=== PATIENT | female | born 2005 | race Caucasian/White ===

== ENCOUNTER 2023-03-12 16:21 | Outpatient (REF) | payer OTHER, SELFPAY | END 2023-03-12 16:22 | LOC: LAB 16:21 | PROVIDERS: PCP Physician Assistant; Visit Provider Physician Assistant | DX: Z34.93 Encounter for supervision of normal pregnancy, unspecified, third trimester (principal) ==

== ENCOUNTER 2023-03-13 15:59 | Outpatient (OUT) | payer OTHER, SELFPAY | END 2023-03-13 16:50 | disposition home or self-care (01) | LOC: LAB 16:41 → FBC 16:44 | PROVIDERS: PCP Physician Assistant; Visit Provider Obstetrics & Gynecology | DX: O36.63X0 Maternal care for excessive fetal growth, third trimester, not applicable or unspecified (principal); Z3A.00 Weeks of gestation of pregnancy not specified | CPT/HCPCS: 59025 ==

== ENCOUNTER 2023-03-16 17:46 | Observation (INO) | payer OTHER, SELFPAY ==
[2023-03-16 18:08] LABS: Bilirubin Urine NEGATIVE (NEGATIVE); Blood Urine NEGATIVE (NEGATIVE); Clarity Urine CLEAR (CLEAR); Color Urine LT. YELLOW (YELLOW); Glucose Urine UA NEGATIVE (NEGATIVE); Ketones Urine NEGATIVE (NEGATIVE); Leukocyte Esterase Urine TRACE (NEGATIVE); Nitrite Urine NEGATIVE (NEGATIVE); Protein Urine NEGATIVE (NEG/TRACE); Urobilinogen Urine 0.2 EU/dL (0.2-1.0)
[2023-03-16 18:09] LABS: Urine Microscopic Indicated YES
[2023-03-16 18:16] LABS: Bacteria Urine TRACE #/HPF (NONE SEEN); Cast Seen? NONE SEEN #/LPF (NONE SEEN); Crystals Seen? None Seen #/HPF (None Seen); Mucus Urine NONE SEEN (NONE SEEN); RBC Urine 0-2 #/HPF (0-2); Squamous Epithelial Cell Urine RARE #/LPF (NONE/RARE); Urine Culture Indicated NO; WBC Urine 0-2 #/HPF (NONE SEEN)
[2023-03-16 18:20] LABS: Amnisure NEGATIVE (NEGATIVE)
[2023-03-16 19:05] VITALS: BP 124/86; PULSE 108; TEMP 36.4
--- NOTE | 2023-03-16 21:06 | PC.NURSE ---
Dr. Tran notified of unchanged SVE, Cat I tracing, ctx pattern, and maternal assessment. Given orders to educate pt on s/s of true labor and discharge home. Pt to call or return with any worsening s/s.
== END 2023-03-16 20:35 | disposition home or self-care (01) ==
PROVIDERS: Admitting Provider Obstetrics & Gynecology; PCP Physician Assistant; Visit Provider Obstetrics & Gynecology
DX: Z03.72 Encounter for suspected placental problem ruled out (principal)
CPT/HCPCS: 81003; 81015; 84112; G0378; G0379

== ENCOUNTER 2023-03-17 16:12 | Outpatient (OUT) | payer OTHER, SELFPAY ==
--- NOTE | 2023-03-17 16:15 | US_ITS ---
[address] [address] Patient Name: SOLO CAMPOS MRN: [facility]:[id number] date: 2005 Sex: F Assigned Patient Location: [facility] Current Patient Location: [facility] [place] Accession/Order Number: [id number] Exam Date: 03/17/2023 16:15 Report Date: 03/18/2023 15:36 At the request of: ZEINAB FAIRCHILD Procedure: US OB BPP w non-stress EXAMINATION: US OB BPP w non-stress HISTORY: O36.63X0 LARGE FOR DATES COMPARISON: Ultrasound biophysical 03/10/2023 TECHNIQUE: Ultrasound biophysical profile was performed in the radiology department. BREATHING MOVEMENTS: 0.0 GROSS BODY MOVEMENTS: 2.0 TONE: 2.0 QUALITATIVE AMNIOTIC FLUID VOLUME: 2.0 PRESENTATION: CEPHALIC HEART RATE: 134.3 bpm bpm. AMNIOTIC FLUID VOLUME: 11.7 cm GESTATIONAL AGE: 37 weeks 3 days CONCLUSION: Total biophysical profile score 6.0. Electronically authenticated by: NE CRUZ Date: 03/18/2023 15:36
[2023-03-17 17:00] VITALS: BP 132/68; PULSE 92
== END 2023-03-17 17:35 | disposition home or self-care (01) ==
LOC: US 16:13 → FBC 16:15
PROVIDERS: PCP Physician Assistant; Visit Provider Obstetrics & Gynecology
DX: O36.63X0 Maternal care for excessive fetal growth, third trimester, not applicable or unspecified (principal); Z3A.37 37 weeks gestation of pregnancy
CPT/HCPCS: 59025; 76818

== ENCOUNTER 2023-03-18 16:25 | Outpatient (OUT) | payer OTHER, SELFPAY ==
--- NOTE | 2023-03-18 16:32 | US_ITS ---
[address] [address] Patient Name: SOLO CAMPOS MRN: [facility]:[id number] date: 2005 Sex: F Assigned Patient Location: [facility] Current Patient Location: Accession/Order Number: [id number] Exam Date: 03/18/2023 16:30 Report Date: 03/19/2023 15:10 At the request of: TYLER ROBERTS Procedure: US OB BPP w non-stress EXAMINATION: US OB BPP w non-stress HISTORY: repeat COMPARISON: Ultrasound biophysical 03/17/2023 TECHNIQUE: Ultrasound biophysical profile was performed in the radiology department. BREATHING MOVEMENTS: 2.0 GROSS BODY MOVEMENTS: 2.0 TONE: 2.0 QUALITATIVE AMNIOTIC FLUID VOLUME: 2.0 PRESENTATION: CEPHALIC HEART RATE: 131.7 bpm bpm. AMNIOTIC FLUID VOLUME: 14.4 cm GESTATIONAL AGE: 37 weeks 4 days CONCLUSION: Total biophysical profile score 8.0. Electronically authenticated by: NE CRUZ Date: 03/19/2023 15:10
== END 2023-03-18 17:31 | disposition home or self-care (01) ==
LOC: FBCO 16:28 → FBC 16:33
PROVIDERS: PCP Physician Assistant; Visit Provider Obstetrics & Gynecology
DX: O36.63X0 Maternal care for excessive fetal growth, third trimester, not applicable or unspecified (principal); Z3A.37 37 weeks gestation of pregnancy
CPT/HCPCS: 76818

== ENCOUNTER 2023-03-20 15:57 | Outpatient (OUT) | payer OTHER, SELFPAY ==
[2023-03-20 16:16] VITALS: BP 138/63; PULSE 95
== END 2023-03-20 17:00 | disposition home or self-care (01) ==
LOC: FBCO 15:57 → FBC 15:59
PROVIDERS: PCP Physician Assistant; Visit Provider Obstetrics & Gynecology
DX: O36.63X0 Maternal care for excessive fetal growth, third trimester, not applicable or unspecified (principal); Z3A.00 Weeks of gestation of pregnancy not specified
CPT/HCPCS: 59025

== ENCOUNTER 2023-03-24 14:47 | Inpatient (IN) | payer OTHER, SELFPAY ==
[2023-03-24 11:14] VITALS: BP 132/86; PULSE 101
--- NOTE | 2023-03-24 11:29 | US_ITS ---
[address] [address] Patient Name: SOLO CAMPOS MRN: [facility]:[id number] date: 2005 Sex: F Assigned Patient Location: [facility] Current Patient Location: [facility] Accession/Order Number: [id number] Exam Date: 03/24/2023 12:10 Report Date: 03/24/2023 15:43 At the request of: ZEINAB FAIRCHILD Procedure: US OB BPP w non-stress EXAMINATION: US OB BPP w non-stress HISTORY: Large for dates complicating in third trimester COMPARISON: Ultrasound biophysical profile 03/18/2023 TECHNIQUE: Ultrasound biophysical profile was performed in the radiology department. BREATHING MOVEMENTS: 2.0 GROSS BODY MOVEMENTS: 2.0 TONE: 2.0 QUALITATIVE AMNIOTIC FLUID VOLUME: 2.0 PRESENTATION: Cephalic HEART RATE: 139.2 bpm bpm. AMNIOTIC FLUID VOLUME: 13.4 cm GESTATIONAL AGE: 38 weeks 3 days CONCLUSION: 1. Total biophysical profile score 8.0. 2. Grade 3 placenta. Electronically authenticated by: NE CRUZ Date: 03/24/2023 15:43
[2023-03-24 11:41] VITALS: BP 129/82; PULSE 88
[2023-03-24 12:00] VITALS: BP 126/77; PULSE 95
[2023-03-24 12:09] LABS: Bilirubin Urine NEGATIVE (NEGATIVE); Blood Urine SMALL (NEGATIVE); Color Urine LT. YELLOW (YELLOW); Glucose Urine UA NEGATIVE (NEGATIVE); Ketones Urine NEGATIVE (NEGATIVE); Leukocyte Esterase Urine MODERATE (NEGATIVE); Nitrite Urine NEGATIVE (NEGATIVE); Protein Urine NEGATIVE (NEG/TRACE); Urobilinogen Urine 0.2 EU/dL (0.2-1.0); pH Urine 6.5 (5.0-9.0)
[2023-03-24 12:42] LABS: Clarity Urine SLIGHTLY CLOUDY (CLEAR); Urine Microscopic Indicated YES
[2023-03-24 12:45] LABS: Bacteria Urine SMALL #/HPF (NONE SEEN); Mucus Urine NONE SEEN (NONE SEEN)
[2023-03-24 12:46] LABS: Cast Seen? NONE SEEN #/LPF (NONE SEEN); Crystals Seen? None Seen #/HPF (None Seen); Squamous Epithelial Cell Urine MANY #/LPF (NONE/RARE); Transitional Epi Cells Urine RARE #/LPF (NONE SEEN); Urine Culture Indicated YES
[2023-03-24 18:40] LABS: Amphetamine Screen Urine NEGATIVE (NEGATIVE); Barbiturates Screen Urine NEGATIVE (NEGATIVE); Benzodiazepines Screen Urine NEGATIVE (NEGATIVE); Buprenorphine Screen Urine NEGATIVE (NEGATIVE); Cannabinoid Screen Urine NEGATIVE (NEGATIVE); Cocaine Screen Urine NEGATIVE (NEGATIVE); Methadone Screen Urine NEGATIVE (NEGATIVE); Methamphetamines Screen Urine NEGATIVE (NEGATIVE); Opiate Screen Urine NEGATIVE (NEGATIVE); Oxycodone Screen Urine NEGATIVE (NEGATIVE); Phencyclidine Screen Urine NEGATIVE (NEGATIVE); Tricyclic Antidepressant Urine NEGATIVE (NEGATIVE)
[2023-03-24 18:54] LABS: Basophils Percent Auto 0.3 % (0.2-2.0); Eosinophils Percent Auto 0.3 % (0.9-7.0); Hematocrit 34.8 % (36.0-48.0); Hemoglobin 11.1 g/dL (12.0-16.0); Immature Granulocytes Abs Auto 0.07 10^3/uL (0.00-0.03); Immature Granulocytes Pct Auto 0.7 % (0.0-0.5); Lymphocytes Absolute Auto 1.8 10^3/uL (1.2-3.8); Lymphocytes Percent Auto 18.6 % (20.5-60.0); Mean Corpuscular HGB Conc 31.9 g/dL (29.9-35.2); Mean Corpuscular Hemoglobin 24.8 pg (26.7-34.0); Mean Corpuscular Volume 77.9 fL (81.0-99.0); Mean Platelet Volume 11.5 fL (9.5-13.5); Monocytes Absolute Auto 0.9 10^3/uL (0.3-0.8); Monocytes Percent Auto 9.4 % (1.7-12.0); Neutrophils Absolute Auto 6.9 10^3/uL (1.4-6.5); Neutrophils Percent Auto 70.7 % (43.0-75.0); Platelet Count 186 10^3/uL (150-450); Red Blood Count 4.47 10^6/uL (4.20-5.40); Red Cell Distribution Width 16.8 % (11.0-15.0); White Blood Count 9.8 10^3/uL (4.0-11.0)
--- NOTE | 2023-03-24 19:24 | W.PC.ACHO ---
Registration Status: ADM IN Primary Language: Estonian Preferred Language: Estonian Active Medications Generic Name Dose Route Start Last Admin Trade Name Phill PRN Reason Stop Dose Admin Carboprost Tromethamine 250 mcg 03/24/23 17:52 Carboprost Tromethamine 250 Mcg/Ml 1 Ml Vial IM Q15M PRN Bleeding Sodium Chloride 1,000 mls @ 125 mls/hr 03/24/23 18:00 Sodium Chloride 0.9% 1,000 Ml IV .Q8H PRN Labor Induction Oxytocin 10 unit/ Sodium 501 mls @ 6.012 mls/hr 03/25/23 06:00 Chloride IV Q24H YANCI 2 MILLIUNIT/MIN Vancomycin HCl 1,000 mg/ 250 mls @ 250 mls/hr 03/25/23 06:00 Sodium Chloride IV Q12H YANCI Lidocaine 5 ml 03/24/23 17:52 Lidocaine Viscous 2% 15 Ml Topical Solution TOPICAL ONCE PRN Pain Lidocaine 1 ml 03/24/23 17:52 Lidocaine Hcl 1% 200 Mg/20 Ml Mdv INJ ONCE PRN Pain Methylergonovine Maleate 0.2 mg 03/24/23 17:52 Methylergonovine Maleate 0.2 Mg/Ml Ampule IM ONCE PRN Uterine Contractility/Contract Methylergonovine Maleate 0.2 mg 03/24/23 17:52 Methylergonovine Maleate 0.2 Mg Tablet PO Q4H PRN Uterine Contractility/Contract Misoprostol 600 mcg 03/24/23 17:52 Misoprostol 100 Mcg Tablet PO ONCE PRN Uterine Bleeding Misoprostol 800 mcg 03/24/23 17:52 Misoprostol 100 Mcg Tablet SL ONCE PRN Uterine Bleeding Misoprostol 1,000 mcg 03/24/23 17:52 Misoprostol 100 Mcg Tablet [place] ONCE PRN Uterine Bleeding Nalbuphine HCl 10 mg 03/24/23 17:52 Nalbuphine Hcl 10 Mg/Ml Ampule IV Q3H PRN Pain Ondansetron HCl 4 mg 03/24/23 17:52 Ondansetron Pf 4 Mg/2 Ml Vial IV Q6H PRN Nausea And Vomiting Ondansetron HCl 4 mg 03/24/23 17:52 Ondansetron 4 Mg Rapdis Tablet SL Q6H PRN Nausea And Vomiting Oxytocin 10 unit 03/24/23 17:52 Oxytocin 100 Unit/10 Ml Vial IM ONCE PRN Uterine Bleeding Diet Category Date Time Status Clear Liquid Diet Diet 03/25/23 Breakfast Active Regular Consistency Diet Diet 03/24/23 Lunch Active Consults Category Date Time Status Consult to Anesthesiology Routine Cons 03/24/23 Ordered IV Insertion/Site Date of IV Line Insertion [20g 03/24/23 left Hand] IV Insertion Time [20g left 18:36 Hand] Neurology Patient orientation (short person,place,time,situation list) Respiratory Oxygen Delivery Method Room Air
--- NOTE | 2023-03-24 19:34 | W.PC.ACHO ---
Registration Status: ADM IN Primary Language: Singaporean Preferred Language: Singaporean Report recieved from Jace CARIAS. Bedside report completed. Active Medications Generic Name Dose Route Start Last Admin Trade Name Phill PRN Reason Stop Dose Admin Carboprost Tromethamine 250 mcg 03/24/23 17:52 Carboprost Tromethamine 250 Mcg/Ml 1 Ml Vial IM Q15M PRN Bleeding Sodium Chloride 1,000 mls @ 125 mls/hr 03/24/23 18:00 Sodium Chloride 0.9% 1,000 Ml IV .Q8H PRN Labor Induction Oxytocin 10 unit/ Sodium 501 mls @ 6.012 mls/hr 03/25/23 06:00 Chloride IV Q24H YANCI 2 MILLIUNIT/MIN Vancomycin HCl 1,000 mg/ 250 mls @ 250 mls/hr 03/25/23 06:00 Sodium Chloride IV Q12H YANCI Lidocaine 5 ml 03/24/23 17:52 Lidocaine Viscous 2% 15 Ml Topical Solution TOPICAL ONCE PRN Pain Lidocaine 1 ml 03/24/23 17:52 Lidocaine Hcl 1% 200 Mg/20 Ml Mdv INJ ONCE PRN Pain Methylergonovine Maleate 0.2 mg 03/24/23 17:52 Methylergonovine Maleate 0.2 Mg/Ml Ampule IM ONCE PRN Uterine Contractility/Contract Methylergonovine Maleate 0.2 mg 03/24/23 17:52 Methylergonovine Maleate 0.2 Mg Tablet PO Q4H PRN Uterine Contractility/Contract Misoprostol 600 mcg 03/24/23 17:52 Misoprostol 100 Mcg Tablet PO ONCE PRN Uterine Bleeding Misoprostol 800 mcg 03/24/23 17:52 Misoprostol 100 Mcg Tablet SL ONCE PRN Uterine Bleeding Misoprostol 1,000 mcg 03/24/23 17:52 Misoprostol 100 Mcg Tablet [place] ONCE PRN Uterine Bleeding Nalbuphine HCl 10 mg 03/24/23 17:52 Nalbuphine Hcl 10 Mg/Ml Ampule IV Q3H PRN Pain Ondansetron HCl 4 mg 03/24/23 17:52 Ondansetron Pf 4 Mg/2 Ml Vial IV Q6H PRN Nausea And Vomiting Ondansetron HCl 4 mg 03/24/23 17:52 Ondansetron 4 Mg Rapdis Tablet SL Q6H PRN Nausea And Vomiting Oxytocin 10 unit 03/24/23 17:52 Oxytocin 100 Unit/10 Ml Vial IM ONCE PRN Uterine Bleeding Diet Category Date Time Status Clear Liquid Diet Diet 03/25/23 Breakfast Active Regular Consistency Diet Diet 03/24/23 Lunch Active Consults Category Date Time Status Consult to Anesthesiology Routine Cons 03/24/23 Ordered IV Insertion/Site Date of IV Line Insertion [20g 03/24/23 left Hand] IV Insertion Time [20g left 18:36 Hand] Neurology Patient orientation (short person,place,time,situation list) Respiratory Oxygen Delivery Method Room Air
[2023-03-24 20:05] VITALS: BP 128/80; PULSE 88
[2023-03-25] VITALS (44 sets, daily range): BP systolic 110–159; BP diastolic 55–92; PULSE 81–137; RESP 16–24; TEMP 35.9–37.6
--- NOTE | 2023-03-25 05:47 | PC.NURSE ---
Pt requests to shower prior to Pitocin start. Pt Iv site covered. Pt showering at this time.
--- NOTE | 2023-03-25 05:51 | PC.NURSE ---
0530- Cervical exam. Cervix unchanged. 1-2cm; 60%; -2. Sm dark brown vaginal discharge with exam. Pt reports no contractions at this time.
[2023-03-25] MEDS: 0.9 % SODIUM CHLORIDE 1,000 ML 125 ML IV ×2 (06:01→16:15)
[2023-03-25] MEDS: VANCOMYCIN HCL 1,000 MG in 0.9 % SODIUM CHLORIDE 250 ML 250 MG IV ×2 (06:08→17:32)
[2023-03-25] MEDS: OXYTOCIN 10 UNIT in 0.9 % SODIUM CHLORIDE 500 ML 6.012 UNIT IV (06:30)
--- NOTE | 2023-03-25 07:32 | W.PC.ACHO ---
Registration Status: ADM IN Primary Language: Kuwaiti Preferred Language: Kuwaiti Report given to Marilynn Byrne RN. Active Medications Generic Name Dose Route Start Last Admin Trade Name Phill PRN Reason Stop Dose Admin Carboprost Tromethamine 250 mcg 03/24/23 17:52 Carboprost Tromethamine 250 Mcg/Ml 1 Ml Vial IM Q15M PRN Bleeding Sodium Chloride 1,000 mls @ 125 mls/hr 03/24/23 18:00 03/25/23 06:01 Sodium Chloride 0.9% 1,000 Ml IV 125 mls/hr .Q8H PRN Administration Labor Induction Oxytocin 10 unit/ Sodium 501 mls @ 6.012 mls/hr 03/25/23 06:00 03/25/23 06:30 Chloride IV 2 milliunit/min Q24H YANCI 6.012 mls/hr Administration 2 MILLIUNIT/MIN Vancomycin HCl 1,000 mg/ 250 mls @ 250 mls/hr 03/25/23 06:00 03/25/23 06:08 Sodium Chloride IV 250 mls/hr Q12H YANCI 250 mls/hr Administration Sodium Chloride 1,000 mls @ 125 mls/hr 03/25/23 05:30 Sodium Chloride 0.9% 1,000 Ml IV .Q8H YANCI Oxytocin 20 unit/ Sodium 1,002 mls @ 125 mls/hr 03/25/23 05:30 Chloride IV 03/25/23 13:29 Q8H YANCI Protocol Lidocaine 5 ml 03/24/23 17:52 Lidocaine Viscous 2% 15 Ml Topical Solution TOPICAL ONCE PRN Pain Lidocaine 1 ml 03/24/23 17:52 Lidocaine Hcl 1% 200 Mg/20 Ml Mdv INJ ONCE PRN Pain Methylergonovine Maleate 0.2 mg 03/24/23 17:52 Methylergonovine Maleate 0.2 Mg/Ml Ampule IM ONCE PRN Uterine Contractility/Contract Methylergonovine Maleate 0.2 mg 03/24/23 17:52 Methylergonovine Maleate 0.2 Mg Tablet PO Q4H PRN Uterine Contractility/Contract Misoprostol 600 mcg 03/24/23 17:52 Misoprostol 100 Mcg Tablet PO ONCE PRN Uterine Bleeding Misoprostol 800 mcg 03/24/23 17:52 Misoprostol 100 Mcg Tablet SL ONCE PRN Uterine Bleeding Misoprostol 1,000 mcg 03/24/23 17:52 Misoprostol 100 Mcg Tablet [place] ONCE PRN Uterine Bleeding Nalbuphine HCl 10 mg 03/24/23 17:52 Nalbuphine Hcl 10 Mg/Ml Ampule IV Q3H PRN Pain Ondansetron HCl 4 mg 03/24/23 17:52 Ondansetron Pf 4 Mg/2 Ml Vial IV Q6H PRN Nausea And Vomiting Ondansetron HCl 4 mg 03/24/23 17:52 Ondansetron 4 Mg Rapdis Tablet SL Q6H PRN Nausea And Vomiting Oxytocin 10 unit 03/24/23 17:52 Oxytocin 100 Unit/10 Ml Vial IM ONCE PRN Uterine Bleeding Diet Category Date Time Status Clear Liquid Diet Diet 03/25/23 Breakfast Active IV Insertion/Site Date of IV Line Insertion [20g 03/24/23 left Hand] IV Insertion Time [20g left 18:36 Hand] Neurology Patient orientation (short person,place,time,situation list) Respiratory Oxygen Delivery Method Room Air
[2023-03-25] MEDS: NALBUPHINE HCL 10 MG/ML AMPULE IV (12:59)
[2023-03-25] MEDS: 0.9 % SODIUM CHLORIDE 1,000 ML 1000 ML IV (13:22)
[2023-03-25] MEDS: ROPIVACAINE HCL/PF 400 MG/200 ML PREMIX 10 MG EPIDURAL (14:37)
[2023-03-25] MEDS: FENTANYL CITRATE/PF 100 MCG/2 ML VIAL EPIDURAL (14:40)
--- NOTE | 2023-03-25 17:58 | PC.NURSE ---
CF IN 175
--- NOTE | 2023-03-25 18:49 | PM.OBPRCVD ---
Procedure Induction method: per pitocin protocol Delivery augmentation: pitocin Delivery monitor: external FHT and external uterine Route of delivery: Episiotomy Description: left mediolateral Laceration description: periurethral - 2nd degree Delivery repair: Vicryl Estimated blood loss (mL): 350 Anesthesia type: Epidural Disposition: floor Delivery date: 03/25/23 Gender: male presentation: vertex Placental delivery description: Spontaneous cord description: 3 Vessels cord description comment: EFM off for epidural
[2023-03-25] MEDS: KETOROLAC TROMETHAMINE 30 MG/ML VIAL IVP (19:05)
--- NOTE | 2023-03-25 19:26 | W.PC.ACHO ---
Registration Status: ADM IN Primary Language: Kittitian Preferred Language: Kittitian Active Medications Generic Name Dose Route Start Last Admin Trade Name Freq PRN Reason Stop Dose Admin Acetaminophen 650 mg 03/25/23 18:47 Acetaminophen 325 Mg Tablet PO Q6H PRN Mild Pain Al Hydroxide/Mg Hydroxide 2,400 mg 03/25/23 18:47 Magnesium Hydroxide 2,400 Mg/10 Ml Oral.Susp PO Q6H PRN Dyspepsia Benzocaine/Menthol 1 applic 03/25/23 18:47 Benzocaine/Menthol 85 Gram Bottle TOPICAL Q2H PRN Pain Carboprost Tromethamine 250 mcg 03/24/23 17:52 Carboprost Tromethamine 250 Mcg/Ml 1 Ml Vial IM Q15M PRN Bleeding Diphenhydramine HCl 25 mg 03/25/23 11:19 Diphenhydramine Hcl 50 Mg/Ml (1ml) Vial IV Q6H PRN Itching Docusate Sodium 100 mg 03/26/23 09:00 Docusate Sodium 100 Mg Capsule PO BID YANCI Ephedrine Sulfate 5 mg 03/25/23 11:19 Ephedrine Sulfate 50 Mg/Ml Vial IV Q5M PRN Blood Pressure - Low Fentanyl Citrate 100 mcg 03/25/23 11:19 03/25/23 14:40 Fentanyl Citrate/Pf 100 Mcg/2 Ml Vial EPIDURAL 100 mcg Q4H PRN Administration Pain Sodium Chloride 1,000 mls @ 125 mls/hr 03/24/23 18:00 03/25/23 06:01 Sodium Chloride 0.9% 1,000 Ml IV 125 mls/hr .Q8H PRN Administration Labor Induction Oxytocin 10 unit/ Sodium 501 mls @ 6.012 mls/hr 03/25/23 06:00 03/25/23 06:30 Chloride IV 2 milliunit/min Q24H YANCI 6.012 mls/hr Administration 2 MILLIUNIT/MIN Vancomycin HCl 1,000 mg/ 250 mls @ 250 mls/hr 03/25/23 06:00 03/25/23 17:32 Sodium Chloride IV 250 mls/hr Q12H YANCI 250 mls/hr Administration Sodium Chloride 1,000 mls @ 125 mls/hr 03/25/23 05:30 03/25/23 16:15 Sodium Chloride 0.9% 1,000 Ml IV 125 mls/hr .Q8H YANCI Administration Ropivacaine/Sodium Chloride 400 mg in 200 mls @ 6 mls/hr 03/25/23 11:30 03/25/23 14:37 Naropin 0.2% 400 Mg/200 Ml Bag EPIDURAL 10 mls/hr Q24H YANCI 10 mls/hr Administration Oxytocin 20 unit/ Sodium 1,002 mls @ 125 mls/hr 03/25/23 19:00 Chloride IV 03/26/23 02:59 Q8H YANCI Ibuprofen 600 mg 03/25/23 18:47 Ibuprofen 600 Mg Tablet PO Q6H PRN Moderate Pain Lidocaine 5 ml 03/24/23 17:52 Lidocaine Viscous 2% 15 Ml Topical Solution TOPICAL ONCE PRN Pain Lidocaine 1 ml 03/24/23 17:52 Lidocaine Hcl 1% 200 Mg/20 Ml Mdv INJ ONCE PRN Pain Lidocaine 5 ml 03/25/23 11:19 Lidocaine Hcl 2% Pf 100 Mg/5 Ml Vial INJ Q1H PRN procedure prep Methylergonovine Maleate 0.2 mg 03/24/23 17:52 Methylergonovine Maleate 0.2 Mg/Ml Ampule IM ONCE PRN Uterine Contractility/Contract Methylergonovine Maleate 0.2 mg 03/24/23 17:52 Methylergonovine Maleate 0.2 Mg Tablet PO Q4H PRN Uterine Contractility/Contract Misoprostol 600 mcg 03/24/23 17:52 Misoprostol 100 Mcg Tablet PO ONCE PRN Uterine Bleeding Misoprostol 800 mcg 03/24/23 17:52 Misoprostol 100 Mcg Tablet SL ONCE PRN Uterine Bleeding Misoprostol 1,000 mcg 03/24/23 17:52 [address] ONCE PRN Uterine Bleeding Nalbuphine HCl 10 mg 03/24/23 17:52 03/25/23 12:59 Nalbuphine Hcl 10 Mg/Ml Ampule IV 10 mg Q3H PRN Administration Pain Naloxone HCl 0.4 mg 03/25/23 11:19 Naloxone Hcl 0.4 Mg/Ml Vial IV ONCE PRN respiratory depression Ondansetron HCl 4 mg 03/24/23 17:52 Ondansetron Pf 4 Mg/2 Ml Vial IV Q6H PRN Nausea And Vomiting Ondansetron HCl 4 mg 03/24/23 17:52 Ondansetron 4 Mg Rapdis Tablet SL Q6H PRN Nausea And Vomiting Oxytocin 10 unit 03/24/23 17:52 Oxytocin 100 Unit/10 Ml Vial IM ONCE PRN Uterine Bleeding Senna 17.2 mg 03/25/23 20:00 Sennosides 8.6 Mg Tablet PO QHS PRN Constipation Simethicone 80 mg 03/25/23 18:47 Simethicone 80 Mg Tab.Chew PO QID PRN Abdominal Distention Temazepam 15 mg 03/25/23 20:00 Temazepam 15 Mg Capsule PO BEDTIME PRN Sleep Witch Carolyn/Glycerin 1 each 03/25/23 18:47 Glycerin/Witch Carolyn 1 Each Jar TOPICAL Q6H PRN Pain Diet Category Date Time Status Regular Consistency Diet Diet 03/25/23 Dinner Active IV Insertion/Site Date of IV Line Insertion [20g 03/24/23 left Hand] Date of IV Line Insertion [20g 03/24/23 left Hand] IV Insertion Time [20g left 18:36 Hand] IV Insertion Time [20g left 18:36 Hand] Neurology [place] coma scale total score 13 Respiratory Oxygen Delivery Method Room Air
[2023-03-25] MEDS: ACETAMINOPHEN 325 MG TABLET 650 MG PO (20:35)
[2023-03-26] VITALS (9 sets, daily range): BP systolic 131–167; BP diastolic 71–84; PULSE 96–112; RESP 16–24; TEMP 36.1–36.9
[2023-03-26] MEDS: IBUPROFEN 600 MG TABLET PO ×4 (01:21→22:53)
[2023-03-26] MEDS: ACETAMINOPHEN 325 MG TABLET 650 MG PO (02:17)
[2023-03-26 06:36] LABS: Basophils Percent Auto 0.3 % (0.2-2.0); Eosinophils Percent Auto 0.3 % (0.9-7.0); Hematocrit 30.2 % (36.0-48.0); Hemoglobin 9.6 g/dL (12.0-16.0); Immature Granulocytes Abs Auto 0.08 10^3/uL (0.00-0.03); Immature Granulocytes Pct Auto 0.7 % (0.0-0.5); Lymphocytes Absolute Auto 1.6 10^3/uL (1.2-3.8); Lymphocytes Percent Auto 13.8 % (20.5-60.0); Mean Corpuscular HGB Conc 31.8 g/dL (29.9-35.2); Mean Corpuscular Hemoglobin 24.6 pg (26.7-34.0); Mean Corpuscular Volume 77.2 fL (81.0-99.0); Mean Platelet Volume 11.7 fL (9.5-13.5); Monocytes Absolute Auto 1.1 10^3/uL (0.3-0.8); Monocytes Percent Auto 9.5 % (1.7-12.0); Neutrophils Absolute Auto 8.9 10^3/uL (1.4-6.5); Neutrophils Percent Auto 75.4 % (43.0-75.0); Platelet Count 162 10^3/uL (150-450); Red Blood Count 3.91 10^6/uL (4.20-5.40); Red Cell Distribution Width 16.9 % (11.0-15.0); White Blood Count 11.9 10^3/uL (4.0-11.0)
--- NOTE | 2023-03-26 07:50 | W.PC.ACHO ---
Registration Status: ADM IN Primary Language: Surinamese Preferred Language: Surinamese Report [id number] 03/26/2023. Report given to Marilynn Day. Active Medications Generic Name Dose Route Start Last Admin Trade Name Freq PRN Reason Stop Dose Admin Acetaminophen 650 mg 03/25/23 18:47 03/26/23 02:17 Acetaminophen 325 Mg Tablet PO 650 mg Q6H PRN Administration Mild Pain Al Hydroxide/Mg Hydroxide 2,400 mg 03/25/23 18:47 Magnesium Hydroxide 2,400 Mg/10 Ml Oral.Susp PO Q6H PRN Dyspepsia Benzocaine/Menthol 1 applic 03/25/23 18:47 03/25/23 20:35 Benzocaine/Menthol 85 Gram Bottle TOPICAL 1 applic Q2H PRN Administration Pain Carboprost Tromethamine 250 mcg 03/24/23 17:52 Carboprost Tromethamine 250 Mcg/Ml 1 Ml Vial IM Q15M PRN Bleeding Diphenhydramine HCl 25 mg 03/25/23 11:19 Diphenhydramine Hcl 50 Mg/Ml (1ml) Vial IV Q6H PRN Itching Docusate Sodium 100 mg 03/26/23 09:00 Docusate Sodium 100 Mg Capsule PO BID YANCI Ephedrine Sulfate 5 mg 03/25/23 11:19 Ephedrine Sulfate 50 Mg/Ml Vial IV Q5M PRN Blood Pressure - Low Fentanyl Citrate 100 mcg 03/25/23 11:19 03/25/23 14:40 Fentanyl Citrate/Pf 100 Mcg/2 Ml Vial EPIDURAL 100 mcg Q4H PRN Administration Pain Sodium Chloride 1,000 mls @ 125 mls/hr 03/24/23 18:00 03/25/23 06:01 Sodium Chloride 0.9% 1,000 Ml IV 125 mls/hr .Q8H PRN Administration Labor Induction Oxytocin 10 unit/ Sodium 501 mls @ 6.012 mls/hr 03/25/23 06:00 03/25/23 06:30 Chloride IV 2 milliunit/min Q24H YANCI 6.012 mls/hr Administration 2 MILLIUNIT/MIN Vancomycin HCl 1,000 mg/ 250 mls @ 250 mls/hr 03/25/23 06:00 03/25/23 17:32 Sodium Chloride IV 250 mls/hr Q12H YANCI 250 mls/hr Administration Sodium Chloride 1,000 mls @ 125 mls/hr 03/25/23 05:30 03/25/23 16:15 Sodium Chloride 0.9% 1,000 Ml IV 125 mls/hr .Q8H YANCI Administration Ropivacaine/Sodium Chloride 400 mg in 200 mls @ 6 mls/hr 03/25/23 11:30 03/25/23 14:37 Naropin 0.2% 400 Mg/200 Ml Bag EPIDURAL 10 mls/hr Q24H YANCI 10 mls/hr Administration Ibuprofen 600 mg 03/25/23 18:47 03/26/23 01:21 Ibuprofen 600 Mg Tablet PO 600 mg Q6H PRN Administration Moderate Pain Lidocaine 5 ml 03/24/23 17:52 Lidocaine Viscous 2% 15 Ml Topical Solution TOPICAL ONCE PRN Pain Lidocaine 1 ml 03/24/23 17:52 Lidocaine Hcl 1% 200 Mg/20 Ml Mdv INJ ONCE PRN Pain Lidocaine 5 ml 03/25/23 11:19 Lidocaine Hcl 2% Pf 100 Mg/5 Ml Vial INJ Q1H PRN procedure prep Methylergonovine Maleate 0.2 mg 03/24/23 17:52 Methylergonovine Maleate 0.2 Mg/Ml Ampule IM ONCE PRN Uterine Contractility/Contract Methylergonovine Maleate 0.2 mg 03/24/23 17:52 Methylergonovine Maleate 0.2 Mg Tablet PO Q4H PRN Uterine Contractility/Contract Misoprostol 600 mcg 03/24/23 17:52 Misoprostol 100 Mcg Tablet PO ONCE PRN Uterine Bleeding Misoprostol 800 mcg 03/24/23 17:52 Misoprostol 100 Mcg Tablet SL ONCE PRN Uterine Bleeding Misoprostol 1,000 mcg 03/24/23 17:52 Misoprostol 100 Mcg Tablet [place] ONCE PRN Uterine Bleeding Nalbuphine HCl 10 mg 03/24/23 17:52 03/25/23 12:59 Nalbuphine Hcl 10 Mg/Ml Ampule IV 10 mg Q3H PRN Administration Pain Naloxone HCl 0.4 mg 03/25/23 11:19 Naloxone Hcl 0.4 Mg/Ml Vial IV ONCE PRN respiratory depression Ondansetron HCl 4 mg 03/24/23 17:52 Ondansetron Pf 4 Mg/2 Ml Vial IV Q6H PRN Nausea And Vomiting Ondansetron HCl 4 mg 03/24/23 17:52 Ondansetron 4 Mg Rapdis Tablet SL Q6H PRN Nausea And Vomiting Oxytocin 10 unit 03/24/23 17:52 Oxytocin 100 Unit/10 Ml Vial IM ONCE PRN Uterine Bleeding Senna 17.2 mg 03/25/23 20:00 Sennosides 8.6 Mg Tablet PO QHS PRN Constipation Simethicone 80 mg 03/25/23 18:47 Simethicone 80 Mg Tab.Chew PO QID PRN Abdominal Distention Temazepam 15 mg 03/25/23 20:00 Temazepam 15 Mg Capsule PO BEDTIME PRN Sleep Witch Carolyn/Glycerin 1 each 03/25/23 18:47 03/25/23 20:35 Glycerin/Witch Carolyn 1 Each Jar TOPICAL 1 each Q6H PRN Administration Pain Diet Category Date Time Status Regular Consistency Diet Diet 03/25/23 Dinner Active IV Insertion/Site Date of IV Line Insertion [20g 03/24/23 left Hand] IV Insertion Time [20g left 18:36 Hand] Neurology [place] coma scale total score 15 [place] coma scale total score 13 Respiratory Oxygen Delivery Method Room Air Renal Bladder Pattern Continent
[2023-03-26] MEDS: DOCUSATE SODIUM 100 MG CAPSULE PO ×2 (09:08→22:53)
--- NOTE | 2023-03-26 13:13 | PM.OBPN ---
OB - PN: Subj Subjective Patient comments: no complaints and pain well controlled Exam Constitutional Vital Signs - 24 hr 03/25/23 13:35 03/25/23 14:05 03/25/23 14:12 Temperature Pulse Rate 93 H 93 H 96 H Respiratory Rate Blood Pressure 148/87 H 137/80 H 156/81 H Blood Pressure [Right Arm] Oxygen Delivery Method 03/25/23 14:13 03/25/23 14:35 03/25/23 15:05 Temperature Pulse Rate 89 91 H 81 Respiratory Rate Blood Pressure 151/79 H 136/78 H 132/76 H Blood Pressure [Right Arm] Oxygen Delivery Method 03/25/23 15:34 03/25/23 16:05 03/25/23 17:04 Temperature Pulse Rate 89 88 89 Respiratory Rate Blood Pressure 137/78 H 139/81 H 110/60 Blood Pressure [Right Arm] Oxygen Delivery Method 03/25/23 17:36 03/25/23 18:04 03/25/23 18:34 Temperature Pulse Rate 108 H 137 H 130 H Respiratory Rate Blood Pressure 159/92 H 137/80 H 143/77 H Blood Pressure [Right Arm] Oxygen Delivery Method 03/25/23 18:50 03/25/23 18:52 03/25/23 19:05 Temperature Pulse Rate 130 H 126 H 106 H Respiratory Rate Blood Pressure 147/75 H 146/78 H 149/77 H Blood Pressure [Right Arm] Oxygen Delivery Method 03/25/23 19:20 03/25/23 19:35 03/25/23 19:50 Temperature Pulse Rate 111 H 106 H 125 H Respiratory Rate Blood Pressure 148/88 H 140/78 H 141/67 H Blood Pressure [Right Arm] Oxygen Delivery Method 03/25/23 20:05 03/25/23 20:20 03/25/23 20:35 Temperature Pulse Rate 122 H 129 H 113 H Respiratory Rate Blood Pressure 137/65 H 131/59 H 143/67 H Blood Pressure [Right Arm] Oxygen Delivery Method 03/25/23 20:57 03/25/23 23:36 03/26/23 04:57 Temperature 97.2 F L 97.0 F L Pulse Rate 120 H 103 H 101 H Respiratory Rate Blood Pressure 135/78 H 136/86 H 142/81 H Blood Pressure [Right Arm] Oxygen Delivery Method 03/26/23 08:58 03/25/23 19:35 03/25/23 20:56 Temperature 99.6 F 99.4 F Pulse Rate 96 H Respiratory Rate 18 18 Blood Pressure 136/84 H Blood Pressure [Right Arm] Oxygen Delivery Method 03/25/23 23:36 03/25/23 23:36 03/26/23 04:30 Temperature 97.1 F L Pulse Rate 103 H Respiratory Rate 16 16 16 Blood Pressure Blood Pressure [Right Arm] 136/86 H Oxygen Delivery Method Room Air 03/26/23 09:00 Temperature 98.4 F Pulse Rate Respiratory Rate 24 Blood Pressure Blood Pressure [Right Arm] Oxygen Delivery Method Documenting provider has reviewed patient's vital signs: yes Common normals: no apparent distress Respiratory Common normals: normal respiratory effort and clear to auscultation bilaterally Cardio Common normals: regular rate and regular rhythm GI Common normals: Normal to inspection, nondistended, normoactive bowel sounds present Extremity Common normals: no clubbing, cyanosis or edema and no calf tenderness Results Labs Labs: Short CBC 03/26/23 Range/Units 06:20 WBC 11.9 H (4.0-11.0) 10^3/uL Hgb 9.6 L (12.0-16.0) g/dL Hct 30.2 L (36.0-48.0) % Plt Count 162 (150-450) 10^3/uL OB - PN: A/P Plan - Vaginal Delivery day: 1 Plan: routine care Time Spent with Patient Time: Total time spent is greater than 50% in coordination of care (as documented) at patient's floor/unit and/or counseling patient: Total time spent with greater than 50% in coordination of care (as documented) at patient's floor/unit and/or counseling patient: less than 15 minutes
[2023-03-27] VITALS (9 sets, daily range): BP systolic 134–135; BP diastolic 76–85; PULSE 84–101; RESP 16–20; TEMP 36.3–37.2
--- NOTE | 2023-03-27 01:13 | PM.OBPN ---
OB - PN: Subj Subjective Patient comments: no complaints and pain well controlled Exam Constitutional Vital Signs - 24 hr 03/26/23 04:57 03/26/23 08:58 03/26/23 18:07 Temperature 97.0 F L Pulse Rate 101 H 96 H 112 H Respiratory Rate Blood Pressure 142/81 H 136/84 H 167/73 H Blood Pressure [Right Arm] Oxygen Delivery Method 03/26/23 18:17 03/26/23 22:37 03/26/23 04:30 Temperature Pulse Rate 106 H 97 H Respiratory Rate 16 Blood Pressure 148/71 H 131/77 H Blood Pressure [Right Arm] Oxygen Delivery Method 03/26/23 09:00 03/26/23 18:25 03/26/23 22:38 Temperature 98.4 F 97.9 F 97.8 F Pulse Rate 97 H Respiratory Rate 24 18 16 Blood Pressure Blood Pressure [Right Arm] 131/77 H Oxygen Delivery Method Room Air 03/26/23 22:49 Temperature Pulse Rate Respiratory Rate Blood Pressure Blood Pressure [Right Arm] Oxygen Delivery Method Room Air Documenting provider has reviewed patient's vital signs: yes Common normals: no apparent distress Respiratory Common normals: normal respiratory effort and clear to auscultation bilaterally Cardio Common normals: regular rate and regular rhythm GI Common normals: Normal to inspection, nondistended, normoactive bowel sounds present Extremity Common normals: normal to inspection, no clubbing, cyanosis or edema and no calf tenderness Results Labs Labs: Short CBC 03/26/23 Range/Units 06:20 WBC 11.9 H (4.0-11.0) 10^3/uL Hgb 9.6 L (12.0-16.0) g/dL Hct 30.2 L (36.0-48.0) % Plt Count 162 (150-450) 10^3/uL OB - PN: A/P Plan - Vaginal Delivery day: 2 Plan: routine care, discharge home and follow up 6 weeks Time Spent with Patient Time: Total time spent is greater than 50% in coordination of care (as documented) at patient's floor/unit and/or counseling patient: Total time spent with greater than 50% in coordination of care (as documented) at patient's floor/unit and/or counseling patient: less than 15 minutes
--- NOTE | 2023-03-27 05:04 | PC.NURSE ---
Pt pumped for 15 minutes and about 5 ml's of colostrum was obtained.
--- NOTE | 2023-03-27 05:07 | PC.NURSE ---
0315Pt attempts to breastfeed infant. No success. 0400-12 minutes at breast. 0430 Pt pumped 5 ml's colostrum for infant.
--- NOTE | 2023-03-27 07:42 | W.PC.ACHO ---
Registration Status: ADM IN Primary Language: Swazi Preferred Language: Swazi Active Medications Generic Name Dose Route Start Last Admin Trade Name Freq PRN Reason Stop Dose Admin Acetaminophen 650 mg 03/25/23 18:47 03/26/23 02:17 Acetaminophen 325 Mg Tablet PO 650 mg Q6H PRN Administration Mild Pain Al Hydroxide/Mg Hydroxide 2,400 mg 03/25/23 18:47 Magnesium Hydroxide 2,400 Mg/10 Ml Oral.Susp PO Q6H PRN Dyspepsia Benzocaine/Menthol 1 applic 03/25/23 18:47 03/25/23 20:35 Benzocaine/Menthol 85 Gram Bottle TOPICAL 1 applic Q2H PRN Administration Pain Carboprost Tromethamine 250 mcg 03/24/23 17:52 Carboprost Tromethamine 250 Mcg/Ml 1 Ml Vial IM Q15M PRN Bleeding Diphenhydramine HCl 25 mg 03/25/23 11:19 Diphenhydramine Hcl 50 Mg/Ml (1ml) Vial IV Q6H PRN Itching Docusate Sodium 100 mg 03/26/23 09:00 03/26/23 22:53 Docusate Sodium 100 Mg Capsule PO 100 mg BID YANCI Administration Ephedrine Sulfate 5 mg 03/25/23 11:19 Ephedrine Sulfate 50 Mg/Ml Vial IV Q5M PRN Blood Pressure - Low Fentanyl Citrate 100 mcg 03/25/23 11:19 03/25/23 14:40 Fentanyl Citrate/Pf 100 Mcg/2 Ml Vial EPIDURAL 100 mcg Q4H PRN Administration Pain Sodium Chloride 1,000 mls @ 125 mls/hr 03/24/23 18:00 03/25/23 06:01 Sodium Chloride 0.9% 1,000 Ml IV 125 mls/hr .Q8H PRN Administration Labor Induction Oxytocin 10 unit/ Sodium 501 mls @ 6.012 mls/hr 03/25/23 06:00 03/26/23 13:47 Chloride IV 2 milliunit/min Q24H YANCI 6.012 mls/hr Infusion 2 MILLIUNIT/MIN Vancomycin HCl 1,000 mg/ 250 mls @ 250 mls/hr 03/25/23 06:00 03/25/23 18:32 Sodium Chloride IV Infused Q12H YANCI Infusion Sodium Chloride 1,000 mls @ 125 mls/hr 03/25/23 05:30 03/26/23 13:46 Sodium Chloride 0.9% 1,000 Ml IV Infused .Q8H YANCI Infusion Ropivacaine/Sodium Chloride 400 mg in 200 mls @ 6 mls/hr 03/25/23 11:30 03/25/23 14:37 Naropin 0.2% 400 Mg/200 Ml Bag EPIDURAL 10 mls/hr Q24H YANCI 10 mls/hr Administration Ibuprofen 600 mg 03/25/23 18:47 03/26/23 22:53 Ibuprofen 600 Mg Tablet PO 600 mg Q6H PRN Administration Moderate Pain Lidocaine 5 ml 03/24/23 17:52 Lidocaine Viscous 2% 15 Ml Topical Solution TOPICAL ONCE PRN Pain Lidocaine 1 ml 03/24/23 17:52 Lidocaine Hcl 1% 200 Mg/20 Ml Mdv INJ ONCE PRN Pain Lidocaine 5 ml 03/25/23 11:19 Lidocaine Hcl 2% Pf 100 Mg/5 Ml Vial INJ Q1H PRN procedure prep Methylergonovine Maleate 0.2 mg 03/24/23 17:52 Methylergonovine Maleate 0.2 Mg/Ml Ampule IM ONCE PRN Uterine Contractility/Contract Methylergonovine Maleate 0.2 mg 03/24/23 17:52 Methylergonovine Maleate 0.2 Mg Tablet PO Q4H PRN Uterine Contractility/Contract Misoprostol 600 mcg 03/24/23 17:52 Misoprostol 100 Mcg Tablet PO ONCE PRN Uterine Bleeding Misoprostol 800 mcg 03/24/23 17:52 Misoprostol 100 Mcg Tablet SL ONCE PRN Uterine Bleeding Misoprostol 1,000 mcg 03/24/23 17:52 Misoprostol 100 Mcg Tablet IA ONCE PRN Uterine Bleeding Nalbuphine HCl 10 mg 03/24/23 17:52 03/25/23 12:59 Nalbuphine Hcl 10 Mg/Ml Ampule IV 10 mg Q3H PRN Administration Pain Naloxone HCl 0.4 mg 03/25/23 11:19 Naloxone Hcl 0.4 Mg/Ml Vial IV ONCE PRN respiratory depression Ondansetron HCl 4 mg 03/24/23 17:52 Ondansetron Pf 4 Mg/2 Ml Vial IV Q6H PRN Nausea And Vomiting Ondansetron HCl 4 mg 03/24/23 17:52 Ondansetron 4 Mg Rapdis Tablet SL Q6H PRN Nausea And Vomiting Oxytocin 10 unit 03/24/23 17:52 Oxytocin 100 Unit/10 Ml Vial IM ONCE PRN Uterine Bleeding Prenat Multivit/[place]/Iron/Folic Ac 1 each 03/27/23 09:00 /Iron/Folic Acid 1 Each Tablet PO DAILY YANCI Senna 17.2 mg 03/25/23 20:00 Sennosides 8.6 Mg Tablet PO QHS PRN Constipation Simethicone 80 mg 03/25/23 18:47 Simethicone 80 Mg Tab.Chew PO QID PRN Abdominal Distention Temazepam 15 mg 03/25/23 20:00 Temazepam 15 Mg Capsule PO BEDTIME PRN Sleep Witch Carolyn/Glycerin 1 each 03/25/23 18:47 03/25/23 20:35 Glycerin/Witch Carolyn 1 Each Jar TOPICAL 1 each Q6H PRN Administration Pain Neurology Kadeem coma scale total score 15 Respiratory Lung sounds [Bilateral] clear Oxygen Delivery Method Room Air Oxygen Delivery Method Room Air Renal Bladder Pattern Continent
[2023-03-27] MEDS: DOCUSATE SODIUM 100 MG CAPSULE PO (08:35)
[2023-03-27] MEDS: IBUPROFEN 600 MG TABLET PO ×2 (08:35→15:52)
--- NOTE | 2023-03-27 10:46 | PC.NURSE ---
0900- Pt. given support and updates on nb d/t tremors and Construction Field Engineer speaking of potentially keeping the nb another night. Pt. tearful and feels she may have post depression. Pt. aware that if she continues to cry frequently and feels like she doesnt want to do anything or she feels she wants to harm herself or anyone else then treatment would be needed. SHe will F/U with Dr. Martinez to see if meds or therapy will be needed.
--- NOTE | 2023-03-27 14:30 | PC.NURSE ---
LC into room and reviews with pt. Given education folder with explanation and discussion. Having difficulty latching to right breast, He cries hard and acts like something is hurting Discussed process and affect on infant. Discussed use of body work (chiropractor) to aid in releasing tension and assisting in ROM for latch. Parents open to discussion. Aware to pump if does not latch well and feed baby what is obtained. Mother schedules follow up appointment for 03/31/2023 to evaluate progress. Of note mom is tearful today, support offered.
== END 2023-03-27 23:42 | disposition home or self-care (01) | DRG 560 ==
LOC: US 14:47 → FBC 14:47
PROVIDERS: Admitting Provider Obstetrics & Gynecology; PCP Physician Assistant; Visit Provider Obstetrics & Gynecology
DX: O70.1 Second degree perineal laceration during delivery (principal); Z37.0 Single live birth; Z3A.00 Weeks of gestation of pregnancy not specified
CPT/HCPCS: 36415; 59025; 59410; 59412; 76818; 80307; 81003; 81015; 82950; 85025; 86850; 86900; 86901; 87086; 96365; 96366; 96375; 96376; J2300; J3370

== ENCOUNTER 2023-09-17 15:45 | Outpatient (REF) | payer OTHER, SELFPAY ==
[2023-09-17 16:06] LABS: Adenovirus NOT DETECTED (NOT DETECTE); Bordetella parapertussis NOT DETECTED (NOT DETECTE); Coronavirus 229E NOT DETECTED (NOT DETECTE); Coronavirus HKU1 NOT DETECTED (NOT DETECTE); Coronavirus NL63 NOT DETECTED (NOT DETECTE); Coronavirus OC43 NOT DETECTED (NOT DETECTE); Human Metapneumovirus NOT DETECTED (NOT DETECTE); Influenza A NOT DETECTED (NOT DETECTE); Influenza B NOT DETECTED (NOT DETECTE); Mycoplasma pneumoniae NOT DETECTED (NOT DETECTE); Parainfluenza Virus 1 NOT DETECTED (NOT DETECTE); Parainfluenza Virus 2 NOT DETECTED (NOT DETECTE); Parainfluenza Virus 3 NOT DETECTED (NOT DETECTE); Parainfluenza Virus 4 NOT DETECTED (NOT DETECTE); Respiratory Syncytial Virus NOT DETECTED (NOT DETECTE); SARS-CoV-2 NOT DETECTED (NOT DETECTE)
[2023-09-17 18:46] LABS: Human Rhinovirus/Enterovirus DETECTED (NOT DETECTE)
== END 2023-09-17 15:46 | disposition home or self-care (01) ==
LOC: LAB 15:45
PROVIDERS: Visit Provider Family Medicine
DX: Z20.822 Contact with and (suspected) exposure to COVID-19 (principal)
CPT/HCPCS: 0202U

== ENCOUNTER 2024-02-04 15:33 | Emergency (ER) | payer OTHER, SELFPAY ==
[2024-02-04 15:44] VITALS: BP 154/94; PULSE 101; TEMP 36.4; O2SAT 97; BMI 31.0
== END 2024-02-04 16:23 | disposition left against medical advice (07) ==
LOC: ER 15:52
PROVIDERS: Emergency Provider Emergency Medicine
DX: Z53.21 Procedure and treatment not carried out due to patient leaving prior to being seen by health care provider (principal)

== ENCOUNTER 2025-07-13 13:00 | Outpatient (OUT) | payer OTHER, SELFPAY ==
--- OUTSIDE RECORDS SUMMARY | 2025-07-13 13:02 | XMS_ITS | Encounter Summary ---
Author Organization [facility] Address [address] [place] [address] Care Team Providers Care Telecommunications Facility Examiner Name Role Phone Denita Curry MD Primary Care Provider [phone] Denita Curry MD Unavailable Encounter Details Date Type Department Care Team (Late st Contact Info) Description 03/03/2023 Clinisync Result Encounter [facility] EXT DEP Alvaro Martinez, [address] [place] [address] Social History Tobacco Use Types Packs/Day Years Used Date Smoking Tobacco: Never Assessed Comments Unknown Sex and Gender Information Value Date Recorded Sex Assigned at Not on file Legal Sex Female 7:10 PM EDT Gender Identity Not on file Sexual Orientation Not on file documented as of this encounter Plan of Treatment Upcoming Encounters Date Type Department Care Team (Late st Contact Info) Description 07/13/2025 1:30 PM EDT Initial [facility] [address] [place] [address] documented as of this encounter Procedures Procedure Name Priority Date/Time Associated Diagnosis Comments US PREG BIOPHY W NON STRESS 03/03/2023 2:38 PM EDT [facility] CULTURE URINE Routine 03/03/2023 2:1 5 PM EDT documented in this encounter Results * US PREG BIOPHY W NON STRESS (03/03/2023 2:38 PM EDT) Anatomical Region Laterality Modality Other 03/03/2023 2:38 PM EDT Narrative 2023 6:22 AM EDT EXAMINATION: US PREG BIOPHY W NON STRESS HISTORY: Excessive growth affecting management of mother COMPARISON: Ultrasound biophysical 02/23/2023 FINDINGS: BREATHING MOVEMENTS: 2.0 GROSS BODY MOVEMENTS: 2.0 TONE: 2.0 QUALITATIVE AMNIOTIC FLUID VOLUME: 2.0 PRESENTATION: CEPHALIC HEART RATE: 142.9 bpm bpm. AMNIOTIC FLUID VOLUME: 11.6 cm GESTATIONAL AGE: 35 weeks 3 days CONCLUSION: 1. Total biophysical profile score 8.0. 2. Previously seen debris has cleared from stomach. 3. Hypoechoic area within placenta with no significant blood flow; likely venous bhat. Electronically authenticated by: NE CRUZ Date: 2023 06:22 Procedure Note Radiology, Radiologist, MD - 2023 EXAMINATION: US PREG BIOPHY W NON STRESS HISTORY: Excessive growth affecting management of mother COMPARISON: Ultrasound biophysical 02/23/2023 FINDINGS: BREATHING MOVEMENTS: 2.0 GROSS BODY MOVEMENTS: 2.0 TONE: 2.0 QUALITATIVE AMNIOTIC FLUID VOLUME: 2.0 PRESENTATION: CEPHALIC HEART RATE: 142.9 bpm bpm. AMNIOTIC FLUID VOLUME: 11.6 cm GESTATIONAL AGE: 35 weeks 3 days CONCLUSION: 1. Total biophysical profile score 8.0. 2. Previously seen debris has cleared from stomach. 3. Hypoechoic area within placenta with no significant blood flow; likelyvenous bhat. Electronically authenticated by: NE CRUZ Date: 2023 06:22 us Alvaro Michelle DO [facility] Final Result * TB CULTURE URINE (03/03/2023 2:15 PM EDT) TB CULTURE URINE Culture Observations: TBH TBH CULTURE URINE LIGHT GROWTH OF MIXED GENITAL JELLY. NO POTENTIAL PATHOGENS SEEN. TB Urine 03/03/2023 2:15 PM EDT 03/03/2023 3:06 PM EDT Narrative [facility] - 03/05/2023 9:12 AM EDT us Generic External Data Provider [facility] F inal Result Performing Organization Address City/State/[facility] Co de Phone Number [facility] [address] [place] [address] [facility] documented in this encounter Visit Diagnoses Not on filedocumented in this encounter Care Teams Telecommunications Facility Examiner Relationship Specialty Start Date End Date Denita Curry MD [address] [facility] [address] [place] [address] PCP - General Family Medicine 03/11/23 Denita Curry MD [address] [facility] [address] [place] [address] PCP - [facility] 04/11/23 documented as of this encounter
--- OUTSIDE RECORDS SUMMARY | 2025-07-13 13:02 | XMS_ITS | Encounter Summary ---
Author Organization [facility] Address [address] [place] [address] Care Team Providers Care Assistant Store Manager Name Role Phone Denita Curry MD Primary Care Provider [phone] Denita Curry MD Unavailable Encounter Details Date Type Department Care Team (Late st Contact Info) Description 03/05/2023 Clinisync Result Encounter [facility] External Department Unsolicited Alexsander Tran MD [address] [facility] [place] [address] Social History Tobacco Use Types Packs/Day [...] 07/13/2025 1:30 PM EDT Initial [facility] [address] [place] [address] [place] [address] documented as of this encounter Procedures Procedure Name Priority Date/Time Associated Diagnosis Comments US PREG CERVICAL LENGTH 03/05/2023 9:59 AM EDT documented in this encounter Results * US PREG CERVICAL LENGTH (03/05/2023 9:59 AM EDT) Anatomical Region Laterality Modality Other 03/05/2023 9:59 AM EDT Narrative 03/05/2023 4:18 PM EDT EXAMINATION: US PREG CERVICAL LENGTH HISTORY: Third trimester COMPARISON: No relevant comparison available. FINDINGS: position: Cephalic presentation, longitudinal lie Placenta: Anterior, grade 3. Cervix: 4.3 cm, closed Heart rate: 138 bpm IMPRESSION: Closed cervix measuring 4.3 cm in length Electronically authenticated by: FARNAZ PELAYO Date: 2023-03-05 16:18 Procedure Note Radiology, Radiologist, MD - 03/05/2023 EXAMINATION: US PREG CERVICAL LENGTH HISTORY: Third trimester COMPARISON: No relevant comparison available. FINDINGS: position: Cephalic presentation, longitudinal lie Placenta: Anterior, grade 3. Cervix: 4.3 cm, closed Heart rate: 138 bpm IMPRESSION: Closed cervix measuring 4.3 cm in length Electronically authenticated by: FARNAZ PELAYO Date: 2023-03-05 16:18 us Alexsander Tran MD [facility] Final Resul t documented in this encounter Visit Diagnoses Not on filedocumented in this encounter Care Teams Assistant Store Manager Relationship Specialty Start Date End Date Denita Curry MD [address] [address] PCP - General Family Medicine 03/11/23 Denita Curry MD 112 [facility] [address] [place] [address] PCP - [facility] 04/11/23 documented as of this encounter
--- OUTSIDE RECORDS SUMMARY | 2025-07-13 13:02 | XMS_ITS | Encounter Summary ---
Author Organization [facility] Address [address] [place] [address] Care Team Providers Care As400 Administrator Name Role Phone Denita Curry MD Primary Care Provider [phone] Denita Curry MD Unavailable Encounter Details Date Type Department Care Team (Late st Contact Info) Description 03/03/2023 Clinisync Result Encounter [facility] EXT DEP Denita Curry MD 112 [facility] [address] [place] [address] Social History Tobacco Use Types Packs/Day Years [...] 1:30 PM EDT Initial [facility] [address] [place] [address] [place] [address] documented as of this encounter Procedures Procedure Name Priority Date/Time Associated Diagnosis Comments ECHOCARDIO M/2D COMPLETE 03/03/2023 11:46 AM EDT documented in this encounter Results * ECHOCARDIO M/2D COMPLETE (03/03/2023 11:46 AM EDT) Anatomical Region Laterality Modality Other 03/03/2023 11:4 6 AM EDT Narrative 03/03/2023 11:46 AM EDT Patient: MAREN CAMPOS Exam Date: 03/03/2023 : 2005 Gender:F Ordering : DR ZEINAB FAIRCHILD . Admission #: [id number] Family : Order #: [id number] CLICK HERE TO VIEW EXAM ECHOCARDIOGRAM REPORT PROCEDURE: CARDIO PULMONARY ECHOCARDIO M/2D COMP INDICATIONS: Shortness of breath, 32 weeks COMPARISON: None. DESCRIPTION: COMPLETE ECHOCARDIOGRAM Real-time transthoracic echocardiography with 2D, M-mode, spectral and color flow Doppler performed. QUALITY: Technical quality was good. LEFT VENTRICLE: Normal chamber size. Normal left ventricular wall thickness. LV EF: Normal left ventricular ejection fraction, (>55%). No wall motion abnormalities. DIASTOLIC: Normal diastolic function. ATRIAL SEPTUM: Inadequately seen. LEFT ATRIUM: Normal chamber size. RIGHT ATRIUM: Normal chamber size. RIGHT VENTRICLE: Normal chamber size. Normal right ventricular systolic function. TRICUSPID VALVE: Normal mobility and thickness. No stenosis with trivial regurgitation. No evidence of pulmonary hypertension. RVSP 16 mmHg MITRAL VALVE: Normal mobility and thickness. No evidence of mitral valve stenosis. There is no mitral annular calcification. No mitral regurgitation. AORTIC VALVE: Normal trileaflet appearance. No visible sclerosis. Normal leaflet mobility. No evidence of aortic valve stenosis. No aortic regurgitation. AORTIC ROOT: Normal diameter and appearance. PULMONIC VALVE: Normal thickness and mobility. No stenosis. Trivial regurgitation. PERICARDIUM: No evidence of pericardial effusion. CONCLUSION: Essentially normal echocardiogram Adult Echocardiography Procedure Report Left Ventricle LVEDD (3.7 - 5.6 cm): 4.52 cm LVESD (2.2 - 4.0 cm): 3.32 cm LVIVS thickness (0.6 - 1.2 cm): 0.78 cm LVPW thickness (0.5 - 1.0 cm): 0.84 cm e': 0.10 m/s E - e': 11.46 LVOT Max Gradient: 3.65 mm[Hg] Peak Velocity (LVOT): 0.96 m/s LVOT Diameter 1.91 cm Left Atrium Left Atrium Systolic Dimension: 2.59 cm Mitral Valve MV E to A Ratio: 1.67 Mitral Valve A-Wave Peak Velocity: 0.71 m/s Mitral Valve E-Wave Peak Velocity: 1.18 m/s Right Ventricle Aorta AO Root Diam: 2.65 cm Ascending Ao Diam: 2.26 cm Aortic Valve AoV Area (Peak Geovany): 1.74 cm2, 1.74 cm2 Peak Velocity(Antegrade Flow): 1.58 m/s Peak Gradient(Antegrade Flow): 10.00 mm[Hg] Tricuspid Valve Peak Velocity (Regurgitant Flow): 1.80 m/s Pulmonic Valve Peak Velocity: 1.57 m/s, 1.31 m/s Peak Gradient: 9.80 mm[Hg], 6.91 mm[Hg] Right Atrium Dictated by: Emery Krishna M.D. on 03/03/2023 at 15:21 Approved by: Emery Krishna M.D. on 03/03/2023 at 15:23 Procedure Note Radiology, Radiologist, MD - 03/03/2023 Patient: MAREN CAMPOS Exam Date: 03/03/2023 : 2005 Gender:F Ordering : DR ZEINAB FAIRCHILD . Admission #: [id number] Family : Order #: [id number] CLICK HERE TO VIEW EXAM ECHOCARDIOGRAM REPORT PROCEDURE: CARDIO PULMONARY ECHOCARDIO M/2D COMP INDICATIONS: Shortness of breath, 32 weeks COMPARISON: None. DESCRIPTION: COMPLETE ECHOCARDIOGRAM Real-time transthoracic echocardiography with 2D, M-mode, spectral and color flow Dopplerperformed. QUALITY: Technical quality was good. LEFT VENTRICLE: Normal chamber size. Normal left ventricular wall thickness. LV EF: Normal left ventricular ejection fraction, (>55%). No wallmotion abnormalities. DIASTOLIC: Normal diastolic function. ATRIAL SEPTUM: Inadequately seen. LEFT ATRIUM: Normal chamber size. RIGHT ATRIUM: Normal chamber size. RIGHT VENTRICLE: Normal chamber size. Normal right ventricularsystolic function. TRICUSPID VALVE: Normal mobility and thickness. No stenosis withtrivial regurgitation. No evidence of pulmonary hypertension. RVSP 16 mmHg MITRAL VALVE: Normal mobility and thickness. No evidence of mitralvalve stenosis. There is no mitral annular calcification. No mitralregurgitation. AORTIC VALVE: Normal trileaflet appearance. No visible sclerosis.Normal leaflet mobility. No evidence of aortic valve stenosis. No aortic regurgitation. AORTIC ROOT: Normal diameter and appearance. PULMONIC VALVE: Normal thickness and mobility. No stenosis. Trivial regurgitation. PERICARDIUM: No evidence of pericardial effusion. CONCLUSION: Essentially normal echocardiogram Adult Echocardiography Procedure Report Left Ventricle LVEDD (3.7 - 5.6 cm): 4.52 cm LVESD (2.2 - 4.0 cm): 3.32 cm LVIVS thickness (0.6 - 1.2 cm): 0.78 cm LVPW thickness (0.5 - 1.0 cm): 0.84 cm e': 0.10 m/s E - e': 11.46 LVOT Max Gradient: 3.65 mm[Hg] Peak Velocity (LVOT): 0.96 m/s LVOT Diameter 1.91 cm Left Atrium Left Atrium Systolic Dimension: 2.59 cm Mitral Valve MV E to A Ratio: 1.67 Mitral Valve A-Wave Peak Velocity: 0.71 m/s Mitral Valve E-Wave Peak Velocity: 1.18 m/s Right Ventricle Aorta AO Root Diam: 2.65 cm Ascending Ao Diam: 2.26 cm Aortic Valve AoV Area (Peak Geovany): 1.74 cm2, 1.74 cm2 Peak Velocity(Antegrade Flow): 1.58 m/s Peak Gradient(Antegrade Flow): 10.00 mm[Hg] Tricuspid Valve Peak Velocity (Regurgitant Flow): 1.80 m/s Pulmonic Valve Peak Velocity: 1.57 m/s, 1.31 m/s Peak Gradient: 9.80 mm[Hg], 6.91 mm[Hg] Right Atrium Dictated by: Emery Krishna M.D. on 03/03/2023 at 15:21 Approved by: Emery Krishna M.D. on 03/03/2023 at 15:23 Denita Curry MD [facility] Final Result documented in this encounter Visit Diagnoses Not on filedocumented in this encounter Care Teams As400 Administrator Relationship Specialty Start Date End Date Denita Curry MD [address] [place] [address] PCP - General Family Medicine 03/11/23 Denita Curry MD [address] [place] [id number] PCP - [facility] 04/11/23 documented as of this encounter
--- OUTSIDE RECORDS SUMMARY | 2025-07-13 13:02 | XMS_ITS | Encounter Summary ---
Author Organization [facility] Address [address] [place] [address] Care Team Providers Care Account Planner Name Role Phone Denita Curry MD Primary Care Provider [phone] Denita Curry MD Unavailable Encounter Details Date Type Department Care Team (Late Contact Info) Description 07/29/2023 Abstract [facility] 112 [facility] [address] [place] [id number] Denita Curry MD [address] [facility] [address] [place] [address] Social History Tobacco Use Types Packs/Day Years Used Date Smoking Tobacco: Never Smokeless Tobacco: Never Tobacco Cessation:Counseling Given: Not Answered Alcohol Use Standard Drinks/Week Comments Never 0 (1 standard drink = 0.6 oz pur e alcohol) Caffeine: none Comments Unknown Sex and Gender Information Value Date Recorded Sex Assigned at Not on file Legal Sex Female 7:10 PM EDT Gender Identity Not on file Sexual Orientation Not on file documented as of this encounter Plan of Treatment Upcoming Encounters Date Type Department Care Team (Late st Contact Info) Description 07/13/2025 1:30 PM EDT Initial [facility] [address] [place] [address] [place] [address] documented as of this encounter Visit Diagnoses Not on filedocumented in this encounter Care Teams Account Planner Relationship Specialty Start Date End Date Denita Curry MD 112 [facility] [address] [place] [address] PCP - General Family Medicine 03/11/23 Denita Curry MD 112 [facility] 110 [place] [address] PCP - [facility] 04/11/23 documented as of this encounter
--- OUTSIDE RECORDS SUMMARY | 2025-07-13 13:02 | XMS_ITS | Encounter Summary ---
Author Organization [facility] Address [address] [place] [address] Care Team Providers Care Afloat Cryptologic Manager Name Role Phone Denita Curry MD Primary Care Provider [phone] Denita Curry MD Unavailable Encounter Details Date Type Department Care Team (Late st Contact Info) Description 03/10/2023 Clinisync Result Encounter [facility] External Department Unsolicited Denita Curry MD [address] [address] Social History Tobacco Use Types Packs/Day [...] 1:30 PM EDT Initial [facility] Joelle RIZZO [address] [place] [address] [place] [address] documented as of this encounter Procedures Procedure Name Priority Date/Time Associated Diagnosis Comments US PREG GROWTH 03/10/2023 4:04 PM EDT documented in this encounter Results * US PREG GROWTH (03/10/2023 4:04 PM EDT) Anatomical Region Laterality Modality Other 03/10/2023 4:04 PM EDT Narrative 03/11/2023 3:25 PM EDT EXAMINATION: US PREG GROWTH HISTORY: Excessive growth affecting management of mother COMPARISON: No relevant comparison available. FINDINGS: Heart Rate: 138.5 bpm Number: 1.0 Position: CEPHALIC Amniotic Fluid Volume: 11.1 cm Maximum Vertical Pocket: 4.7 cm BIOMETRY: BPD: 9.3 cm cm; 37 weeks 4 days; 80% HC: 32.8 cmcm; 37 weeks 2 days; 42% AC: 35.5 cm cm; 39 weeks 3 days; >97% FL: 7.0 cm cm; 36 weeks 1 days; 38% EFW: 3437.2 grams; 93% FL/AC: 19.8 FL/BPD: 76.1 HC/AC: 0.9 GESTATIONAL AGE: Age by EDC: 36 weeks 3 days ROKC by EDC: 04/04/2023 Age by US: 37 weeks 4 days ROCK by US: 03/27/2023 IMPRESSION: 1. Single live intrauterine with growth detailed above. 2. Abdominal circumference is greater than 97th percentile. 3. Echogenic material within the stomach, nonspecific. 3. Aging placenta (grade 2). Electronically authenticated by: NE CRUZ Date: 2023-03-11 15:25 Procedure Note Radiology, Radiologist, - 03/11/2023 EXAMINATION: US PREG GROWTH HISTORY: Excessive growth affecting management of mother COMPARISON: No relevant comparison available. FINDINGS: Heart Rate: 138.5 bpm Number: 1.0 Position: CEPHALIC Amniotic Fluid Volume: 11.1 cm Maximum Vertical Pocket: 4.7 cm BIOMETRY: BPD: 9.3 cm cm; 37 weeks 4 days; 80% HC: 32.8 cmcm; 37 weeks 2 days; 42% AC: 35.5 cm cm; 39 weeks 3 days; >97% FL: 7.0 cm cm; 36 weeks 1 days; 38% EFW: 3437.2 grams; 93% FL/AC: 19.8 FL/BPD: 76.1 HC/AC: 0.9 GESTATIONAL AGE: Age by EDC: 36 weeks 3 days ROCK by EDC: 04/04/2023 Age by US: 37 weeks 4 days ROCK by US: 03/27/2023 IMPRESSION: 1. Single live intrauterine with growth detailed above. 2. Abdominal circumference is greater than 97th percentile. 3. Echogenic material within the stomach, nonspecific. 3. Aging placenta (grade 2). Electronically authenticated by: NE CRUZ Date: 2023-03-11 15:25 Denita Curry MD [facility] Final Result documented in this encounter Visit Diagnoses Not on filedocumented in this encounter Care Teams Afloat Cryptologic Manager Relationship Specialty Start Date End Date Denita Curry MD [address] [address] PCP - General Family Medicine 03/11/23 Denita Curry MD 112 [facility] 110 [place] [address] PCP - [facility] 04/11/23 documented as of this encounter
--- OUTSIDE RECORDS SUMMARY | 2025-07-13 13:02 | XMS_ITS | Encounter Summary ---
Author Organization [facility] Address [address] [place] [address] Care Team Providers Care Cargo Trimmer Name Role Phone Denita Curry MD Primary Care Provider [phone] Denita Curry MD Unavailable Encounter Details Date Type Department Care Team (Late st Contact Info) Description 03/31/2023 Abstract JOSE RIZZO [address] [facility] [place] [place] [address] Alvaro Martinez DO [address] [place] [address] Dr Frankie Lai, [facility]11 Social History Tobacco Use Types Packs/Day Years Used Date Smoking Tobacco: Never Smokeless Tobacco: Never Alcohol Use Standard Drinks/Week Comments Never 0 (1 standard drink = 0.6 oz pur e alcohol) Caffeine: none Comments No Sex and Gender Information Value Date Recorded Sex Assigned at Not on file Legal Sex Female 7:10 PM EDT Gender Identity Not on file Sexual Orientation Not on file documented as of this encounter Plan of Treatment Upcoming Encounters Date Type Department Care Team (Late st Contact Info) Description 07/13/2025 1:30 PM EDT Initial JOSE RIZZO [address] [facility] [address] documented as of this encounter Visit Diagnoses Not on filedocumented in this encounter Care Teams Cargo Trimmer Relationship Specialty Start Date End Date Denita Curry MD 112 [facility] 110 [place] [address] PCP - General Family Medicine 03/11/23 Denita Curry MD 112 [facility] 110 [place] [address] PCP - [facility] 04/11/23 documented as of this encounter
--- OUTSIDE RECORDS SUMMARY | 2025-07-13 13:02 | XMS_ITS | Encounter Summary ---
Author Organization [facility] Address [address] [place] [address] Care Team Providers Care Review Trainer Name Role Phone Denita Curry MD Primary Care Provider [phone] Denita Curry MD Unavailable Encounter Details Date Type Department Care Team (Late st Contact Info) Description 03/31/2023 Abstract JOSE RIZZO [address] [facility] [address] Alvaro Martinez DO [address] [place] [address] Dr Frankie Lai, [facility]11 Social History Tobacco Use Types Packs/Day Years [...] 1:30 PM EDT Initial JOSE RIZZO [address] [facility] [place] [address] documented as of this encounter Visit Diagnoses Not on filedocumented in this encounter Care Teams Review Trainer Relationship Specialty Start Date End Date Denita Curry MD 112 [facility] 110 [place] [address] PCP - General Family Medicine 03/11/23 Denita Curry MD 112 [facility] [address] [place] [address] PCP - [facility] 04/11/23 documented as of this encounter
--- OUTSIDE RECORDS SUMMARY | 2025-07-13 13:02 | XMS_ITS | Encounter Summary ---
Author Organization [facility] Address [address] [place] [address] Care Team Providers Care Business Continuity Coordinator Name Role Phone Denita Curry MD Primary Care Provider [phone] Encounter Details Date Type Department Care Team (Late st Contact Info) Description 07/12/2025 Telephone [facility] [address] [place] [address] [place] [id number] Argentina Thompson MA Social History Tobacco Use Types Packs/Day Years Used Date Smoking Tobacco: Never Smokeless Tobacco: Never Alcohol Use Standard Drinks/Week Comments Never 0 (1 standard drink = 0.6 oz pur e alcohol) Caffeine: none PHQ-2 Answer Date Recorded Patient Health Questionnaire-2 Score 0 06/19/2025 Comments Unknown Sex and Gender Information Value Date Recorded Sex Assigned at Not on file Legal Sex Female 7:10 PM EDT Gender Identity Not on file Sexual Orientation Not on file documented as of this encounter Miscellaneous Notes * Telephone Encounter - Argentina Thompson MA - 07/12/2025 11:53 AM EDT Pt called in c/o Nausea and vomiting. Pt is and has intake tomorrow. Pt to trial Zofran. Pharmacy confirmed, rx sent documented in this encounter Plan of Treatment Upcoming Encounters Date Type Department Care Team (Late st Contact Info) Description 07/13/2025 1:30 PM EDT Initial [facility] Joelle RIZZO [address] [facility] [place] [address] documented as of this encounter Visit Diagnoses Diagnosis Nausea and vomiting in ([facility]) Unspecified vomiting of , unspecified as to episode of care documented in this encounter Care Teams Business Continuity Coordinator Relationship Specialty Start Date End Date Denita Curry MD 112 [facility] 110 [place] [address] PCP - General Family Medicine 03/11/23 documented as of this encounter
--- OUTSIDE RECORDS SUMMARY | 2025-07-13 13:02 | XMS_ITS | Clinical Summary ---
Author Organization [facility] Address [id number] [address] [place] [address] Care Team Providers Care Home Mission Worker Name Role Phone Denita Curry MD Primary Care Provider [phone] Allergies Active Allergy Reactions Criticality Noted Date Comments Penicillin Hives 02/04/2024 Medications citalopram (CeleXA) 20 mg tablet Take 1 tablet (20 mg total) by mouth in the morning. Active norethindrone ac-eth estradioL (FEMHRT 10/16) 1-5 mg-mcg tablet Take by mouth daily. Active Social History Tobacco Use Types Packs/Day Years Used Date Smoking Tobacco: Never Smokeless Tobacco: Never Tobacco Cessation:Counseling Given: Not Answered Alcohol Use Standard Drinks/Week Comments Never 0 (1 standard drink = 0.6 oz pur e alcohol) Childcare Answer Date Recorded Childcare Unknown 03/23/2019 Employment Answer Date Recorded Employment Unknown 03/23/2019 Hunger Screening Answer Date Recorded Within the past 12 months we worried whether our food would run out before we got money to buy more. Never True 06/16/2024 Within the past 12 months th e food we bought just didn't last and we didn't have money to get more. Never True 06/16/2024 Comments No Sex and Gender Information Value Date Recorded Sex Assigned at Not on file Legal Sex Female 12:05 PM EDT Gender Identity Not on file Sexual Orientation Not on file Last Filed Vital Signs Vital Sign Reading Time Taken Comments Blood Pressure 135/102 06/16/2024 9:53 PM EDT Pulse 106 06/16/2024 9:53 PM EDT Temperature 37 C (98.6 F) 06/16/2024 9:53 PM EDT Respiratory Rate 20 06/16/2024 9:53 PM EDT Oxygen Saturation 98% 06/16/2024 9:53 PM EDT Inhaled Oxygen Concentration - - Weight 75.3 kg (166 lb) 06/16/2024 9:53 PM EDT Height 160 cm (5' 3 ) 06/16/2024 9:53 PM EDT Body Mass Index 29.41 06/16/2024 9:53 PM EDT Plan of Treatment Health Maintenance Due Date Last Done Comments Depression Screening 2015 Pap Smear 2024 COVID-19 Vaccine (2024- 6 season) 2025 02/19/2022, 01/29/2022 Influenza Vaccine 06/12/2025 08/26/2023, , 07/21/2017, Additional history exists Adult BMI Screening 06/16/2025 06/16/2024 Tobacco Screening 06/16/2025 06/16/2024 DTaP,Tdap and Td Vaccines (7 - Td or Tdap) 02/13/2026 02/14/2016, 06/26/2008, 08/12/2004, Additional history exists Medical Devices Not on file Insurance [employer] [employer] Care Teams Home Mission Worker Relationship Specialty Start Date End Date Denita Curry MD [facility] [place] [address] PCP - General Family Medicine 02/04/24
--- OUTSIDE RECORDS SUMMARY | 2025-07-13 13:02 | XMS_ITS | Encounter Summary ---
Author Organization [facility] Address [address] [place] [address] Care Team Providers Care Subgrade Roller Operator Name Role Phone Denita Curry MD Primary Care Provider [phone] Denita Curry MD Unavailable Encounter Details Date Type Department Care Team (Late st Contact Info) Description 03/30/2023 Abstract JOSE [facility]O [address] [facility] [place] [address] Alvaro Martinez DO [address] [place] [address] Dr Frankie Lai, [facility]11 Social History Tobacco Use Types Packs/Day [...] 1:30 PM EDT Initial JOSE RIZZO [address] [place] [address] documented as of this encounter Visit Diagnoses Not on filedocumented in this encounter Care Teams Subgrade Roller Operator Relationship Specialty Start Date End Date Denita Curry MD 112 [facility] 110 [place] [address] PCP - General Family Medicine 03/11/23 Denita Curry MD 112 [facility] 110 [place] [address] PCP - [facility] 04/11/23 documented as of this encounter
--- OUTSIDE RECORDS SUMMARY | 2025-07-13 13:02 | XMS_ITS | Encounter Summary ---
Author Organization [facility] Address [address] [place] [address] Care Team Providers Care Handbell Choir Director Name Role Phone Denita Curry MD Primary Care Provider [phone] Denita Curry MD Unavailable Encounter Details Date Type Department Care Team (Late st Contact Info) Description 03/24/2023 Abstract JOSE RIZZO [address] [facility] [place] [address] Alvaro Martinez DO 102 [facility] Dr Frankie Lai, [facility]11 Social History Tobacco Use Types Packs/Day Years Used Date Smoking Tobacco: Never Assessed Comments Yes Sex and Gender Information Value Date Recorded Sex Assigned at Not on file Legal Sex Female 7:10 PM EDT Gender Identity Not on file Sexual Orientation Not on file documented as of this encounter Plan of Treatment Upcoming Encounters Date Type Department Care Team (Late st Contact Info) Description 07/13/2025 1:30 PM EDT Initial JOSE RIZZO 102 [facility] [place] [address] documented as of this encounter Visit Diagnoses Not on filedocumented in this encounter Care Teams Handbell Choir Director Relationship Specialty Start Date End Date Denita Curry MD [address] [place] [address] [address] [place] [address] PCP - General Family Medicine 03/11/23 Denita Curry MD 112 [facility] [address] [place] [address] PCP - [facility] 04/11/23 documented as of this encounter
--- OUTSIDE RECORDS SUMMARY | 2025-07-13 13:02 | XMS_ITS | Encounter Summary ---
Author Organization [facility] Address [address] [place] [address] Care Team Providers Care Sample Grader Name Role Phone Denita Curry MD Primary Care Provider [phone] Denita Curry MD Unavailable Encounter Details Date Type Department Care Team (Late st Contact Info) Description 04/01/2023 Abstract JOSE RIZZO [address] [facility] [address] Joanna Monroe PA [address] [place], [facility]11 Social History Tobacco Use Types Packs/Day [...] Encounters Date Type Department Care Team (Late Contact Info) Description 07/13/2025 1:30 PM EDT Initial JOSE RIZZO [address] [place] [address] documented as of this encounter Visit Diagnoses Not on filedocumented in this encounter Care Teams Sample Grader Relationship Specialty Start Date End Date Denita Curry MD [address] [facility] 110 [place] [address] PCP - General Family Medicine 03/11/23 Denita Curry MD [address] [facility] 110 [place] [address] PCP - [facility] 04/11/23 documented as of this encounter
--- OUTSIDE RECORDS SUMMARY | 2025-07-13 13:02 | XMS_ITS | Encounter Summary ---
Author Organization [facility] Address [address] [place] [address] Care Team Providers Care Ware Server Name Role Phone Denita Curry MD Primary Care Provider [phone] Encounter Details Date Type Department Care Team (Late Contact Info) Description 08/02/2024 Abstract [facility] 112 [facility] 110 [place] [address] Denita Curry MD 112 [facility] 110 [place] [address] Social History Tobacco Use Types Packs/Day Years [...] 1:30 PM EDT Initial [facility] Joelle RIZZO [address] [place] [address] [place] [phone] documented as of this encounter Visit Diagnoses Not on filedocumented in this encounter Care Teams Ware Server Relationship Specialty Start Date End Date Denita Curry MD 112 [facility] 110 [place] [id number] PCP - General Family Medicine 03/11/23 documented as of this encounter
--- OUTSIDE RECORDS SUMMARY | 2025-07-13 13:02 | XMS_ITS | Clinical Summary ---
Author Organization [facility] Healthcare Address [address] [place] [address] Care Team Providers Care Tire Buster Name Role Phone Denita Curry MD Primary Care Provider [phone] Allergies Active Allergy Reactions Criticality Noted Date Comments Penicillins Hives,Rash,Unknown Low 08/21/2015 Medications fluticasone (Cutivate) 0.05 % creamIndications: Flexural eczema Apply topically 2 (two) times a day 15 g 1 024 Active Additional Information Patient taking differently:Topical 2 times daily, Morning, Bedtime,PRN, Reported on 06/19/2025 albuterol HFA 90 mcg/act inhaler inhale 2 puffs by mouth every 4 to 6 hours if needed for shortness of breath / wheezing 024 Active multivitamin () 27-0.8 MG tabletIndications :Positive test ([facility]) Take 1 tablet by mouth Daily 90 tablet 2 025 Active ondansetron ODT (Zofran-ODT) 4 MG disintegrating tabletIndications :Nausea and vomiting in ([facility]) Take 1 tablet (4 mg) by mouth every 6 (six) hours if needed for nausea or vomiting 30 tablet 2 025 2024 Active norethindrone (Jencycla) 0.35 MG tabletIndications :6 weeks follow-up ([facility]) Take 1 tablet (0.35 mg) by mouth in the morning. 28 tablet 11 024 2024 Discontinued(T herapy completed) citalopram (CeleXA) 40 MG tabletIndications :Post depression Take 1 tablet (40 mg) by mouth in the morning. 30 tablet 2 024 2024 Discontinued clotrimazole (Lotrimin) 1 % vaginal creamIndications: Vaginal candidiasis Insert 1 applicator into the vagina in the evening for 7 days 45 g 025 2024 Discontinued(T herapy completed) cephalexin (Keflex) 500 MG capsuleIndication s:Acute cystitis with hematuria Take 1 capsule (500 mg) by mouth in the morning and 1 capsule (500 mg) before bedtime. Do all this for 7 days. 14 capsule 025 2024 Discontinued(I neffective) Active Problems Problem Noted Date Diagnosed Date Overweight 09/27/2024 Post depression 08/18/2024 Sprain of right ankle 06/28/2024 Assessment & Plan (06/28/2024 11:17 AM EDT): Wrap and elevate Folliculitis 07/28/2023 Assessment & Plan (06/28/2024 11:16 AM EDT): Add Probiotic to help replenish the good bacteria that are destroyed by the Antibiotics Florastor Florajen Align or try Activia in Yogurt Probiotics reduce the risk of antibiotic induced diarrhea Assessment & Plan (07/28/2023 3:51 PM EDT): Add Probiotic to help replenish the good bacteria that are destroyed by the Antibiotics Florastor Florajen Align or try Activia in Yogurt Probiotics reduce the risk of antibiotic induced diarrhea Flexural eczema 07/28/2023 Assessment & Plan (07/28/2023 3:51 PM EDT): Potent steroid cream called in. Avoid face and groin application. Wart of hand 07/28/2023 Assessment & Plan (06/07/2024 11:50 AM EDT): With patient's verbal consent and after explaining risk benefits and potential outcomes 3 warts frozen with cryo with freeze thaw cycle x 2. Patient tolerated the procedure well. May need repeated in 2 weeks if not fully resolved Assessment & Plan (07/28/2023 3:51 PM EDT): To left Middle finger distal phalynx to the treviño surface 5 mm wart frozen after verbal permission. She tolerated twp free cycles with thawing inbetween. F/U in 2 weeks as needed Otitis externa 10/20/2019 Resolved Problems Problem Noted Date Diagnosed Date Resolved Date Sinusitis 12/14/2018 08/18/2024 Encounters Date Type Department Care Team Description 07/12/2025 Telephone [facility] R[facility] [address] [place] [address] [place] [id number] Argentina Thompson MA 06/21/2025 [facility]phone [facility] [address] [facility] [address] [place] [address] Ashtyn Bruce PA 06/21/2025 Abstract [facility] [address] [facility] [address] [place] [address] Denita Curry MD 06/20/2025 Telephone [facility] [address] [facility] [address] [place] [address] Ashtyn Bruce PA 06/19/2025 11:00 AM EDT Office Visit [facility] [address] [facility] [address] [place] [address] Ashtyn Bruce, FRANCESCO Amenorrhea (Primary Dx); Positive test ([facility]); Dark urine; Acute cystitis with hematuria 06/19/2025 Bamboo flowsheet [facility] [address] [facility] [address] [place] [address] Ashtyn Bruce PA 06/19/2025 Travel 06/13/2025 Telephone [facility] [place]y [address] [place] [address] Ashtyn Bruce PA from Last 3 Months Immunizations Immunization Administration Dates Next Due DTaP 06/26/2008 DTaP, Unspecified 08/12/2004, 4,2003,06/07 HPV 9-Valent 04/15/2016,02/14/2016 Hep A, ped/adol, 2 dose 02/14/2016 Hep B, Adolescent or Pediatric 2003 HiB, unspecified 08/12/2004,2003 Hib / Hep B 2003,2003 IPV 06/26/2008, 4,2003,06/07 Influenza, injectable, MDCK, preservative free, quadrivalent 08/26/2023 Influenza, injectable, quadrivalent 07/21/2017 Influenza, injectable, quadr ivalent, preservative free 06/01/2020 Influenza, seasonal, injectable 2003,09/18 Influenza, seasonal, injecta ble, preservative free 07/20/2024 MMR 06/26/2008,05/15/2004 Meningococcal B, Omv 03/17/2016,02/14/2016 Meningococcal MCV4O 05/10/2021,02/14/2016 PPD Test 10/06/2024,09/27/2024 Pneumococcal Conjugate PCV 7 08/12/2004, 05/15/2004,2003,08/16 Tdap 02/14/2016 Varicella 03/17/2016,05/15/2004 Family History Medical History Relation Name Comments Hypertension Maternal Grandfather Relation Name Status Comments Father Alive Maternal Grandfather Mother Alive Social History Tobacco Use Types Packs/Day Years [...] Sign Reading Time Taken Comments Blood Pressure 104/82 06/19/2025 11:06 AM EDT Pulse 97 06/19/2025 11:06 AM EDT Temperature - - Respiratory Rate 16 06/19/2025 11:06 AM EDT Oxygen Saturation 99% 06/19/2025 11:06 AM EDT Inhaled Oxygen Concentration - - Weight 68.5 kg (151 lb) 06/19/2025 11:06 AM EDT Height 160 cm (5' 3 ) 06/19/2025 11:06 AM EDT Body Mass Index 26.75 06/19/2025 11:06 AM EDT Plan of Treatment Upcoming Encounters Date Type Department Care Team (Late st Contact Info) Description 07/13/2025 1:30 PM EDT Initial [facility] [address] [place] [address] [place] [address] Health Maintenance Due Date Last Done Comments Influenza Vaccine (#1) 2025 , 08/26/2023, 06/01/2020, Additional history exists Procedures Procedure Name Priority Date/Time Associated Diagnosis Comments HCG, TOTAL, QN Routine 06/19/2025 11:24 AM EDT Amenorrhea Positive test ([facility]) URINARY TRACT INFECTION (HTRX) Routine 06/19/2025 11:18 AM EDT Acute cystitis with hematuria POCT URINALYSIS DIPSTICK Routine 06/19/2025 11:15 AM EDT Dark urine POCT , URINE Routine 06/19/2025 11:13 AM EDT Amenorrhea from Last 3 Months Results * (ABNORMAL) HCG, quantitative, (06/19/2025 11:24 AM EDT) HCG, TOTAL, QN 11,647(H) mIU/mL [facility] Comment: Reference Range Non or premenopausal <5 Postmenopausal <10 Values from different assay methods may vary. The use of this assay to monitor or to diagnose patients with cancer or any condition unrelated to has not been cleared or approved by the FDA or the soil fertility extension specialist of the assay. Blood Venous blood specimen / Unknown 06/19/2025 11:24 AM EDT 06/19/2025 11:24 AM EDT Narrative Resulting Agency Comment Performing Organization Information Site ID: QPT Name: [facility] Address: [address] [place] [address], [address] [place] [phone] Director: Javon Walsh MD us Ashtyn MAYA LAB BLOOD ORDERABLES Final Res ult [facility] * URINARY TRACT INFECTION (HTRX) (06/19/2025 11:18 AM EDT) Pathologist [facility] ACINETOBACTER BAUMANII 0 19.961 - 24.689 ppm 06/21/2025 9:32 AM EDT [facility] ACINETOBACTER BAUMANII Not Detected 19.961 - 24.689 ppm 06/21/2025 9:32 AM EDT [facility] CITROBACTER FREUNDII 0 23.000 - 32.015 ppm 06/21/2025 9:32 AM EDT [facility] CITROBACTER FREUNDII Not Detected 23.000 - 32.015 ppm 06/21/2025 9:32 AM EDT [facility] ENTEROBACTER AEROGENES, CLOACAE 0 23.000 - 32.290 ppm 06/21/2025 9:32 AM EDT [facility] ENTEROBACTER AEROGENES, CLOACAE Not Detected 23.000 - 32.290 ppm 06/21/2025 9:32 AM EDT [facility] ENTEROCOCCUS FAECALIS, FAECIUM 0 26.000 - 33.043 ppm 06/21/2025 9:32 AM EDT [facility] ENTEROCOCCUS FAECALIS, FAECIUM Not Detected 26.000 - 33.043 ppm 06/21/2025 9:32 AM EDT [facility] ESCHERICHIA COLI 0 23.000 - 28.500 ppm 06/21/2025 9:32 AM EDT [facility] ESCHERICHIA COLI Not Detected 23.000 - 28.500 ppm 06/21/2025 9:32 AM EDT [facility] KLEBSIELLA PNEUMONIAE, OXYTOCA 0 23.000 - 31.865 ppm 06/21/2025 9:32 AM EDT [facility] KLEBSIELLA PNEUMONIAE, OXYTOCA Not Detected 23.000 - 31.865 ppm 06/21/2025 9:32 AM EDT [facility] MORGANELLA MORGANII 0 19.961 - 24.689 ppm 06/21/2025 9:32 AM EDT [facility] MORGANELLA MORGANII Not Detected 19.961 - 24.689 ppm 06/21/2025 9:32 AM EDT [facility] PROTEUS MIRABILIS, VULGARIS 0 23.000 - 28.500 ppm 06/21/2025 9:32 AM EDT [facility] PROTEUS MIRABILIS, VULGARIS Not Detected 23.000 - 28.500 ppm 06/21/2025 9:32 AM EDT [facility] PSEUDOMONAS AERUGINOSA 0 23.000 - 31.801 ppm 06/21/2025 9:32 AM EDT [facility] PSEUDOMONAS AERUGINOSA Not Detected 23.000 - 31.801 ppm 06/21/2025 9:32 AM EDT [facility] STAPHYLOCOCCUS AUREUS 0 26.000 - 31.595 ppm 06/21/2025 9:32 AM EDT [facility] STAPHYLOCOCCUS AUREUS Not Detected 26.000 - 31.595 ppm 06/21/2025 9:32 AM EDT [facility] STREPTOCOCCUS AGALACTIAE (GROUP B STREP) 0 26.000 - 32.435 ppm 06/21/2025 9:32 AM EDT [facility] STREPTOCOCCUS AGALACTIAE (GROUP B STREP) Not Detected 26.000 - 32.435 ppm 06/21/2025 9:32 AM EDT [facility] LINDY ALBICANS, PARAPSILOSIS, TROPICALIS 0 23.000 - 30.347 ppm 06/21/2025 9:32 AM EDT [facility] LINDY ALBICANS, PARAPSILOSIS, TROPICALIS Not Detected 23.000 - 30.347 ppm 06/21/2025 9:32 AM EDT [facility] LINDY GLABRATA 0 23.000 - 31.618 ppm 06/21/2025 9:32 AM EDT [facility] LINDY GLABRATA Not Detected 23.000 - 31.618 ppm 06/21/2025 9:32 AM EDT [facility] LINDY KRUSEI 0 23.000 - 30.873 ppm 06/21/2025 9:32 AM EDT [facility] LINDY KRUSEI Not Detected 23.000 - 30.873 ppm 06/21/2025 9:32 AM EDT [facility] SERRATIA MARCESCENS 0 23.000 - 31.581 ppm 06/21/2025 9:32 AM EDT [facility] SERRATIA MARCESCENS Not Detected 23.000 - 31.581 ppm 06/21/2025 9:32 AM EDT [facility] STREPTOCOCCUS PYOGENES (GROUP A STREP) 0 19.961 - 24.689 ppm 06/21/2025 9:32 AM EDT [facility] STREPTOCOCCUS PYOGENES (GROUP A STREP) Not Detected 19.961 - 24.689 ppm 06/21/2025 9:32 AM EDT [facility] STAPHYLOCOCCUS EPIDERMIDIS, HAEMOLYTICUS, LUGDUNENSIS, SAPROPHYTICUS (URINA 0 19.961 - 24.689 ppm 06/21/2025 9:32 AM EDT [facility] STAPHYLOCOCCUS EPIDERMIDIS, HAEMOLYTICUS, LUGDUNENSIS, SAPROPHYTICUS (URINA Not Detected 19.961 - 24.689 ppm 06/21/2025 9:32 AM EDT [facility] STAPHYLOCOCCUS EPIDERMIDIS, HAEMOLYTICUS, LUGDUNENSIS, SAPROPHYTICUS (URINA 0 19.961 - 24.689 ppm 06/21/2025 9:32 AM EDT [facility] STAPHYLOCOCCUS EPIDERMIDIS, HAEMOLYTICUS, LUGDUNENSIS, SAPROPHYTICUS (URINA Not Detected 19.961 - 24.689 ppm 06/21/2025 9:32 AM EDT [facility] Urine 06/19/2025 11:1 8 AM EDT 06/21/2025 3:24 AM EDT Ashtyn MAYA LAB BLOOD ORDERABLES Final Res ult [facility] [address] [place] [address] * (ABNORMAL) POCT urinalysis dipstick manually resulted (06/19/2025 11:15 AM EDT) Color, UA Dark Cristiane Clarity, UA Hazy Glucose, UA Negative Negative - 2000(110) ++++ mg/dL Bilirubin, UA Moderate Negative - 4(70) +++ mg/dL Ketones, UA Negative Negative - 160(16) ++++ mg/dL Spec Grav, UA 1.025 1 - 1.03 Blood, UA Positive Negative - 50 Charlie/mcL Comment:small pH, UA 6.5 5 - 9 Protein, UA Trace Negative - 2000(20) ++++ mg/dL Urobilinogen, UA 1.0 0.2 - 12 mg/dL Leukocytes, UA Trace Negative - 500+++ Pricilla/mcL Nitrite, UA Negative Negative - Positive Urine 06/19/2025 11:1 5 AM EDT us Ashtyn MAYA POINT OF CARE TEST ENTER/EDIT ORDERABLES Final Result * POCT , urine (06/19/2025 11:13 AM EDT) Preg Test, Ur Positive Negative Urine 06/19/2025 11:1 3 AM EDT Ashtyn MAYA POINT OF CARE TEST ENTER/EDIT ORDERABLES Final Result from Last 3 Months Insurance [employer] Care Teams Tire Buster Relationship Specialty Start Date End Date Denita Curry MD [address] [facility] [address] [place] [address] PCP - General Family Medicine 03/11/23
--- OUTSIDE RECORDS SUMMARY | 2025-07-13 13:02 | XMS_ITS | Encounter Summary ---
Author Organization [facility] Address [address] [place] [address] Care Team Providers Care Agricultural Inspector Name Role Phone Denita Curry MD Primary Care Provider [phone] Denita Curry MD Unavailable Encounter Details Date Type Department Care Team (Late st Contact Info) Description 04/23/2023 Abstract JOSE RIZZO [address] [facility] [place] [address] Alvaro Martinez DO [address] [place] [address] Dr Frankie Lai, [facility]11 Social History Tobacco Use Types Packs/Day Years [...] 1:30 PM EDT Initial JOSE RIZZO [address] [place] [address] documented as of this encounter Visit Diagnoses Not on filedocumented in this encounter Care Teams Agricultural Inspector Relationship Specialty Start Date End Date Denita Curry MD 112 [facility] 110 [place] [address] PCP - General Family Medicine 03/11/23 Denita Curry MD 112 [facility] 110 [place] [address] PCP - [facility] 04/11/23 documented as of this encounter
--- OUTSIDE RECORDS SUMMARY | 2025-07-13 13:02 | XMS_ITS | Encounter Summary ---
Author Organization [facility] Address [address] [place] [address] Care Team Providers Care Lifter/Driver Name Role Phone Denita Curry MD Primary Care Provider [phone] Denita Curry MD Unavailable Encounter Details Date Type Department Care Team (Late st Contact Info) Description 03/10/2023 Clinisync Result Encounter [facility] External Department Unsolicited Denita Curry MD [address] [address] Social History Tobacco Use Types [...] 1:30 PM EDT Initial [facility] Joelle RIZZO [address] [place] [address] [place] [address] documented as of this encounter Procedures Procedure Name Priority Date/Time Associated Diagnosis Comments US PREG BIOPHY W NON STRESS 03/10/2023 4:04 PM EDT documented in this encounter Results * US PREG BIOPHY W NON STRESS (03/10/2023 4:04 PM EDT) Anatomical Region Laterality Modality Other 03/10/2023 4:04 PM EDT Narrative 03/11/2023 3:27 PM EDT EXAMINATION: US PREG BIOPHY W NON STRESS HISTORY: Excessive growth affecting management of mother COMPARISON: Ultrasound biophysical 03/03/2023 FINDINGS: BREATHING MOVEMENTS: 2.0 GROSS BODY MOVEMENTS: 2.0 TONE: 2.0 QUALITATIVE AMNIOTIC FLUID VOLUME: 2.0 PRESENTATION: CEPHALIC HEART RATE: 138.5 bpm bpm. AMNIOTIC FLUID VOLUME: 11.1 cm GESTATIONAL AGE: 36 weeks 3 days CONCLUSION: Total biophysical profile score 8.0. Electronically authenticated by: NE CRUZ Date: 2023-03-11 15:27 Procedure Note Radiology, Radiologist, MD - 03/11/2023 EXAMINATION: US PREG BIOPHY W NON STRESS HISTORY: Excessive growth affecting management of mother COMPARISON: Ultrasound biophysical 03/03/2023 FINDINGS: BREATHING MOVEMENTS: 2.0 GROSS BODY MOVEMENTS: 2.0 TONE: 2.0 QUALITATIVE AMNIOTIC FLUID VOLUME: 2.0 PRESENTATION: CEPHALIC HEART RATE: 138.5 bpm bpm. AMNIOTIC FLUID VOLUME: 11.1 cm GESTATIONAL AGE: 36 weeks 3 days CONCLUSION: Total biophysical profile score 8.0. Electronically authenticated by: NE CRUZ Date: 2023-03-11 15:27 Denita Curry MD [facility] Final Result documented in this encounter Visit Diagnoses Not on filedocumented in this encounter Care Teams Lifter/Driver Relationship Specialty Start Date End Date Denita Curry MD [address] [facility] [address] [place] [address] PCP - General Family Medicine 03/11/23 Denita Curry MD [address] [facility] 110 [place] [address] PCP - [facility] 04/11/23 documented as of this encounter
--- OUTSIDE RECORDS SUMMARY | 2025-07-13 13:02 | XMS_ITS | Encounter Summary ---
Author Organization [facility] Address [address] [place] [address] Care Team Providers Care Senior Web Services Developer Name Role Phone Denita Curry MD Primary Care Provider [phone] Denita Curry MD Unavailable Encounter Details Date Type Department Care Team (Late st Contact Info) Description 03/30/2023 Abstract [facility] [address] [facility] [place] [address] Alvaro Martinez DO [address] [place] [address] Dr Frankie Lai, [facility]11 Social History Tobacco Use Types [...] PM EDT Initial [facility] [address] [facility] [place] [place] [address] documented as of this encounter Visit Diagnoses Not on filedocumented in this encounter Care Teams Senior Web Services Developer Relationship Specialty Start Date End Date Denita Curry MD 112 [facility] 110 [place] [address] PCP - General Family Medicine 03/11/23 Denita Curry MD 112 [facility] 110 [place] [address] PCP - [facility] 04/11/23 documented as of this encounter
--- NOTE | 2025-07-13 13:05 | US_ITS ---
The [address] [address] Patient Name: SOLO CAMPOS MRN: [id number] date: 2005 Sex: F Assigned Patient Location: Current Patient Location: Accession/Order Number: [id number] Exam Date: 07/13/2025 13:06 Report Date: 07/14/2025 13:10 At the request of: ZEINAB FAIRCHILD DO Procedure: US OB transvaginal OB ultrasound. Reason for exam:Missed menses. Comparison:None Technique: Transvaginal as well as transvaginal imaging of the gravid uterus was obtained. Findings: Single live intrauterine 8 weeks 4 days by CRL, ROCK 02/18/2026. heart rate 1 71 bpm. No free fluid. Ovaries appear unremarkable. US/US OB transvaginal Impression: Single live intrauterine 8 weeks 4 days by CRL, ROCK 02/18/2026. Impression dictated by: Tree Augustin Jr., D.O. 07/14/2025 1:10 PM Dictation Location: [place] [address] Electronically authenticated by: [id number] Y Date: 07/14/2025 13:10
--- OUTSIDE RECORDS SUMMARY | 2025-07-13 18:59 | XMS_ITS | CCD ---
Author Organization [facility] CliniSyoh Care Team Providers Care Bunch Maker Hand Name Role Phone RODGER, DR WEINER Primary Care Unavailable HEMMER ASHTYN M Attending Unavailable HEMMERASHTYN Admitting Unavailable HEMMERASHTYN Consulting Unavailable GURINDER ., DR ARRIOLA Attending Unavailable GURINDER ., DR ARRIOLA Admitting Unavailable REQUEST, NONE LISTED Primary Care Unavaila ble GURINDER ., DR ARRIOLA Consulting Unavailable ZIEBER, DR NE Rodriguez Consulting Unavailable RODGER, DR WEINER Primary Care Unavailable GURINDER ., DR ARRIOLA Attending Unavailable GURINDER ., DR ARRIOLA Admitting Unavailable GURINDER ., DR ARRIOLA Consulting Unavailable ZIEBER, DR NE Rodriguez Consulting Unavailable RODGER, DR WEINER Primary Care Unavailable GURINDER ., DR ARRIOLA Attending Unavailable GURIDNER ., DR ARRIOLA Consulting Unavailable GURINDER ., DR ARRIOLA Admitting Unavailable STRAWSER, BNE Consulting Unavailable RODGER, DR WEINER Primary Care Unavailable GURINDER ., DR ARRIOLA Attending Unavailable GURINDER ., DR ARRIOLA Consulting Unavailable GURINDER ., DR ARRIOLA Admitting Unavailable RODGER, DR WEINER Primary Care Unavailable GURINDER ., DR ARRILOA Admitting Unavailable GURINDER ., DR ARRIOLA Attending Unavailable GURINDER ., DR ARRIOLA Consulting Unavailable ZIEBER, DR NE Rodriguez Consulting Unavailable GURINDER ., DR ARRIOLA Attending Unavailable REQUEST, DR NONE LISTED Primary Care Unavaila ble GURINDER ., DR ARRIOLA Consulting Unavailable GURINDER ., DR ARRIOLA Admitting Unavailable RODGER, DR WEINER Primary Care Unavailable GURINDER ., DR ARRIOLA Attending Unavailable GURINDER ., DR ARRIOLA Consulting Unavailable GURINDER ., DR ARRIOLA Admitting Unavailable ZIEBER, DR NE Rodriguez Consulting Unavailable RODGER, DR WEINER Primary Care Unavailable GURINDER ., DR ARRIOLA Attending Unavailable GURINDER ., DR ARRIOLA Consulting Unavailable GURINDER ., DR ARRIOLA Admitting Unavailable ZIEBER, DR NE Rodriguez Consulting Unavailable RODGER, DR WEINER Primary Care Unavailable HUDSON ., VAN Consulting Unavailable HUDSON ., VAN Admitting Unavailable HUDSON ., VAN Attending Unavailable RODGER, DR WEINER Primary Care Unavailable GURINDER ., DR ARRIOLA Attending Unavailable GURINDER ., DR ARRIOLA Consulting Unavailable GURINDER ., DR ARRIOLA Admitting Unavailable RODGER, DR WEINER Primary Care Unavailable GURINDER ., DR ARRIOLA Admitting Unavailable GURINDER ., DR ARRIOLA Attending Unavailable GURINDER ., DR ARRIOLA Consulting Unavailable RODGER, DR WEINER Primary Care Unavailable GURINDER ., DR ARRIOLA Admitting Unavailable GURINDER ., DR ARRIOLA Attending Unavailable GURINDER ., DR ARRIOLA Consulting Unavailable RODGER, DR WEINER Primary Care Unavailable GURINDER ., DR ARRIOLA Admitting Unavailable GURINDER ., DR ARRIOLA Consulting Unavailable GURINDER ., DR ARRIOLA Attending Unavailable RODGER, DR WEINER Primary Care Unavailable DIAB ., HUSEYIN Attending Unavailable DIAB ., HUSEYIN Admitting Unavailable FERNIE, FARNAZ Consulting Unavailable DIAB ., HUSEYIN Consulting Unavailable RODGER, DR WEINER Primary Care Unavailable GURINDER ., DR ARRIOLA Attending Unavailable GURINDER ., DR ARRIOLA Consulting Unavailable GURINDER ., DR ARRIOLA Admitting Unavailable HUDSON ., VAN Admitting Unavailable HUDSON ., VAN Attending Unavailable RODGER, DR WEINER [facility] Care Unavailable HUDSON ., VAN Consulting Unavailable RODGER, DR WEINER Primary Care Unavailable ALEXIS LEARY Admitting Unavailable ALEXIS LEARY Attending Unavailable GRECHNY ., FRANCESCO HORNE Consulting UnavailNE Onofre Consulting Unavailable KARASIK ., DR SCOTT Attending Unavailabl e KARASIK ., DR SCOTT Admitting Unavailabl e RODGER, DR WEINER [facility] Care Unavailable KARASIK ., DR SCOTT Consulting Unavailsindhu e WEST, DR FARNAZ Catalan Consulting Unavailable RODGERDENITA Primary Care Unavailable RODGERDENITA Primary Care Unavailable EDIL STEEL Attending Unavailable EDIL STEEL Attending Unavailable EDIL STEEL Referring Unavailable RODGERDENITA Primary Care Unavailable [facility] ASHTYN MUNIZ Attending Unavailable DENITA SOARES Attending Unavailable ASHTYN MUNIZ Attending Unavailable GOLDIE BEAULIEU Attending Unavailable ASHTYN MUNIZ Attending Unavailable ASHTYN MUNIZ Attending Unavailable ASHTYN MUNIZ Attending Unavailable ASHTYN MUNIZ Attending Unavailable ASHTYN MUNIZ Attending Unavailable Allergies Allergy Classification Reported Allergen(s) Allergy Type Date of Onset Reaction(s) Facility (1 source) Amoxicillin Drug Allergy 5 [facility] Repository (1 source) Penicillins Drug allergy (disorder) 5 [facility] Repository (1 source) Penicillin; Translations: [PENICILLIN] Drug Allergy 4 [facility] Repository (20 sources) Penicillins Drug Allergy 5 Hives, Rash, Unknown [facility] Work Phone: Medications Current Medications Medication Drug Class(es) Dates Sig (Normalized) Sig (Original) [id number] 200 actuat albuterol 0.09 mg/actuat metered dose inhaler (20 sources) beta2-Adrenergic Agonist Start: 02-16-2024 take 2 puff(s) by mouth every four to six hours for wheezing albuterol HFA 90 mcg/act inhaler inhale 2 puffs by mouth every 4 to 6 hours if needed for shortness of breath / wheezing 02/16/2024 Active citalopram 40 mg oral tablet (20 sources) Serotonin Reuptake Inhibitor Start: 08-18-2024 End: 06-19-2025 take 1 tablet by mouth in the morning citalopram (CeleXA) 40 MG tablet Indications: Post depression Take 1 tablet (40 mg) by mouth in the morning. 30 tablet 2 08/18/2024 06/19/2025 Discontinued Start: 03-08-2024 End: 08-18-2024 take 1 tablet by mouth in the morning citalopram (CeleXA) 20 MG tablet Indications: Post depression (CMS/HCC) Take 1 tablet (20 mg) by mouth in the morning. 30 tablet 11 06/28/2024 Active clotrimazole 10 mg/ml vaginal cream (3 sources) Azole Antifungal Start: 06-13-2025 End: 06-20-2025 clotrimazole (Lotrimin) 1 % vaginal cream Indications: Vaginal candidiasis Insert 1 applicator into the vagina in the evening for 7 days 45 g 06/13/2025 06/19/2025 Discontinued (Therapy completed) fluconazole 150 mg oral tablet (5 sources) Azole Antifungal Start: 08-01-2024 End: 08-04-2024 fluconazole (Diflucan) 150 MG tablet Indications: Vaginal discharge Take 1 tablet (150 mg) by mouth Daily for 1 day, THEN 1 tablet (150 mg) Daily for 1 day. Take doses 3 days apart. 2 tablet 08/01/2024 08/04/2024 Discontinued (Therapy completed) fluticasone propionate 0.5 mg/ml topical cream (20 sources) Corticosteroid Start: 04-01-2024 fluticasone (Cutivate) 0.05 % cream Indications: Flexural eczema Apply topically 2 (two) times a day 15 g 1 04/01/2024 Active metroNIDAZOLE 500 mg oral tablet (4 sources) Nitroimidazole Antimicrobial Start: 08-02-2024 End: 08-09-2024 take 1 tablet by mouth in the morning, then take 1 tablet by mouth in the evening, then take 1 tablet by mouth at bedtime metroNIDAZOLE (Flagyl) 500 MG tablet Indications: Bacterial vaginosis Take 1 tablet (500 mg) by mouth in the morning and 1 tablet (500 mg) in the evening and 1 tablet (500 mg) before bedtime. Do all this for 7 days. 21 tablet 08/02/2024 08/09/2024 Active multivitamin () 27-0.8 MG tablet (3 sources) Start: 06-19-2025 take 1 tablet by mouth once daily multivitamin () 27-0.8 MG tablet Indications: Positive test ([facility]) Take 1 tablet by mouth Daily 90 tablet 2 06/19/2025 Active norethindrone 0.35 mg oral tablet (20 sources) Start: 04-01-2024 End: 06-19-2025 take 1 tablet by mouth in the morning norethindrone (Jencycla) 0.35 MG tablet Indications: 6 weeks follow-up ([facility]) Take 1 tablet (0.35 mg) by mouth in the morning. 28 tablet 11 06/28/2024 06/19/2025 Discontinued (Therapy completed) sulfamethoxazole 800 mg / trimethoprim 160 mg oral tablet (2 sources) Dihydrofolate Reductase Inhibitor Antibacterial, Sulfonamide Antimicrobial Start: 06-28-2024 End: 07-08-2024 take 1 tablet by mouth once in the morning, then take 1 tablet by mouth once at bedtime sulfamethoxazole-t rimethoprim (Bactrim DS) 800-160 MG per tablet Indications: Folliculitis Take 1 tablet by mouth in the morning and 1 tablet before bedtime. Do all this for 10 days. 20 tablet 06/28/2024 07/08/2024 Active Completed/Discontinued Medications Medication Drug Class(es) Dates Sig (Normalized) Sig (Original) cephalexin 500 mg oral capsule (3 sources) Cephalosporin Antibacterial Start: 06-19-2025 End: 06-26-2025 take 1 capsule by mouth in the morning cephalexin (Keflex) 500 MG capsule Indications: Acute cystitis with hematuria Take 1 capsule (500 mg) by mouth in the morning and 1 capsule (500 mg) before bedtime. Do all this for 7 days. 14 capsule 06/19/2025 06/21/2025 Discontinued (Ineffective) 28-0.8 MG tablet (19 sources) Start: 07-22-2022 End: 08-18-2024 28-0.8 MG tablet 1 (one) time each day at the same time. 07/22/2022 08/18/2024 Discontinued (Other) Start: 07-22-2022 28-0. 8 MG tablet 1 (one) time each day at the same time. 07/22/2022 Active Problems Active Problems Problem Classification Problem Date Documented Date Episodic/Chronic Allergic reactions (20 sources) Flexural eczema; Translations: [Flexural eczema] Onset: 07-28-2023 07-28-2023 Chronic Early or threatened labor (4 sources) False labor before 37 completed weeks of gestation, third trimester; Translations: [FALSE LABR BEFOR 37 WK GEST 3RD TRI] Onset: 2023 Episodic Genitourinary symptoms and ill-defined conditions (2 sources) Urine looks dark; Translations: [Other abnormal findings in urine] 06-19-2025 Episodic Headache; including migraine (1 source) Headache; including migraine; Translations: [HEADACHE UNSPECIFIED] Onset: 03-06-2023 Immunizations and screening for infectious disease (6 sources) Contact with and (suspected) exposure to infections with a predominantly sexual mode of transmission; Translations: [Patient encounter status] Onset: 12-05-2022 07-20-2024 Episodic Inflammatory diseases of female pelvic organs (1 source) Bacterial vaginosis; Translations: [Acute vaginitis] 08-02-2024 Episodic Menstrual disorders (4 sources) Amenorrhea; Translations: [Amenorrhea, unspecified] 06-19-2025 Chronic Other complications of (4 sources) Other specified related conditions, third trimester; Translations: [OTH SPEC PREG RELATED COND 3RD TRI] Onset: 03-10-2023 Episodic Other complications of (5 sources) Maternal care for excessive growth, third trimester, not applicable or unspecified; Translations: [MAT CARE EXCSS FTL GRTH 3RD TRI UNS] Onset: 03-07-2023 Episodic Other complications of (4 sources) Uterine size-date discrepancy, third trimester; Translations: [UTERINE SZ-DATE DISCREPANCY 3RD TRI] Onset: 02-23-2023 Episodic Other ear and sense organ disorders (20 sources) Otitis externa; Translations: [Unspecified otitis externa, unspecified ear] Onset: 10-20-2019 07-25-2023 Chronic Other female genital disorders (2 sources) Vaginal discharge; Translations: [Other specified noninflammatory disorders of vagina] 08-01-2024 Episodic Other lower respiratory disease (1 source) Shortness of breath; Translations: [SHORTNESS OF BREATH] Onset: 03-05-2023 Episodic Other and delivery including normal (20 sources) Encounter for supervision of normal , unspecified, second trimester; Translations: [ state, incidental] Onset: 08-15-2022 Episodic Other screening for suspected conditions (not mental disorders or infectious disease) (1 source) Abnormal findings on diagnostic imaging of other specified body structures; Translations: [ABNORML FIND DX IMG OTH BODY STRUC] Onset: 03-05-2023 Chronic Other skin disorders (10 sources) Pain; Translations: [Disorder of the skin and subcutaneous tissue, unspecified] 07-13-2024 Episodic Residual codes; unclassified (1 source) 36 weeks gestation of ; Translations: [36 WEEKS GESTATION OF ] Onset: 03-11-2023 Episodic Residual codes; unclassified (1 source) 35 weeks gestation of ; Translations: [35 WEEKS GESTATION OF ] Onset: 03-09-2023 Episodic Residual codes; unclassified (1 source) Weeks of gestation of not specified; Translations: [WEEKS GESTATION NOT SPEC] Onset: 03-06-2023 Episodic Residual codes; unclassified (1 source) 34 weeks gestation of ; Translations: [34 WEEKS GESTATION OF ] Onset: 02-26-2023 Episodic Residual codes; unclassified (1 source) 28 weeks gestation of ; Translations: [28 WEEKS GESTATION OF ] Onset: 01-19-2023 Episodic Unclassified (4 sources) OTH SPCF DIS/COND COMPL ; Translations: [OTH SPCF DIS/COND COMPL ] Onset: 03-05-2023 Unclassified (3 sources) CONTACT W/AND (SUSP) EXPOS COVID-19; Translations: [CONTACT W/AND (SUSP) EXPOS COVID-19] Onset: 06-05-2022 Unclassified (1 source) Ankle Injury Onset: 06-16-2024 Unclassified (1 source) LUMP LEFT ARMPIT Onset: 02-04-2024 Urinary tract infections (2 sources) Acute cystitis; Translations: [Acute cystitis with hematuria] 06-19-2025 Episodic Past or Other Problems Problem Classification Problem Date Documented Date Episodic/Chronic Hemorrhage during ; abruptio placenta; placenta previa (8 sources) Antepartum hemorrhage, unspecified, unspecified trimester; Translations: [Antepartum hemorrhage, unspecified, second trimester] Onset: 10-16-2022 Episodic Miscellaneous mental health disorders (14 sources) depression; Translations: [ depression] Onset: 08-18-2024 08-18-2024 Episodic Nonspecific chest pain (4 sources) Other chest pain; Translations: [OTHER CHEST PAIN] Onset: 11-06-2022 Episodic Other complications of (1 source) Other specified related conditions, second trimester; Translations: [OTH SPEC PREG RELATED COND 2ND TRI] Onset: 11-10-2022 Episodic Other female genital disorders (4 sources) Other specified noninflammatory disorders of vagina; Translations: [OTH SPEC NONINFLAMMATORY D/O VAGINA] Onset: 12-02-2022 Episodic Other nutritional; endocrine; and metabolic disorders (9 sources) Overweight; Translations: [Overweight] Onset: 09-27-2024 09-27-2024 Episodic Other screening for suspected conditions (not mental disorders or infectious disease) (2 sources) Encounter for screening, unspecified; Translations: [Encounter for other screening for genetic and chromosomal anomalies] Onset: 09-20-2022 Episodic Other skin disorders (20 sources) Folliculitis; Translations: [Follicular disorder, unspecified] Onset: 07-28-2023 07-28-2023 Episodic Other upper respiratory infections (20 sources) Sinusitis; Translations: [Chronic sinusitis, unspecified] Onset: 12-14-2018 Resolved: 08-18-2024 07-25-2023 Chronic Residual codes; unclassified (1 source) 21 weeks gestation of ; Translations: [21 WEEKS GESTATION OF ] Onset: 12-01-2022 Episodic Residual codes; unclassified (1 source) 20 weeks gestation of ; Translations: [20 WEEKS GESTATION OF ] Onset: 11-19-2022 Episodic Residual codes; unclassified (1 source) 18 weeks gestation of ; Translations: [18 WEEKS GESTATION OF ] Onset: 11-10-2022 Episodic Residual codes; unclassified (1 source) 15 weeks gestation of ; Translations: [15 WEEKS GESTATION OF ] Onset: 10-20-2022 Episodic Skin and subcutaneous tissue infections (2 sources) Furuncle, unspecified; Translations: [Abscess] Onset: 02-04-2024 Episodic Sprains and strains (20 sources) Sprain of other ligament of right ankle, initial encounter; Translations: [Sprain of right ankle] Onset: 06-16-2024 06-28-2024 Episodic Unclassified (1 source) OT SPCF DIS/COND COMPL ; Translations: [OTH SPCF DIS/COND COMPL ] Onset: 03-03-2023 Unclassified (1 source) CONTACT W/AND (SUSP) EXPOS COVID-19; Translations: [CONTACT W/AND (SUSP) EXPOS COVID-19] Onset: 06-03-2022 Viral infection (20 sources) Hand wart; Translations: [Viral wart, unspecified] Onset: 07-28-2023 07-13-2024 Episodic Results Test Name Value Interpretation Reference Range Facility HCG, TOTAL, QNon 06-20-2025 [place] [address] m[IU]/mL [facility] Comment on above: Result Comment: Refe rence Range Non or premenopausal <5 Postmenopausal <10 Values from different assay methods may vary. The use of this assay to monitor or to diagnose patients with cancer or any condition unrelated to has not been cleared or approved by the FDA or the business strategy manager of the assay. Performed By: #### [id number] #### [facility] [address] [facility], [address] [place] [address] Roaster Operator: Javon Walsh MD HCG ( test) Ql (U)o n 06-19-2025 Preg Test, Ur Positive Negative [facility] [employer] [facility] Urinalysis macro (dipstick) panel (U)on 06-19-2025 Bilirubin, UA Moderate Negative - 4(70) +++ mg/dL [facility] Blood, UA Positive Negative - 50 Charlie/mcL [facility] Comment on above: small Clarity, UA Hazy [facility] Color, UA Dark Cristiane [facility] [employer] Glucose, UA Negative Negative - 1999(110) ++++ mg/dL [facility] Interpretation and review of laboratory results Abnormal [facility] Ketones, UA Negative Negative - 160(16) ++++ mg/dL [facility] Leukocytes, UA Trace Negative - 500+++ Pricilla/mcL [facility] Nitrite, UA Negative Negative - Positive [facility] pH, UA 6.5 5 - 9 [facility] [employer] Protein, UA Trace Negative - 1999(20) ++++ mg/dL [facility] Spec Grav, UA 1.025 1 - 1.03 [facility] Urobilinogen, UA 1.0 0.2 - 12 mg/dL [facility] Read PPDon 10-06-2024 Interpretation and review of laboratory results Normal [facility] Purified Protein Derivative Skin Test 0 mm - 4.99 mm [facility] [employer] XR ANKLE RT MIN 3 VWSon XR ANKLE RT MIN 3 VWS XR ANKLE RT MIN 3 VWS HISTORY: Pain, fall COMPARISON: None FINDINGS: Multiple views right ankle were obtained. Mild lateral soft tissue swelling and joint effusion. No acute fracture or malalignment. IMPRESSION: * No acute osseous abnormality. Finalized by Chidi Lopez MD on 06/16/2024 10:53 PM Normal [facility] US PREG BIOPHY W NON STRESSo n 03-11-2023 US PREG BIOPHY W NON STRESS EXAMINATION: US PREG BIOPHY W NON STRESS [...] authenticated by: NE CRUZ Date: 2023-03-11 15:27 Normal [facility] US PREG GROWTHon 03-11-2023 US PREG GROWTH EXAMINATION: US PREG GROWTH HISTORY: Excessive growth [...] authenticated by: NE CRUZ Date: 2023-03-11 15:25 Normal [facility] GROUP B STREP CULTUREon 02-10 S. agalactiae Ag Ql (Unsp spec) Isolate 1 Streptococcus agalactiae Moderate growth of ORGANISM 1 Streptococcus agalactiae ANTIBIOTIC M.I.C RX STATUS Benzylpenicillin <=0.06 S F Ampicillin <=0.25 S F Cefotaxime <=0.12 S F Ceftriaxone <=0.12 S F Levofloxacin 0.5 S F Inducible Clindamycin Resistance Neg NEG F Erythromycin <=0.12 S F Clindamycin <=0.25 S F Linezolid <=2 S F Vancomycin 0.5 S F Tetracycline <=0.25 S F Normal [facility] Comment on above: Performed By: #### G BSCX #### [facility] [address] [place] [address] Dr. Christopher Hillman AMNISUREon 03-05-2023 AMNISURE Negative Normal NEGATIVE [facility] Comment on above: Performed By: #### A MNI ####[facility] [address] [place], [place] [address]Dr. Christopher Hillman US PREG CERVICAL LENGTHon US PREG CERVICAL LENGTH EXAMINATION: US PREG CERVICAL LENGTH HISTORY: Third trimester COMPARISON: No relevant comparison available. FINDINGS: position: Cephalic presentation, longitudinal lie Placenta: Anterior, grade 3. Cervix: 4.3 cm, closed Heart rate: 138 bpm IMPRESSION: Closed cervix measuring 4.3 cm in length Electronically authenticated by: FARNAZ PELAYO Date: 2023-03-05 16:18 Normal [facility] CULTURE URINEon 2023 CULTURE URINE Culture Observations : LIGHT GROWTH OF MIXED GENITAL JELLY. NO POTENTIAL PATHOGENS SEEN. Normal [facility] Comment on above: Performed By: #### U RCX ####[facility] [address] [place], [place] [address]Dr. Christopher Hillman UA (CLEAN/CATCH) DEEP FAT FRY COOK/MICRO I F IND.on 2023 Bilirubin Ql (U) Negative Normal NEGATIVE [facility] Comment on above: Performed By: #### U NOAH CRAWFORDRO #### [facility] [address] [place] [address] Dr. Christopher Hillman Clarity (U) CLEAR Normal CLEAR [facility] Comment on above: Performed By: #### U NOAH CRAWFORDRO #### [facility] [address] [place] [address] Dr. Christopher Hillman Color (U) LT. YELLOW Normal YELLOW [facility] Comment on above: Performed By: #### U ACSIND, UMICRO #### [facility] [address] [address] [address] Christopher Hillman Glucose Ql (U) Negative Normal NEGATIVE [facility] Comment on above: Performed By: #### U ACSIND, UMICRO #### [facility] [address] [address] [address] Christopher Hillman Hemoglobin Ql (U) MODERATE Abnormal NEGATIVE [facility] Comment on above: Performed By: #### U ACSIND, UMICRO #### [facility] [address] [address] [address] Christopher Hillman Ketones Ql (U) Negative Normal NEGATIVE [facility] Comment on above: Performed By: #### U ACSIND, UMICRO #### [facility] [address] [place] [address] Dr. Christopher Hillman LEUKOCYTES MODERATE Abnormal NEGATIVE [facility] Comment on above: Performed By: #### U ACSIND, UMICRO #### [facility] [address] [address] [address] Christopher Hillman Nitrite Ql (U) Negative Normal NEGATIVE [facility] Comment on above: Performed By: #### U ACSIND, UMICRO #### [facility] [address] [place] [address] Dr. Christopher Hillman pH (U) 7.0 [pH] Normal 5-9 [facility] Comment on above: Performed By: #### U ACSIND, UMICRO #### [facility] [address] [address] [address] Christopher Hillman SPEC GRAVITY 1.010 Normal 1.005-<=1.025 [facility] Comment on above: Performed By: #### U ACSIND, UMICRO #### [facility] [address] [address] [address] Christopher Hillman UA PROTEIN Negative Normal NEGATIVE/ TRACE [facility] Comment on above: Performed By: #### U ACSIND, UMICRO #### [facility] [address] [place] [address] Dr. Christopher Hillman UR MICRO IND INDICATED Normal [facility] Comment on above: Performed By: #### U ACSIND, UMICRO #### [facility] [address] [place] [address] Dr. Christopher Hillman Urobilinogen Qn (U) 0.2 {Maryann'U}/dL Normal 0.2 - 1. 0 [facility] Comment on above: Performed By: #### U ACSIND, UMICRO #### [facility] [address] [place] [address] Dr. Christopher Hillman URINE MICROSCOPIC ONLYon BACTERIA SMALL Abnormal NONE SEEN [facility] Comment on above: Performed By: #### U ACSIND, UMICRO #### [facility] [address] [place] [address] Dr. Christopher Hillman Bacteria identified Cx Nom (U) INDICATED Normal [facility] Comment on above: Performed By: #### U ACSIND, UMICRO #### [facility] [address] [place] [address] Dr. Christopher Hillman CAST NONE SEEN Normal NONE SEEN [facility] Comment on above: Performed By: #### U ACSIND, UMICRO #### [facility] [address] [place] [address] Dr. Christopher Hillman Crystals LM Nom (Urine sed) NONE SEEN Normal NONE SEEN [facility] Comment on above: Performed By: #### U ACSIND, UMICRO #### [facility] [address] [place] [address] Dr. Christopher Hillman Epithelial cells LM Ql (Urine sed) FEW Abnormal NONE SEEN /RARE [facility] Comment on above: Performed By: #### U ACSIND, UMICRO #### [facility] [address] [place] [address] Dr. Christopher Hillman MUCOUS NONE SEEN Normal NONE SEEN [facility] Comment on above: Performed By: #### U ACSIND, UMICRO #### [facility] [address] [place] [address] Dr. Christopher Hillman RBC 2-5 Abnormal 0-2 [facility] Comment on above: Performed By: #### U ACSORLANDO, UMICRO #### [facility] [address] [place], [place] [address] Dr. Christopher Hillman WBC 20-50 Abnormal NONE SEEN [facility] Comment on above: Performed By: #### U ACSIND, UMICRO #### [facility] [id number] [address] Christopher Hillman US PREG BIOPHY W NON STRESSo n 2023 US PREG BIOPHY W NON STRESS EXAMINATION: US PREG BIOPHY W NON STRESS [...] authenticated by: NE CRUZ Date: 2023 06:22 Normal [facility] CULTURE URINEon 03-03-2023 CULTURE URINE Culture Observations : LIGHT GROWTH OF MIXED GENITAL JELLY. NO POTENTIAL PATHOGENS SEEN. Normal [facility] Comment on above: Performed By: #### U RCX #### [facility] [address] [place], [place] [id number] Dr. Christopher Hillman ECHOCARDIO M/2D COMPLETEon 0 03-03-2023 ECHOCARDIO M/2D COMPLETE Patient: SOLO CAMPOS Exam Date: 03/03/2023 : 2005 Gender:F Ordering : DR ZEINAB MARTINEZ . Admission #: [id number] Family : Order #: [id number] CLICK HERE TO VIEW EXAM ECHOCARDIOGRAM REPORT [...] Emery Krishna M.D. on 03/03/2023 at 15:23 Normal [facility] UA (CLEAN/CATCH) DEEP FAT FRY COOK/MICRO I F IND.on 03-03-2023 Bilirubin Ql (U) Negative Normal NEGATIVE [facility] Comment on above: Performed By: #### D DIM #### [facility] [address] [place] [address] Dr. Christopher Hillman Clarity (U) CLEAR Normal CLEAR [facility] Comment on above: Performed By: #### D DIM #### [facility] [address] [place] [address] Dr. Christopher Hillman Color (U) LT. YELLOW Normal YELLOW [facility] Comment on above: Performed By: #### D DIM #### [facility] [address] [place] [address] Dr. Christopher Hillman Glucose Ql (U) Negative Normal NEGATIVE [facility] Comment on above: Performed By: #### D DIM #### [facility] [address] [place] [address] Dr. Christopher Hillman Hemoglobin Ql (U) Negative Normal NEGATIVE [facility] Comment on above: Performed By: #### D DIM #### [facility] [address] [place] [address] Dr. Christopher Hillman Ketones Ql (U) Negative Normal NEGATIVE [facility] Comment on above: Performed By: #### D DIM #### [facility] [address] [address] [address] Christopher Hillman LEUKOCYTES MODERATE Abnormal NEGATIVE [facility] Comment on above: Performed By: #### D DIM #### [facility] [address] [place] [address] Dr. Christopher Hillman Nitrite Ql (U) Negative Normal NEGATIVE [facility] Comment on above: Performed By: #### D DIM #### [facility] [address] [place] [address] Dr. Christopher Hillman pH (U) 7.0 [pH] Normal 5-9 [facility] Comment on above: Performed By: #### D DIM #### [facility] [address] [place] [address] Dr. Christopher Hillman SPEC GRAVITY <=1.005 Abnormal 1.005-<=1.025 [facility] Comment on above: Performed By: #### D DIM #### [facility] [address] [place] [address] Dr. Christopher Hillman UA PROTEIN Negative Normal NEGATIVE/ TRACE [facility] Comment on above: Performed By: #### D DIM #### [facility] [address] [place] [address] Dr. Christopher Hillman UR MICRO IND INDICATED Normal [facility] Comment on above: Performed By: #### D DIM #### [facility] [address] [place] [address] Dr. Christopher Hillman Urobilinogen Qn (U) 0.2 {Maryann'U}/dL Normal 0.2 - 1. 0 [facility] Comment on above: Performed By: #### D DIM #### [facility] [address] [place] [address] Dr. Christopher Hillman URINE MICROSCOPIC ONLYon BACTERIA TRACE Abnormal NONE SEEN [facility] Comment on above: Performed By: #### D DIM #### [facility] [address] [place] [address] Dr. Christopher Hillman Bacteria identified Cx Nom (U) INDICATED Normal [facility] Comment on above: Performed By: #### D DIM #### [facility] [address] [place] [address] Dr. Christopher Hillman CAST NONE SEEN Normal NONE SEEN [facility] Comment on above: Performed By: #### D DIM #### [facility] [address] [place] [address] Dr. Christopher Hillman Crystals LM Nom (Urine sed) NONE SEEN Normal NONE SEEN [facility] Comment on above: Performed By: #### D DIM #### [facility] [address] [place] [address] Dr. Christopher Hillman Epithelial cells LM Ql (Urine sed) FEW Abnormal NONE SEEN /RARE [facility] Comment on above: Performed By: #### D DIM #### [facility] [address] [address] [address] Christopher Hillman MUCOUS TRACE Abnormal NONE SEEN [facility] Comment on above: Performed By: #### D DIM #### [facility] [address] [address] [address] Christopher Hillman RBC 2-5 Abnormal 0-2 [facility] Comment on above: Performed By: #### D DIM #### [facility] [address] [address] [address] Christopher Hillman WBC 10-20 Abnormal NONE SEEN [facility] Comment on above: Performed By: #### D DIM #### [facility] [address] [address] [address] Christopher Hillman US PREG BIOPHY W NON STRESSo n 02-23-2023 US PREG BIOPHY W NON STRESS EXAMINATION: US PREG BIOPHY W NON STRESS HISTORY: Uterine size for dates discrepancy COMPARISON: Ultrasound anatomy 11/17/2022 FINDINGS: BREATHING MOVEMENTS: 2.0 GROSS BODY MOVEMENTS: 2.0 TONE: 2.0 QUALITATIVE AMNIOTIC FLUID VOLUME: 2.0 PRESENTATION: Cephalic HEART RATE: 132.4 bpm bpm. AMNIOTIC FLUID VOLUME: 10.3 cm GESTATIONAL AGE: 34 weeks 2 days CONCLUSION: Total biophysical profile score 8.0. Electronically authenticated by: NE CRUZ Date: 2023-02-23 15:10 Normal [facility] US PREG GROWTHon 02-23-2023 US PREG GROWTH EXAMINATION: US PREG GROWTH HISTORY: Uterine size for dates discrepancy COMPARISON: Ultrasound anatomy 11/17/2022 FINDINGS: Heart Rate: 132.4 bpm Number: 1.0 Position: Cephalic Amniotic Fluid Volume: 10.3 cm Maximum Vertical Pocket: 3.2 cm BIOMETRY: BPD: 8.7 cm cm; 35 weeks 1 days HC: 31.2 cmcm; 35 weeks 0 days AC: 32.4 cm cm; 36 weeks 2 days FL: 6.6 cm cm; 33 weeks 6 days EFW: 2673.6 grams; 78% FL/AC: 20.3 FL/BPD: 75.7 HC/AC: 1.0 GESTATIONAL AGE: Age by EDC: 34 weeks 2 days ROCK by EDC: 04/04/2023 Age by US: 35 weeks 1 day ROCK by US: 03/29/2023 IMPRESSION: 1. Single live intrauterine with growth detailed above. 2. Fluid-filled stomach containing echogenic debris; nonspecific. Follow-up recommended to exclude outlet obstruction. 3. Aging placenta with innumerable calcifications throughout the placenta; grade 2-3. Electronically authenticated by: NE CRUZ Date: 2023-02-23 15:19 Normal [facility] UA (CLEAN/CATCH) DEEP FAT FRY COOK/MICRO I F IND.on 01-14-2023 Bilirubin Ql (U) Negative Normal NEGATIVE [facility] Comment on above: Performed By: #### C BC #### [facility] [address] [place] [address] Dr. Christopher Hillman Clarity (U) CLEAR Normal CLEAR [facility] Comment on above: Performed By: #### C BC #### [facility] [address] [place] [address] Dr. Christopher Hillman Color (U) LT. YELLOW Normal YELLOW [facility] Comment on above: Performed By: #### C BC #### [facility] [address] [place] [address] Dr. Christopher Hillman Glucose Ql (U) Negative Normal NEGATIVE [facility] Comment on above: Performed By: #### C BC #### [facility] [address] [place] [address] Dr. Christopher Hillman Hemoglobin Ql (U) Negative Normal NEGATIVE [facility] Comment on above: Performed By: #### C BC #### [facility] [address] [place] [address] Dr. Christopher Hillman Ketones Ql (U) Negative Normal NEGATIVE [facility] Comment on above: Performed By: #### C BC #### [facility] [address] [place] [address] Dr. Christopher Hillman LEUKOCYTES Negative Normal NEGATIVE [facility] Comment on above: Performed By: #### C BC #### [facility] [address] [place] [address] Dr. Christopher Hillman Nitrite Ql (U) Negative Normal NEGATIVE [facility] Comment on above: Performed By: #### C BC #### [facility] [address] [place] [address] Dr. Christopher Hillman pH (U) 7.5 [pH] Normal 5-9 [facility] Comment on above: Performed By: #### C BC #### [facility] [address] [place] [address] Dr. Christopher Hillman SPEC GRAVITY 1.010 Normal 1.005-<=1.025 [facility] Comment on above: Performed By: #### C BC #### [facility] [address] [place] [address] Dr. Christopher Hillman UA PROTEIN Negative Normal NEGATIVE/ TRACE [facility] Comment on above: Performed By: #### C BC #### [facility] [address] [place] [address] Dr. Christopher Hillman UR MICRO IND NOT INDICATED Normal [facility] Comment on above: Performed By: #### C BC #### [facility] [address] [place] [address] Dr. Christopher Hillman Urobilinogen Qn (U) 0.2 {Maryann'U}/dL Normal 0.2 - 1. 0 [facility] Comment on above: Performed By: #### C BC #### [facility] [address] [place] [address] Dr. Christopher Hillman US PREG CERVICAL LENGTHon US PREG CERVICAL LENGTH Examination:US PREG CERVICAL LENGTH INDICATION:Contractio n COMPARISON:11/26/2022 TECHNIQUE:Real-time sonography of the fetus was performed. FINDINGS:There is a single live intrauterine gestation with a heartbeat of 148 bpm. presentation is cephalic. The cervical length is 4.3 cm without funneling. IMPRESSION: Cervical length is 4.3 cm without cervical funneling. Electronically authenticated by: BEN CONROY Date: 2023-01-14 20:18 Normal [facility] CBC AUTO DIFFon 01-03-2023 BASO # 0.0 103/ul Normal 0.0-0.1 [facility] Comment on above: Performed By: #### C BC ####[facility] [address] [place] [id number]. Christopher Hillman Basophils/100 WBC (Bld) 0.3 % Normal 0.2-2.0 [facility] Comment on above: Performed By: #### C BC ####[facility] [address] [place] [phone]. Christopher Hillman EO # 0.1 103/ul Normal 0.0-0.7 [facility] Comment on above: Performed By: #### C BC ####[facility] [address] [place], [place] [id number]. Christopher Hillman Eosinophils/100 WBC (Bld) 1.1 % Normal 0.9-7.0 [facility] Comment on above: Performed By: #### C BC ####[facility] [address] [place], [place] [address]Dr. Christopher Hillman Erythrocyte distribution width (RBC) [Ratio] 12.7 % Normal 11.0-15.0 [facility] Comment on above: Performed By: #### C BC ####[facility] [address] [address]Dr. Christopher Hillman Hematocrit (Bld) [Volume fraction] 32.7 % Critically low 36.0-48.0 [facility] Comment on above: Performed By: #### C BC ####[facility] [address] [place] [id number]. Christopher Hillman Hemoglobin (Bld) [Mass/Vol] 10.6 g/dL Critically low 12.0-16.0 [facility] Comment on above: Performed By: #### C BC ####[facility] [address] [place] [id number]. Christopher Hillman IG # 0.06 10e3/ul Critically high 0.00-0.03 [facility] Comment on above: Performed By: #### C BC ####[facility] [address] [place], [place] [address]Dr. Christopher Hillman IG % 0.7 % Critically high 0.0-0.5 [facility] Comment on above: Performed By: #### C BC ####[facility] [address] [place] [phone]. Christopher Hillman LYMPH # 2.3 103/ul Normal 1.2-3.8 [facility] Comment on above: Performed By: #### C BC ####[facility] [address] [place] [phone]. Christopher Rafy Lymphocytes/100 WBC (Bld) 25.2 % Normal 20.5-60.0 [facility] Comment on above: Performed By: #### C BC ####[facility] [address] [place] [phone]. Marichuypedro Hillman MANUAL DIFF REQ NO Normal [facility] Comment on above: Performed By: #### C BC ####[facility] [address] [place] [phone]. Christopher Rafy MCH (RBC) [Entitic mass] 27.5 pg Normal 26.7-34.0 [facility] Comment on above: Performed By: #### C BC ####[facility] [address] [place] [phone]. Christopher Hillman MCHC (RBC) [Mass/Vol] 32.4 g/dL Normal 29.9-35.2 [facility] Comment on above: Performed By: #### C BC ####[facility] [address] [place] [phone]. Christopher Rafy MCV (RBC) [Entitic vol] 84.9 fL Normal 81.0-99.0 [facility] Comment on above: Performed By: #### C BC ####[facility] [address] [place] [phone]. Christopher Hillman MONO # 0.8 103/ul Normal 0.3-0.8 [facility] Comment on above: Performed By: #### C BC ####[facility] [address] [place], [place] [address]Dr. Christopher Rafy Monocytes/100 WBC (Bld) 8.6 % Normal 1.7-12.0 [facility] Comment on above: Performed By: #### C BC ####[facility] [address] [place], [place] [address]Xk. Christopher Hillman NEUT # 5.9 103/ul Normal 1.4-6.5 [facility] Comment on above: Performed By: #### C BC ####[facility] [address] [place], [place] [address]Po. Christopher Hillman Neutrophils/100 WBC (Bld) 64.1 % Normal 43.0-75.0 [facility] Comment on above: Performed By: #### C BC ####[facility] [address] [place] [phone]. Christopher Hillman Platelet mean volume (Bld) [Entitic vol] 10.7 fL Normal 9.5-13.5 [facility] Comment on above: Performed By: #### C BC ####[facility] [address] [place] [phone]. Christopher Hillman PLT 225 103/ul Normal 150-450 [facility] Comment on above: Performed By: #### C BC ####[facility] [address] [place] [phone]. Christopher Hillman RBC 3.85 106/ul Critically low 4.20-5.40 [facility] Comment on above: Performed By: #### C BC ####[facility] [address] [place] [phone]. Christopher Hillman WBC 9.2 103/ul Normal 4.0-11.0 [facility] Comment on above: Performed By: #### C BC ####[facility] [address] [place] [phone]. Christopher Hillman GLUCOSE - 1HRon 12-13-2022 Glucose [Mass/Vol] 83 mg/dL Normal 74-106 [facility] Comment on above: Performed By: #### C BC #### [facility] [address] [place], [place] [address] Dr. Christopher Hillman CHLAMYDIA/GONOCOCCUS SALOMÓN ( AB/URINE/PAPon 12-04-2022 Chlamydia trachomatis, SALOMÓN Negative Normal Negative [facility] Comment on above: Performed By: #### C BC #### [facility] [address] [place], [place] [address] Dr. Christopher Hillman Neisseria gonorrhoeae, SALOMÓN Negative Normal Negative [facility] Comment on above: Performed By: #### C BC #### [facility] [address] [place], [place] [address] Dr. Christopher Hillman VAGINITIS/VAGINOSIS DNA PROB Santi 12-04-2022 Anahi species Negative Normal Negative [facility] Comment on above: Performed By: #### V AGINT ####[facility] [address] [place] [phone]. Christopher Hillman Gardnerella vaginalis Negative Normal Negative [facility] Comment on above: Performed By: #### V AGINT ####[facility] [address] [place] [address]Dr. Christopher Hillman Trichomonas vaginalis Negative Normal Negative [facility] Comment on above: Performed By: #### V AGINT ####[facility] [address] [place] [phone]. Christopher Hillman US PREG PLACENTAon US PREG PLACENTA EXAMINATION: US PREG CERVICAL LENGTH, US PREG PLACENTA HISTORY: Antepartum hemorrhage COMPARISON: Ultrasound anatomy 11/17/2022 TECHNIQUE: Transabdominal and transvaginal sonographic examination for cervical length. FINDINGS: CERVIX LENGTH: 4.4 cm, closed. POSITION: Cephalic HEART RATE: 136 bpm PLACENTA: Anterior without subchorionic hematoma or abruption. OTHER: None. Age by EDC: 21 weeks 4 days ROCK by EDC: 04/04/2023 IMPRESSION: 1. Single live intrauterine . 2. Closed cervix 4.4 cm in length. 3. Unremarkable anterior placenta without previa. Electronically authenticated by: NE CRUZ Date: 2022-11-27 06:59 Normal [facility] US PREG ANATOMY SINGLEon US PREG ANATOMY SINGLE EXAMINATION: US PREG ANATOMY SINGLE HISTORY: anatomy study COMPARISON: No relevant comparison available. TECHNIQUE: Transabdominal sonographic examination was performed for obstetrical and evaluation. FINDINGS: Number: 1 Heart Rate: 156.0 bpm H.B. /min Amniotic Fluid Volume: Subjectively normal Placental Location: ANTERIOR with lower margin 6.3 cm from os. Cervix Length: 4.4 cm, closed. ANATOMY: Normal Structures -cerebellum, choroid plexus, cisterna magna, lateral cerebral ventricles, orbits, midline falx, hard palate, four-chamber heart, RVOT, LVOT, stomach, kidneys, bladder, umbilical cord insertion into abdomen, three-vessel cord, cervical spine, thoracic spine, lumbar spine, sacral spine, right upper extremity, left upper extremity, right lower extremity, left lower extremity. SUBOPTIMALLY SEEN: None ABNORMALITIES: None BIOMETRY: BPD: 5.1 cm 21 weeks 3 days ; 87% HC: 19.5 cm 21 weeks 5 days; 92% AC: 16.7 cm 21 weeks 5 days; 87% FL: 3.7 cm 21 weeks 5 days; 87% EFW:446.1 grams; >97% FL/AC: 22.0 FL/BPD: 72.8 HC/AC: 1.2 GESTATIONAL AGE: Age by EDC: 20 weeks 2 days ROCK by EDC: 04/04/2023 Age by current US: 21 weeks 5 days ROCK by current US: 03/25/2023 IMPRESSION: 1. Single live intrauterine with growth detailed above. Electronically authenticated by: NE CRUZ Date: 2022-11-17 15:21 Normal [facility] XR CHEST 1 Von 11-07-2022 XR CHEST 1 V EXAMINATION: XR CHES T 1 V HISTORY: Chest pain COMPARISON: Chest x-ray 09/29/2020 TECHNIQUE: Portable chest FINDINGS: The lung parenchyma is free of consolidation or infiltrate. No pneumothorax or pleural effusion. The cardiac, mediastinal and hilar contours are normal. The visualized osseous structures exhibit no gross abnormality. IMPRESSION: Normal chest x-ray Electronically authenticated by: FARNAZ ENCISO Date: 2022-11-06 22:14 Normal [facility] AFP MATERNAL FOR SPINA BIFID Aon 11-06-2022 AFP MoM 1.19 Normal [facility] Comment on above: Performed By: #### A FPMAT ####[facility] [address] [place], [place] [address]SyNing Hillman AFP Value 61.6 ng/mL Normal [facility] Comment on above: Performed By: #### A FPMAT ####[facility] [address] [place] [phone]. Christopher Hillman AFP, Serum for Spina Bifida Report Normal [facility] Comment on above: Performed By: #### A FPMAT ####[facility] [address] [place] [phone]. Christopher Hillman Comment Comment Normal [facility] Comment on above: Result Comment: Cassia Sparks, Ph.D., [facility] Director . References: Available Upon Request. . Multiples Of Median Cutoffs For AFP Elevations Kohli 2.5 Black 2.8 IDD 2.0 Twins 4.5 Abbreviation Definitions IDD - Insulin Dep Diabetes OSBR - Open Spina Bifida Risk . For further inquiries contact [employer] [facility] at [phone]. . This test was developed and its performance characteristics determined by [employer]. It has not been cleared or approved by the Food and Drug Administration. Performed By: #### A FPMAT ####[facility] [address] [place] [address]Dr. Christopher Hillman Gest Age Collection Date 18.4 weeks Normal [facility] Comment on above: Performed By: #### A FPMAT ####[facility] [address] [place] [address]Dr. Christopher Hillman Gestat, Age Based on LMP Normal [facility] Comment on above: Result Comment: Reca lculations are not recommended when gestational dating by LMP and ultrasound are within 10 days. Performed By: #### A FPMAT ####[facility] [address] [place] [address]Dr. Christopher Hillman Insulin Dep Diabetes No Normal [facility] Comment on above: Performed By: #### A FPMAT ####[facility] [address] [place] [address]Dr. Christopher Hillman Interpretation Comment Normal [facility] Comment on above: Result Comment: Inte rpretation: Screen Negative . This result is screen negative for OSB. The AFP MoM calculated is based on the gestational age provided. MS-AFP can identify up to 80% of open neural tube defects. Closed neural tube defects and some open defects may not be detected by this test. This test does not screen for Down Syndrome or Trisomy 18. If screening for Down Syndrome or Trisomy 18 is desired, contact [employer] to discuss available options. The [employer] recommends amniocentesis be offered to women age 35 and older. Performed By: #### A FPMAT ####[facility] [address] [place] [phone] Hillman [age] Normal [facility] Comment on above: Performed By: #### A FPMAT ####[facility] [id number] [id number] Hillman Multiple Gestation No Normal [facility] Comment on above: Performed By: #### A FPMAT ####[facility] [id number] [id number] Hillman OSBR Risk 1 [place] [address] Normal [facility] Comment on above: Performed By: #### A FPMAT ####[facility] [id number] [address]Dr. Christopher Hillman PDF . Normal [facility] Comment on above: Performed By: #### A FPMAT ####[facility] [id number] [id number] Hillman Race Normal [facility] Comment on above: Performed By: #### A FPMAT ####[facility] [id number] [address]DrNing Hillman Test Results: Negative Normal [facility] Comment on above: Performed By: #### A FPMAT ####[facility] [id number] [id number]. Christopher Hillman CARDIAC DARNELL ADMITon 023 CK [Catalytic activity/Vol] 30 U/L Normal 26-192 [facility] Comment on above: Performed By: #### D DIM #### [facility] [address] [address] [address] Christopher Hillman CK.MB [Mass/Vol] ng/mL Normal <=3.60 [facility] Comment on above: Performed By: #### D DIM #### [facility] [address] [place] [address] Dr. Christopher Hillman HSTROP <4.0 Normal 4.0-51.3 [facility] Comment on above: Result Comment: CUT- OFF POINTS HAVE BEEN ESTABLISHED BASED ON THE FOURTH UNIVERSAL DEFINITIONS OF MYOCARDIAL INFARCTION. THE UPPER REFERENCE LIMIT (URL) OF TROPONIN, DEFINED THE 99TH PERCENTILE OF cTnI DISTRIBUTION IN A REFERENCE POPULATION, HAS BEEN CONFIRMED THE DECISION THRESHOLD FOR [place] DIAGNOSIS. Performed By: #### D DIM #### [facility] [address] [place] [address] Dr. Christopher Hillman ANDI 11 ng/mL Normal 9-82 [facility] Comment on above: Performed By: #### D DIM #### [facility] [address] [place] [address] Dr. Christopher Hillman CBC AUTO DIFFon 11-06-2022 BASO # 0.0 103/ul Normal 0.0-0.1 [facility] Comment on above: Performed By: #### C BC #### [facility] [address] [place] [address] Dr. Christopher Hillman Basophils/100 WBC (Bld) 0.4 % Normal 0.2-2.0 [facility] Comment on above: Performed By: #### C BC #### [facility] [address] [place] [address] Dr. Christopher Hillman EO # 0.1 103/ul Normal 0.0-0.7 [facility] Comment on above: Performed By: #### C BC #### [facility] [address] [place] [address] Dr. Christopher Hillman Eosinophils/100 WBC (Bld) 1.3 % Normal 0.9-7.0 [facility] Comment on above: Performed By: #### C BC #### [facility] [address] [place] [address] Dr. Christopher Hillman Erythrocyte distribution width (RBC) [Ratio] 14.7 % Normal 11.0-15.0 [facility] Comment on above: Performed By: #### C BC #### [facility] [address] [address] [address] Christopher Hillman Hematocrit (Bld) [Volume fraction] 38.3 % Normal 36.0-48.0 [facility] Comment on above: Performed By: #### C BC #### [facility] [address] [address] [address] Christopher Hillman Hemoglobin (Bld) [Mass/Vol] 12.1 g/dL Normal 12.0-16.0 [facility] Comment on above: Performed By: #### C BC #### [facility] [address] [address] [address] Christopher Hillman IG # 0.06 10e3/ul Critically high 0.00-0.03 [facility] Comment on above: Performed By: #### C BC #### [facility] [address] [address] [address] Christopher Hillman IG % 0.6 % Critically high 0.0-0.5 [facility] Comment on above: Performed By: #### C BC #### [facility] [address] [address] [address] Christopher Hillman LYMPH # 2.5 103/ul Normal 1.2-3.8 [facility] Comment on above: Performed By: #### C BC #### [facility] [address] [address] [address] Christopher Hillman Lymphocytes/100 WBC (Bld) 22.8 % Normal 20.5-60.0 [facility] Comment on above: Performed By: #### C BC #### [facility] [address] [address] [address] Christopher Hillman MANUAL DIFF REQ NO Normal [facility] Comment on above: Performed By: #### C BC #### [facility] [address] [place] [address] Dr. Christopher Hillman MCH (RBC) [Entitic mass] 28.5 pg Normal 26.7-34.0 [facility] Comment on above: Performed By: #### C BC #### [facility] [address] [address] [address] Christopher Hillman MCHC (RBC) [Mass/Vol] 31.6 g/dL Normal 29.9-35.2 [facility] Comment on above: Performed By: #### C BC #### [facility] [address] [address] [address] Christopher Hillman MCV (RBC) [Entitic vol] 90.1 fL Normal 81.0-99.0 [facility] Comment on above: Performed By: #### C BC #### [facility] [address] [address] [address] Christopher Hillman MONO # 0.9 103/ul Critically high 0.3-0.8 [facility] Comment on above: Performed By: #### C BC #### [facility] [address] [place] [address] Dr. Christopher Hillman Monocytes/100 WBC (Bld) 8.3 % Normal 1.7-12.0 [facility] Comment on above: Performed By: #### C BC #### [facility] [address] [place] [address] Dr. Christopher Hillman NEUT # 7.2 103/ul Critically high 1.4-6.5 [facility] Comment on above: Performed By: #### C BC #### [facility] [address] [place] [address] Dr. Christopher Hillman Neutrophils/100 WBC (Bld) 66.6 % Normal 43.0-75.0 [facility] Comment on above: Performed By: #### C BC #### [facility] [address] [address] [address] Christopher Hillman Platelet mean volume (Bld) [Entitic vol] 11.1 fL Normal 9.5-13.5 [facility] Comment on above: Performed By: #### C BC #### [facility] [address] [address] [address] Christopher Hillman PLT 283 103/ul Normal 150-450 [facility] Comment on above: Performed By: #### C BC #### [facility] [address] [place] [address] Dr. Christopher Hillman RBC 4.25 106/ul Normal 4.20-5.40 [facility] Comment on above: Performed By: #### C BC #### [facility] [address] [place] [address] Dr. Christopher Hillman WBC 10.7 103/ul Normal 4.0-11.0 [facility] Comment on above: Performed By: #### C BC #### [facility] [address] [place] [address] Dr. Christopher Hillman D-DIMERon 11-06-2022 D-DIMER 0.70 mg/L FEU Critically high <=0.59 [facility] Comment on above: Performed By: #### D DIM #### [facility] [address] [place] [address] Dr. Christopher Hillman D-DIMER COMMENTS SEE BELOW Normal [facility] Comment on above: Result Comment: Incr eases in D-Dimer concentration observed with thromboembolic events can be variable due to localization, size, and age of the thrombus. Therefore, a thromboembolic event cannot be diagnosed with certainty on the basis of the reference range. D-Dimers may also be elevated for a variety of disorders including: advanced age, , coronary disease, cancer, liver disease, infection, inflammation, hematoma, DIC, trauma, post-surgery, diabetes, thrombolytic or anticoagulant therapy, stress, and generalized hospitalization. Performed By: #### D DIM #### [facility] [address] [place] [address] Dr. Christopher Hillman ER URINE PROFILEon 3 Bilirubin Ql (U) Negative Normal NEGATIVE [facility] Comment on above: Performed By: #### C BC #### [facility] [address] [place] [address] Dr. Christopher Hillman Clarity (U) CLEAR Normal CLEAR [facility] Comment on above: Performed By: #### C BC #### [facility] [address] [place] [address] Dr. Christopher Hillman Color (U) LT. YELLOW Normal YELLOW [facility] Comment on above: Performed By: #### C BC #### [facility] [address] [place] [address] Dr. Christopher CASTILLO A micrscopic examination will be performed if indicated. Normal [facility] Comment on above: Performed By: #### C BC #### [facility] [address] [address] [address] Christopher Hillman Glucose Ql (U) Negative Normal NEGATIVE [facility] Comment on above: Performed By: #### C BC #### [facility] [address] [place] [address] Dr. Christopher Hillman Hemoglobin Ql (U) TRACE-INTACT Abnormal NEGATIVE [facility] Comment on above: Performed By: #### C BC #### [facility] [address] [place] [address] Dr. Christopher Hillman Ketones Ql (U) Negative Normal NEGATIVE [facility] Comment on above: Performed By: #### C BC #### [facility] [address] [place] [address] Dr. Christopher Hillman LEUKOCYTES SMALL Abnormal NEGATIVE [facility] Comment on above: Performed By: #### C BC #### [facility] [address] [place] [address] Dr. Christopher Hillman Nitrite Ql (U) Negative Normal NEGATIVE [facility] Comment on above: Performed By: #### C BC #### [facility] [address] [place] [address] Dr. Christopher Hillman pH (U) 6.0 [pH] Normal 5-9 [facility] Comment on above: Performed By: #### C BC #### [facility] [address] [place] [address] Dr. Christopher Hillman SPEC GRAVITY 1.010 Normal 1.005-<=1.025 [facility] Comment on above: Performed By: #### C BC #### [facility] [address] [place] [address] Dr. Christopher Hillman UA PROTEIN Negative Normal NEGATIVE/ TRACE [facility] Comment on above: Performed By: #### C BC #### [facility] [address] [place] [address] Dr. Christopher Hillman UR MICRO IND INDICATED Normal [facility] Comment on above: Performed By: #### C BC #### [facility] [address] [place] [address] Dr. Christopher Hillman Urobilinogen Qn (U) 0.2 {Maryann'U}/dL Normal 0.2 - 1. 0 [facility] Comment on above: Performed By: #### C BC #### [facility] [address] [place] [address] Dr. Christopher Hillman PROF 14(COMP METB)on 023 Albumin [Mass/Vol] 3.0 g/dL Critically low 3.4-5.0 [facility] e [facility] Comment on above: Performed By: #### D DIM #### [facility] [address] [place] [address] Dr. Christopher Hillman Albumin/Globulin [Mass ratio] 0.8 {ratio} Normal [facility] Comment on above: Performed By: #### D DIM #### [facility] [address] [place] [address] Dr. Christopher Hillman ALP [Catalytic activity/Vol] 112 U/L Normal 46-116 [facility] Comment on above: Performed By: #### D DIM #### [facility] [address] [place] [address] Dr. Christopher Hillman ALT [Catalytic activity/Vol] 47 U/L Normal 14-59 [facility] Comment on above: Performed By: #### D DIM #### [facility] [address] [place] [address] Dr. Christopher Hillman Anion gap [Moles/Vol] 14.5 mmol/L Normal [facility] Comment on above: Performed By: #### D DIM #### [facility] [address] [place] [address] Dr. Christopher Hillman AST [Catalytic activity/Vol] 44 U/L Critically high 15-37 [facility] Comment on above: Performed By: #### D DIM #### [facility] [address] [place] [address] Dr. Christopher Hillman Bilirubin [Mass/Vol] 0.1 mg/dL Critically low 0.2-1.0 [facility] Comment on above: Performed By: #### D DIM #### [facility] [address] [place] [address] Dr. Christopher Hillman Calcium [Mass/Vol] 8.9 mg/dL Normal 8.5-10.1 [facility] Comment on above: Performed By: #### D DIM #### [facility] [address] [place] [address] Dr. Christopher Hillman Chloride [Moles/Vol] 104 mmol/L Normal 98-107 [facility] Comment on above: Performed By: #### D DIM #### [facility] [address] [place] [address] Dr. Christopher Hillman CO2 [Moles/Vol] 22.9 mmol/L Normal 21.0-32.0 [facility] Comment on above: Performed By: #### D DIM #### [facility] [address] [place] [address] Dr. Christopher Hillman Creatinine [Mass/Vol] 0.40 mg/dL Critically low 0.55-1.02 [facility] Comment on above: Performed By: #### D DIM #### [facility] [address] [place] [address] Dr. Christopher Hillman EGFR-AF MALAWIAN >60 Normal >=60 [facility] Comment on above: Performed By: #### D DIM #### [facility] [address] [place] [address] Dr. Christopher Hillman EGFR-NON AF MALAWIAN >60 Normal >=60 [facility] Comment on above: Performed By: #### D DIM #### [facility] [address] [place] [address] Dr. Christopher Hillman Globulin (S) [Mass/Vol] 3.8 g/dL Normal [facility] Comment on above: Performed By: #### D DIM #### [facility] [address] [place] [address] Dr. Christopher Hillman Glucose [Mass/Vol] 92 mg/dL Normal 74-106 [facility] Comment on above: Performed By: #### D DIM #### [facility] [address] [address] [address] Christopher Hillman Potassium [Moles/Vol] 3.4 mmol/L Critically low 3.5-5.1 [facility] Comment on above: Performed By: #### D DIM #### [facility] [address] [place] [address] Dr. Christopher Hillman Protein [Mass/Vol] 6.8 g/dL Normal 6.4-8.2 [facility] Comment on above: Performed By: #### D DIM #### [facility] [address] [place] [address] Dr. Christopher Hillman Sodium [Moles/Vol] 138 mmol/L Normal 136-145 [facility] Comment on above: Performed By: #### D DIM #### [facility] [address] [place] [address] Dr. Christopher Hillman Urea nitrogen [Mass/Vol] 4.0 mg/dL Critically low 6.4-19.3 [facility] Comment on above: Performed By: #### D DIM #### [facility] [address] [place] [address] Dr. Christopher Hillman Urea nitrogen/Creatinine [Mass ratio] 10.0 mg/mg Normal [facility] Comment on above: Performed By: #### D DIM #### [facility] [address] [place] [address] Dr. Christopher Hillman URINE MICROSCOPIC ONLYon BACTERIA TRACE Abnormal NONE SEEN [facility] Comment on above: Performed By: #### C BC #### [facility] [address] [place] [address] Dr. Christopher Hillman Bacteria identified Cx Nom (U) NOT INDICATED Normal [facility] Comment on above: Performed By: #### C BC #### [facility] [address] [place] [address] Dr. Christopher Hillman CAST NONE SEEN Normal NONE SEEN [facility] Comment on above: Performed By: #### C BC #### [facility] [address] [place] [address] Dr. Christopher Hillman Crystals LM Nom (Urine sed) NONE SEEN Normal NONE SEEN [facility] Comment on above: Performed By: #### C BC #### [facility] [address] [place] [address] Dr. Christopher Hillman Epithelial cells LM Ql (Urine sed) FEW Abnormal NONE SEEN /RARE [facility] Comment on above: Performed By: #### C BC #### [facility] [address] [place] [address] Dr. Christopher Hillman MUCOUS NONE SEEN Normal NONE SEEN [facility] Comment on above: Performed By: #### C BC #### [facility] [address] [place] [address] Dr. Christopher Hillman RBC 0-2 Normal 0-2 [facility] Comment on above: Performed By: #### C BC #### [facility] [address] [place] [address] Dr. Christopher Hillman WBC 0-2 Abnormal NONE SEEN [facility] Comment on above: Performed By: #### C BC #### [facility] [address] [place] [address] Dr. Christopher Hillman US PREG PLACENTAon 3 US PREG PLACENTA EXAM: US PREG PLACENTA HISTORY vaginal bleeding. COMPARISON: Pelvic ultrasound 08/12/2022. TECHNIQUE: Transabdominal ultrasound was performed of the pelvis. FINDINGS: There is a single live intrauterine with breech presentation and longitudinal lie. Heart rate measures 150 bpm. Placenta is located anteriorly with no evidence of abruption. Cervix measures 4 cm in length and appears closed with trace endocervical fluid noted. IMPRESSION: 1. Single live intrauterine with breech presentation, heart rate of 150 bpm. 2. Anterior placenta with no evidence of abruption. 3. The cervix measures 4 cm in length, and appears closed with trace endocervical fluid. Electronically authenticated by: NE SABA Date: 2022-10-16 22:33 Normal [facility] ER URINE PROFILEon 3 Bilirubin Ql (U) Negative Normal NEGATIVE [facility] Comment on above: Performed By: #### C BC #### [facility] [address] [place] [address] Dr. Christopher Hillman Clarity (U) CLEAR Normal CLEAR [facility] Comment on above: Performed By: #### C BC #### [facility] [address] [place] [address] Dr. Christopher Hillman Color (U) LT. YELLOW Normal YELLOW [facility] Comment on above: Performed By: #### C BC #### [facility] [address] [place] [address] Dr. Christopher Hillman ERUAHD A micrscopic examination will be performed if indicated. Normal [facility] Comment on above: Performed By: #### C BC #### [facility] [address] [place] [address] Dr. Christopher Hillman Glucose Ql (U) Negative Normal NEGATIVE [facility] Comment on above: Performed By: #### C BC #### [facility] [address] [place] [address] Dr. Christopher Hillman Hemoglobin Ql (U) TRACE-LYSED Abnormal NEGATIVE [facility] Comment on above: Performed By: #### C BC #### [facility] [address] [place] [address] Dr. Christopher Hillman Ketones Ql (U) Negative Normal NEGATIVE [facility] Comment on above: Performed By: #### C BC #### [facility] [address] [place] [address] Dr. Christopher Hillman LEUKOCYTES Negative Normal NEGATIVE [facility] Comment on above: Performed By: #### C BC #### [facility] [address] [place] [address] Dr. Christopher Hillman Nitrite Ql (U) Negative Normal NEGATIVE [facility] Comment on above: Performed By: #### C BC #### [facility] [address] [place] [address] Dr. Christopher Hillman pH (U) 8.0 [pH] Normal 5-9 [facility] Comment on above: Performed By: #### C BC #### [facility] [address] [place] [address] Dr. Christopher Hillman SPEC GRAVITY 1.010 Normal 1.005-<=1.025 [facility] Comment on above: Performed By: #### C BC #### [facility] [address] [place] [address] Dr. Christopher Hillman UA PROTEIN Negative Normal NEGATIVE/ TRACE [facility] Comment on above: Performed By: #### C BC #### [facility] [address] [place] [address] Dr. Christopher Hillman UR MICRO IND INDICATED Normal [facility] Comment on above: Performed By: #### C BC #### [facility] [address] [place] [address] Dr. Christopher Hillman Urobilinogen Qn (U) 0.2 {Maryann'U}/dL Normal 0.2 - 1. 0 [facility] Comment on above: Performed By: #### C BC #### [facility] [address] [place] [address] Dr. Christopher Hillman URINE MICROSCOPIC ONLYon BACTERIA TRACE Abnormal NONE SEEN [facility] Comment on above: Performed By: #### C BC #### [facility] [address] [place] [address] Dr. Christopher Hillman Bacteria identified Cx Nom (U) NOT INDICATED Normal [facility] Comment on above: Performed By: #### C BC #### [facility] [address] [place] [address] Dr. Christopher Hillman CAST NONE SEEN Normal NONE SEEN [facility] Comment on above: Performed By: #### C BC #### [facility] [address] [place] [address] Dr. Christopher Hillman Crystals LM Nom (Urine sed) NONE SEEN Normal NONE SEEN [facility] Comment on above: Performed By: #### C BC #### [facility] [address] [place] [address] Dr. Christopher Hillman Epithelial cells LM Ql (Urine sed) NONE SEEN Normal NONE SEEN /RARE [facility] Comment on above: Performed By: #### C BC #### [facility] [address] [place] [address] Dr. Christopher Hillman MUCOUS NONE SEEN Normal NONE SEEN [facility] Comment on above: Performed By: #### C BC #### [facility] [address] [address] [address] Christopher Hillman RBC NONE SEEN Abnormal 0-2 [facility] Comment on above: Performed By: #### C BC #### [facility] [id number] Christopher Hillman WBC NONE SEEN Normal NONE SEEN [facility] Comment on above: Performed By: #### C BC #### [facility] [address] [address] [address] Christopher Hillman HEP B SURFACE ANTIGEN SCREEN on 09-17-2022 HBsAg Screen Negative Normal Negative The [facility] Comment on above: Performed By: #### D DIM #### [facility] [address] [place] [address] Dr. Christopher Hillman HEPATITIS C VIRUS AB W/ REFL EX QUANTon 09-17-2022 HCV AB <0.1 Normal 0.0-0.9 [facility] Comment on above: Performed By: #### H CVPCRR ####[facility] [address] [address]Dr. Christopher Hillman Interpretation: Comment Normal [facility] Comment on above: Result Comment: Nega tive Not infected with HCV, unless recent infection is suspected or other evidence exists to indicate HCV infection. Performed By: #### H CVPCRR ####[facility] [address] [id number]. Christopher Hillman HIV 1 AND 2 WITH REFLEXon HIV Screen 4th Generation wRfx Non-Reactive Normal Non Reactive [facility] Comment on above: Result Comment: HIV Negative HIV-1/HIV-2 antibodies and HIV-1 p24 antigen were NOT detected. There is no laboratory evidence of HIV infection. Performed By: #### H IV12 ####[facility] [address] [address]Dr. Christopher Hillman RPR QUANTon 09-17-2022 Rapid Plasma Reagin, Quant Non-Reactive Normal NonRea<1:1 [facility] Comment on above: Result Comment: Plea se Note: This test does not meet current guidelines for screening and diagnosis of syphilis. This test is intended for following treatment response in patients being treated for syphilis infection. To screen for syphilis infection, a reflex cascade that includes both RPR and a treponema-specific assay should be utilized, such as Treponema pallidum (Syphilis) Screening [place] (249925) or Rapid Plasma Reagin (RPR) Test With Reflex to Quantitative RPR and Confirmatory Treponema pallidum Antibodies (115968). Performed By: #### C BC #### [facility] [address] [place] [address] Dr. Christopher Hillman RUBELLA AB IGGon 09-17-2022 Rubella Antibodies, IgG 4.82 index Normal Immune >0.99 [facility] Comment on above: Result Comment: Non- immune <0.90 Equivocal 0.90 - 0.99 Immune >0.99 Performed By: #### R UBIGG ####[facility] [address] [address]Dr. Christopher Hillman CBC AUTO DIFFon 09-16-2022 BASO # 0.0 103/ul Normal 0.0-0.1 [facility] Comment on above: Performed By: #### C BC #### [facility] [address] [place] [address] Dr. Christopher Hillman Basophils/100 WBC (Bld) 0.3 % Normal 0.2-2.0 [facility] Comment on above: Performed By: #### C BC #### [facility] [address] [place] [address] Dr. Christopher Hillman EO # 0.1 103/ul Normal 0.0-0.7 [facility] Comment on above: Performed By: #### C BC #### [facility] [address] [place] [address] Dr. Christopher Hillman Eosinophils/100 WBC (Bld) 0.8 % Critically low 0.9-7.0 [facility] Comment on above: Performed By: #### C BC #### [facility] [address] [place] [address] Dr. Christopher Hillman Erythrocyte distribution width (RBC) [Ratio] 14.1 % Normal 11.0-15.0 [facility] Comment on above: Performed By: #### C BC #### [facility] [address] [address] [address] Christopher Hillman Hematocrit (Bld) [Volume fraction] 39.8 % Normal 36.0-48.0 [facility] Comment on above: Performed By: #### C BC #### [facility] [address] [place] [address] Dr. Christopher Hillman Hemoglobin (Bld) [Mass/Vol] 13.5 g/dL Normal 12.0-16.0 [facility] Comment on above: Performed By: #### C BC #### [facility] [address] [place] [address] Dr. Chritsopher Hillman IG # 0.03 10e3/ul Normal 0.00-0.03 [facility] Comment on above: Performed By: #### C BC #### [facility] [address] [place] [address] Dr. Christopher Hillman IG % 0.4 % Normal 0.0-0.5 [facility] Comment on above: Performed By: #### C BC #### [facility] [address] [place] [address] Dr. Christopher Hillman LYMPH # 1.9 103/ul Normal 1.2-3.8 [facility] Comment on above: Performed By: #### C BC #### [facility] [address] [place] [address] Dr. Christopher Hillman Lymphocytes/100 WBC (Bld) 24.6 % Normal 20.5-60.0 [facility] Comment on above: Performed By: #### C BC #### [facility] [address] [place] [address] Dr. Christopher Hillman MANUAL DIFF REQ NO Normal [facility] Comment on above: Performed By: #### C BC #### [facility] [address] [place] [address] Dr. Christopher Hillman MCH (RBC) [Entitic mass] 27.3 pg Normal 26.7-34.0 [facility] Comment on above: Performed By: #### C BC #### [facility] [address] [address] [address] Christopher Hillman MCHC (RBC) [Mass/Vol] 33.9 g/dL Normal 29.9-35.2 [facility] Comment on above: Performed By: #### C BC #### [facility] [address] [address] [address] Christopher Hillman MCV (RBC) [Entitic vol] 80.6 fL Critically low 81.0-99.0 [facility] Comment on above: Performed By: #### C BC #### [facility] [address] [address] [address] Christopher Hillman MONO # 0.5 103/ul Normal 0.3-0.8 [facility] Comment on above: Performed By: #### C BC #### [facility] [address] [place] [address] Dr. Christopher Hillman Monocytes/100 WBC (Bld) 6.2 % Normal 1.7-12.0 [facility] Comment on above: Performed By: #### C BC #### [facility] [address] [place] [address] Dr. Christopher Hillman NEUT # 5.2 103/ul Normal 1.4-6.5 [facility] Comment on above: Performed By: #### C BC #### [facility] [address] [place] [address] Dr. Christopher Hillman Neutrophils/100 WBC (Bld) 67.7 % Normal 43.0-75.0 [facility] Comment on above: Performed By: #### C BC #### [facility] [address] [place] [address] Dr. Christopher Hillman Platelet mean volume (Bld) [Entitic vol] 10.3 fL Normal 9.5-13.5 [facility] Comment on above: Performed By: #### C BC #### [facility] [address] [place] [address] Dr. Christopher Hillman PLT 250 103/ul Normal 150-450 [facility] Comment on above: Performed By: #### C BC #### [facility] [address] [address] [address] Christopher Hillman RBC 4.94 106/ul Normal 4.20-5.40 [facility] Comment on above: Performed By: #### C BC #### [facility] [address] [address] [address] Christopher Hillman WBC 7.6 103/ul Normal 4.0-11.0 [facility] Comment on above: Performed By: #### C BC #### [facility] [address] [address] [address] Christopher Hillman CULTURE URINEon 09-16-2022 CULTURE URINE Culture Observations : LIGHT GROWTH OF MIXED GENITAL JELLY. NO POTENTIAL PATHOGENS SEEN. Normal [facility] Comment on above: Performed By: #### U RCX ####[facility] [address] [address]Dr. Christopher Hillman GLYCOHEMOGLOBIN A1Con 2021 ADA RECOMMENDATION SEE BELOW Normal [facility] Comment on above: Result Comment: ADA RECOMMENDED LIMIT 4.0 - 6.0 ADA THERAPEUTIC TARGET < 7.0 ACTION SUGGESTED > 7.0 Performed By: #### C BC #### [facility] [address] [address] [address] Christopher Hillman Glucose [Mass/Vol] 103 mg/dL Normal [facility] Comment on above: Performed By: #### C BC #### [facility] [address] [place] [address] Dr. Christopher Hillman HbA1c (Bld) [Mass fraction] 5.2 % Normal 4.5-6.2 [facility] Comment on above: Performed By: #### C BC #### [facility] [address] [address] [address] Christopher BECK BOX TEST PT SEND OUTo n 09-16-2022 SENT TO REF LAB 09/16/2022 Normal [facility] Comment on above: Performed By: #### N BOX #### [facility] [address] [address] [address] Christopher Hillman TYPE AND SCREENon 09-16-2022 TYPE AND SCREEN Negative Normal [facility] Comment on above: Performed By: #### T NS ####[facility] [address] [place], [place] [address]Dr. Christopher Hillman US PREG TVon 08-13-2022 US PREG TV EXAMINATION: US PREG TV HISTORY: Missed period COMPARISON: No relevant comparison available. FINDINGS: GESTATIONAL SAC: Present and normal appearing. YOLK SAC: Present and normal appearing. POLE: Present and normal appearing. CARDIAC: Present. UTERUS: Normal size and appearance. OVARIES: Right: Corpus lutein cyst. Left: Normal. CERVIX: 4.8 cm in length and closed. CUL-DE-SAC: Normal. OTHER: None. AGE BY LMP: 8 weeks 1 day ROCK BY LMP: 03/23/2023 AGE BY US CRL: 6 weeks 3 days ROCK BY US CRL: 04/04/2023 IMPRESSION: 1. Single live intrauterine . Electronically authenticated by: NE CRUZ Date: 2022-08-12 22:13 Normal [facility] RESPIRATORY PANEL PLUSon Adenovirus Not detected Normal NOT DETECTED [facility] Comment on above: Performed By: #### R SPLUS ####[facility] [address] [place], [place] [address]Dr. Christopher Hillman B. Parapertusis Not detected Normal NOT DETECTED [facility] Comment on above: Performed By: #### R SPLUS ####[facility] [address] [address]Dr. Christopher Hillman B. Pertussis Not detected Normal NOT DETECTED [facility] Comment on above: Performed By: #### R SPLUS ####[facility] [address] [address]Dr. Christopher Hillman Chlamydia Pneumoniae Not detected Normal NOT DETECTED [facility] Comment on above: Performed By: #### R SPLUS ####[facility] [address] [place], [place] [address]Dr. Christopher Hillman Coronavirus 229E Not detected Normal NOT DETECTED [facility] Comment on above: Performed By: #### R SPLUS ####[facility] [address] [place], [place] [address]Dr. Christopher Hillman Coronavirus HKU1 Not detected Normal NOT DETECTED [facility] Comment on above: Performed By: #### R SPLUS ####[facility] [address] [address]Dr. Christopher Hillman Coronavirus NL63 Not detected Normal NOT DETECTED [facility] Comment on above: Performed By: #### R SPLUS ####[facility] [address] [place], [place] [address]Dr. Christopher Hillman Coronavirus OC43 Not detected Normal NOT DETECTED [facility] Comment on above: Performed By: #### R SPLUS ####[facility] [address] [place], [place] [address]Dr. Christopher Hillman Influenza A H1 2009 Not detected Normal NOT DETECTED [facility] Comment on above: Performed By: #### R SPLUS ####[facility] [address] [place], [place] [address]Dr. Christopher Hillman Influenza A H3 Not detected Normal NOT DETECTED [facility] Comment on above: Performed By: #### R SPLUS ####[facility] [address] [place], [place] [address]Dr. Christopher Hillman Influenza B Not detected Normal NOT DETECTED [facility] Comment on above: Performed By: #### R SPLUS ####[facility] [address] [place], [place] [address]Dr. Christopher Hillman Metapneumovirus Not detected Normal NOT DETECTED [facility] Comment on above: Performed By: #### R SPLUS ####[facility] [address] [place], [place] [address]Dr. Christopher Hillman Mycoplas. Pneumoniae Not detected Normal NOT DETECTED [facility] Comment on above: Performed By: #### R SPLUS ####[facility] [address] [place], [place] [address]Dr. Christopher Hillman Parainfluenza 1 Not detected Normal NOT DETECTED [facility] Comment on above: Performed By: #### R SPLUS ####[facility] [address] [place], [place] [address]Dr. Christopher Hillman Parainfluenza 2 Not detected Normal NOT DETECTED [facility] Comment on above: Performed By: #### R SPLUS ####[facility] [address] [place], [place] [address]Dr. Christopher Hillman Parainfluenza 3 Not detected Normal NOT DETECTED [facility] Comment on above: Performed By: #### R SPLUS ####[facility] [address] [place], [place] [address]Dr. Christopher Hillman Parainfluenza 4 Not detected Normal NOT DETECTED [facility] Comment on above: Performed By: #### R SPLUS ####[facility] [address] [place], [place] [address]Dr. Christopher Hillman Rhino/Enterovirus Detected Abnormal NOT DETECTED [facility] Comment on above: Performed By: #### R SPLUS ####[facility] [address] [place], [place] [address]Dr. Christopher Hillman RP2 Header 1 RESPIRATORY PANEL: VIRUSES Normal [facility] Comment on above: Performed By: #### R SPLUS ####[facility] [address] [place], [place] [address]Dr. Christopher Hillman RP2 Header 2 RESPIRATORY PANEL: BACTERIA Normal [facility] Comment on above: Performed By: #### R SPLUS ####[facility] [address] [place], [place] [address]Dr. Christopher Hillman RSV Not detected Normal NOT DETECTED [facility] Comment on above: Performed By: #### R SPLUS ####[facility] [address] [place], [place] [address]Dr. Christopher Hillman SARS-CoV-2 (COVID-19) RNA SALOMÓN+probe Ql (Unsp spec) Not detected Normal NOT DETECTED [facility] Comment on above: Performed By: #### R SPLUS ####[facility] [address] [place], [place] [address]Dr. Christopher Hillman Vital Signs Date Time Vital Sign Value Performing Clinician Facility 06-19-2025 11:06-0400 Body height 160 cm Ashtyn MAYA Work Phone: [facility] 06-19-2025 11:06-0400 Body mass index (BMI) [Ratio] 26.75 kg/m2 Ashtyn Hemmer PA Work Phone: [facility] 06-19-2025 11:06-0400 Body weight 68.49 kg Ashtyn Hemmer PA Work Phone: [facility] 06-19-2025 11:06-0400 Diastolic blood pressure 82 mm[Hg] Ashtyn Hemmer PA Work Phone: [facility] 06-19-2025 11:06-0400 Heart rate 97 /min Ashtyn Hemmer PA Work Phone: [facility] 06-19-2025 11:06-0400 Respiratory rate 16 /min Ashtyn Hemmer PA Work Phone: [facility] 06-19-2025 11:06-0400 SaO2% (BldA) [Mass fraction] 99 % Ashtyn Hemmer PA Work Phone: [facility] 06-19-2025 11:06-0400 Systolic blood pressure 104 mm[Hg] Ashtyn Hemmer PA Work Phone: [facility] 09-27-2024 14:56-0500 Body height 160 cm Ashtyn Hemmer PA Work Phone: [facility] 09-27-2024 14:56-0500 Body mass index (BMI) [Ratio] 28.17 kg/m2 Ashtyn Hemmer PA Work Phone: [facility] 09-27-2024 14:56-0500 Body weight 72.12 kg Ashtyn Hemmer PA Work Phone: [facility] 09-27-2024 14:56-0500 Diastolic blood pressure 70 mm[Hg] Ashtyn Hemmer PA Work Phone: [facility] 09-27-2024 14:56-0500 Heart rate 88 /min Ashtyn Hemmer PA Work Phone: [facility] 09-27-2024 14:56-0500 SaO2% (BldA) [Mass fraction] 97 % Ashtyn Hemmer PA Work Phone: [place] [id number] 14:56-0500 Systolic blood pressure 126 mm[Hg] Ashtyn Hemmer PA Work Phone: [facility] 08-18-2024 15:14-0500 Body height 160 cm Ashtyn Hemmer PA Work Phone: [facility] 08-18-2024 15:14-0500 Body mass index (BMI) [Ratio] 29.23 kg/m2 Ashtyn Hemmer PA Work Phone: [facility] 08-18-2024 15:14-0500 Body weight 74.84 kg Ashtyn Hemmer PA Work Phone: [facility] 08-18-2024 15:14-0500 Diastolic blood pressure 82 mm[Hg] Ashtyn Hemmer PA Work Phone: [facility] 08-18-2024 15:14-0500 Heart rate 88 /min Ashtyn Hemmer PA Work Phone: [facility] 08-18-2024 15:14-0500 Respiratory rate 16 /min Ashtyn Hemmer PA Work Phone: [facility] 08-18-2024 15:14-0500 SaO2% (BldA) [Mass fraction] 98 % Ashtyn Hemmer PA Work Phone: [facility] 08-18-2024 15:14-0500 Systolic blood pressure 116 mm[Hg] Ashtyn Hemmer PA Work Phone: [facility] 08-04-2024 10:06-0400 Body height 160 cm Ashtyn Hemmer PA Work Phone: [facility] 08-04-2024 10:06-0400 Body mass index (BMI) [Ratio] 29.41 kg/m2 Ashtyn Hemmer PA Work Phone: [facility] 08-04-2024 10:06-0400 Body weight 75.3 kg Ashtyn Hemmer PA Work Phone: [facility] 08-04-2024 10:06-0400 Diastolic blood pressure 78 mm[Hg] Ashtyn Hemmer PA Work Phone: [facility] 08-04-2024 10:06-0400 Heart rate 78 /min Ashtyn Hemmer PA Work Phone: [facility] 08-04-2024 10:06-0400 Respiratory rate 16 /min Ashtyn Hemmer PA Work Phone: [facility] 08-04-2024 10:06-0400 SaO2% (BldA) [Mass fraction] 98 % Ashtyn Hemmer PA Work Phone: [facility] 08-04-2024 10:06-0400 Systolic blood pressure 116 mm[Hg] Ashtyn Hemmer PA Work Phone: [facility] 08-01-2024 14:15-0400 Body height 160 cm Ashtyn Hemmer PA Work Phone: [facility] 08-01-2024 14:15-0400 Body mass index (BMI) [Ratio] 29.48 kg/m2 Ashtyn Hemmer PA Work Phone: [facility] 08-01-2024 14:15-0400 Body weight 75.48 kg Ashtyn Hemmer PA Work Phone: [facility] 08-01-2024 14:15-0400 Diastolic blood pressure 84 mm[Hg] Ashtyn Hemmer PA Work Phone: [facility] 08-01-2024 14:15-0400 Heart rate 88 /min Ashtyn Hemmer PA Work Phone: [facility] 08-01-2024 14:15-0400 Respiratory rate 16 /min Ashtyn Hemmer PA Work Phone: [facility] 08-01-2024 14:15-0400 SaO2% (BldA) [Mass fraction] 97 % Ashtyn Hemmer PA Work Phone: [facility] 08-01-2024 14:15-0400 Systolic blood pressure 122 mm[Hg] Ashtyn Hemmer PA Work Phone: [facility] 07-20-2024 14:25-0400 Body height 160 cm Goldie Beaulieu TRANSACTION MANAGER Work Phone: [facility] 07-20-2024 14:25-0400 Body mass index (BMI) [Ratio] 29.94 kg/m2 Goldie Beaulieu TRANSACTION MANAGER Work Phone: [facility] 07-20-2024 14:25-0400 Body weight 76.66 kg Goldie Beaulieu TRANSACTION MANAGER Work Phone: [facility] 07-20-2024 14:25-0400 Diastolic blood pressure 58 mm[Hg] Goldie Beaulieu TRANSACTION MANAGER Work Phone: [facility] 07-20-2024 14:25-0400 Heart rate 119 /min Goldie Beaulieu TRANSACTION MANAGER Work Phone: [facility] 07-20-2024 14:25-0400 SaO2% (BldA) [Mass fraction] 98 % Goldie Beaulieu TRANSACTION MANAGER Work Phone: [facility] 07-20-2024 14:25-0400 Systolic blood pressure 110 mm[Hg] Goldie Beaulieu TRANSACTION MANAGER Work Phone: [facility] 07-13-2024 13:03-0400 Body height 160 cm Ashtyn Hemmer PA Work Phone: [facility] 07-13-2024 13:03-0400 Body mass index (BMI) [Ratio] 29.41 kg/m2 Ashtyn Hemmer PA Work Phone: [facility] 07-13-2024 13:03-0400 Body weight 75.3 kg Ashtyn Hemmer PA Work Phone: [facility] 07-13-2024 13:03-0400 Diastolic blood pressure 88 mm[Hg] Ashtyn Hemmer PA Work Phone: [facility] 07-13-2024 13:03-0400 Heart rate 87 /min Ashtyn Hemmer PA Work Phone: [facility] 07-13-2024 13:03-0400 Respiratory rate 16 /min Ashtyn Hemmer PA Work Phone: [facility] 07-13-2024 13:03-0400 SaO2% (BldA) [Mass fraction] 98 % Ashtyn Hemmer PA Work Phone: [facility] 07-13-2024 13:03-0400 Systolic blood pressure 130 mm[Hg] Ashtyn MAYA Work Phone: [facility] 06-28-2024 11:09-0400 Body height 160 cm Denita Soares MD Work Phone: [facility] 06-28-2024 11:09-0400 Body mass index (BMI) [Ratio] 29.41 kg/m2 Denita Soares MD Work Phone: [facility] 06-28-2024 11:09040 Body weight 75.3 kg Denita Soares MD Work Phone: [facility] 06-28-2024 11:09-0400 Diastolic blood pressure 68 mm[Hg] Denita Soares MD Work Phone: [facility] 06-28-2024 11:09-0400 Heart rate 100 /min Denita Soares MD Work Phone: [facility] 06-28-2024 11:09-0400 SaO2% (BldA) [Mass fraction] 97 % Denita Soares MD Work Phone: [facility] 06-28-2024 11:09-0400 Systolic blood pressure 110 mm[Hg] Denita Soares MD Work Phone: [facility] 06-07-2024 11:27-0400 Body height 160 cm Denita Soares MD Work Phone: [facility] 06-07-2024 11:27-0400 Body mass index (BMI) [Ratio] 30.47 kg/m2 Denita Soares MD Work Phone: [facility] 06-07-2024 11:27-0400 Body weight 78.02 kg Denita Soares MD Work Phone: [facility] 06-07-2024 11:27-0400 Diastolic blood pressure 68 mm[Hg] Denita Soares MD Work Phone: [facility] 06-07-2024 11:27-0400 Heart rate 70 /min Denita Soares MD Work Phone: [facility] 06-07-2024 11:27-0400 SaO2% (BldA) [Mass fraction] 98 % Denita Soares MD Work Phone: [facility] 06-07-2024 11:27-0400 Systolic blood pressure 112 mm[Hg] Denita Soares MD Work Phone: [facility] 11-06-2022 03:06-0500 Body weight 60.[address] DENITA SOARES [facility] Comment on above: Performed By: #### AFPMAT ####[facility] ospital [address] [place] [id number] Hillman Encounters Encounter Date Encounter Type Care Provider Facility Start: 06-21-2025 End: 06-21-2025 Telephone encounter Ashtyn MAYA Work Phone: [facility] Start: 06-19-2025 End: 06-19-2025 Bamboo flowsheet Ashtyn MAYA Work Phone: [facility] Start: 06-19-2025 End: 06-19-2025 Bamboo flowsheet Ashtyn MAYA Work Phone: [facility] Start: 06-19-2025 End: 06-19-2025 Office outpatient visit 25 minutes Ashtyn MAYA Work Phone: [facility] Comment on above: Amenorrhea (Primary Dx); Positive test [facility] Dark urine; Acute cystitis with hematuria Start: 06-19-2025 End: 06-19-2025 ambulatory ASHTYN MUNIZ Not Available Start: 10-06-2024 End: 10-06-2024 ambulatory ASHTYN MUNIZ Not Available Start: 10-04-2024 End: 10-04-2024 Patient encounter procedure Ashtyn MAYA Work Phone: [facility] Comment on above: Need for vaccination Start: 10-04-2024 End: 10-04-2024 ambulatory ASHTYN MUNIZ Not Available Start: 09-29-2024 End: 09-29-2024 ambulatory ASHTYN MUNIZ Not Available Start: 09-27-2024 End: 09-27-2024 Office outpatient visit 15 minutes Ashtyn Muniz PA Work Phone: [facility] Comment on above: Wart of hand (Primar y Dx); Overweight; Painful skin lesion; Screening for tuberculosis Start: 09-27-2024 End: 09-27-2024 ambulatory ASHTYN MUNIZ Not Available Start: 09-27-2024 End: 09-27-2024 Bamboo flowsheet Ashtyn Zuletamer PA Work Phone: [facility] Start: 09-27-2024 End: 09-27-2024 Bamboo flowsheet Ashtyn Zuletamer PA Work Phone: [facility] Start: 08-18-2024 End: 08-18-2024 ambulatory ASHTYN MUNIZ Not Available Start: 08-18-2024 End: 08-18-2024 Office outpatient visit 15 minutes Ashtyn Muniz PA Work Phone: [facility] Comment on above: Post depressi on (CMS/HCC) (Primary Dx); Painful skin lesion; Wart of hand Start: 08-18-2024 End: 08-18-2024 Bamboo flowsheet Ashtyn Adkins Hemmer PA Work Phone: [facility] Start: 08-18-2024 End: 08-18-2024 Bamboo flowsheet Ashtyn Adkins Hemmer PA Work Phone: [facility] Start: 08-04-2024 End: 08-04-2024 Bamboo flowsheet Ashtyn Adkins Hemmer PA Work Phone: [facility] Start: 08-04-2024 End: 08-04-2024 Bamboo flowsheet Ashtyn Adkins Hemmer PA Work Phone: [facility] Start: 08-04-2024 End: 08-04-2024 Patient encounter procedure Ashtyn M Hemmer PA Work Phone: [facility] Comment on above: Painful skin lesion (Primary Dx); Wart of hand Start: 08-04-2024 End: 08-04-2024 ambulatory ASHTYN MUNIZ Not Available Start: 08-02-2024 End: 08-03-2024 Telephone encounter Ashtynevy Muniz PA Work Phone: [facility] Start: 08-01-2024 End: 08-01-2024 Office outpatient visit 15 minutes Ashtyn Muniz PA Work Phone: [facility] Comment on above: Vaginal discharge (P rimary Dx) Start: 08-01-2024 End: 08-01-2024 ambulatory ASHTYN MUNIZ Not Available Start: 08-01-2024 End: 08-01-2024 Bamboo flowsheet Ashtyn Muniz PA Work Phone: [facility] Start: 08-01-2024 End: 08-01-2024 Bamboo flowsheet Ashtyn Muniz PA Work Phone: [facility] Start: 07-20-2024 End: 07-20-2024 Patient encounter status Goldie Beaulieu TRANSACTION MANAGER Work Phone: [facility] Work Phone: Start: 07-20-2024 End: 07-20-2024 Periodic preventive med est patient 18-39 yrs Goldie Beaulieu TRANSACTION MANAGER Work Phone: [facility] Comment on above: Wellness examination (Primary Dx); Encounter for vaccination Start: 07-20-2024 End: 07-20-2024 ambulatory GOLDIE BEAULIEU Not Available Start: 07-13-2024 End: 07-13-2024 Bamboo flowsheet Ashtyn Muniz PA Work Phone: [facility] Start: 07-13-2024 End: 07-13-2024 Bamboo flowsheet Ashtyn Muniz PA Work Phone: [facility] Start: 07-13-2024 End: 07-13-2024 Office outpatient visit 15 minutes Ashtyn Muniz PA Work Phone: [facility] Comment on above: Painful skin lesion (Primary Dx); Wart of hand Start: 07-13-2024 End: 07-13-2024 ambulatory ASHTYN MUNIZ Not Available Start: 06-28-2024 End: 06-28-2024 Office outpatient visit 25 minutes Denita Soares MD Work Phone: [facility] Comment on above: Sprain of right ankl e, unspecified ligament, sequela (Primary Dx); Post depression (CMS/HCC); 6 weeks follow-up; Folliculitis Start: 06-28-2024 End: 06-28-2024 ambulatory DENITA SOARES Not Available Start: 06-16-2024 End: 06-17-2024 Emergency department patient visit [facility] Start: 06-07-2024 End: 06-07-2024 Office outpatient visit 15 minutes Denita Soares MD Work Phone: [facility] Comment on above: Wart of hand (Primar y Dx) Start: 02-04-2024 End: 02-04-2024 Emergency department patient visit [facility] Start: 03-10-2023 End: 03-10-[address] DENITA SOARES Facility:[facility] Start: 03-07-2023 End: 03-07-[address] DENITA SOARES Facility:[facility] Start: 03-06-2023 End: 03-06-[address] DENITA SOARES Facility:[facility] Start: 2023 End: 03-05-[address] TYLER ROBERTS . Facility:[facility] Start: 03-03-2023 End: 03-03-[address] DENITA SOARES Facility:[facility] Start: 02-23-2023 End: 02-23-[address] DENITA SOARES Facility:[facility] Start: 01-14-2023 End: 01-14-[address] DENITA SOARES Facility:[facility] Start: 01-03-2023 End: 01-04-[address] DENITA SOARES Facility:[facility] Start: 12-13-2022 End: 12-14-[address] DENITA SOARES Facility:[facility] Start: 12-02-2022 End: 12-02-2022 ambulatory VAN TREVIÑO . Facility:[facility] Start: 11-26-2022 End: 11-27-[address] DENITA SOARES Facility:[facility] Start: 11-17-2022 End: 11-18-[address] DENITA SOARES Facility:[facility] Start: 11-06-2022 End: 11-07-[address] DENITA SOARES Facility:[facility] Start: 11-04-2022 End: 11-05-[address] DENITA SOARES Facility:[facility] Start: 10-16-2022 End: 10-16-[address] DENITA SOARES Facility:[facility] Start: 09-16-2022 End: 09-17-[address] DENITA SOARES Facility:[facility] Start: 08-12-2022 End: 08-13-[address] ZEINAB MARTINEZ . Facility:[facility] Start: 06-03-2022 End: 06-03-[address] DENITA SOARES Facility:[facility] Procedures Date Procedure Procedure Detail Performing Clinician Start: 06-19-2025 End: 06-19-2025 Urnls dip stick/tablet rgnt non-auto w/o micrscp Ashtyn Muniz PA Work Phone: Start: 10-06-2024 READ STEVEN medel PA Work Phone: Plan of Treatment Date Care Activity Detail Author Start: 07-13-2025 End: 07-13-2025 ambulatory 07/13/2025 1:30 PM EDT Initial [facility] [address] [place] [id number] [facility] Start: 07-13-2025 End: 07-13-2025 Professional / ancillary services management 07/13/2025 1:00 PM EDT Ancillary Procedure [facility] [address] [place] [id number] [facility] Start: 06-19-2025 End: 06-19-2025 Patient encounter procedure 06/19/2025 11:00 AM EDT Office Visit [facility] [address] [place] [address] Ashtyn Muniz PA [address] [place] [address] Arrived [facility] Comment on above: Arrived Start: 06-12-2025 Influenza vaccination Influenza Vacc ine (#1) [facility] Start: 10-06-2024 End: 10-06-2024 Patient encounter procedure 10/06/2024 9:30 AM EST Office Visit [facility] [address] [place] [address] [facility] Start: 10-04-2024 End: 10-04-2024 Patient encounter procedure 10/04/2024 9:00 AM EST Office Visit [facility] [address] [place] [address] [facility] Start: 09-29-2024 End: 09-29-2024 Clinical Support 09/29/2024 3:30 PM EST Clinical Support [facility] [address] [place] [address] [facility] Start: 09-27-2024 End: 09-27-2024 Patient encounter procedure 09/27/2024 3:00 PM EST Office Visit [facility] [address] [place] [address] Ashtyn Muniz PA [address] [place] [address] Arrived [facility] Comment on above: Arrived Start: 08-04-2024 End: 08-04-2024 Patient encounter procedure [facility] Comment on above: Arrived Start: 08-01-2024 End: 08-01-2024 Patient encounter procedure 08/01/2024 2:30 PM EDT Office Visit [facility] [address] [place] [address] Ashtyn Muniz PA [address] [place] [address] Arrived [facility] Comment on above: Arrived Start: 08-01-2024 End: 08-01-2025 VAGINITIS (HTRX) VAGINITIS (HTRX) Lab Routine Vaginal discharge Expected: 08/01/2024 (Approximate), Expires: 08/01/2025 [facility] Work Phone: Comment on above: Expected: 08/01/2024 (Approximate), Expires: 08/01/2025 Start: 07-13-2024 End: 07-13-2024 Patient encounter procedure 07/13/2024 1:00 PM EDT Office Visit [facility] [address] [place] [phone] Ashtyn Muniz PA [address] [place] [address] Arrived [facility] Comment on above: Arrived Start: 06-12-2024 Influenza vaccination Influenza Vacc ine (#1) [facility] HCG, quantitative, HCG, quantitative, Lab Routine Amenorrhea Positive test ([facility]) Ordered: 06/19/2025 [facility] Work Phone: Comment on above: Ordered: 06/19/2025 URINARY TRACT INFECT ION (HTRX) URINARY TRACT INFECTION (HTRX) Lab Routine Acute cystitis with hematuria Ordered: 06/19/2025 [facility] Comment on above: Ordered: 06/19/2025 Immunizations Immunization Date Immunization Notes Care Provider Gianfranco begum 10-06-2024 tuberculin skin test ; purified protein derivative solution, intradermal Ashtyn MAYA Work Phone: [facility] Work Phone: 09-27-2024 tuberculin skin test ; purified protein derivative solution, intradermal Ashtyn MAYA Work Phone: [facility] 07-20-2024 influenza, seasonal, injectable, preservative free Goldie Beaulieu NP Work Phone: [facility] 07-20-2024 influenza virus vacc ine, unspecified formulation Ashtyn MAYA Work Phone: [facility] 08-26-2023 Influenza, injectabl e, Madin Sil Canine Kidney, preservative free, quadrivalent Denita Soares MD Work Phone: [facility] 08-26-2023 influenza virus vacc ine, unspecified formulation Denita Soares MD Work Phone: [facility] 05-10-2021 meningococcal oligosaccharide (groups A, C, Y and W-135) diphtheria toxoid conjugate vaccine (MCV4O) Denita Soares MD Work Phone: [facility] 06-01-2020 influenza, injectabl e, quadrivalent, preservative free Denita Soares MD Work Phone: [facility] 07-21-2017 influenza, injectabl e, quadrivalent, contains preservative Denita Soares MD Work Phone: [facility] 04-15-2016 Human Papillomavirus 9-valent vaccine Denita Soares MD Work Phone: [facility] 03-17-2016 meningococcal B vacc ine, recombinant, OMV, adjuvanted Denita Soares MD Work Phone: [facility] 03-17-2016 varicella virus vaccine Maria T Soares MD Work Phone: [facility] 02-14-2016 hepatitis A vaccine, pediatric/adolescent dosage, 2 dose schedule Denita Soares MD Work Phone: [facility] 02-14-2016 Human Papillomavirus 9-valent vaccine Denita Soares MD Work Phone: [facility] 02-14-2016 meningococcal B vacc ine, recombinant, OMV, adjuvanted Denita Soares MD Work Phone: [facility] 02-14-2016 meningococcal oligosaccharide (groups A, C, Y and W-135) diphtheria toxoid conjugate vaccine (MCV4O) Denita Soares MD Work Phone: [facility] 02-14-2016 tetanus toxoid, redu sandra diphtheria toxoid, and acellular pertussis vaccine, adsorbed Denita Soares MD Work Phone: [facility] 06-26-2008 diphtheria, tetanus toxoids and acellular pertussis vaccine Denita Soares MD Work Phone: [facility] 06-26-2008 measles, mumps and rubella virus vaccine Denita Soares MD Work Phone: [facility] 06-26-2008 poliovirus vaccine, inactivated Denita Soares MD Work Phone: [facility] 08-12-2004 diphtheria, tetanus toxoids and acellular pertussis vaccine, unspecified formulation Denita Soares MD Work Phone: [facility] 08-12-2004 haemophilus influenz ae type b vaccine, conjugate unspecified formulation Denita Soares MD Work Phone: [facility] 08-12-2004 pneumococcal conjuga te vaccine, 7 valent Denita Soares MD Work Phone: [facility] 05-15-2004 measles, mumps and rubella virus vaccine Denita Soares MD Work Phone: [facility] 05-15-2004 pneumococcal conjuga te vaccine, 7 valent Denita Soares MD Work Phone: [facility] 05-15-2004 varicella virus vaccine Maria T Soares MD Work Phone: [facility] 2003 diphtheria, tetanus toxoids and acellular pertussis vaccine, unspecified formulation Denita Soares MD Work Phone: [facility] 2003 haemophilus influenz ae type b conjugate and Hepatitis B vaccine Denita Soares MD Work Phone: [facility] 2003 influenza, seasonal, injectable Denita Soares MD Work Phone: [facility] 2003 pneumococcal conjuga te vaccine, 7 valent Denita Soares MD Work Phone: [facility] 2003 poliovirus vaccine, inactivated Denita Soares MD Work Phone: [facility] 2003 influenza, seasonal, injectable Denita Soares MD Work Phone: [facility] 2003 diphtheria, tetanus toxoids and acellular pertussis vaccine, unspecified formulation Denita Soares MD Work Phone: [facility] 2003 haemophilus influenz ae type b vaccine, conjugate unspecified formulation Denita Soares MD Work Phone: [facility] 2003 pneumococcal conjuga te vaccine, 7 valent Denita Soares MD Work Phone: [facility] 2003 poliovirus vaccine, inactivated Denita Soares MD Work Phone: [facility] 2003 diphtheria, tetanus toxoids and acellular pertussis vaccine, unspecified formulation Denita Soares MD Work Phone: [facility] 2003 haemophilus influenz ae type b conjugate and Hepatitis B vaccine Denita Soares MD Work Phone: [facility] 2003 poliovirus vaccine, inactivated Denita Soares MD Work Phone: [facility] 2003 hepatitis B vaccine, pediatric or pediatric/adolescent dosage Denita Soares MD Work Phone: [facility] Payers Date Payer Category Payer Medicaid [employer] [place] [employer] [id number] 2022-Present [address] [id number] [id number] 2022 Medicaid (Managed Care) [facility] MEDICAID [id number] 2003 Unknown [id number] 2.16.840.1.118905.3.579.2. 593 2003 Unknown [id number] 2.16.840.1.000860.3.579.2. 593 2003 Unknown [id number] 2.16.840.1.731846.3.579.2. 593 2003 Unknown [id number] 2.16.840.1.880676.3.579.2. 593 2003 Unknown [id number] 2.16.840.1.801739.3.579.2. 593 2003 Unknown [id number] 2.16.840.1.452164.3.579.2. 593 2003 Unknown [id number] 2.16.840.1.825662.3.579.2. 593 2003 Unknown [id number] 2.16.840.1.017586.3.579.2. 593 2003 Unknown [id number] 2.16.840.1.127547.3.579.2. 593 2003 Unknown [id number] 2.16.840.1.572179.3.579.2. 593 2003 Unknown [id number] 2.16.840.1.801828.3.579.2. 593 2003 Unknown [id number] 2.16.840.1.124607.3.579.2. 593 2003 Unknown [id number] 2.16.840.1.944520.3.579.2. 593 2003 Unknown [id number] 2.16.840.1.841885.3.579.2. 593 2003 Unknown [id number] 2.16.840.1.914586.3.579.2. 593 2003 Unknown [id number] 2.16.840.1.887746.3.579.2. 593 2003 Unknown [id number] 2.16.840.1.051629.3.579.2. 593 2003 Unknown [id number] 2.16.840.1.054973.3.579.2. 593 2003 Unknown [id number] 2.16.840.1.460978.3.579.2. 128 2003 Unknown [id number] 2.16.840.1.135414.3.579.2. 128 2003 Unknown [id number] 2.16.840.1.154032.3.579.2. 1285 2003 Unknown [id number] 2.16840.1.854752.3.579.2. 1258 2003 Unknown [id number] 2.16840.1.239279.3.579.2. 1258 2003 Unknown [id number] 2.16840.1.677011.3.579.2. 1258 2003 Unknown [id number] 2.16.840.1.466009.3.579.2. 1258 2003 Unknown [id number] 2.16.840.1.609941.3.579.2. 125 2003 Unknown [id number] 2.16.840.1.519726.3.579.2. 1258 2003 Unknown [id number] 2.16.840.1.773412.3.579.2. 1258 2003 Unknown [id number] 2.16.840.1.260761.3.579.2. 1258 2003 Unknown [id number] 2.16.840.1.484426.3.579.2. 1258 2003 Unknown [id number] 2.16.840.1.312837.3.579.2. 1258 2003 Unknown [id number] 2.16.840.1.353513.3.579.2. 1259 1959 Unknown [id number] Unknown [id number] 2.16.840.1.133379.3.579.2. 593 Social History Date Type Detail Facility Start[facility] Start: 03-25-2023 Tobacco use and exposure Smoke less tobacco non-user [facility] Start: 07-13-2024 End: 06-19-2025 Alcoholic beverage intake Lifetime non-drinker (finding) [facility] Start: 07-13-2024 End: 06-19-2025 History of Social function [facility] Start: 07-13-2024 End: 06-19-2025 Tobacco use panel [facility] Start: 03-25-2023 Alcohol Comment Caffeine: none [facility] Start: 2003 Sex assigned at Not on file N [facility] Functional Status Date Assessment Result Facility 06-19-2025 Patient Health Quest ionnaire 2 item (PHQ-2) [Reported] [facility] Clinical Notes 06-07-2024 to 06-21-2025 Telephone Encounter - SAVANA RIVAS - 06/21/2025 3:49 PM EDTTelephone Encounter - SAVANA RIVAS - 06/21/2025 3:49 PM EDTTelephone Encounter - FRANCESCO Hanson - 06/21/2025 3:17 PM EDT Note Date & Type Note Facility 06-21-2025 Telephone encounter Note Form atting of this note might be different from the original. Patient notified [facility] 06-21-2025 Miscellaneous Notes Formattin g of this note might be different from the original. Patient notified Please let pt know that her urine culture came back negative for infection. She can stop the Keflex. Needs to make sure she stays hydrated, drinking plenty of water. Contact office if symptoms do not continue to improve with the Clotrimazole. documented in this encounter [facility] 06-21-2025 Telephone encounter Note Form atting of this note might be different from the original. Please let pt know that her urine culture came back negative for infection. She can stop the Keflex. Needs to make sure she stays hydrated, drinking plenty of water. Contact office if symptoms do not continue to improve with the Clotrimazole. [facility] 06-19-2025 History of Presen t illness Narrative Images from the original note were not included. Subjective Patient ID: Solo Campos is a 20 y.o. female who presents for possible yeast infection. Solo is present today for evaluation of possible yeast infection. Admits she thinks it has improved, on 06/14/25 a Clotrimazole cream was sent in. She did do a test at home and it came back positive but wants to do another one here. She did see Dr. Martinez for her first but would like to look into [place] for a new cotton converter. Last period was started 05/08/2025 and ended on 05/15/2025. Over the past 2 weeks, how often have you been bothered by any of the following problems? Little interest or pleasure in doing things: Not at all Feeling down, depressed, or hopeless: Not at all Patient Health Questionnaire-2 Score: 0 Current Outpatient Medications on File Prior to Visit Medication Sig Dispense Refill fluticasone (Cutivate) 0.05 % cream Apply topically 2 (two) times a day (Patient taking differently: Apply topically in the morning and before bedtime. PRN.) 15 g 1 albuterol HFA 90 mcg/act inhaler inhale 2 puffs by mouth every 4 to 6 hours if needed for shortness of breath / wheezing [DISCONTINUED] citalopram (CeleXA) 40 MG tablet Take 1 tablet (40 mg) by mouth in the morning. (Patient not taking: Reported on 06/19/2025) 30 tablet 2 [DISCONTINUED] clotrimazole (Lotrimin) 1 % vaginal cream Insert 1 applicator into the vagina in the evening for 7 days 45 g 0 [DISCONTINUED] norethindrone (Jencycla) 0.35 MG tablet Take 1 tablet (0.35 mg) by mouth in the morning. (Patient not taking: Reported on 06/19/2025) 28 tablet 11 No current facility-administered medications on file prior to visit. I have reviewed and reconciled the history and medication list with the patient today. Allergies Allergen Reactions Penicillins Hives, Rash and Unknown Social History Tobacco Use Smoking status: Never Smokeless tobacco: Never Vaping Use Vaping status: Never Used Substance Use Topics Alcohol use: Never Comment: Caffeine: none Drug use: Never Family History Problem Relation Name Age of Onset Hypertension Maternal Grandfather Past Medical History: Diagnosis Date COVID 10/15/2020 positive Non immunized ETD (eustachian tube dysfunction) History of CT scan 03/17/2018 CT scan of the Spine is negative History of CT scan 01/01/2019 of sinuses show Chronic sinusitis Post depression Past Surgical History: Procedure Laterality Date ADENOIDECTOMY 2010 MYRINGOTOMY W/ TUBES Bilateral 07/2012 Dr. Finch OTHER SURGICAL HISTORY 08/28/2015 r/o R tube and paper patch TONSILLECTOMY 2009 TandA WISDOM TOOTH EXTRACTION 04/2021 Visit Vitals BP 104/82 Pulse 97 Resp 16 Ht 5' 3 Wt 151 lb SpO2 99% BMI 26.75 kg/m OB Status Unknown Smoking Status Never BSA 1.74 m Review of Systems Constitutional: Negative for chills, fatigue and fever. Respiratory: Negative for cough, shortness of breath and wheezing. Cardiovascular: Negative for chest pain, palpitations and leg swelling. Gastrointestinal: Negative for abdominal pain, constipation, diarrhea, nausea and vomiting. Genitourinary: Positive for menstrual problem. Skin: Negative for rash. Objective Physical Exam Constitutional: General: She is not in acute distress. Appearance: Normal appearance. She is well-developed. HENT: Head: Normocephalic and atraumatic. Eyes: General: No scleral icterus. Conjunctiva/sclera: Conjunctivae normal. Cardiovascular: Rate and Rhythm: Normal rate and regular rhythm. Heart sounds: Normal heart sounds. No murmur heard. Pulmonary: Effort: Pulmonary effort is normal. No respiratory distress. Breath sounds: Normal breath sounds. No wheezing, rhonchi or rales. Abdominal: Tenderness: There is no right CVA tenderness or left CVA tenderness. Skin: General: Skin is warm and dry. Neurological: General: No focal deficit present. Mental Status: She is alert and oriented to person, place, and time. Psychiatric: Mood and Affect: Mood normal. Behavior: Behavior normal. Office Visit on 06/19/2025 Component Date Value Ref Range Status Preg Test, Ur 06/19/2025 Positive Negative Final Color, UA 06/19/2025 Dark Cristiane Final Clarity, UA 06/19/2025 Hazy Final Glucose, UA 06/19/2025 Negative Negative - 2000(110) ++++ mg/dL Final Bilirubin, UA 06/19/2025 Moderate Negative - 4(70) +++ mg/dL Final Ketones, UA 06/19/2025 Negative Negative - 160(16) ++++ mg/dL Final Spec Grav, UA 06/19/2025 1.025 1 - 1.03 Final Blood, UA 06/19/2025 Positive Negative - 50 Charlie/mcL Final small pH, UA 06/19/2025 6.5 5 - 9 Final Protein, UA 06/19/2025 Trace Negative - 1999(20) ++++ mg/dL Final Urobilinogen, UA 06/19/2025 1.0 0.2 - 12 mg/dL Final Leukocytes, UA 06/19/2025 Trace Negative - 500+++ Pricilla/mcL Final Nitrite, UA 06/19/2025 Negative Negative - Positive Final Assessment/Plan Diagnoses and all orders for this visit: Amenorrhea - POCT , urine - HCG, quantitative, - Ambulatory referral to Obstetrics / Gynecology; Future Provided pt with referral to OB at [facility] at her request. Positive test ([facility]) - HCG, quantitative, - Ambulatory referral to Obstetrics / Gynecology; Future - multivitamin () 27-0.8 MG tablet; Take 1 tablet by mouth Daily Urine test positive in the office today. Provided pt with prescription for vitamin to her to start once a day. Quantitative HCG level ordered for pt to have drawn today. Dark urine - POCT urinalysis dipstick manually resulted UA abnormal today. Encouraged pt to increase her water intake. Acute cystitis with hematuria - URINARY TRACT INFECTION (HTRX) - cephalexin (Keflex) 500 MG capsule; Take 1 capsule (500 mg) by mouth in the morning and 1 capsule (500 mg) before bedtime. Do all this for 7 days. Continue Clotrimazole cream as prescribed as symptoms have been improving. UA did show possible infection. Will cover with Keflex at this time. Will notify pt of the results of the send out once received. Contact office with concerns prior to results being received. Follow up in about 1 month (around 07/21/2025) for Wellness. documented in this encounter [facility] 10-04-2024 History of Presen t illness Narrative TB checked in right arm. Negative for TB. documented in this encounter [facility] 09-27-2024 History of Presen t illness Narrative Images from the original note were not included. Subjective Patient ID: Solo Campos is a 19 y.o. female who presents for wart on hand. Pt has had ongoing issue with wart on left hand pt states it is still bothering her especially when she is typing Current Outpatient Medications on File Prior to Visit Medication Sig Dispense Refill albuterol HFA 90 mcg/act inhaler inhale 2 puffs by mouth every 4 to 6 hours if needed for shortness of breath / wheezing citalopram (CeleXA) 40 MG tablet Take 1 tablet (40 mg) by mouth in the morning. 30 tablet 2 fluticasone (Cutivate) 0.05 % cream Apply topically 2 (two) times a day 15 g 1 norethindrone (Jencycla) 0.35 MG tablet Take 1 tablet (0.35 mg) by mouth in the morning. 28 tablet 11 No current facility-administered medications on file prior to visit. I have reviewed and reconciled the history and medication list with the patient today. Allergies Allergen Reactions Penicillins Hives, Rash and Unknown Social History Tobacco Use Smoking status: Never Smokeless tobacco: Never Vaping Use Vaping status: Never Used Substance Use Topics Alcohol use: Never Comment: Caffeine: none Drug use: Never Family History Problem Relation Name Age of Onset Hypertension Maternal Grandfather Past Medical History: Diagnosis Date COVID 10/15/2020 positive Non immunized ETD (eustachian tube dysfunction) History of CT scan 03/17/2018 CT scan of the Spine is negative History of CT scan 01/01/2019 of sinuses show Chronic sinusitis Post depression (CMS/HCC) Past Surgical History: Procedure Laterality Date ADENOIDECTOMY 2010 MYRINGOTOMY W/ TUBES Bilateral 07/2012 Dr. Finch OTHER SURGICAL HISTORY 08/28/2015 r/o R tube and paper patch TONSILLECTOMY 2009 [facility] WISDOM TOOTH EXTRACTION 04/2021 Visit Vitals BP 126/70 Pulse 88 Ht 5' 3 Wt 159 lb SpO2 97% BMI 28.17 kg/m OB Status Unknown Smoking Status Never BSA 1.79 m Review of Systems Constitutional: Negative for chills, fatigue and fever. Respiratory: Negative for cough, shortness of breath and wheezing. Cardiovascular: Negative for chest pain, palpitations and leg swelling. Gastrointestinal: Negative for abdominal pain, constipation, diarrhea, nausea and vomiting. Skin: Negative for rash. Skin lesion Objective Physical Exam Constitutional: General: She is not in acute distress. Appearance: Normal appearance. She is well-developed. HENT: Head: Normocephalic and atraumatic. Eyes: General: No scleral icterus. Conjunctiva/sclera: Conjunctivae normal. Cardiovascular: Rate and Rhythm: Normal rate and regular rhythm. Heart sounds: Normal heart sounds. No murmur heard. Pulmonary: Effort: Pulmonary effort is normal. No respiratory distress. Breath sounds: Normal breath sounds. No wheezing, rhonchi or rales. Skin: General: Skin is warm and dry. Comments: Left middle finger, distal phalanx, palmar aspect with 0.7 x 0.6 cm elevated flesh colored lesion with brown specks, well defined border Neurological: General: No focal deficit present. Mental Status: She is alert and oriented to person, place, and time. Psychiatric: Mood and Affect: Mood normal. Behavior: Behavior normal. Assessment/Plan Diagnoses and all orders for this visit: Wart of hand - Ambulatory referral to Dermatology; Future Lesion has been pared down and treated with Cryotherapy multiple times without significant improvement. Will provide pt with referral to Dermatology at this time for further evaluation and discussion of alternative treatment options. Overweight Pt has lost 6 pounds since her last visit. Encouraged her to continue to stay active. Painful skin lesion - Ambulatory referral to Dermatology; Future See above. Screening for tuberculosis - TB Skin Test First step PPD administered in office today. She will RTC for nurse visit to have it read on afternoon after 3:15 pm. RTC for nurse visit next Thursday for 2nd step PPD, then on the following to have it read, must be read within 48-72 hours. Follow up for Nurse visits. documented in this encounter [facility] 08-18-2024 History of Presen t illness Narrative Images from the original note were not included. Subjective Patient ID: Solo Campos is a 19 y.o. female who presents for depression. Solo is present today for follow up depression. She is currently on Celexa for her depression, she was put on this med after she had her baby for post and she just feels it is not helping like it was. She feels she is more angry and forgetting stuff. States her mom has noticed some changes. Current Outpatient Medications on File Prior to Visit Medication Sig Dispense Refill albuterol HFA 90 mcg/act inhaler inhale 2 puffs by mouth every 4 to 6 hours if needed for shortness of breath / wheezing fluticasone (Cutivate) 0.05 % cream Apply topically 2 (two) times a day 15 g 1 norethindrone (Jencycla) 0.35 MG tablet Take 1 tablet (0.35 mg) by mouth in the morning. 28 tablet 11 [DISCONTINUED] citalopram (CeleXA) 20 MG tablet Take 1 tablet (20 mg) by mouth in the morning. 30 tablet 11 [DISCONTINUED] 28-0.8 MG tablet 1 (one) time each day at the same time. No current facility-administered medications on file prior to visit. I have reviewed and reconciled the history and medication list with the patient today. Allergies Allergen Reactions Penicillins Hives, Rash and Unknown Social History Tobacco Use Smoking status: Never Smokeless tobacco: Never Vaping Use Vaping status: Never Used Substance Use Topics Alcohol use: Never Comment: Caffeine: none Drug use: Never Family History Problem Relation Name Age of Onset Hypertension Maternal Grandfather Past Medical History: Diagnosis Date COVID 10/15/2020 positive Non immunized ETD (eustachian tube dysfunction) History of CT scan 03/17/2018 CT scan of the Spine is negative History of CT scan 01/01/2019 of sinuses show Chronic sinusitis Post depression (CMS/HCC) Past Surgical History: Procedure Laterality Date ADENOIDECTOMY 2010 MYRINGOTOMY W/ TUBES Bilateral 07/2012 Dr. Finch OTHER SURGICAL HISTORY 08/28/2015 r/o R tube and paper patch TONSILLECTOMY 2010 [facility] WISDOM TOOTH EXTRACTION 04/2021 Visit Vitals BP 116/82 Pulse 88 Resp 16 Ht 5' 3 Wt 165 lb SpO2 98% BMI 29.23 kg/m OB Status Unknown Smoking Status Never BSA 1.82 m Review of Systems Constitutional: Negative for chills, fatigue and fever. Respiratory: Negative for cough, shortness of breath and wheezing. Cardiovascular: Negative for chest pain, palpitations and leg swelling. Gastrointestinal: Negative for abdominal pain, constipation, diarrhea, nausea and vomiting. Skin: Negative for rash. Psychiatric/Behavioral: Positive for agitation. Forgetful Objective Physical Exam Constitutional: General: She is not in acute distress. Appearance: Normal appearance. She is well-developed. HENT: Head: Normocephalic and atraumatic. Eyes: General: No scleral icterus. Conjunctiva/sclera: Conjunctivae normal. Cardiovascular: Rate and Rhythm: Normal rate and regular rhythm. Heart sounds: Normal heart sounds. No murmur heard. Pulmonary: Effort: Pulmonary effort is normal. No respiratory distress. Breath sounds: Normal breath sounds. No wheezing, rhonchi or rales. Skin: General: Skin is warm and dry. Findings: Lesion present. Comments: Right thumb and left middle finger with verruca lesions. Neurological: General: No focal deficit present. Mental Status: She is alert and oriented to person, place, and time. Psychiatric: Mood and Affect: Mood normal. Behavior: Behavior normal. Cryotherapy, skin lesion Date/Time: 08/18/2024, 15:30 Performed by: Ashtyn Muniz PA-C Consent: Potential risks vs benefits discussed Risks discussed: Bleeding, infection, incomplete removal, scarring Consent obtained: Verbal Consent given by: Patient Alternatives discussed: No treatment/observation, and alternative treatment Number of lesions treated: Two Location: Left middle finger, distal phalanx, palmar aspect. Right thumb, distal phalanx, palmar aspect. Anesthesia method: None Procedure specific details: 4 freeze thaw cycles of liquid nitrogen applied to lesion(s). Procedure completion: Tolerated well, no immediate complications Post-procedure details: Post-procedure care explained and return precautions reviewed. If a blister forms, the patient is not to pop the blister if possible. Monitor for any signs or symptoms of infection. Assessment/Plan Diagnoses and all orders for this visit: Post depression (CMS/HCC) - citalopram (CeleXA) 40 MG tablet; Take 1 tablet (40 mg) by mouth in the morning. Will increase Celexa to 40 mg daily. If symptoms worsen, or fail to improve, would plan to go back to 20 mg dosage of Celexa and try a low dose of an adjunct medication. Will see her back for a recheck in 3 months, encouraged her to contact the office with any concerns before then. Painful skin lesion Cryotherapy treatment applied to two lesions. Patient tolerated this well. Reminded pt of post treatment care. Wart of hand See above. Follow up in about 3 months (around 11/18/2024) for Medication Follow Up. documented in this encounter [facility] 08-04-2024 History of Presen t illness Narrative Images from the original note were not included. Subjective Patient ID: Solo Campos is a 19 y.o. female who presents for wart removal. Solo is present today for wart removal on her left middle finger. She was first treated for this 06/07/24, then again on 07/13/24, it has gotten some smaller. It is painful d/t where the position is of it. Current Outpatient Medications on File Prior to Visit Medication Sig Dispense Refill albuterol HFA 90 mcg/act inhaler inhale 2 puffs by mouth every 4 to 6 hours if needed for shortness of breath / wheezing citalopram (CeleXA) 20 MG tablet Take 1 tablet (20 mg) by mouth in the morning. 30 tablet 11 fluticasone (Cutivate) 0.05 % cream Apply topically 2 (two) times a day 15 g 1 metroNIDAZOLE (Flagyl) 500 MG tablet Take 1 tablet (500 mg) by mouth in the morning and 1 tablet (500 mg) in the evening and 1 tablet (500 mg) before bedtime. Do all this for 7 days. 21 tablet 0 norethindrone (Jencycla) 0.35 MG tablet Take 1 tablet (0.35 mg) by mouth in the morning. 28 tablet 11 28-0.8 MG tablet 1 (one) time each day at the same time. [DISCONTINUED] fluconazole (Diflucan) 150 MG tablet Take 1 tablet (150 mg) by mouth Daily for 1 day, THEN 1 tablet (150 mg) Daily for 1 day. Take doses 3 days apart. 2 tablet 0 No current facility-administered medications on file prior to visit. I have reviewed and reconciled the history and medication list with the patient today. Allergies Allergen Reactions Penicillins Hives, Rash and Unknown Social History Tobacco Use Smoking status: Never Smokeless tobacco: Never Vaping Use Vaping status: Never Used Substance Use Topics Alcohol use: Never Comment: Caffeine: none Drug use: Never Family History Problem Relation Name Age of Onset Hypertension Maternal Grandfather Past Medical History: Diagnosis Date COVID 10/15/2020 positive Non immunized ETD (eustachian tube dysfunction) History of CT scan 03/17/2018 CT scan of the Spine is negative History of CT scan 01/01/2019 of sinuses show Chronic sinusitis Post depression (CMS/HCC) Past Surgical History: Procedure Laterality Date ADENOIDECTOMY 2010 MYRINGOTOMY W/ TUBES Bilateral 07/2012 Dr. Finch OTHER SURGICAL HISTORY 08/28/2015 r/o R tube and paper patch TONSILLECTOMY 2009 [facility] WISDOM TOOTH EXTRACTION 04/2021 Visit Vitals BP 116/78 Pulse 78 Resp 16 Ht 5' 3 Wt 166 lb SpO2 98% BMI 29.41 kg/m OB Status Unknown Smoking Status Never BSA 1.83 m Review of Systems Constitutional: Negative for chills, fatigue and fever. Respiratory: Negative for cough, shortness of breath and wheezing. Cardiovascular: Negative for chest pain, palpitations and leg swelling. Gastrointestinal: Negative for abdominal pain, constipation, diarrhea, nausea and vomiting. Skin: Negative for rash. Wart on left hand Objective Physical Exam Constitutional: General: She is not in acute distress. Appearance: Normal appearance. She is well-developed. HENT: Head: Normocephalic and atraumatic. Eyes: General: No scleral icterus. Conjunctiva/sclera: Conjunctivae normal. Cardiovascular: Rate and Rhythm: Normal rate and regular rhythm. Pulmonary: Effort: Pulmonary effort is normal. No respiratory distress. Skin: General: Skin is warm and dry. Findings: Lesion present. Comments: Left middle finger, palmar aspect of distal phalanx with 0.5 cm raised, though less raised than previously, verruca type lesion, flesh colored with a few remaining scattered punctate brown specks Neurological: General: No focal deficit present. Mental Status: She is alert and oriented to person, place, and time. Psychiatric: Mood and Affect: Mood normal. Behavior: Behavior normal. Cryotherapy, skin lesion Date/Time: 08/04/2024, 10:10 am Performed by: Ashtyn Muniz PA-C Consent: Potential risks vs benefits discussed Risks discussed: Bleeding, infection, incomplete removal, scarring Consent obtained: Verbal Consent given by: Patient Alternatives discussed: No treatment/observation, and alternative treatment Number of lesions treated: One Location: Left middle finger, distal phalanx, palmar aspect Anesthesia method: None Procedure specific details: Lesion pared down with #10 blade, 4 freeze thaw cycles of liquid nitrogen applied to lesion(s) Procedure completion: Tolerated well, no immediate complications Post-procedure details: Post-procedure care explained and return precautions reviewed. If a blister forms, the patient is not to pop the blister if possible. Monitor for any signs or symptoms of infection. Assessment/Plan Diagnoses and all orders for this visit: Painful skin lesion Third cryotherapy treatment applied to wart of left hand. Patient tolerated this very well. Post-procedural care discussed with patient. She is to contact office with any concerns. Wart of hand Advised can return to office in 2-3 weeks for another treatment if needed. Follow up if symptoms worsen or fail to improve. documented in this encounter [facility] 08-03-2024 Telephone encounter Note Form atting of this note might be different from the original. Message was sent to pt through [employer]. I did call and LM on pt's voicemail to confirm she received the results, and to call back with questions if needed. [facility] 08-03-2024 Miscellaneous Notes Formattin g of this note might be different from the original. Message was sent to pt through [employer]. I did call and LM on pt's voicemail to confirm she received the results, and to call back with questions if needed. Please let pt know that her swab came back positive for bacterial vaginosis and yeast. Finish Fluconazole as prescribed. Metronidazole sent in for her to cover the BV. Encourage probiotic while on antibiotic. No alcohol while on medications if she drinks at all. documented in this encounter [facility] 08-02-2024 Telephone encounter Note Form atting of this note might be different from the original. Please let pt know that her swab came back positive for bacterial vaginosis and yeast. Finish Fluconazole as prescribed. Metronidazole sent in for her to cover the BV. Encourage probiotic while on antibiotic. No alcohol while on medications if she drinks at all. [facility] 08-01-2024 History of Presen t illness Narrative Images from the original note were not included. Subjective Patient ID: Solo Campos is a 19 y.o. female who presents for yeast infection. Solo is present today for evaluation of yeast infection. Admits discharge, itching, when wipes it feels raw, swelling. She has had it for about 5 days and has not used anything over the counter but feels like it is improving. Current Outpatient Medications on File Prior to Visit Medication Sig Dispense Refill albuterol HFA 90 mcg/act inhaler inhale 2 puffs by mouth every 4 to 6 hours if needed for shortness of breath / wheezing citalopram (CeleXA) 20 MG tablet Take 1 tablet (20 mg) by mouth in the morning. 30 tablet 11 fluticasone (Cutivate) 0.05 % cream Apply topically 2 (two) times a day 15 g 1 norethindrone (Jencycla) 0.35 MG tablet Take 1 tablet (0.35 mg) by mouth in the morning. 28 tablet 11 28-0.8 MG tablet 1 (one) time each day at the same time. No current facility-administered medications on file prior to visit. I have reviewed and reconciled the history and medication list with the patient today. Allergies Allergen Reactions Penicillins Hives, Rash and Unknown Social History Tobacco Use Smoking status: Never Smokeless tobacco: Never Vaping Use Vaping status: Never Used Substance Use Topics Alcohol use: Never Comment: Caffeine: none Drug use: Never Family History Problem Relation Name Age of Onset Hypertension Maternal Grandfather Past Medical History: Diagnosis Date COVID 10/15/2020 positive Non immunized ETD (eustachian tube dysfunction) History of CT scan 03/17/2018 CT scan of the Spine is negative History of CT scan 01/01/2019 of sinuses show Chronic sinusitis Post depression (CMS/HCC) Past Surgical History: Procedure Laterality Date ADENOIDECTOMY 2010 MYRINGOTOMY W/ TUBES Bilateral 07/2012 Dr. Finch OTHER SURGICAL HISTORY 08/28/2015 r/o R tube and paper patch TONSILLECTOMY 2010 [facility] WISDOM TOOTH EXTRACTION 04/2021 Visit Vitals BP 122/84 Pulse 88 Resp 16 Ht 5' 3 Wt 166 lb 6.4 oz SpO2 97% BMI 29.48 kg/m OB Status Unknown Smoking Status Never BSA 1.83 m Review of Systems Constitutional: Negative for chills, fatigue and fever. Respiratory: Negative for cough, shortness of breath and wheezing. Cardiovascular: Negative for chest pain, palpitations and leg swelling. Gastrointestinal: Negative for abdominal pain, constipation, diarrhea, nausea and vomiting. Genitourinary: Positive for vaginal discharge (Itching). Skin: Negative for rash. Objective Physical Exam Constitutional: General: She is not in acute distress. Appearance: Normal appearance. She is well-developed. HENT: Head: Normocephalic and atraumatic. Eyes: General: No scleral icterus. Conjunctiva/sclera: Conjunctivae normal. Cardiovascular: Rate and Rhythm: Normal rate and regular rhythm. Heart sounds: Normal heart sounds. No murmur heard. Pulmonary: Effort: Pulmonary effort is normal. No respiratory distress. Breath sounds: Normal breath sounds. No wheezing, rhonchi or rales. Abdominal: Palpations: Abdomen is soft. Tenderness: There is no abdominal tenderness. There is no guarding. Skin: General: Skin is warm and dry. Neurological: General: No focal deficit present. Mental Status: She is alert and oriented to person, place, and time. Psychiatric: Mood and Affect: Mood normal. Behavior: Behavior normal. Assessment/Plan Diagnoses and all orders for this visit: Vaginal discharge - VAGINITIS (HTRX); Future - fluconazole (Diflucan) 150 MG tablet; Take 1 tablet (150 mg) by mouth Daily for 1 day, THEN 1 tablet (150 mg) Daily for 1 day. Take doses 3 days apart. Vaginal swab obtained and will be sent out for further evaluation. Will notify pt of the results once received. Start Fluconazole in the mean time as prescribed, reviewed instructions with pt. Contact office if symptoms do not improve. No follow-ups on file. documented in this encounter [facility] 07-20-2024 History of Presen t illness Narrative Images from the original note were not included. Subjective Patient ID: Solo Campos is a 19 y.o. female who presents for Annual Exam. 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 30 tablet 11 fluticasone (Cutivate) 0.05 % cream Apply topically 2 (two) times a day 15 g 1 norethindrone (Jencycla) 0.35 MG tablet Take 1 tablet (0.35 mg) by mouth in the morning. 28 tablet 11 28-0.8 MG tablet 1 (one) time each day at the same time. No current facility-administered medications on file prior to visit. I have reviewed and reconciled the history and medication list with the patient today. Allergies Allergen Reactions Penicillins Hives, Rash and Unknown Social History Tobacco Use Smoking status: Never Smokeless tobacco: Never Substance Use Topics Alcohol use: Never Comment: Caffeine: none Drug use: Never Family History Problem Relation Name Age of Onset Hypertension Maternal Grandfather Past Medical History: Diagnosis Date COVID 10/15/2020 positive Non immunized ETD (eustachian tube dysfunction) History of CT scan 03/17/2018 CT scan of the Spine is negative History of CT scan 01/01/2019 of sinuses show Chronic sinusitis Post depression (CMS/HCC) Past Surgical History: Procedure Laterality Date ADENOIDECTOMY 2010 MYRINGOTOMY W/ TUBES Bilateral 07/2012 Dr. Finch OTHER SURGICAL HISTORY 08/28/2015 r/o R tube and paper patch TONSILLECTOMY 2009 [facility]A WISDOM TOOTH EXTRACTION 04/2021 Visit Vitals OB Status Unknown Smoking Status Never Review of Systems Constitutional: Negative. HENT: Negative. Eyes: Negative. Respiratory: Negative. Cardiovascular: Negative. Gastrointestinal: Negative. Genitourinary: Negative. Musculoskeletal: Negative. Skin: Negative. Neurological: Negative. Psychiatric/Behavioral: Negative. Hematological: Negative. Endocrine: Negative. Allergic/Immunologic: Negative. Objective Physical Exam Vitals reviewed. Constitutional: Appearance: Normal appearance. HENT: Head: Normocephalic and atraumatic. Right Ear: Tympanic membrane, ear canal and external ear normal. Left Ear: Tympanic membrane, ear canal and external ear normal. Nose: Nose normal. Mouth/Throat: Mouth: Mucous membranes are moist. Pharynx: Oropharynx is clear. Eyes: Extraocular Movements: Extraocular movements intact. Conjunctiva/sclera: Conjunctivae normal. Pupils: Pupils are equal, round, and reactive to light. Cardiovascular: Rate and Rhythm: Normal rate and regular rhythm. Pulses: Normal pulses. Heart sounds: Normal heart sounds. Pulmonary: Effort: Pulmonary effort is normal. Breath sounds: Normal breath sounds. Abdominal: General: Abdomen is flat. Bowel sounds are normal. Palpations: Abdomen is soft. Musculoskeletal: General: Normal range of motion. Cervical back: Normal range of motion. Skin: General: Skin is warm and dry. Neurological: General: No focal deficit present. Mental Status: She is alert and oriented to person, place, and time. Psychiatric: Mood and Affect: Mood normal. Behavior: Behavior normal. Thought Content: Thought content normal. Judgment: Judgment normal. Assessment/Plan 1. Wellness examination 2. Encounter for vaccination - Flu vaccine greater than or equal to 3 years old, PF IM (IMM19) (Afluria 0.5mL dose) No follow-ups on file. documented in this encounter [facility] 07-13-2024 History of Presen t illness Narrative Images from the original note were not included. Subjective Patient ID: Solo Campos is a 19 y.o. female who presents for wart removal Solo is present today for a wart removal. Wart is on her middle finger on her left hand. First treatment was 06/07/[address] Soares. It has decreased in size. The other warts that were treated that day are gone. It is painful at times. Current Outpatient Medications on File Prior to Visit Medication Sig Dispense Refill albuterol HFA 90 mcg/act inhaler inhale 2 puffs by mouth every 4 to 6 hours if needed for shortness of breath / wheezing citalopram (CeleXA) 20 MG tablet Take 1 tablet (20 mg) by mouth in the morning. 30 tablet 11 fluticasone (Cutivate) 0.05 % cream Apply topically 2 (two) times a day 15 g 1 norethindrone (Jencycla) 0.35 MG tablet Take 1 tablet (0.35 mg) by mouth in the morning. 28 tablet 11 28-0.8 MG tablet 1 (one) time each day at the same time. [] sulfamethoxazole-trimethoprim (Bactrim DS) 800-160 MG per tablet Take 1 tablet by mouth in the morning and 1 tablet before bedtime. Do all this for 10 days. 20 tablet 0 No current facility-administered medications on file prior to visit. I have reviewed and reconciled the history and medication list with the patient today. Allergies Allergen Reactions Penicillins Hives, Rash and Unknown Social History Tobacco Use Smoking status: Never Smokeless tobacco: Never Substance Use Topics Alcohol use: Never Comment: Caffeine: none Drug use: Never Family History Problem Relation Name Age of Onset Hypertension Maternal Grandfather Past Medical History: Diagnosis Date COVID 10/15/2020 positive Non immunized ETD (eustachian tube dysfunction) History of CT scan 03/17/2018 CT scan of the Spine is negative History of CT scan 01/01/2019 of sinuses show Chronic sinusitis Post depression (CMS/HCC) Past Surgical History: Procedure Laterality Date ADENOIDECTOMY 2010 MYRINGOTOMY W/ TUBES Bilateral 07/2012 Dr. Finch OTHER SURGICAL HISTORY 08/28/2015 r/o R tube and paper patch TONSILLECTOMY 2009 TandA WISDOM TOOTH EXTRACTION 04/2021 Visit Vitals BP 130/88 Pulse 87 Resp 16 Ht 5' 3 Wt 166 lb SpO2 98% BMI 29.41 kg/m OB Status Unknown Smoking Status Never BSA 1.83 m Review of Systems Constitutional: Negative for chills, fatigue and fever. Respiratory: Negative for cough, shortness of breath and wheezing. Cardiovascular: Negative for chest pain, palpitations and leg swelling. Gastrointestinal: Negative for abdominal pain, constipation, diarrhea, nausea and vomiting. Skin: Negative for rash. Wart on left hand Objective Physical Exam Constitutional: General: She is not in acute distress. Appearance: Normal appearance. She is well-developed. HENT: Head: Normocephalic and atraumatic. Eyes: General: No scleral icterus. Conjunctiva/sclera: Conjunctivae normal. Cardiovascular: Rate and Rhythm: Normal rate and regular rhythm. Pulmonary: Effort: Pulmonary effort is normal. No respiratory distress. Skin: General: Skin is warm and dry. Findings: Lesion present. Comments: Left middle finger, palmar aspect of distal phalanx with 0.5 cm elevated verruca type lesion, flesh colored with scattered punctate brown specks Neurological: General: No focal deficit present. Mental Status: She is alert and oriented to person, place, and time. Psychiatric: Mood and Affect: Mood normal. Behavior: Behavior normal. Cryotherapy, skin lesion Date/Time: 07/13/2024 Performed by: Ashtyn Muniz PA-C Consent: Potential risks vs benefits discussed Risks discussed: Bleeding, infection, incomplete removal, scarring Consent obtained: Verbal Consent given by: Patient Alternatives discussed: No treatment/observation, and alternative treatment Number of lesions treated: 1 Location: Left middle finger Anesthesia method: None Procedure specific details: Area cleaned with alcohol. Pared down with #15 blade. 4 freeze thaw cycles of liquid nitrogen applied to lesion(s) Procedure completion: Tolerated well, no immediate complications Post-procedure details: Post-procedure care explained and return precautions reviewed. If a blister forms, the patient is not to pop the blister if possible. Monitor for any signs or symptoms of infection. Assessment/Plan Diagnoses and all orders for this visit: Painful skin lesion Second cryotherapy treatment applied to wart of left hand. Patient tolerated this very well. Post-procedural care discussed with patient. She is to contact office with any concerns. Wart of hand Advised can return to office in 2-3 weeks for another treatment if needed. Follow up if symptoms worsen or fail to improve. documented in this encounter [facility] 06-28-2024 History of Presen t illness Narrative Associated Problem(s): Sprain of right ankle Wrap and elevate Associated Problem(s): Folliculitis Add Probiotic to help replenish the good bacteria that are destroyed by the Antibiotics Florastor Florajen Align or try Activia in Yogurt Probiotics reduce the risk of antibiotic induced diarrhea Images from the original note were not included. HPI ER Follow-up Additional comments: Pt missed a step and sprained her ankle , XR was normal Last edited by Miroslava Pan MA on 06/28/2024 7:56 AM. Subjective Patient ID: Solo Campos is a 19 y.o. female who presents for ER Follow-up (Pt missed a step and sprained her ankle , XR was normal ). Pt went to [facility] on 06/16 for she missed a stepped and sprained her ankle , right ankle pt states it is doing better and hurts if she moves it a certain way Pt also would like to have you look at her leg she has razor burn on her left leg Current Outpatient Medications on File Prior to Visit Medication Sig Dispense Refill albuterol HFA 90 mcg/act inhaler inhale 2 puffs by mouth every 4 to 6 hours if needed for shortness of breath / wheezing fluticasone (Cutivate) 0.05 % cream Apply topically 2 (two) times a day 15 g 1 28-0.8 MG tablet 1 (one) time each day at the same time. [DISCONTINUED] citalopram (CeleXA) 20 MG tablet take 1 tablet by mouth every morning 30 tablet 11 [DISCONTINUED] Jencycla 0.35 MG tablet take 1 tablet by mouth every morning 28 tablet 11 No current facility-administered medications on file prior to visit. I have reviewed and reconciled the history and medication list with the patient today. Allergies Allergen Reactions Penicillins Hives, Rash and Unknown Social History Tobacco Use Smoking status: Never Smokeless tobacco: Never Substance Use Topics Alcohol use: Never Comment: Caffeine: none Drug use: Never Family History Problem Relation Name Age of Onset Hypertension Maternal Grandfather Past Medical History: Diagnosis Date COVID 10/15/2020 positive Non immunized ETD (eustachian tube dysfunction) History of CT scan 03/17/2018 CT scan of the Spine is negative History of CT scan 01/01/2019 of sinuses show Chronic sinusitis Post depression ([facility]) Past Surgical History: Procedure Laterality Date ADENOIDECTOMY 2010 MYRINGOTOMY W/ TUBES Bilateral 07/2012 Dr. Finch OTHER SURGICAL HISTORY 08/28/2015 r/o R tube and paper patch TONSILLECTOMY 2009 TandA WISDOM TOOTH EXTRACTION 04/2021 Visit Vitals BP 110/68 Pulse 100 Ht 5' 3 Wt 166 lb SpO2 97% BMI 29.41 kg/m OB Status Unknown Smoking Status Never BSA 1.83 m Review of Systems Musculoskeletal: Positive for arthralgias, gait problem and joint swelling. Skin: Positive for rash. Objective Physical Exam Musculoskeletal: Legs: Comments: Swelling and pain Skin: Comments: Papular rash to left leg Assessment/Plan Problem List Items Addressed This Visit Folliculitis Add Probiotic to help replenish the good bacteria that are destroyed by the Antibiotics Florastor Florajen Align or try Activia in Yogurt Probiotics reduce the risk of antibiotic induced diarrhea Relevant Medications sulfamethoxazole-trimethoprim (Bactrim DS) 800-160 MG per tablet Sprain of right ankle - Primary Wrap and elevate Other Visit Diagnoses Post depression (CMS/HCC) Relevant Medications citalopram (CeleXA) 20 MG tablet 6 weeks follow-up Relevant Medications norethindrone (Jencycla) 0.35 MG tablet No follow-ups on file. documented in this encounter [facility] 06-07-2024 History of Presen t illness Narrative Associated Problem(s): Wart of hand With patient's verbal consent and after explaining risk benefits and potential outcomes 3 warts frozen with cryo with freeze thaw cycle x 2. Patient tolerated the procedure well. May need repeated in 2 weeks if not fully resolved Images from the original note were not included. Subjective Patient ID: Solo Campos is a 19 y.o. female who presents for wart removal. 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 It is interfering in her ability to do her schoolwork She requested removal Current Outpatient Medications on File Prior to Visit Medication Sig Dispense Refill albuterol HFA 90 mcg/act inhaler inhale 2 puffs by mouth every 4 to 6 hours if needed for shortness of breath / wheezing citalopram (CeleXA) 20 MG tablet take 1 tablet by mouth every morning 30 tablet 11 fluticasone (Cutivate) 0.05 % cream Apply topically 2 (two) times a day 15 g 1 Jencycla 0.35 MG tablet take 1 tablet by mouth every morning 28 tablet 11 28-0.8 MG tablet 1 (one) time each day at the same time. No current facility-administered medications on file prior to visit. Allergies Allergen Reactions Penicillins Hives, Rash and Unknown Social History Tobacco Use Smoking status: Never Smokeless tobacco: Never Substance Use Topics Alcohol use: Never Comment: Caffeine: none Drug use: Never Family History Problem Relation Name Age of Onset Hypertension Maternal Grandfather Past Medical History: Diagnosis Date COVID 10/15/2020 positive Non immunized ETD (eustachian tube dysfunction) History of CT scan 03/17/2018 CT scan of the Spine is negative History of CT scan 01/01/2019 of sinuses show Chronic sinusitis Post depression (CMS/HCC) Past Surgical History: Procedure Laterality Date ADENOIDECTOMY 2010 MYRINGOTOMY W/ TUBES Bilateral 07/2012 Dr. Finch OTHER SURGICAL HISTORY 08/28/2015 r/o R tube and paper patch TONSILLECTOMY 2009 TandA WISDOM TOOTH EXTRACTION 04/2021 Visit Vitals OB Status Unknown Smoking Status Never Review of Systems Skin: Positive for rash. Objective Physical Exam Constitutional: Appearance: Normal appearance. Skin: Comments: Left middle 5 mm Right thumb 3 mm Right index distal Phalynx 2 mm Neurological: Mental Status: She is alert. Assessment/Plan Problem List Items Addressed This Visit Wart of hand - Primary With patient's verbal consent and after explaining risk benefits and potential outcomes 3 warts frozen with cryo with freeze thaw cycle x 2. Patient tolerated the procedure well. No follow-ups on file. documented in this encounter [facility] note Diagnosis Painful skin lesion- Primary Wart of hand [facility]* Diagnosis Wellness examination- Primary Encounter for vaccination [facility]* Diagnosis Folliculitis- Primary Other specified disease of hair and hair follicles Flexural eczema Other atopic dermatitis and related conditions Wart of hand Wart of hand- Primary Sprain of right ankle, unspecified ligament, sequela- Primary Post depression (CMS/HCC) Mental disorders of mother, complicating , childbirth, or the puerperium, unspecified as to episode of care 6 weeks follow-up Folliculitis Other specified disease of hair and hair follicles Vaginal discharge- Primary Leukorrhea, not specified as infective [facility]* Diagnosis Folliculitis- Primary Other specified disease of hair and hair follicles Flexural eczema Other atopic dermatitis and related conditions Wart of hand Wart of hand- Primary Sprain of right ankle, unspecified ligament, sequela- Primary Post depression (CMS/HCC) Mental disorders of mother, complicating , childbirth, or the puerperium, unspecified as to episode of care 6 weeks follow-up Folliculitis Other specified disease of hair and hair follicles Bacterial vaginosis- Primary Unspecified vaginitis and vulvovaginitis [facility]* Diagnosis Folliculitis- Primary Other specified disease of hair and hair follicles Flexural eczema Other atopic dermatitis and related conditions Wart of hand Wart of hand- Primary Sprain of right ankle, unspecified ligament, sequela- Primary Post depression (CMS/HCC) Mental disorders of mother, complicating , childbirth, or the puerperium, unspecified as to episode of care 6 weeks follow-up Folliculitis Other specified disease of hair and hair follicles Post depression (CMS/HCC)- Primary Mental disorders of mother, complicating , childbirth, or the puerperium, unspecified as to episode of care Painful skin lesion Wart of hand [facility]* Diagnosis Sprain of right ankle, unspecified ligament, sequela- Primary Post depression (CMS/HCC) Mental disorders of mother, complicating , childbirth, or the puerperium, unspecified as to episode of care 6 weeks follow-up Folliculitis Other specified disease of hair and hair follicles [facility]* Diagnosis Folliculitis- Primary Other specified disease of hair and hair follicles Flexural eczema Other atopic dermatitis and related conditions Wart of hand Wart of hand- Primary Sprain of right ankle, unspecified ligament, sequela- Primary Post depression (CMS/HCC) Mental disorders of mother, complicating , childbirth, or the puerperium, unspecified as to episode of care 6 weeks follow-up Folliculitis Other specified disease of hair and hair follicles Wart of hand- Primary Overweight Painful skin lesion Screening for tuberculosis Screening examination for pulmonary tuberculosis documented [facility]* Diagnosis Wart of hand- Primary documented [facility]* Diagnosis Folliculitis- Primary Other specified disease of hair and hair follicles Flexural eczema Other atopic dermatitis and related conditions Wart of hand Wart of hand- Primary Sprain of right ankle, unspecified ligament, sequela- Primary Post depression (CMS/HCC) Mental disorders of mother, complicating , childbirth, or the puerperium, unspecified as to episode of care 6 weeks follow-up Folliculitis Other specified disease of hair and hair follicles Painful skin lesion- Primary Wart of hand [facility]* Diagnosis Folliculitis- Primary Other specified disease of hair and hair follicles Flexural eczema Other atopic dermatitis and related conditions Wart of hand Wart of hand- Primary Sprain of right ankle, unspecified ligament, sequela- Primary Post depression (CMS/HCC) Mental disorders of mother, complicating , childbirth, or the puerperium, unspecified as to episode of care 6 weeks follow-up Folliculitis Other specified disease of hair and hair follicles Need for vaccination Need for prophylactic vaccination and inoculation against unspecified single disease [facility]* Diagnosis Folliculitis- Primary Other specified disease of hair and hair follicles Flexural eczema Other atopic dermatitis and related conditions Wart of hand Wart of hand- Primary Sprain of right ankle, unspecified ligament, sequela- Primary Post depression Mental disorders of mother, complicating , childbirth, or the puerperium, unspecified as to episode of care 6 weeks follow-up ([facility]) Folliculitis Other specified disease of hair and hair follicles Amenorrhea- Primary Absence of menstruation Positive test ([facility]) examination or test, positive result Dark urine Other nonspecific finding on examination of urine Acute cystitis with hematuria documented in this encounter [facility] Summary Purpose Family History No Family History Records FoundNo Family History Records FoundNo Family History Records FoundNo Family History Records Found Advance Directives No Advanced Directives Records FoundNo Advanced Directives Records FoundNo Advanced Directives Records FoundNo Advanced Directives Records Found Additional Source Comments INFORMATION SOURCE (unrecogn ized section and content) DATE CREATED AUTHOR 03/20/2023 [facility] DATE CREATED AUTHOR AUTHOR'S ORGANIZ ATION 06/18/2024 [facility] DATE CREATED AUTHOR AUTHOR'S ORGANIZ ATION 06/20/2025 [facility] EPIC DATE CREATED AUTHOR AUTHOR'S ORGANIZ ATION 06/21/2025 [facility] Care Teams (unrecognized sec tion and content) [employer] Relationship Specialty Start Date End Date Denita Soares MD [address] [place] [address] PCP - General Family Medicine 03/11/23 [employer] Relationship Specialty Start Date End Date Denita Soares MD [address] [place] [address] PCP - General Family Medicine 03/11/23 [employer] Relationship Specialty Start Date End Date Denita Soares MD [address] [place] [address] PCP - General Family Medicine 03/11/23 [employer] Relationship Specialty Start Date End Date Denita Soares MD [address] [facility] [address] [place] [address] PCP - General Family Medicine 03/11/23 [employer] Relationship Specialty Start Date End Date Denita Soares MD [address] [place] [address] PCP - General Family Medicine 03/11/23 [employer] Relationship Specialty Start Date End Date Denita Soares MD [address] [place] [address] PCP - General Family Medicine 03/11/23 [employer] Relationship Specialty Start Date End Date Denita Soares MD [address] [place] [address] PCP - General Family Medicine 03/11/23 [employer] Relationship Specialty Start Date End Date Denita Soares MD [address] [place] [address] PCP - General Family Medicine 03/11/23 [employer] Relationship Specialty Start Date End Date Denita Soares MD [address] [facility] [address] [place] [address] PCP - General Family Medicine 03/11/23 [employer] Relationship Specialty Start Date End Date Denita Soares MD [address] [facility] [address] [place] [address] PCP - General Family Medicine 03/11/23 [employer] Relationship Specialty Start Date End Date Denita Soares MD [address] [facility] [address] [place] [address] PCP - [facility] 03/11/23 [employer] Relationship Specialty Start Date End Date Denita Soares MD [address] [facility] [address] [place] [address] PCP - General Family Medicine 03/11/23 Reason for Visit (unrecogniz ed section and content) Reason Comments Annual Exam Reason Comments ER Follow-up Pt missed a step and sprained her ankle , XR was normal Reason Comments wart on hand Reason Comments wart removal FOR RECORDS PERTAINING TO PATIENTS WHO ARE OR HAVE BEEN ENROLLED IN A CHEMICAL DEPENDENCY/SUBSTANCEABUSE PROGRAM, SOME INFORMATION MAY BE OMITTED. This clinical summary was aggregated from multiple sources. Caution should be exercised in using it in the provision of clinical care. This summary normalizes information from multiple sources, and as a consequence, information in this document may materially change the coding, format and clinical context of patient data. In addition, data may be omitted in some cases. CLINICAL DECISIONS SHOULD BE BASED ON THE PRIMARY CLINICAL RECORDS. [employer] provides no warranty or guarantee of the accuracy or completeness of information in this document.
== END 2025-07-13 13:01 | disposition home or self-care (01) ==
LOC: US 13:00
PROVIDERS: PCP Family Medicine; Visit Provider Obstetrics & Gynecology
DX: Z32.01 Encounter for pregnancy test, result positive (principal); Z3A.08 8 weeks gestation of pregnancy; N92.6 Irregular menstruation, unspecified
CPT/HCPCS: 76817

== ENCOUNTER 2025-07-27 12:52 | Outpatient (OUT) | payer OTHER, SELFPAY ==
--- OUTSIDE RECORDS SUMMARY | 2025-07-27 12:57 | XMS_ITS | CCD ---
Author Organization [facility] CliniSyky Care Team Providers Care Aquatic Biologist Name Role Phone RODGER, DR WEINER Primary Care Unavailable HEMMER ASHTYN M Attending Unavailable HEMMERASHTYN Admitting Unavailable HEMMERASHTYN Consulting Unavailable MICHELLE ., DR ARRIOLA Attending Unavailable MICHELLE ., DR ARRIOLA Admitting Unavailable REQUEST, NONE LISTED Primary Care Unavaila ble MICHELLE ., DR ARRIOLA Consulting Unavailable ZIEBER, DR NE Rodriguez Consulting Unavailable RODGER, DR WEINER Primary Care Unavailable MICHELLE ., DR ARRIOLA Attending Unavailable MICHELLE ., DR ARRIOLA Admitting Unavailable MICHELLE ., DR ARRIOLA Consulting Unavailable ZIEBER, DR NE Rodriguez Consulting Unavailable RODGER, DR WEINER Primary Care Unavailable MICHELLE ., DR ARRIOLA Attending Unavailable MICHELLE ., DR ARRIOLA Consulting Unavailable MICHELLE ., DR ARRIOLA Admitting Unavailable STRAWSER, BEN Consulting Unavailable RODGER, DR WEINER Primary Care Unavailable MICHELLE ., DR ARRIOLA Attending Unavailable MICHELLE ., DR ARRIOLA Consulting Unavailable MICHELLE ., DR ARRIOLA Admitting Unavailable RODGER, DR WEINER Primary Care Unavailable MICHELLE ., DR ARRIOLA Admitting Unavailable MICHELLE ., DR ARRIOLA Attending Unavailable MICHELLE ., DR ARRIOLA Consulting Unavailable ZIEBER, DR NE Rodriguez Consulting Unavailable MICHELLE ., DR ARRIOLA Attending Unavailable REQUEST, DR NONE LISTED Primary Care Unavaila ble MICHELLE ., DR ARRIOLA Consulting Unavailable MICHELLE ., DR ARRIOLA Admitting Unavailable RODGER, DR WEINER Primary Care Unavailable MICHELLE ., DR ARRIOLA Attending Unavailable MICHELLE ., DR ARRIOLA Consulting Unavailable MICHELLE ., DR ARRIOLA Admitting Unavailable ZIEBER, DR NE Rodriguez Consulting Unavailable RODGER, DR WEINER Primary Care Unavailable MICHELLE ., DR ARRIOLA Attending Unavailable MICHELLE ., DR ARRIOLA Consulting Unavailable MICHELLE ., DR ARRIOLA Admitting Unavailable ZIEBER, DR NE Rodriguez Consulting Unavailable RODGER, DR WEINER Primary Care Unavailable HUDSON ., VAN Consulting Unavailable HUDSON ., VAN Admitting Unavailable HUDSON ., VAN Attending Unavailable RODGER, DR WEINER Primary Care Unavailable MICHELLE ., DR ARRIOLA Attending Unavailable MICHELLE ., DR ARRIOLA Consulting Unavailable MICHELLE ., DR ARRIOLA Admitting Unavailable RODGER, DR WEINER Primary Care Unavailable MICHELLE ., DR ARRIOLA Admitting Unavailable MICHELLE ., DR ARRIOLA Attending Unavailable MICHELLE ., DR ARRIOLA Consulting Unavailable RODGER, DR WEINER Primary Care Unavailable MICHELLE ., DR ARRIOLA Admitting Unavailable MICHELLE ., DR ARRIOLA Attending Unavailable MICHELLE ., DR ARRIOLA Consulting Unavailable RODGER, DR WEINER Primary Care Unavailable MICHELLE ., DR ARRIOLA Admitting Unavailable MICHELLE ., DR ARRIOLA Consulting Unavailable MICHELLE ., DR ARRIOLA Attending Unavailable RODGER, DR WEINER Primary Care Unavailable DIAB ., HUSEYIN Attending Unavailable DIAB ., HUSEYIN Admitting Unavailable FERNIE, FARNAZ Consulting Unavailable DIAB ., HUSEYIN Consulting Unavailable RODGER, DR WEINER Primary Care Unavailable MICHELLE ., DR ARRIOLA Attending Unavailable MICHELLE ., DR ARRIOLA Consulting Unavailable MICHELLE ., DR ARROILA Admitting Unavailable HUDSON ., VAN Admitting Unavailable HUDSON ., VAN Attending Unavailable RODGER, DR WEINER [facility] Care Unavailable HUDSON ., VAN Consulting Unavailable RODGER, DR WEINER Primary Care Unavailable ALEXIS LEARY Admitting Unavailable ALEXIS LEARY Attending Unavailable GRECHNY ., FRANCESCO HORNE Consulting UnavailNE Onofre Consulting Unavailable KARASIK ., DR SCOTT Attending Unavailabl e KARASIK ., DR SCOTT Admitting Unavailabl e RODGER, DR WEINER [facility] Care Unavailable KARASIK ., DR SCOTT Consulting Unavailsindhu e WEST, DR FARNAZ Catalan Consulting Unavailable RODGERREGINE Primary Care Unavailable RODGERREGINE Primary Care Unavailable EDIL STEEL Attending Unavailable EDIL STEEL Attending Unavailable EDIL STEEL Referring Unavailable RODGERREGINE Primary Care Unavailable [facility] [phone] ASHTYN MUNIZ Attending Unavailable JOSE JUAN BEAULIEU Attending Unavailable ASHTYN MUNIZ Attending Unavailable ASHTYN MUNIZ Attending Unavailable ASHTYN MUNIZ Attending Unavailable ASHTYN MUNIZ Attending Unavailable ASHTYN MUNIZ Attending Unavailable Allergies Allergy Classification Reported Allergen(s) Allergy Type Date of Onset Reaction(s) Facility (1 source) Amoxicillin Drug Allergy 5 [facility] Repository (1 source) Penicillins Drug allergy (disorder) 5 [facility] Repository (1 source) Penicillin; Translations: [PENICILLIN] Drug Allergy 4 [facility] Repository (20 sources) Penicillins Drug Allergy 5 Hives, Rash, Unknown [facility] Work Phone: Medications Current Medications Medication Drug Class(es) Dates Sig (Normalized) Sig (Original) [id number] 200 actuat albuterol 0.09 mg/actuat metered dose [...] 08/09/2024 Active multivitamin () 27-0.8 MG tablet (5 sources) Start: 06-19-2025 take 1 tablet by mouth once daily multivitamin () 27-0.8 MG tablet Indications: Positive test ([facility]) Take 1 tablet by mouth Daily 90 tablet 2 06/19/2025 Active norethindrone 0.35 mg oral tablet (20 sources) Start: 04-01-2024 End: 06-19-2025 take 1 tablet by mouth in the morning norethindrone (Jencycla) 0.35 MG tablet Indications: 6 weeks follow-up ([facility]) Take 1 tablet (0.35 mg) by mouth in the morning. 28 tablet 11 06/28/2024 06/19/2025 Discontinued (Therapy completed) ondansetron 4 mg disintegrating oral tablet (2 sources) Serotonin-3 Receptor Antagonist Start: 07-12-2025 End: 08-11-2025 take 1 tablet by mouth every six hours for nausea ondansetron ODT (Zofran-ODT) 4 MG disintegrating tablet Indications: Nausea and vomiting in ([facility]) Take 1 tablet (4 mg) by mouth every 6 (six) hours if needed for nausea or vomiting 30 tablet 2 07/12/2025 08/11/2025 Active sulfamethoxazole 800 mg / trimethoprim 160 mg [...] Translations: [Acute vaginitis] 08-02-2024 Episodic Menstrual disorders (5 sources) Amenorrhea; Translations: [Amenorrhea, unspecified] 06-19-2025 Chronic [...] body structures; Translations: [ABNORML FIND DX IMG [facility] BODY STRUC] Onset: 03-05-2023 Chronic Other skin [...] ] Onset: 01-19-2023 Episodic Unclassified (4 sources) [facility] SPCF DIS/COND COMPL ; Translations: [[facility] SPCF DIS/COND COMPL ] Onset: 03-05-2023 Unclassified [...] Onset: 10-16-2022 Episodic Miscellaneous mental health disorders (16 sources) depression; Translations: [ depression] Onset: 08-18-2024 [...] Episodic Other nutritional; endocrine; and metabolic disorders (11 sources) Overweight; Translations: [Overweight] Onset: 09-27-2024 09-27-2024 [...] Onset: 06-16-2024 06-28-2024 Episodic Unclassified (1 source) OTH SPCF DIS/COND COMPL ; Translations: [OTH SPCF DIS/COND COMPL ] Onset: 03-03-2023 Unclassified (1 source) CONTACT W/AND (SUSP) EXPOS COVID-19; Translations: [CONTACT W/AND (SUSP) EXPOS COVID-19] Onset: 06-03-2022 Viral infection (20 sources) Hand wart; Translations: [Viral wart, unspecified] Onset: 07-28-2023 07-13-2024 Episodic Results Test Name Value Interpretation Reference Range Facility US OB TRANSVAGINALon [address] [place] [address] Ultrasound Report Signed Patient: MAREN CAMPOS MR#: [id number] : 2005 Acct:[id number] Age/Sex: 20 / F ADM Date: 07/13/25 Loc: US Attending Dr: Alvaro Martinez D.O. Ordering Physician: Alvaro Martinez D.O. Date of Service: 07/13/25 Procedure(s): US OB transvaginal Accession Number(s): [id number] cc: REGINE SOARES ; Alavro Martinez D.O. [place] [address] Patient Name: MAREN CAMPOS MRN: [id number] date: 2005 Sex: F Assigned Patient Location: Current Patient Location: Accession/Order Number: [id number] Exam Date: 07/13/2025 13:06 Report Date: 07/14/2025 13:10 At the request of: ALVARO MARTINEZ DO Procedure: US OB transvaginal OB ultrasound. Reason for exam:Missed menses. Comparison:None Technique: Transvaginal as well as transvaginal imaging of the gravid uterus was obtained. Findings: Single live intrauterine 8 weeks 4 days by CRL, R[place] 02/18/2026. heart rate 1 71 bpm. No free fluid. Ovaries appear unremarkable. US/US OB transvaginal Impression: Single live intrauterine 8 weeks 4 days by CRL, [place] 02/18/2026. Impression dictated by: Tree Augustin Jr., D.O. 07/14/2025 1:10 PM Dictation Location: RADIO-PC-23 Electronically authenticated by: [id number] Y Date: 07/14/2025 13:10 Dictated By: Tree Augustin M.D. Signed By: 07/14/25 1312 DD/ 1310 TD/TT: Floorworker Lasting: [facility] Radiology, Radiologist, - 07/14/2025 [place] [address] Ultrasound Report Signed Patient: MAREN CAMPOS MR#: [id number] : 2005 Acct:[id number] Age/Sex: 20 / F ADM Date: 07/13/25 Loc: US Attending Dr: Alvaro Martinez D.O. Ordering Physician: Alvaro Martinez D.O. Date of Service: 07/13/25 Procedure(s): US OB transvaginal Accession Number(s): [id number] cc: REGINE SOARES ; Alvaro Martinez D.O. [address] [place] [address] Patient Name: MAREN CAMPOS MRN: [facility]:[id number] date: 2005 Sex: F Assigned Patient Location: Current Patient Location: Accession/Order Number: [id number] Exam Date: 07/13/2025 13:06 Report Date: 07/14/2025 13:10 At the request of: ALVARO MARTINEZ DO Procedure: US OB transvaginal OB ultrasound. Reason for exam:Missed menses. Comparison:None Technique: Transvaginal as well as transvaginal imaging of the gravid uterus was obtained. Findings: Single live intrauterine 8 weeks 4 days by CRL, [place] 02/18/2026. heart rate 1 71 bpm. No free fluid. Ovaries appear unremarkable. US/US OB transvaginal Impression: Single live intrauterine 8 weeks 4 days by CRL, [place] 02/18/2026. Impression dictated by: Gosia Vargas Jr.ONing 07/14/2025 1:10 PM Dictation Location: [employer] Electronically authenticated by: [id number] Y Date: 07/14/2025 13:10 Dictated By: Tree Augustin M.D. Signed By: 07/14/25 1312 DD/ 1310 TD/TT: Floorworker Lasting: [facility] Radiology Study observation (narrative) [facility] US OB TRANSVAGINALOrdered By : Radiologist Radiology on 07-14-2025 [facility] Work Phone: HCG ( test) Ql (U)o n 07-13-2025 Interpretation and review of laboratory results Abnormal [facility] Preg Test, Ur Positive Negative Replaced by [facility] Urinalysis macro (dipstick) panel (U)Ordered By: Lorri Li on 07-13-2025 Bilirubin, UA Negative Negative - 4(70) +++ mg/dL [facility] Blood, UA Positive Negative - 50 Charlie/mcL [facility] Clarity, UA Clear [facility] Color, UA Yellow [facility] Glucose, UA Negative Negative - 2000(110) ++++ mg/dL [facility] Interpretation and review of laboratory results Abnormal [facility] Ketones, UA Negative Negative - 160(16) ++++ mg/dL [facility] Leukocytes, UA Negative Negative - 500+++ Pricilla/mcL [facility] Nitrite, UA Negative Negative - Positive [facility] pH, UA 6 5 - 9 [facility] Protein, UA Negative Negative - 2000(20) ++++ mg/dL [facility] Spec Grav, UA 1.02 1 - 1.03 [facility] Urobilinogen, UA 2.0 0.2 - 12 mg/dL Replaced by [facility] HCG, TOTAL, QNon 06-20-20[place] [address] m[IU]/mL [facility] Comment on above: Result Comment: Refe rence Range Non or premenopausal <5 Postmenopausal <10 Values from different assay methods may vary. The use of this assay to monitor or to diagnose patients with cancer or any condition unrelated to has not been cleared or approved by the FDA or the pomologist of the assay. Performed By: #### [id number] #### [facility] [address], [address] [place] [id number] Nitric Acid Plant Operator: Javon Walsh MD HCG ( test) Ql (U)o n 06-19-2025 Preg Test, Ur Positive Negative Replaced by [facility] Urinalysis macro (dipstick) panel (U)on 06-19-2025 Bilirubin, UA Moderate Negative - 4(70) +++ mg/dL [facility] Blood, UA Positive Negative - 50 Charlie/mcL [facility] Comment on above: small Clarity, UA Hazy [facility] Color, UA Dark Cristiane [facility] Glucose, UA Negative Negative - 2000(110) ++++ mg/dL [facility] Interpretation and review of laboratory results Abnormal [facility] Ketones, UA Negative Negative - 160(16) ++++ mg/dL [facility] Leukocytes, UA Trace Negative - 500+++ Pricilla/mcL [facility] Nitrite, UA Negative Negative - Positive [facility] pH, UA 6.5 5 - 9 [facility] Protein, UA Trace Negative - 2000(20) ++++ mg/dL [facility] Spec Grav, UA 1.025 1 - 1.03 [facility] Urobilinogen, UA 1.0 0.2 - 12 mg/dL Replaced by [facility] Read PPDon 10-06-2024 Interpretation and review of laboratory results Normal [facility] Purified Protein Derivative Skin Test 0 mm - 4.99 mm Replaced by [facility] XR ANKLE RT MIN 3 VWSon 09- XR ANKLE RT MIN 3 VWS XR ANKLE RT MIN 3 VWS HISTORY: Pain, fall COMPARISON: None FINDINGS: Multiple views right ankle were obtained. Mild lateral soft tissue swelling and joint effusion. No acute fracture or malalignment. IMPRESSION: * No acute osseous abnormality. Finalized by Chidi Lopez MD on 06/16/2024 10:53 PM Normal [facility] US PREG BIOPHY W NON STRESSo n [...] by: NE CRUZ Date: 2023-03-11 15:27 Normal [facility] US PREG GROWTHon 03-11-2023 US PREG GROWTH [...] by: NE CRUZ Date: 2023-03-11 15:25 Normal [facility] GROUP B STREP CULTUREon 02-10 S. agalactiae [...] S F Tetracycline <=0.25 S F Normal [facility] Comment on above: Performed By: #### G BSCX #### [facility] [address] [place] [address] Dr. Christopher Hillman AMNISUREon 03-05-2023 AMNISURE Negative Normal NEGATIVE [facility] Comment on above: Performed By: #### A MNI ####[facility] [address] [place], [place] [address]Dr. Christopher Hillman US PREG CERVICAL LENGTHon US PREG CERVICAL LENGTH EXAMINATION: US PREG CERVICAL LENGTH HISTORY: Third trimester COMPARISON: No relevant comparison available. FINDINGS: position: Cephalic presentation, longitudinal lie Placenta: Anterior, grade 3. Cervix: 4.3 cm, closed Heart rate: 138 bpm IMPRESSION: Closed cervix measuring 4.3 cm in length Electronically authenticated by: FARNAZ PELAYO Date: 2023-03-05 16:18 Normal [facility] CULTURE URINEon 2023 CULTURE URINE Culture Observations: LIGHT GROWTH OF MIXED GENITAL JELLY. NO POTENTIAL PATHOGENS SEEN. Normal [facility] Comment on above: Performed By: #### U RCX ####[facility] [address] [place], [place] [address]Dr. Christopher Hillman UA (CLEAN/CATCH) VP PRODUCTION/MICRO I F IND.on 2023 Bilirubin Ql (U) Negative Normal NEGATIVE [facility] Comment on above: Performed By: #### U ACSORLANDO UMICRO #### [facility] [address] [place] [address] Dr. Christopher Hillman Clarity (U) CLEAR Normal CLEAR [facility] Comment on above: Performed By: #### U ACSORLANDO UMICRO #### [facility] [address] [place] [address] Dr. Christopher Hillman Color (U) LT. YELLOW Normal YELLOW [facility] Comment on above: Performed By: #### U ACSORLANDO UMICRO #### [facility] [address] [place] [address] Dr. Christopher Hillman Glucose Ql (U) Negative Normal NEGATIVE [facility] Comment on above: Performed By: #### U ACSORLANDO UMICRO #### [facility] [address] [place] [address] Dr. Christopher Hillman Hemoglobin Ql (U) MODERATE Abnormal NEGATIVE [facility] Comment on above: Performed By: #### U ACSIND, UMICRO #### [facility] [address] [place] [address] [address] Christopher Hillman Ketones Ql (U) Negative Normal NEGATIVE [facility] Comment on above: Performed By: #### U ACSIND, UMICRO #### [facility] [address] [place] [address] [address] Christopher Hillman LEUKOCYTES MODERATE Abnormal NEGATIVE [facility] Comment on above: Performed By: #### U ACSIND, UMICRO #### [facility] [address] [place] [address] [address] Christopher Hillman Nitrite Ql (U) Negative Normal NEGATIVE [facility] Comment on above: Performed By: #### U ACSIND, UMICRO #### [facility] [address] [place] [address] Dr. Christopher Hillman pH (U) 7.0 [pH] Normal 5-9 [facility] Comment on above: Performed By: #### U ACSIND, UMICRO #### [facility] [address] [place] [address] Dr. Christopher Hillman SPEC GRAVITY 1.010 Normal 1.005-<=1.02 5 [facility] Comment on above: Performed By: #### U ACSIND, UMICRO #### [facility] [address] [place] [address] Dr. Christopher Hillman UA PROTEIN Negative Normal NEGATIVE/ TRACE [facility] Comment on above: Performed By: #### U ACSIND, UMICRO #### [facility] [address] [place] [address] [address] Christopher Hillman UR MICRO IND INDICATED Normal [facility] Comment on above: Performed By: #### U ACSIND, UMICRO #### [facility] [address] [place] [address] Dr. Christopher Hillman Urobilinogen Qn (U) 0.2 {Maryann'U}/dL Normal 0.2 - 1. 0 [facility] Comment on above: Performed By: #### U ACSIND, UMICRO #### [facility] [address] [address] [address] Christopher Hillman URINE MICROSCOPIC ONLYon BACTERIA SMALL Abnormal NONE SEEN [facility] Comment on above: Performed By: #### U ACSORLANDO, UMICRO #### [facility] [address] [address] [address] Christopher Hillman Bacteria identified Cx Nom (U) INDICATED Normal [facility] Comment on above: Performed By: #### U ACSORLANDO, UMICRO #### [facility] [address] [place] [address] Dr. Christopher Hillman CAST NONE SEEN Normal NONE SEEN [facility] Comment on above: Performed By: #### U ACSORLANDO, UMICRO #### [facility] [address] [place] [address] Dr. Christopher Hillman Crystals LM Nom (Urine sed) NONE SEEN Normal NONE SEEN [facility] Comment on above: Performed By: #### U ACSORLANDO UMICRO #### [facility] [address] [place] [address] Dr. Christopher Hillman Epithelial cells LM Ql (Urine sed) FEW Abnormal NONE SEEN /RARE [facility] Comment on above: Performed By: #### U ACSORLANDO UMICRO #### [facility] [address] [place] [address] Dr. Christopher Hillman MUCOUS NONE SEEN Normal NONE SEEN [facility] Comment on above: Performed By: #### U ACSORLANDO UMICRO #### [facility] [address] [place] [address] Dr. Christopher Hillman RBC 2-5 Abnormal 0-2 [facility] Comment on above: Performed By: #### U ACSORLANDO UMICRO #### [facility] [address] [place] [address] Dr. Christopher Hillman WBC 20-50 Abnormal NONE SEEN [facility] Comment on above: Performed By: #### U ACSORLANDO UMICRO #### [facility] [address] [place] [address] Dr. Christopher Hillman US PREG BIOPHY W [...] by: NE CRUZ Date: 2023 06:22 Normal [facility] CULTURE URINEon 03-03-2023 CULTURE URINE Culture Observations: LIGHT GROWTH OF MIXED GENITAL JELLY. NO POTENTIAL PATHOGENS SEEN. Normal [facility] Comment on above: Performed By: #### U RCX #### [facility] [address] [place] [address] Dr. Christopher Hillman ECHOCARDIO M/2D COMPLETEon 0 03-03-2023 ECHOCARDIO M/2D COMPLETE Patient: MAREN CAMPOS Exam Date: 03/03/2023 : 2005 Gender:F Ordering : DR ALVARO MARTINEZ . Admission #: [id number] Family : Order #: [id number] CLICK HERE TO VIEW EXAM ECHOCARDIOGRAM REPORT [...] M.D. on 03/03/2023 at 15:23 Normal [facility] UA (CLEAN/CATCH) VP PRODUCTION/MICRO I F IND.on 03-03-2023 Bilirubin Ql (U) Negative Normal NEGATIVE [facility] Comment on above: Performed By: #### D DIM #### [facility] [address] [place] [address] Dr. Christopher Hillman Clarity (U) CLEAR Normal CLEAR [facility] Comment on above: Performed By: #### D DIM #### [facility] [address] [address] [address] Christopher Hillman Color (U) LT. YELLOW Normal YELLOW [facility] Comment on above: Performed By: #### D DIM #### [facility] [address] [place] [address] Dr. Christopher Hillman Glucose Ql (U) Negative Normal NEGATIVE [facility] Comment on above: Performed By: #### D DIM #### [facility] [address] [address] [address] Christopher Hillman Hemoglobin Ql (U) Negative Normal NEGATIVE [facility] Comment on above: Performed By: #### D DIM #### [facility] [address] [place] [address] Dr. Christopher Hillman Ketones Ql (U) Negative Normal NEGATIVE [facility] Comment on above: Performed By: #### D DIM #### [facility] [address] [place] [address] Dr. Christopher Hillman LEUKOCYTES MODERATE Abnormal NEGATIVE [facility] Comment on above: Performed By: #### D DIM #### [facility] [address] [place] [address] Dr. Christopher Hillman Nitrite Ql (U) Negative Normal NEGATIVE [facility] Comment on above: Performed By: #### D DIM #### [facility] [address] [place] [address] Dr. Christopher Hillman pH (U) 7.0 [pH] Normal 5-9 [facility] Comment on above: Performed By: #### D DIM #### [facility] [address] [place] [address] Dr. Christopher Hillman SPEC GRAVITY <=1.005 Abnormal 1.005-<=1.02 5 [facility] Comment on above: Performed By: #### D DIM #### [facility] [address] [place] [id number] Dr. Christopher Hillman UA PROTEIN Negative Normal NEGATIVE/ TRACE [facility] Comment on above: Performed By: #### D DIM #### [facility] [address] [place] [address] Dr. Christopher Hillman UR MICRO IND INDICATED Normal [facility] Comment on above: Performed By: #### D DIM #### [facility] [address] [place] [address] Dr. Christopher Hillman Urobilinogen Qn (U) 0.2 {Maryann'U}/dL Normal 0.2 - 1. 0 [facility] Comment on above: Performed By: #### D DIM #### [facility] [address] [place] [address] Dr. Christopher Hillman URINE MICROSCOPIC ONLYon BACTERIA TRACE Abnormal NONE SEEN [facility] Comment on above: Performed By: #### D DIM #### [facility] [address] [place] [address] Dr. Christopher Hillman Bacteria identified Cx Nom (U) INDICATED Normal [facility] Comment on above: Performed By: #### D DIM #### [facility] [address] [place] [address] Dr. Christopher Hillman CAST NONE SEEN Normal NONE SEEN [facility] Comment on above: Performed By: #### D DIM #### [facility] [address] [place] [address] Dr. Christopher Hillman Crystals LM Nom (Urine sed) NONE SEEN Normal NONE SEEN [facility] Comment on above: Performed By: #### D DIM #### [facility] [address] [place] [address] Dr. Christopher Hillman Epithelial cells LM Ql (Urine sed) FEW Abnormal NONE SEEN /RARE [facility] Comment on above: Performed By: #### D DIM #### [facility] [address] [place] [address] Dr. Christopher Hillman MUCOUS TRACE Abnormal NONE SEEN [facility] Comment on above: Performed By: #### D DIM #### [facility] [address] [place] [address] Dr. Christopher Hillman RBC 2-5 Abnormal 0-2 [facility] Comment on above: Performed By: #### D DIM #### [facility] [address] [place], [place] [id number] Dr. Christopher Hillman WBC 10-20 Abnormal NONE SEEN [facility] Comment on above: Performed By: #### D DIM #### [facility] [address] [place] [address] Dr. Christopher Hillman US PREG BIOPHY W [...] by: NE CRUZ Date: 2023-02-23 15:10 Normal [facility] US PREG GROWTHon 02-23-2023 US PREG GROWTH [...] NE CRUZ Date: 2023-02-23 15:19 Normal [facility] UA (CLEAN/CATCH) VP PRODUCTION/MICRO I F IND.on 01-14-2023 Bilirubin Ql (U) Negative Normal NEGATIVE [facility] Comment on above: Performed By: #### C BC #### [facility] [address] [place] [address] Dr. Christopher Hillman Clarity (U) CLEAR Normal CLEAR [facility] Comment on above: Performed By: #### C BC #### [facility] [address] [place] [address] Dr. Christopher Hillman Color (U) LT. YELLOW Normal YELLOW [facility] Comment on above: Performed By: #### C BC #### [facility] [address] [place] [address] Dr. Christopher Hillman Glucose Ql (U) Negative Normal NEGATIVE [facility] Comment on above: Performed By: #### C BC #### [facility] [address] [place] [address] Dr. Christopher Hillman Hemoglobin Ql (U) Negative Normal NEGATIVE [facility] Comment on above: Performed By: #### C BC #### [facility] [address] [place] [address] Dr. Christopher Hillman Ketones Ql (U) Negative Normal NEGATIVE [facility] Comment on above: Performed By: #### C BC #### [facility] [address] [place] [address] Dr. Christopher Hillman LEUKOCYTES Negative Normal NEGATIVE [facility] Comment on above: Performed By: #### C BC #### [facility] [address] [place] [address] Dr. Christopher Hillman Nitrite Ql (U) Negative Normal NEGATIVE [facility] Comment on above: Performed By: #### C BC #### [facility] [address] [place] [address] Dr. Christopher Hillman pH (U) 7.5 [pH] Normal 5-9 [facility] Comment on above: Performed By: #### C BC #### [facility] [address] [place] [address] Dr. Christopher Hillman SPEC GRAVITY 1.010 Normal 1.005-<=1.02 5 [facility] Comment on above: Performed By: #### C BC #### [facility] [address] [address] [address] Christopher Hillman UA PROTEIN Negative Normal NEGATIVE/ TRACE [facility] Comment on above: Performed By: #### C BC #### [facility] [address] [address] [address] Christopher Hillman UR MICRO IND NOT INDICATED Normal [facility] Comment on above: Performed By: #### C BC #### [facility] [address] [address] [address] Christopher Hillman Urobilinogen Qn (U) 0.2 {Maryann'U}/dL Normal 0.2 - 1. 0 [facility] Comment on above: Performed By: #### C BC #### [facility] [address] [address] [address] Christopher Hillman US PREG CERVICAL LENGTHon US PREG CERVICAL LENGTH Examination:US P REG CERVICAL LENGTH INDICATION:Contracti on COMPARISON:11/26/2022 TECHNIQUE:Real-time sonography of the fetus was performed. FINDINGS:There is a single live intrauterine gestation with a heartbeat of 148 bpm. presentation is cephalic. The cervical length is 4.3 cm without funneling. IMPRESSION: Cervical length is 4.3 cm without cervical funneling. Electronically authenticated by: BEN CONROY Date: 2023-01-14 20:18 Normal [facility] CBC AUTO DIFFon 01-03-2023 BASO # 0.0 103/ul Normal 0.0-0.1 [facility] Comment on above: Performed By: #### C BC ####[facility] [address] [id number] Hillman Basophils/100 WBC (Bld) 0.3 % Normal 0.2-2.0 [facility] Comment on above: Performed By: #### C BC ####[facility] [address] [id number] Hillman EO # 0.1 103/ul Normal 0.0-0.7 [facility] Comment on above: Performed By: #### C BC ####[facility] [address] [id number]. Christopher Hillman Eosinophils/100 WBC (Bld) 1.1 % Normal 0.9-7.0 [facility] Comment on above: Performed By: #### C BC ####[facility] [address] [address]Dr. Christopher Hillman Erythrocyte distribution width (RBC) [Ratio] 12.7 % Normal 11.0-15.0 [facility] Comment on above: Performed By: #### C BC ####[facility] [address] [address]Dr. Christopher Hillman Hematocrit (Bld) [Volume fraction] 32.7 % Critically low 36.0-48.0 [facility] Comment on above: Performed By: #### C BC ####[facility] [address] [address]Dr. Christopher Hillman Hemoglobin (Bld) [Mass/Vol] 10.6 g/dL Critically low 12.0-16.0 [facility] Comment on above: Performed By: #### C BC ####[facility] [address] [address]Dr. Christopher Hillman IG # 0.06 10e3/ul Critically high 0.00-0.03 [facility] Comment on above: Performed By: #### C BC ####[facility] [address] [address]Dr. Christopher Hillman IG % 0.7 % Critically high 0.0-0.5 [facility] Comment on above: Performed By: #### C BC ####[facility] [address] [address]Dr. Christopher Hillman LYMPH # 2.3 103/ul Normal 1.2-3.8 [facility] Comment on above: Performed By: #### C BC ####[facility] [address] [place], [place] [address]Dr. Christopher Hillman Lymphocytes/100 WBC (Bld) 25.2 % Normal 20.5-60.0 [facility] Comment on above: Performed By: #### C BC ####[facility] [address] [address]Dr. Christopher Hillman MANUAL DIFF REQ NO Normal [facility] Comment on above: Performed By: #### C BC ####[facility] [address] [id number]. Christopher Hillman MCH (RBC) [Entitic mass] 27.5 pg Normal 26.7-34.0 [facility] Comment on above: Performed By: #### C BC ####[facility] [address] [place], [place] [address]Dr. Chritsopher Hillman MCHC (RBC) [Mass/Vol] 32.4 g/dL Normal 29.9-35.2 [facility] Comment on above: Performed By: #### C BC ####[facility] [address] [place], [place] [address]Dr. Christopher Hillman MCV (RBC) [Entitic vol] 84.9 fL Normal 81.0-99.0 [facility] Comment on above: Performed By: #### C BC ####[facility] [address] [place], [place] [address]Dr. Christopher Hillman MONO # 0.8 103/ul Normal 0.3-0.8 [facility] Comment on above: Performed By: #### C BC ####[facility] [address] [place], [place] [address]Dr. Christopher Hillman Monocytes/100 WBC (Bld) 8.6 % Normal 1.7-12.0 [facility] Comment on above: Performed By: #### C BC ####[facility] [address] [place], [place] [address]Dr. Marichuypedro Hillman NEUT # 5.9 103/ul Normal 1.4-6.5 [facility] Comment on above: Performed By: #### C BC ####[facility] [address] [place], [place] [address]Dr. Christopher Hillman Neutrophils/100 WBC (Bld) 64.1 % Normal 43.0-75.0 [facility] Comment on above: Performed By: #### C BC ####[facility] [address] [id number]. Christopher Hillman Platelet mean volume (Bld) [Entitic vol] 10.7 fL Normal 9.5-13.5 [facility] Comment on above: Performed By: #### C BC ####[facility] [address] [id number]. Christopher Hillman PLT 225 103/ul Normal 150-450 [facility] Comment on above: Performed By: #### C BC ####[facility] [address] [phone]. Christopher Hillman RBC 3.85 106/ul Critically low 4.20-5.40 [facility] Comment on above: Performed By: #### C BC ####[facility] [address] [address]Dr. Christopher Hillman WBC 9.2 103/ul Normal 4.0-11.0 [facility] Comment on above: Performed By: #### C BC ####[facility] [address] [phone]. Christopher Hillman GLUCOSE - 1HRon 12-13-2022 Glucose [Mass/Vol] 83 mg/dL Normal 74-106 [facility] Comment on above: Performed By: #### C BC #### [facility] [address] [address] [address] Christopher Hillman CHLAMYDIA/GONOCOCCUS SALOMÓN ( AB/URINE/PAPon 12-04-2022 Chlamydia trachomatis, SALOMÓN Negative Normal Negative [facility] Comment on above: Performed By: #### C BC #### [facility] [address] [address] [address] Christopher Hillman Neisseria gonorrhoeae, SALOMÓN Negative Normal Negative [facility] Comment on above: Performed By: #### C BC #### [facility] [address] [address] [address] Christopher Hillman VAGINITIS/VAGINOSIS DNA PROB Santi 12-04-2022 Anahi species Negative Normal Negative [facility] Comment on above: Performed By: #### V AGINT ####[facility] [address] [place], [place] [address]Fg. Christopher Hillman Gardnerella vaginalis Negative Normal Negative [facility] Comment on above: Performed By: #### V AGINT ####[facility] [address] [place], [place] [address]Fg. Christopher Hillman Trichomonas vaginalis Negative Normal Negative [facility] Comment on above: Performed By: #### V AGINT ####[facility] [address] [place], [place] [address]Ai. Christopher Hillman US PREG PLACENTAon US PREG [...] NE CRUZ Date: 2022-11-27 06:59 Normal [facility] US PREG ANATOMY SINGLEon US PREG ANATOMY SINGLE EXAMINATION: US P REG ANATOMY SINGLE HISTORY: anatomy study COMPARISON: No [...] NE CRUZ Date: 2022-11-17 15:21 Normal [facility] XR CHEST 1 Von 11-07-2022 XR CHEST 1 V EXAMINATION: XR CHEST 1 V HISTORY: Chest pain COMPARISON: Chest x-ray 09/29/2020 TECHNIQUE: Portable chest FINDINGS: The lung parenchyma is free of consolidation or infiltrate. No pneumothorax or pleural effusion. The cardiac, mediastinal and hilar contours are normal. The visualized osseous structures exhibit no gross abnormality. IMPRESSION: Normal chest x-ray Electronically authenticated by: FARNAZ ENCISO Date: 2022-11-06 22:14 Normal [facility] AFP MATERNAL FOR SPINA BIFID Aon 11-06-2022 AFP MoM 1.19 Normal [facility] Comment on above: Performed By: #### A FPMAT ####[facility] [address] [phone]. Christopher Hillman AFP Value 61.6 ng/mL Normal [facility] Comment on above: Performed By: #### A FPMAT ####[facility] [address] [id number] Hillman AFP, Serum for Spina Bifida Report Normal [facility] Comment on above: Performed By: #### A FPMAT ####[facility] [address] [phone] Hillman Comment Comment Normal [facility] Comment on above: Result Comment: Cassia Sparks, Ph.D., [facility] Director . References: Available Upon Request. . Multiples Of Median Cutoffs For AFP Elevations Kohli 2.5 Black 2.8 IDD 2.0 Twins 4.5 Abbreviation Definitions IDD - Insulin Dep Diabetes OSBR - Open Spina Bifida Risk . For further inquiries contact [employer] [facility] at [phone]. . This test was developed and its performance characteristics determined by [employer]. It has not been cleared or approved by the Food and Drug Administration. Performed By: #### A FPMAT ####[facility] [address] [address]Dr. Christopher Hillman Gest Age Collection Date 18.4 weeks Normal [facility] Comment on above: Performed By: #### A FPMAT ####[facility] [address] [address]Dr. Christopher Hillman Gestat, Age Based on LMP Normal [facility] Comment on above: Result Comment: Reca lculations are not recommended when gestational dating by LMP and ultrasound are within 10 days. Performed By: #### A FPMAT ####[facility] [address] [address]Dr. Christopher Hillman Insulin Dep Diabetes No Normal [facility] Comment on above: Performed By: #### A FPMAT ####[facility] [address] [address]Dr. Christopher Hillman Interpretation Comment Normal [facility] Comment on above: Result Comment: Inte rpretation: [...] Customer Services to discuss available options. The [employer] recommends amniocentesis be offered to women age 35 and older. Performed By: #### A FPMAT ####[facility] [address] [phone]. Christopher Hillman [age] Normal [facility] Comment on above: Performed By: #### A FPMAT ####[facility] [address] [address]Dr. Christopher Hillman Multiple Gestation No Normal [facility] Comment on above: Performed By: #### A FPMAT ####[facility] [address] [phone]. Christopher Hillman OSBR Risk 1 IN 6704 Normal [facility] Comment on above: Performed By: #### A FPMAT ####[facility] [address] [address]Dr. Christopher Hillman PDF . Normal [facility] Comment on above: Performed By: #### A FPMAT ####[facility] [address] [address]Dr. Christopher Hillman Race Normal [facility] Comment on above: Performed By: #### A FPMAT ####[facility] [address] [address]Dr. Christopher Hillman Test Results: Negative Normal [facility] Comment on above: Performed By: #### A FPMAT ####[facility] [address] [address]DrNing Hillman CARDIAC DARNELL ADMITon 023 CK [Catalytic activity/Vol] 30 U/L Normal 26-192 [facility] Comment on above: Performed By: #### D DIM #### [facility] [address] [address] [address] Christopher Hillman CK.MB [Mass/Vol] ng/mL Normal <=3.60 [facility] Comment on above: Performed By: #### D DIM #### [facility] [address] [address] [address] Christopher Hillman HSTROP <4.0 Normal 4.0-51.3 [facility] Comment on above: Result Comment: CUT- OFF POINTS HAVE BEEN ESTABLISHED BASED ON THE FOURTH UNIVERSAL DEFINITIONS OF MYOCARDIAL INFARCTION. THE UPPER REFERENCE LIMIT (URL) OF TROPONIN, DEFINED THE 99TH PERCENTILE OF cTnI DISTRIBUTION IN A REFERENCE POPULATION, HAS BEEN CONFIRMED THE DECISION THRESHOLD FOR PR DIAGNOSIS. Performed By: #### D DIM #### [facility] [address] [address] [address] Christopher Hillman ANDI 11 ng/mL Normal 9-82 [facility] Comment on above: Performed By: #### D DIM #### [facility] [address] [address] [address] Christopher Hillman CBC AUTO DIFFon 11-06-2022 BASO # 0.0 103/ul Normal 0.0-0.1 [facility] Comment on above: Performed By: #### C BC #### [facility] [address] [place] [address] Dr. Christopher Hillman Basophils/100 WBC (Bld) 0.4 % Normal 0.2-2.0 [facility] Comment on above: Performed By: #### C BC #### [facility] [address] [place] [address] Dr. Christopher Hillman EO # 0.1 103/ul Normal 0.0-0.7 [facility] Comment on above: Performed By: #### C BC #### [facility] [address] [place] [address] Dr. Christopher Hillman Eosinophils/100 WBC (Bld) 1.3 % Normal 0.9-7.0 [facility] Comment on above: Performed By: #### C BC #### [facility] [address] [place] [address] Dr. Christopher Hillman Erythrocyte distribution width (RBC) [Ratio] 14.7 % Normal 11.0-15.0 [facility] Comment on above: Performed By: #### C BC #### [facility] [address] [place] [address] Dr. Christopher Hillman Hematocrit (Bld) [Volume fraction] 38.3 % Normal 36.0-48.0 [facility] Comment on above: Performed By: #### C BC #### [facility] [address] [place] [address] Dr. Christopher Hillman Hemoglobin (Bld) [Mass/Vol] 12.1 g/dL Normal 12.0-16.0 [facility] Comment on above: Performed By: #### C BC #### [facility] [address] [address] [address] Christopher Hillman IG # 0.06 10e3/ul Critically high 0.00-0.03 [facility] Comment on above: Performed By: #### C BC #### [facility] [address] [place] [address] Dr. Christopher Hillman IG % 0.6 % Critically high 0.0-0.5 [facility] Comment on above: Performed By: #### C BC #### [facility] [address] [place] [address] Dr. Christopher Hillman LYMPH # 2.5 103/ul Normal 1.2-3.8 [facility] Comment on above: Performed By: #### C BC #### [facility] [address] [place] [address] Dr. Christopher Hillman Lymphocytes/100 WBC (Bld) 22.8 % Normal 20.5-60.0 [facility] Comment on above: Performed By: #### C BC #### [facility] [address] [place] [address] Dr. Christopher Hillman MANUAL DIFF REQ NO Normal [facility] Comment on above: Performed By: #### C BC #### [facility] [address] [place] [address] Dr. Christopher Hillman MCH (RBC) [Entitic mass] 28.5 pg Normal 26.7-34.0 [facility] Comment on above: Performed By: #### C BC #### [facility] [address] [place] [address] Dr. Christopher Hillman MCHC (RBC) [Mass/Vol] 31.6 g/dL Normal 29.9-35.2 [facility] Comment on above: Performed By: #### C BC #### [facility] [address] [place] [address] Dr. Christopher Hillman MCV (RBC) [Entitic vol] 90.1 fL Normal 81.0-99.0 [facility] Comment on above: Performed By: #### C BC #### [facility] [address] [place] [address] Dr. Christopher Hillman MONO # 0.9 103/ul Critically high 0.3-0.8 [facility] Comment on above: Performed By: #### C BC #### [facility] [address] [place] [address] Dr. Christopher Hillman Monocytes/100 WBC (Bld) 8.3 % Normal 1.7-12.0 [facility] Comment on above: Performed By: #### C BC #### [facility] [address] [place] [address] Dr. Christopher Hillman NEUT # 7.2 103/ul Critically high 1.4-6.5 [facility] Comment on above: Performed By: #### C BC #### [facility] [address] [place] [address] Dr. Christopher Hillman Neutrophils/100 WBC (Bld) 66.6 % Normal 43.0-75.0 [facility] Comment on above: Performed By: #### C BC #### [facility] [facility] [address] [place] [address] Dr. Christopher Hillman Platelet mean volume (Bld) [Entitic vol] 11.1 fL Normal 9.5-13.5 [facility] Comment on above: Performed By: #### C BC #### [facility] [address] [place] [address] Dr. Christopher Hillman PLT 283 103/ul Normal 150-450 [facility] Comment on above: Performed By: #### C BC #### [facility] [address] [place] [address] Dr. Christopher Hillman RBC 4.25 106/ul Normal 4.20-5.40 [facility] Comment on above: Performed By: #### C BC #### [facility] [address] [place] [address] Dr. Christopher Hillman WBC 10.7 103/ul Normal 4.0-11.0 [facility] Comment on above: Performed By: #### C BC #### [facility] [address] [place] [address] Dr. Christopher Hillman D-DIMERon 11-06-2022 D-DIMER 0.70 mg/L FEU Critically high <=0.59 [facility] Comment on above: Performed By: #### D DIM #### [facility] [address] [place] [address] Dr. Christopher Hillman D-DIMER COMMENTS SEE BELOW Normal [facility] Comment on above: Result Comment: Incr eases [...] hospitalization. Performed By: #### D DIM #### [facility] [address] [place] [address] Dr. Christopher Hillman ER URINE PROFILEon 3 Bilirubin Ql (U) Negative Normal NEGATIVE [facility] Comment on above: Performed By: #### C BC #### [facility] [address] [place] [address] Dr. Christopher Hillman Clarity (U) CLEAR Normal CLEAR [facility] Comment on above: Performed By: #### C BC #### [facility] [address] [place] [address] Dr. Christopher Hillman Color (U) LT. YELLOW Normal YELLOW [facility] Comment on above: Performed By: #### C BC #### [facility] [address] [place] [address] Dr. Christopher Hillman ERUAHD A micrscopic examination will be performed if indicated. Normal [facility] Comment on above: Performed By: #### C BC #### [facility] [address] [place] [address] Dr. Christopher Hillman Glucose Ql (U) Negative Normal NEGATIVE [facility] Comment on above: Performed By: #### C BC #### [facility] [address] [place] [address] Dr. Christopher Hillman Hemoglobin Ql (U) TRACE-INTACT Abnormal NEGATIVE [facility] Comment on above: Performed By: #### C BC #### [facility] [address] [place] [address] Dr. Christopher Hillman Ketones Ql (U) Negative Normal NEGATIVE [facility] Comment on above: Performed By: #### C BC #### [facility] [address] [place] [address] Dr. Christopher Hillman LEUKOCYTES SMALL Abnormal NEGATIVE [facility] Comment on above: Performed By: #### C BC #### [facility] [address] [place] [address] Dr. Christopher Hillman Nitrite Ql (U) Negative Normal NEGATIVE [facility] Comment on above: Performed By: #### C BC #### [facility] [address] [place] [address] Dr. Christopher Hillman pH (U) 6.0 [pH] Normal 5-9 [facility] Comment on above: Performed By: #### C BC #### [facility] [address] [place] [address] Dr. Christopher Hillman SPEC GRAVITY 1.010 Normal 1.005-<=1.02 5 [facility] Comment on above: Performed By: #### C BC #### [facility] [address] [place] [address] Dr. Christopher Hillman UA PROTEIN Negative Normal NEGATIVE/ TRACE [facility] Comment on above: Performed By: #### C BC #### [facility] [address] [place] [address] Dr. Christopher Hillman UR MICRO IND INDICATED Normal [facility] Comment on above: Performed By: #### C BC #### [facility] [address] [place] [address] Dr. Christopher Hillman Urobilinogen Qn (U) 0.2 {Maryann'U}/dL Normal 0.2 - 1. 0 [facility] Comment on above: Performed By: #### C BC #### [facility] [address] [place] [address] Dr. Christopher Hillman PROF 14(COMP METB)on 023 Albumin [Mass/Vol] 3.0 g/dL Critically low 3.4-5.0 [facility] Comment on above: Performed By: #### D DIM #### [facility] [address] [place] [address] Dr. Christopher Hillman Albumin/Globulin [Mass ratio] 0.8 {ratio} Normal [facility] Comment on above: Performed By: #### D DIM #### [facility] [address] [place] [address] Dr. Christopher Hillman ALP [Catalytic activity/Vol] 112 U/L Normal 46-116 [facility] Comment on above: Performed By: #### D DIM #### [facility] [address] [place] [address] Dr. Christopher Hillman ALT [Catalytic activity/Vol] 47 U/L Normal 14-59 [facility] Comment on above: Performed By: #### D DIM #### [facility] [address] [place] [address] Dr. Christopher Hillman Anion gap [Moles/Vol] 14.5 mmol/L Normal [facility] Comment on above: Performed By: #### D DIM #### [facility] [address] [place] [address] Dr. Christopher Hillman AST [Catalytic activity/Vol] 44 U/L Critically high 15-37 [facility] Comment on above: Performed By: #### D DIM #### [facility] [address] [place] [address] Dr. Christopher Hillman Bilirubin [Mass/Vol] 0.1 mg/dL Critically low 0.2-1.0 [facility] Comment on above: Performed By: #### D DIM #### [facility] [address] [place] [address] Dr. Christopher Hillman Calcium [Mass/Vol] 8.9 mg/dL Normal 8.5-10.1 [facility] Comment on above: Performed By: #### D DIM #### [facility] [address] [place] [address] Dr. Christopher Hillman Chloride [Moles/Vol] 104 mmol/L Normal 98-107 [facility] Comment on above: Performed By: #### D DIM #### [facility] [address] [address] [address] Christopher Hillman CO2 [Moles/Vol] 22.9 mmol/L Normal 21.0-32.0 [facility] Comment on above: Performed By: #### D DIM #### [facility] [address] [address] [address] Christopher Hillman Creatinine [Mass/Vol] 0.40 mg/dL Critically low 0.55-1.02 [facility] Comment on above: Performed By: #### D DIM #### [facility] [address] [place] [address] Dr. Christopher Hillman EGFR-AF AUSTRALIAN >60 Normal >=60 [facility] Comment on above: Performed By: #### D DIM #### [facility] [address] [place] [address] Dr. Christopher Hillman EGFR-NON AF AUSTRALIAN >60 Normal >=60 [facility] Comment on above: Performed By: #### D DIM #### [facility] [address] [address] [address] Christopher Hillman Globulin (S) [Mass/Vol] 3.8 g/dL Normal [facility] Comment on above: Performed By: #### D DIM #### [facility] [address] [address] [address] Christopher Hillman Glucose [Mass/Vol] 92 mg/dL Normal 74-106 [facility] Comment on above: Performed By: #### D DIM #### [facility] [address] [address] [address] Christopher Hillman Potassium [Moles/Vol] 3.4 mmol/L Critically low 3.5-5.1 [facility] Comment on above: Performed By: #### D DIM #### [facility] [address] [place] [address] Dr. Christopher Hillman Protein [Mass/Vol] 6.8 g/dL Normal 6.4-8.2 [facility] Comment on above: Performed By: #### D DIM #### [facility] [address] [address] [address] Christopher Hillman Sodium [Moles/Vol] 138 mmol/L Normal 136-145 [facility] Comment on above: Performed By: #### D DIM #### [facility] [address] [place] [address] Dr. Christopher Hillman Urea nitrogen [Mass/Vol] 4.0 mg/dL Critically low 6.4-19.3 [facility] Comment on above: Performed By: #### D DIM #### [facility] [address] [place] [address] Dr. Christopher Hillman Urea nitrogen/Creatinine [Mass ratio] 10.0 mg/mg Normal [facility] Comment on above: Performed By: #### D DIM #### [facility] [address] [place] [address] Dr. Christopher Hillman URINE MICROSCOPIC ONLYon BACTERIA TRACE Abnormal NONE SEEN [facility] Comment on above: Performed By: #### C BC #### [facility] [address] [place] [address] Dr. Christopher Hillman Bacteria identified Cx Nom (U) NOT INDICATED Normal [facility] Comment on above: Performed By: #### C BC #### [facility] [address] [place] [address] Dr. Christopher Hillman CAST NONE SEEN Normal NONE SEEN [facility] Comment on above: Performed By: #### C BC #### [facility] [address] [place] [address] Dr. Christopher Hillman Crystals LM Nom (Urine sed) NONE SEEN Normal NONE SEEN [facility] Comment on above: Performed By: #### C BC #### [facility] [address] [place] [address] Dr. Christopher Hillman Epithelial cells LM Ql (Urine sed) FEW Abnormal NONE SEEN /RARE [facility] Comment on above: Performed By: #### C BC #### [facility] [address] [place] [address] Dr. Christopher Hillman MUCOUS NONE SEEN Normal NONE SEEN [facility] Comment on above: Performed By: #### C BC #### [facility] [address] [address] [address] Christopher Hillman RBC 0-2 Normal 0-2 [facility] Comment on above: Performed By: #### C BC #### [facility] [address] [place] [address] Dr. Christopher Hillman WBC 0-2 Abnormal NONE SEEN [facility] Comment on above: Performed By: #### C BC #### [facility] [address] [place] [address] Dr. Christopher Hillman US PREG PLACENTAon 3 [...] NE SABA Date: 2022-10-16 22:33 Normal [facility] ER URINE PROFILEon 3 Bilirubin Ql (U) Negative Normal NEGATIVE [facility] Comment on above: Performed By: #### C BC #### [facility] [address] [place] [address] Dr. Christopher Hillman Clarity (U) CLEAR Normal CLEAR [facility] Comment on above: Performed By: #### C BC #### [facility] [address] [place] [address] Dr. Christopher Hillman Color (U) LT. YELLOW Normal YELLOW [facility] Comment on above: Performed By: #### C BC #### [facility] [address] [place] [address] Dr. Christopher Hillman ERUAHD A micrscopic examination will be performed if indicated. Normal [facility] Comment on above: Performed By: #### C BC #### [facility] [address] [place] [address] Dr. Christopher Hillman Glucose Ql (U) Negative Normal NEGATIVE [facility] Comment on above: Performed By: #### C BC #### [facility] [address] [place] [address] Dr. Christopher Hillman Hemoglobin Ql (U) TRACE-LYSED Abnormal NEGATIVE [facility] Comment on above: Performed By: #### C BC #### [facility] [address] [place] [address] Dr. Christopher Hillman Ketones Ql (U) Negative Normal NEGATIVE [facility] Comment on above: Performed By: #### C BC #### [facility] [address] [place] [address] Dr. Christopher Hillman LEUKOCYTES Negative Normal NEGATIVE [facility] Comment on above: Performed By: #### C BC #### [facility] [address] [place] [address] Dr. Christopher Hillman Nitrite Ql (U) Negative Normal NEGATIVE [facility] Comment on above: Performed By: #### C BC #### [facility] [address] [place] [address] Dr. Christopher Hillman pH (U) 8.0 [pH] Normal 5-9 [facility] Comment on above: Performed By: #### C BC #### [facility] [address] [place] [address] Dr. Christopher Hillman SPEC GRAVITY 1.010 Normal 1.005-<=1.02 5 [facility] Comment on above: Performed By: #### C BC #### [facility] [address] [place] [address] Dr. Christopher Hillman UA PROTEIN Negative Normal NEGATIVE/ TRACE [facility] Comment on above: Performed By: #### C BC #### [facility] [address] [place] [address] Dr. Christopher Hillman UR MICRO IND INDICATED Normal [facility] Comment on above: Performed By: #### C BC #### [facility] [address] [place] [address] Dr. Christopher Hillman Urobilinogen Qn (U) 0.2 {Maryann'U}/dL Normal 0.2 - 1. 0 [facility] Comment on above: Performed By: #### C BC #### [facility] [address] [place] [address] Dr. Christopher Hillman URINE MICROSCOPIC ONLYon BACTERIA TRACE Abnormal NONE SEEN [facility] Comment on above: Performed By: #### C BC #### [facility] [address] [place] [address] Dr. Christopher Hillman Bacteria identified Cx Nom (U) NOT INDICATED Normal [facility] Comment on above: Performed By: #### C BC #### [facility] [address] [place] [address] Dr. Christopher Hillman CAST NONE SEEN Normal NONE SEEN [facility] Comment on above: Performed By: #### C BC #### [facility] [address] [place] [address] Dr. Christopher Hillman Crystals LM Nom (Urine sed) NONE SEEN Normal NONE SEEN [facility] Comment on above: Performed By: #### C BC #### [facility] [address] [place] [address] Dr. Christopher Hillman Epithelial cells LM Ql (Urine sed) NONE SEEN Normal NONE SEEN /RARE [facility] Comment on above: Performed By: #### C BC #### [facility] [address] [place] [address] Dr. Christopher Hillman MUCOUS NONE SEEN Normal NONE SEEN [facility] Comment on above: Performed By: #### C BC #### [facility] [address] [place] [address] Dr. Christopher Hillman RBC NONE SEEN Abnormal 0-2 [facility] Comment on above: Performed By: #### C BC #### [facility] [address] [place] [address] Dr. Christopher Hillman WBC NONE SEEN Normal NONE SEEN [facility] Comment on above: Performed By: #### C BC #### [facility] [address] [place] [address] Dr. Christopher Hillman HEP B SURFACE ANTIGEN SCREEN on 09-17-2022 HBsAg Screen Negative Normal Negative [facility] Comment on above: Performed By: #### D DIM #### [facility] [address] [place] [address] Dr. Christopher Hillman HEPATITIS C VIRUS AB W/ REFL EX QUANTon 09-17-2022 HCV AB <0.1 Normal 0.0-0.9 [facility] Comment on above: Performed By: #### H CVPCRR ####[facility] [id number] [address]. Christopher Hillman Interpretation: Comment Normal [facility] Comment on above: Result Comment: Nega tive Not infected with HCV, unless recent infection is suspected or other evidence exists to indicate HCV infection. Performed By: #### H CVPCRR ####[facility] [id number] [address]Dr. Christopher Hillman HIV 1 AND 2 WITH REFLEXon HIV Screen 4th Generation wRfx Non-Reactive Normal Non Reactive [facility] Comment on above: Result Comment: HIV Negative HIV-1/HIV-2 antibodies and HIV-1 p24 antigen were NOT detected. There is no laboratory evidence of HIV infection. Performed By: #### H IV12 ####[facility] [id number] [address]Dr. Christopher Hillman RPR QUANTon 09-17-2022 Rapid Plasma Reagin, Quant Non-Reactive Normal NonRea<1:1 [facility] Comment on above: Result Comment: Plea se Note: This test does not meet current guidelines for screening and diagnosis of syphilis. This test is intended for following treatment response in patients being treated for syphilis infection. To screen for syphilis infection, a reflex cascade that includes both RPR and a treponema-specific assay should be utilized, such as Treponema pallidum (Syphilis) Screening Bowman (397218) or Rapid Plasma Reagin (RPR) Test With Reflex to Quantitative RPR and Confirmatory Treponema pallidum Antibodies ([id number]). Performed By: #### C BC #### [facility] [address] [place] [address] Dr. Christopher Hillman RUBELLA AB IGGon 09-17-2022 Rubella Antibodies, IgG 4.82 index Normal Immune >0.99 [facility] Comment on above: Result Comment: Non- immune <0.90 Equivocal 0.90 - 0.99 Immune >0.99 Performed By: #### R UBIGG ####[facility] [id number] [place], [place] [address]GcDr. Christopher Hillman CBC AUTO DIFFon 09-16-2022 BASO # 0.0 103/ul Normal 0.0-0.1 [facility] Comment on above: Performed By: #### C BC #### [facility] [address] [address] [address] Christopher Hillman Basophils/100 WBC (Bld) 0.3 % Normal 0.2-2.0 [facility] Comment on above: Performed By: #### C BC #### [facility] [address] [address] [address] Christopher Hillman EO # 0.1 103/ul Normal 0.0-0.7 [facility] Comment on above: Performed By: #### C BC #### [facility] [address] [address] [address] Christopher Hillman Eosinophils/100 WBC (Bld) 0.8 % Critically low 0.9-7.0 [facility] Comment on above: Performed By: #### C BC #### [facility] [address] [address] [address] Christopher Hillman Erythrocyte distribution width (RBC) [Ratio] 14.1 % Normal 11.0-15.0 [facility] Comment on above: Performed By: #### C BC #### [facility] [address] [address] [address] Christopher Hillman Hematocrit (Bld) [Volume fraction] 39.8 % Normal 36.0-48.0 [facility] Comment on above: Performed By: #### C BC #### [facility] [address] [address] [address] Christopher Hillman Hemoglobin (Bld) [Mass/Vol] 13.5 g/dL Normal 12.0-16.0 [facility] Comment on above: Performed By: #### C BC #### [facility] [address] [address] [address] Christopher Hillman IG # 0.03 10e3/ul Normal 0.00-0.03 [facility] Comment on above: Performed By: #### C BC #### [facility] [address] [place] [address] Dr. Christopher Hillman IG % 0.4 % Normal 0.0-0.5 [facility] Comment on above: Performed By: #### C BC #### [facility] [address] [place] [address] Dr. Christopher Hillman LYMPH # 1.9 103/ul Normal 1.2-3.8 [facility] Comment on above: Performed By: #### C BC #### [facility] [address] [place] [address] Dr. Christopher Hillman Lymphocytes/100 WBC (Bld) 24.6 % Normal 20.5-60.0 [facility] Comment on above: Performed By: #### C BC #### [facility] [address] [place] [address] Dr. Christopher Hillman MANUAL DIFF REQ NO Normal [facility] Comment on above: Performed By: #### C BC #### [facility] [address] [place] [address] Dr. Christopher Hillman MCH (RBC) [Entitic mass] 27.3 pg Normal 26.7-34.0 [facility] Comment on above: Performed By: #### C BC #### [facility] [address] [place] [address] Dr. Christopher Hillman MCHC (RBC) [Mass/Vol] 33.9 g/dL Normal 29.9-35.2 [facility] Comment on above: Performed By: #### C BC #### [facility] [address] [place] [address] Dr. Christopher Hillman MCV (RBC) [Entitic vol] 80.6 fL Critically low 81.0-99. 0 [facility] Comment on above: Performed By: #### C BC #### [facility] [address] [place] [address] Dr. Christopher Hillman MONO # 0.5 103/ul Normal 0.3-0.8 [facility] Comment on above: Performed By: #### C BC #### [facility] [address] [place] [address] Dr. Christopher Hillman Monocytes/100 WBC (Bld) 6.2 % Normal 1.7-12.0 [facility] Comment on above: Performed By: #### C BC #### [facility] [address] [place] [address] Dr. Christopher Hillman NEUT # 5.2 103/ul Normal 1.4-6.5 [facility] Comment on above: Performed By: #### C BC #### [facility] [address] [place] [address] Dr. Christopher Hillman Neutrophils/100 WBC (Bld) 67.7 % Normal 43.0-75.0 [facility] Comment on above: Performed By: #### C BC #### [facility] [address] [place] [address] Dr. Christopher Hillman Platelet mean volume (Bld) [Entitic vol] 10.3 fL Normal 9.5-13.5 [facility] Comment on above: Performed By: #### C BC #### [facility] [address] [place] [address] Dr. Christopher Hillman PLT 250 103/ul Normal 150-450 [facility] Comment on above: Performed By: #### C BC #### [facility] [address] [place] [address] Dr. Christopher Hillman RBC 4.94 106/ul Normal 4.20-5.40 [facility] Comment on above: Performed By: #### C BC #### [facility] [address] [place] [address] Dr. Christopher Hillman WBC 7.6 103/ul Normal 4.0-11.0 [facility] Comment on above: Performed By: #### C BC #### [facility] [address] [address] [address] Christopher Hillman CULTURE URINEon 09-16-2022 CULTURE URINE Culture Observations: LIGHT GROWTH OF MIXED GENITAL JELLY. NO POTENTIAL PATHOGENS SEEN. Normal [facility] Comment on above: Performed By: #### U RCX ####[facility] [address] [id number]. Christopher Hillman GLYCOHEMOGLOBIN A1Con 2021 ADA RECOMMENDATION SEE BELOW Normal [facility] Comment on above: Result Comment: ADA RECOMMENDED LIMIT 4.0 - 6.0 ADA THERAPEUTIC TARGET < 7.0 ACTION SUGGESTED > 7.0 Performed By: #### C BC #### [facility] [address] [address] [address] Christopher Hillman Glucose [Mass/Vol] 103 mg/dL Normal [facility] Comment on above: Performed By: #### C BC #### [facility] [address] [address] [address] Christopher Hillman HbA1c (Bld) [Mass fraction] 5.2 % Normal 4.5-6.2 [facility] Comment on above: Performed By: #### C BC #### [facility] [address] [address] [address] Christopher Hillman EBONY BOX TEST PT SEND OUTo n 09-16-2022 SENT TO REF LAB 09/16/2022 Normal The [facility] Comment on above: Performed By: #### N BOX #### [facility] [address] [address] [address] Christopher Hillman TYPE AND SCREENon 09-16-2022 TYPE AND SCREEN Negative Normal [facility] Comment on above: Performed By: #### T NS ####[facility] [address] [id number]. Christopher Hillman US PREG TVon 08-13-2022 US [...] NE CRUZ Date: 2022-08-12 22:13 Normal [facility] RESPIRATORY PANEL PLUSon Adenovirus Not detected Normal NOT DETECTED The [facility] Comment on above: Performed By: #### R SPLUS ####[facility] [address] [place], [place] [address]Dr. Christopher Hillman B. Parapertusis Not detected Normal NOT DETECTED [facility] Comment on above: Performed By: #### R SPLUS ####[facility] [address] [place], [place] [address]Dr. Christopher Hillman B. Pertussis Not detected Normal NOT DETECTED The [facility] Comment on above: Performed By: #### R SPLUS ####[facility] [address] [place], [place] [address]Dr. Christopher Hillman Chlamydia Pneumoniae Not detected Normal NOT DETECTED [facility] Comment on above: Performed By: #### R SPLUS ####[facility] [address] [place], [place] [address]Dr. Christopher Hillman Coronavirus 229E Not detected Normal NOT DETECTED [facility] Comment on above: Performed By: #### R SPLUS ####[facility] [address] [place], [place] [address]Dr. Marichuylan Hillman Coronavirus HKU1 Not detected Normal NOT DETECTED [facility] Comment on above: Performed By: #### R SPLUS ####[facility] [address] [place], [place] [address]Dr. Christopher Hillman Coronavirus NL63 Not detected Normal NOT DETECTED The [facility] Comment on above: Performed By: #### R SPLUS ####[facility] [address] [place], [place] [address]Dr. Christopher Hillman Coronavirus OC43 Not detected Normal NOT DETECTED The [facility] Comment on above: Performed By: #### R SPLUS ####[facility] [address] [address]Dr. Christopher Hillman Influenza A H1 2009 Not detected Normal NOT DETECTED [facility] Comment on above: Performed By: #### R SPLUS ####[facility] [address] [address]Dr. Yipedro Hillman Influenza A H3 Not detected Normal NOT DETECTED [facility] Comment on above: Performed By: #### R SPLUS ####[facility] [address] [place], [place] [address]Dr. Yipedro Hillman Influenza B Not detected Normal NOT DETECTED [facility] Comment on above: Performed By: #### R SPLUS ####[facility] [address] [place], [place] [address]Dr. Yipedro Hillman Metapneumovirus Not detected Normal NOT DETECTED [facility] Comment on above: Performed By: #### R SPLUS ####[facility] [address] [place], [place] [address]Dr. Yipedro Hillman Mycoplas. Pneumoniae Not detected Normal NOT DETECTED [facility] Comment on above: Performed By: #### R SPLUS ####[facility] [address] [place], [place] [address]Dr. Yipedro Hillman Parainfluenza 1 Not detected Normal NOT DETECTED [facility] Comment on above: Performed By: #### R SPLUS ####[facility] [address] [place], [place] [address]Dr. Yipedro Hillman Parainfluenza 2 Not detected Normal NOT DETECTED [facility] Comment on above: Performed By: #### R SPLUS ####[facility] [address] [place], [place] [address]Dr. Yipedro Hillman Parainfluenza 3 Not detected Normal NOT DETECTED [facility] Comment on above: Performed By: #### R SPLUS ####[facility] [address] [place], [place] [address]Dr. Yipedro Hillman Parainfluenza 4 Not detected Normal NOT DETECTED [facility] Comment on above: Performed By: #### R SPLUS ####[facility] [address] [address]Dr. Christopher Hillman Rhino/Enterovirus Detected Abnormal NOT DETECTED [facility] Comment on above: Performed By: #### R SPLUS ####[facility] [address] [address]Dr. Christopher Hillman RP2 Header 1 RESPIRATORY PANEL: VIRUSES Normal [facility] Comment on above: Performed By: #### R SPLUS ####[facility] [address] [address]Dr. Christopher Hillman RP2 Header 2 RESPIRATORY PANEL: BACTERIA Normal [facility] Comment on above: Performed By: #### R SPLUS ####[facility] [address] [place], [place] [address]Dr. Christopher Hillman RSV Not detected Normal NOT DETECTED The [facility] Comment on above: Performed By: #### R SPLUS ####[facility] [address] [address]Dr. Christopher Hillman SARS-CoV-2 (COVID-19) RNA SALOMÓN+probe Ql (Unsp spec) Not detected Normal NOT DETECTED [facility] Comment on above: Performed By: #### R SPLUS ####[facility] [address] [place], [place] [address]Dr. Christopher Hillman Vital Signs Date Time Vital Sign Value Performing Clinician Facility 07-13-2025 14:12040 Body mass index (BMI) [Ratio] 26.15 kg/m2 [facility] 07-13-2025 14:12 Body weight 66.95 kg [facility] 07-13-2025 14:12040 Diastolic blood pressure 68 mm[Hg] [facility] 07-13-2025 14:12040 Systolic blood pressure 112 mm[Hg] [facility] 06-19-2025 11:06-0400 Body height 160 cm Ashtyn MAYA Work Phone: [facility] 06-19-2025 11:06-0400 Body mass index (BMI) [Ratio] 26.75 kg/m2 Ashtyn Hemmer PA Work Phone: [facility] 06-19-2025 11:06-0400 Body weight 68.49 kg Ashtyn Hemmer PA Work Phone: [facility] 06-19-2025 11:06-0400 Diastolic blood pressure 82 mm[Hg] Ashtyn Hemmer PA Work Phone: [facility] 06-19-2025 11:06-0400 Heart rate 97 /min Ashtyn Hemmer PA Work Phone: [facility] 06-19-2025 11:06-0400 Respiratory rate 16 /min Ashtyn Hemmer PA Work Phone: [facility] 06-19-2025 11:06-0400 SaO2% (BldA) [Mass fraction] 99 % Ashtyn Hemmer PA Work Phone: [facility] 06-19-2025 11:06-0400 Systolic blood pressure 104 mm[Hg] Ashtyn Hemmer PA Work Phone: [facility] 09-27-2024 14:56-0500 Body height 160 cm Ashtyn Hemmer PA Work Phone: [facility] 09-27-2024 14:56-0500 Body mass index (BMI) [Ratio] 28.17 kg/m2 Ashtyn Hemmer PA Work Phone: [facility] 09-27-2024 14:56-0500 Body weight 72.12 kg Ashtyn Hemmer PA Work Phone: [facility] 09-27-2024 14:56-0500 Diastolic blood pressure 70 mm[Hg] Ashtyn Hemmer PA Work Phone: [facility] 09-27-2024 14:56-0500 Heart rate 88 /min Ashtyn Hemmer PA Work Phone: [facility] 09-27-2024 14:56-0500 SaO2% (BldA) [Mass fraction] 97 % Ashtyn Hemmer PA Work Phone: [facility] 09-27-2024 14:56-0500 Systolic blood pressure 126 mm[Hg] Ashtyn Hemmer PA Work Phone: [facility] 08-18-2024 15:14-0500 Body height 160 cm Ashtyn Hemmer PA Work Phone: [facility] 08-18-2024 15:14-0500 Body mass index (BMI) [Ratio] 29.23 kg/m2 Ashtyn Hemmer PA Work Phone: [facility] 08-18-2024 15:14-0500 Body weight 74.84 kg Ashtyn Hemmer PA Work Phone: [facility] 08-18-2024 15:14-0500 Diastolic blood pressure 82 mm[Hg] Ashtyn Hemmer PA Work Phone: [facility] 08-18-2024 15:14-0500 Heart rate 88 /min Ashtyn Hemmer PA Work Phone: [facility] 08-18-2024 15:14-0500 Respiratory rate 16 /min Ashtyn Hemmer PA Work Phone: [facility] 08-18-2024 15:14-0500 SaO2% (BldA) [Mass fraction] 98 % Ashtyn Hemmer PA Work Phone: [facility] 08-18-2024 15:14-0500 Systolic blood pressure 116 mm[Hg] Ashtyn Hemmer PA Work Phone: [facility] 08-04-2024 10:06-0400 Body height 160 cm Ashtyn Hemmer PA Work Phone: [facility] 08-04-2024 10:06-0400 Body mass index (BMI) [Ratio] 29.41 kg/m2 Ashtyn Hemmer PA Work Phone: [facility] 08-04-2024 10:06-0400 Body weight 75.3 kg Ashtyn Hemmer PA Work Phone: [facility] 08-04-2024 10:06-0400 Diastolic blood pressure 78 mm[Hg] Ashtyn Hemmer PA Work Phone: [facility] 08-04-2024 10:06-0400 Heart rate 78 /min Ashtyn Hemmer PA Work Phone: [facility] 08-04-2024 10:06-0400 Respiratory rate 16 /min Ashtyn Hemmer PA Work Phone: [facility] 08-04-2024 10:06-0400 SaO2% (BldA) [Mass fraction] 98 % Ashtyn Hemmer PA Work Phone: [facility] 08-04-2024 10:06-0400 Systolic blood pressure 116 mm[Hg] Ashtyn Hemmer PA Work Phone: [facility] 08-01-2024 14:15-0400 Body height 160 cm Ashtyn Hemmer PA Work Phone: [facility] 08-01-2024 14:15-0400 Body mass index (BMI) [Ratio] 29.48 kg/m2 Ashtyn Hemmer PA Work Phone: [facility] 08-01-2024 14:15-0400 Body weight 75.48 kg Ashtyn Hemmer PA Work Phone: [facility] 08-01-2024 14:15-0400 Diastolic blood pressure 84 mm[Hg] Ashtyn Hemmer PA Work Phone: [facility] 08-01-2024 14:15-0400 Heart rate 88 /min Ashtyn Hemmer PA Work Phone: [facility] 08-01-2024 14:15-0400 Respiratory rate 16 /min Ashtyn Hemmer PA Work Phone: [facility] 08-01-2024 14:15-0400 SaO2% (BldA) [Mass fraction] 97 % Ashtyn Hemmer PA Work Phone: [facility] 08-01-2024 14:15-0400 Systolic blood pressure 122 mm[Hg] Ashtyn Hemmer PA Work Phone: [facility] 07-20-2024 14:25-0400 Body height 160 cm Jose Juan Beaulieu NP Work Phone: [facility] 07-20-2024 14:25-0400 Body mass index (BMI) [Ratio] 29.94 kg/m2 Jose Juan Beaulieu YIELD IMPROVEMENT ENGINEER Work Phone: [facility] 07-20-2024 14:25-0400 Body weight 76.66 kg Jose Juan Beaulieu YIELD IMPROVEMENT ENGINEER Work Phone: [facility] 07-20-2024 14:25-0400 Diastolic blood pressure 58 mm[Hg] Jose Juan Beaulieu [employer]IELD IMPROVEMENT ENGINEER Work Phone: [facility] 07-20-2024 14:25-0400 Heart rate 119 /min Jose Juan Beaulieu YIELD IMPROVEMENT ENGINEER Work Phone: [facility] 07-20-2024 14:25-0400 SaO2% (BldA) [Mass fraction] 98 % Jose Juan Beaulieu YIELD IMPROVEMENT ENGINEER Work Phone: [facility] 07-20-2024 14:25-0400 Systolic blood pressure 110 mm[Hg] Jose Juan Beaulieu YIELD IMPROVEMENT ENGINEER Work Phone: [facility] 07-13-2024 13:03-0400 Body height 160 cm Ashtyn Hemmer PA Work Phone: [facility] 07-13-2024 13:03-0400 Body mass index (BMI) [Ratio] 29.41 kg/m2 Ashtyn Hemmer PA Work Phone: [facility] 07-13-2024 13:03-0400 Body weight 75.3 kg Ashtyn Hemmer PA Work Phone: [facility] 07-13-2024 13:03-0400 Diastolic blood pressure 88 mm[Hg] Ashtyn Hemmer PA Work Phone: [facility] 07-13-2024 13:03-0400 Heart rate 87 /min Ashtyn Hemmer PA Work Phone: [facility] 07-13-2024 13:03-0400 Respiratory rate 16 /min Ashtyn Hemmer PA Work Phone: [facility] 07-13-2024 13:03-0400 SaO2% (BldA) [Mass fraction] 98 % Ashtyn Hemmer PA Work Phone: [facility] 07-13-2024 13:03-0400 Systolic blood pressure 130 mm[Hg] Ashtyn MAYA Work Phone: [facility] 06-28-2024 11:09-0400 Body height 160 cm Regine Soares MD Work Phone: [facility] 06-28-2024 11:09-0400 Body mass index (BMI) [Ratio] 29.41 kg/m2 Regine Soares MD Work Phone: [facility] 06-28-2024 11:09-0400 Body weight 75.3 kg Regine Soares MD Work Phone: [facility] 06-28-2024 11:09-0400 Diastolic blood pressure 68 mm[Hg] Regine Soares MD Work Phone: [facility] 06-28-2024 11:09-0400 Heart rate 100 /min Regine Soares MD Work Phone: [facility] 06-28-2024 11:09-0400 SaO2% (BldA) [Mass fraction] 97 % Regine Soares MD Work Phone: [facility] 06-28-2024 11:09-0400 Systolic blood pressure 110 mm[Hg] Regine Soares MD Work Phone: [facility] 06-07-2024 11:27-0400 Body height 160 cm Regine Soares MD Work Phone: [facility] 06-07-2024 11:27-0400 Body mass index (BMI) [Ratio] 30.47 kg/m2 Regine Soares MD Work Phone: [facility] 06-07-2024 11:27-0400 Body weight 78.02 kg Regine Soares MD Work Phone: [facility] 06-07-2024 11:27-0400 Diastolic blood pressure 68 mm[Hg] Regine Soares MD Work Phone: [facility] 06-07-2024 11:27-0400 Heart rate 70 /min Regine Soares MD Work Phone: [facility] 06-07-2024 11:27-0400 SaO2% (BldA) [Mass fraction] 98 % Regine Soares MD Work Phone: [facility] 06-07-2024 11:27-0400 Systolic blood pressure 112 mm[Hg] Regine Soares MD Work Phone: [facility] 11-06-2022 03:06-0500 Body weight 60.[address] REGINE SOARES [facility] Comment on above: Performed By: #### AFPMAT ####[facility] ospital [address] [place], [place] [address]RdNing Hillman Encounters Encounter Date Encounter Type Care Provider Facility Start: 07-14-2025 End: 07-14-2025 Clinisync Result Encounter Generic External Data Provider [facility] External Department Unsolicited Start: 07-14-2025 End: 07-14-2025 Clinisync Result Encounter Generic External Data Provider [facility] External Department Unsolicited Start: 07-13-2025 End: 07-13-2025 ambulatory Michelle Nurse [facility] Comment on above: GA: 8w4d Start: 06-21-2025 End: 06-21-2025 Telephone encounter Ashtyn MAYA Work Phone: [facility] Start: 06-19-2025 End: 06-19-2025 Bamboo flowsheet Ashtyn MAYA Work Phone: [facility] Start: 06-19-2025 End: 06-19-2025 Bamboo flowsheet Ashtyn MAYA Work Phone: [facility] Start: 06-19-2025 End: 06-19-2025 Office outpatient visit 25 minutes Ashtyn MAYA Work Phone: [facility] Comment on above: Amenorrhea (Primary Dx); Positive test (HHS-HCC); Dark urine; Acute cystitis with hematuria Start: 06-19-2025 End: 06-19-2025 ambulatory ASHTYN MUNIZ Not Available Start: 10-06-2024 End: 10-06-2024 ambulatory ASHTYN MUNIZ Not Available Start: 10-04-2024 End: 10-04-2024 Patient encounter procedure Ashtyn Muniz PA Work Phone: [facility] [...] Start: 09-27-2024 End: 09-27-2024 Bamboo flowsheet Ashtyn Muniz PA Work Phone: [facility] Start: 09-27-2024 End: 09-27-2024 Bamboo flowsheet Ashtyn Muniz PA Work Phone: [facility] Start: 08-18-2024 End: 08-18-2024 ambulatory ASHTYN MUNIZ Not Available Start: 08-18-2024 End: 08-18-2024 Office outpatient visit 15 minutes Ashtyn Muniz PA Work Phone: [facility] Comment on above: Post depressi on (CMS/HCC) (Primary Dx); Painful skin lesion; Wart of hand Start: 08-18-2024 End: 08-18-2024 Bamboo flowsheet Ashtyn Muniz PA Work Phone: [facility] Start: 08-18-2024 End: 08-18-2024 Bamboo flowsheet Ashtyn Muniz PA Work Phone: [facility] Start: 08-04-2024 End: 08-04-2024 Bamboo flowsheet Ashtyn Adkins Cristy PA Work Phone: [facility] Start: 08-04-2024 End: 08-04-2024 Bamboo flowsheet Ashtyn Adkins Cristy PA Work Phone: [facility] Start: 08-04-2024 End: 08-04-2024 Patient encounter procedure Ashtyn Adkins Cristy PA Work Phone: [facility] Comment on above: Painful skin lesion (Primary Dx); Wart of hand Start: 08-04-2024 End: 08-04-2024 ambulatory ASHTYN Adkins CRISTY Not Available Start: 08-02-2024 End: 08-03-2024 Telephone encounter Ashtyn Adkins Cristy PA Work Phone: [facility] Start: 08-01-2024 End: 08-01-2024 Office outpatient visit 15 minutes Ashtyn Muniz PA Work Phone: [facility] Comment on above: Vaginal discharge (P rimary Dx) Start: 08-01-2024 End: 08-01-2024 ambulatory ASHTYN Lucille CRISTY Not Available Start: 08-01-2024 End: 08-01-2024 Bamboo flowsheet Ashtyn Adkins Cristy PA Work Phone: [facility] Start: 08-01-2024 End: 08-01-2024 Bamboo flowsheet Ashtyn Adkins Cristy PA Work Phone: [facility] Start: 07-20-2024 End: 07-20-2024 Patient encounter status Jose Juan Beaulieu YIELD IMPROVEMENT ENGINEER Work Phone: [facility] Work Phone: Start: 07-20-2024 End: 07-20-2024 Periodic preventive med est patient 18-39 yrs Jose Juan Beaulieu YIELD IMPROVEMENT ENGINEER Work Phone: [facility] Comment on above: Wellness examination (Primary Dx); Encounter for vaccination Start: 07-20-2024 End: 07-20-2024 ambulatory JOSE JUAN BEAULIEU Not Available Start: 07-13-2024 End: 07-13-2024 Bamboo flowsheet Ashtyn MAYA Work Phone: [facility] Start: 07-13-2024 End: 07-13-2024 Bamboo flowsheet Ashtyn Muniz PA Work Phone: [facility] Start: 07-13-2024 End: 07-13-2024 Office outpatient visit 15 minutes Ashtyn MAYA Work Phone: [facility] Comment on above: Painful skin lesion (Primary Dx); Wart of hand Start: 06-28-2024 End: 06-28-2024 Office outpatient visit 25 minutes Regine Soares MD Work Phone: [facility] Comment on above: Sprain of right ankl e, unspecified ligament, sequela (Primary Dx); Post depression (CMS/HCC); 6 weeks follow-up; Folliculitis Start: 06-16-2024 End: 06-17-2024 Emergency department patient visit [facility] Start: 06-07-2024 End: 06-07-2024 Office outpatient visit 15 minutes Regine Soares MD Work Phone: [facility] Comment on above: Wart of hand (Primar y Dx) Start: 02-04-2024 End: 02-04-2024 [facility] Start: 03-10-2023 End: 03-10-[address] REGINE SOARES Facility:[facility] Start: 03-07-2023 End: 03-07-[address] REGINE SOARES Facility:[facility] Start: 03-06-2023 End: 03-06-[address] REGINE SOARES Facility:[facility] Start: 2023 End: 03-05-[address] TYLER ROBERTS . Facility:[facility] Start: 03-03-2023 End: 03-03-[address] REGINE SOARES Facility:[facility] Start: 02-23-2023 End: 02-23-[address] REGINE SOARES Facility:[facility] Start: 01-14-2023 End: 01-14-[address] REGINE SOARES Facility:[facility] Start: 01-03-2023 End: 01-04-[address] REGINE SOARES Facility:[facility] Start: 12-13-2022 End: 12-14-[address] REGINE SOARES Facility:[facility] Start: 12-02-2022 End: 12-02-2022 ambulatory VAN TREVIÑO . Facility:[facility] Start: 11-26-2022 End: 11-27-[address] REGINE SOARES Facility:[facility] Start: 11-17-2022 End: 11-18-[address] REGINE SOARES Facility:[facility] Start: 11-06-2022 End: 11-07-[address] REGINE SOARES Facility:[facility] Start: 11-04-2022 End: 11-05-[address] REGINE SOARES Facility:[facility] Start: 10-16-2022 End: 10-16-[address] REGINE SOARES Facility:[facility] Start: 09-16-2022 End: 09-17-[address] REGINE SOARES Facility:[facility] Start: 08-12-2022 End: 08-13-[address] ALVARO MARTINEZ . Facility:[facility] Start: 06-03-2022 End: 06-03-[address] REGINE SOARES Facility:[facility] Procedures Date Procedure Procedure Detail Performing Clinician Start: 07-14-2025 US OB TRANSVAGINAL Gene rohan External Data Provider Start: 07-13-2025 End: 07-13-2025 Urnls dip stick/tablet rgnt non-auto w/o micrscp Alvaro Martinez DO Work Phone: Start: 06-19-2025 End: 06-19-2025 Urnls dip stick/tablet rgnt non-auto w/o micrscp Ashtyn Muniz PA Work Phone: Start: 10-06-2024 READ PPD Ashtyn medel PA Work Phone: Plan of Treatment Date Care Activity Detail Author Start: 08-14-2025 End: 08-14-2025 Patient encounter procedure 08/14/2025 2:10 PM EST Routine [facility] [address] [place] [id number] Alvaro Martinez, [address] [place], [place] [id number] [facility] Start: 07-13-2025 End: 07-13-2026 ABO/Rh ABO/Rh Lab Routine Missed menses , unspecified gestational age ([facility]) Expected: 07/13/2025 (Approximate), Expires: 07/13/2026 [facility] Comment on above: Expected: 07/13/2025 (Approximate), Expires: 07/13/2026 Start: 07-13-2025 End: 07-13-2026 Blood type and Indirect antibody screen panel - Blood Type and screen Lab Routine Missed menses , unspecified gestational age ([facility]) Expected: 07/13/2025 (Approximate), Expires: 07/13/2026 [facility] Work Phone: Comment on above: Expected: 07/13/2025 (Approximate), Expires: 07/13/2026 Start: 07-13-2025 End: 07-13-2026 Drugs of abuse panel - Urine by Screen method Rapid drug screen, urine Lab Routine , unspecified gestational age ([facility] [facility]) Encounter for supervision of normal first in first trimester ([facility]) Expected: 07/13/2025 (Approximate), Expires: 07/13/2026 [facility] Comment on above: Expected: 07/13/2025 (Approximate), Expires: 07/13/2026 Start: 07-13-2025 End: 07-13-2025 ambulatory 07/13/2025 1:30 PM EDT Initial [facility] [address] [facility] [place] [place] [address] [facility] Start: 07-13-2025 End: 07-13-2025 Professional / ancillary services management 07/13/2025 1:00 PM EDT Ancillary Procedure [facility]SE [facility]IZZO [address] [facility] [place] [address] [facility] Start: 06-19-2025 End: 06-19-2025 Patient encounter procedure 06/19/2025 11:00 AM EDT Office Visit [facility] [place] [address] [place] [address] Ashtyn Muniz PA [address] [place] [address] [facility] Comment on above: Arrived Start: 06-12-2025 Influenza vaccination Influenza Vacc ine (#1) [facility] Start: 10-06-2024 End: 10-06-2024 Patient encounter procedure 10/06/2024 9:30 AM EST Office Visit [facility] [address] [place] [address] [facility] Start: 10-04-2024 End: 10-04-2024 Patient encounter procedure 10/04/2024 9:00 AM EST Office Visit [facility] [address] [place] [address] [facility] Start: 09-29-2024 End: 09-29-2024 Clinical Support 09/29/2024 3:30 PM EST Clinical Support [facility] [address] [place] [address] [facility] Start: 09-27-2024 End: 09-27-2024 Patient encounter procedure 09/27/2024 3:00 PM EST Office Visit [facility] [address] [place] [address] Ashtyn Muniz PA [address] [place] [address] Arrived [facility] Comment on above: Arrived Start: 08-04-2024 End: 08-04-2024 Patient encounter procedure [facility] Comment on above: Arrived Start: 08-01-2024 End: 08-01-2024 Patient encounter procedure 08/01/2024 2:30 PM EDT Office Visit [facility] [address] [place] [address] Ashtyn Muniz PA [address] [facility] [address] [place] [address] Arrived [facility] Comment on above: Arrived Start: 08-01-2024 End: 08-01-2025 VAGINITIS (HTRX) VAGINITIS (HTRX) Lab Routine Vaginal discharge Expected: 08/01/2024 (Approximate), Expires: 08/01/2025 [facility] Work Phone: Comment on above: Expected: 08/01/2024 (Approximate), Expires: 08/01/2025 Start: 07-13-2024 End: 07-13-2024 Patient encounter procedure 07/13/2024 1:00 PM EDT Office Visit [facility] [address] [facility] [address] [place] [address] Ashtyn Muniz PA [address] [facility] [address] [place] [address] Arrived [facility] Comment on above: Arrived Start: 06-12-2024 Influenza vaccination Influenza Vacc ine (#1) [facility] Bacteria identified in Urine by Culture Urine culture Microbiology Routine Missed menses Ordered: 07/13/2025 [facility] Comment on above: Ordered: 07/13/2025 CBC W Auto Different ial panel - Blood CBC and differential Lab Routine Missed menses , unspecified gestational age ([facility]) Ordered: 07/13/2025 [facility] Comment on above: Ordered: 07/13/2025 HCG, quantitative, HCG, quantitative, Lab Routine [facility] Ordered: 06/19/2025 [facility] Work Phone: Comment on above: Ordered: 06/19/2025 Hemoglobin A1c/Hemoglobin.total in Blood Hemoglobin A1c Lab Routine Missed menses , unspecified gestational age ([facility]) Ordered: 07/13/2025 [facility] Comment on above: Ordered: 07/13/2025 Hepatitis B virus surface Ag [Presence] in Serum or Plasma by Immunoassay Hepatitis B surface antigen Lab Routine Missed menses , unspecified gestational age ([facility]) Ordered: 07/13/2025 [facility] Comment on above: Ordered: 07/13/2025 Hepatitis C virus Ab [Presence] in Serum or Plasma by Immunoassay Hepatitis C antibody Lab Routine Missed menses , unspecified gestational age ([facility]) Ordered: 07/13/2025 [facility] Comment on above: Ordered: 07/13/2025 HIV-1/HIV-2 antigen/antibody combination immunoassay HIV-1 and HIV-2 antibodies Lab Routine Missed menses , unspecified gestational age ([facility]) Ordered: 07/13/2025 [facility] Comment on above: Ordered: 07/13/2025 Reagin Ab [Presence] in Serum by RPR RPR Lab Routine Missed menses , unspecified gestational age ([facility]) Ordered: 07/13/2025 [facility] Comment on above: Ordered: 07/13/2025 Rubella antibody, IgG Rubella an tibody, IgG Lab Routine Missed menses , unspecified gestational age ([facility]) Ordered: 07/13/2025 [facility] Comment on above: Ordered: 07/13/2025 URINARY TRACT INFECT ION (HTRX) URINARY TRACT INFECTION (HTRX) Lab Routine Acute cystitis with hematuria Ordered: 06/19/2025 [facility] Comment on above: Ordered: 06/19/2025 Immunizations Immunization Date Immunization Notes Care Provider Gianfranco begum 10-06-2024 tuberculin skin test ; purified protein derivative solution, intradermal Ashtyn MAYA Work Phone: [facility] Work Phone: 09-27-2024 tuberculin skin test ; purified protein derivative solution, intradermal Ashtyn MAYA Work Phone: [facility] 07-20-2024 influenza, seasonal, injectable, preservative free Jose Juan Beaulieu [employer]IELD IMPROVEMENT ENGINEER Work Phone: [facility] 07-20-2024 influenza virus vacc ine, unspecified formulation Ashtyn MAYA Work Phone: [facility] 08-26-2023 Influenza, injectabl e, Madin Sil Canine Kidney, preservative free, quadrivalent Regine Soares MD Work Phone: [facility] 08-26-2023 influenza virus vacc ine, unspecified formulation Regine Soares MD Work Phone: [facility] 05-10-2021 meningococcal oligosaccharide (groups A, C, Y and W-135) diphtheria toxoid conjugate vaccine (MCV4O) Regine Soares MD Work Phone: [facility] 06-01-2020 influenza, injectabl e, quadrivalent, preservative free Regine Soares MD Work Phone: [facility] 07-21-2017 influenza, injectabl e, quadrivalent, contains preservative Regine Soares MD Work Phone: [facility] 04-15-2016 Human Papillomavirus 9-valent vaccine Regine Soares MD Work Phone: [facility] 03-17-2016 meningococcal B vacc ine, recombinant, OMV, adjuvanted Regine Soares MD Work Phone: [facility] 03-17-2016 varicella virus vaccine Maria T Soares MD Work Phone: [facility] 02-14-2016 hepatitis A vaccine, pediatric/adolescent dosage, 2 dose schedule Regine Soares MD Work Phone: [facility] 02-14-2016 Human Papillomavirus 9-valent vaccine Regine Soares MD Work Phone: [facility] 02-14-2016 meningococcal B vacc ine, recombinant, OMV, adjuvanted Regine Soares MD Work Phone: [facility] 02-14-2016 meningococcal oligosaccharide (groups A, C, Y and W-135) diphtheria toxoid conjugate vaccine (MCV4O) Regine Soares MD Work Phone: [facility] 02-14-2016 tetanus toxoid, redu sandra diphtheria toxoid, and acellular pertussis vaccine, adsorbed Regine Soares MD Work Phone: [facility] 06-26-2008 diphtheria, tetanus toxoids and acellular pertussis vaccine Regine Soares MD Work Phone: [facility] 06-26-2008 measles, mumps and rubella virus vaccine Regine Soares MD Work Phone: [facility] 06-26-2008 poliovirus vaccine, inactivated Regine Soares MD Work Phone: [facility] 08-12-2004 diphtheria, tetanus toxoids and acellular pertussis vaccine, unspecified formulation Regine Soares MD Work Phone: [facility] 08-12-2004 haemophilus influenz ae type b vaccine, conjugate unspecified formulation Regine Soares MD Work Phone: [facility] 08-12-2004 pneumococcal conjuga te vaccine, 7 valent Regine Soares MD Work Phone: [facility] 05-15-2004 measles, mumps and rubella virus vaccine Regine Soares MD Work Phone: [facility] 05-15-2004 pneumococcal conjuga te vaccine, 7 valent Regine Soares MD Work Phone: [facility] 05-15-2004 varicella virus vaccine Maria T Soares MD Work Phone: [facility] 2003 diphtheria, tetanus toxoids and acellular pertussis vaccine, unspecified formulation Regine Soares MD Work Phone: [facility] 2003 haemophilus influenz ae type b conjugate and Hepatitis B vaccine Regine Soares MD Work Phone: [facility] 2003 influenza, seasonal, injectable Regine Soares MD Work Phone: [facility] 2003 pneumococcal conjuga te vaccine, 7 valent Regine Soares MD Work Phone: [facility] 2003 poliovirus vaccine, inactivated Regine Soares MD Work Phone: [facility] 2003 influenza, seasonal, injectable Regine Soares MD Work Phone: [facility] 2003 diphtheria, tetanus toxoids and acellular pertussis vaccine, unspecified formulation Regine Soares MD Work Phone: [facility] 2003 haemophilus influenz ae type b vaccine, conjugate unspecified formulation Regine Soares MD Work Phone: [facility] 2003 pneumococcal conjuga te vaccine, 7 valent Regine Soares MD Work Phone: [facility] 2003 poliovirus vaccine, inactivated Regine Soares MD Work Phone: [facility] 2003 diphtheria, tetanus toxoids and acellular pertussis vaccine, unspecified formulation Regine Soares MD Work Phone: [facility] 2003 haemophilus influenz ae type b conjugate and Hepatitis B vaccine Regine Soares MD Work Phone: [facility] 2003 poliovirus vaccine, inactivated Regine Soares MD Work Phone: [facility] 2003 hepatitis B vaccine, pediatric or pediatric/adolescent dosage Regine Soares MD Work Phone: [facility] Payers Date Payer Category Payer Medicaid [employer] [place] [employer] [id number] 2022-Present [address] [place] [id number] 2022 Medicaid (Managed Care) [employer] [id number] 2003 Unknown [id number] 2.16.840.1.395962.3.579.2. 593 2003 Unknown [id number] 2.16.840.1.756775.3.579.2. 593 2003 Unknown [id number] 2.16.840.1.728138.3.579.2. 593 2003 Unknown [id number] 2.16.840.1.034760.3.579.2. 593 2003 Unknown [id number] 2.16.840.1.253005.3.579.2. 593 2003 Unknown [id number] 2.16.840.1.673522.3.579.2. 593 2003 Unknown [id number] 2.16.840.1.011834.3.579.2. 593 2003 Unknown [id number] 2.16.840.1.207493.3.579.2. 593 2003 Unknown [id number] 2.16.840.1.929158.3.579.2. 593 2003 Unknown [id number] 2.16.840.1.514047.3.579.2. 593 2003 Unknown [id number] 2.16.840.1.106742.3.579.2. 593 2003 Unknown [id number] 2.16.840.1.080374.3.579.2. 593 2003 Unknown [id number] 2.16.840.1.473577.3.579.2. 593 2003 Unknown [id number] 2.16.840.1.280514.3.579.2. 593 2003 Unknown [id number] 2.16.840.1.445971.3.579.2. 593 2003 Unknown [id number] 2.16.840.1.221479.3.579.2. 593 2003 Unknown [id number] 2.16.840.1.401653.3.579.2. 593 2003 Unknown [id number] 2.16840.1.436171.3.579.2. 593 2003 Unknown [id number] 2.16840.1.786932.3.579.2. 1285 2003 Unknown [id number] 2.16.840.1.865082.3.579.2. 1285 2003 Unknown [id number] 2.16840.1.942250.3.579.2. 1285 2003 Unknown [id number] 2.16840.1.025686.3.579.2. 1258 2003 Unknown [id number] 2.840.1.626724.3.579.2. 1258 2003 Unknown [id number] 2.840.1.498033.3.579.2. 1258 2003 Unknown [id number] 2.840.1.570449.3.579.2. 1258 2003 Unknown [id number] 2.840.1.744743.3.579.2. 1258 2003 Unknown [id number] 2.840.1.604126.3.579.2. 1258 2003 Unknown [id number] 2.16840.1.716695.3.579.2. 1258 2003 Unknown [id number] 2.840.1.665837.3.579.2. 1258 2003 Unknown [id number] 2.16840.1.586363.3.579.2. 1258 2003 Unknown [id number] 2.16840.1.156919.3.579.2. 1259 1959 Unknown [id number] Unknown [id number] 2.16840.1.065035.3.579.2. 593 Social History Date Type Detail Facility Start: 03-25-2023 Tobacco smoking stat us [facility]IS Never smoked tobacco [facility] Start: 03-25-2023 Tobacco use and exposure Smoke less tobacco non-user [facility] Start: 07-13-2024 End: 07-13-2025 Alcoholic beverage intake Lifetime non-drinker (finding) [facility] Start: 07-13-2024 End: 06-19-2025 [facility] of Social function [facility] Start: 07-13-2024 End: 06-19-2025 Tobacco use panel [facility] Start: 03-25-2023 Alcohol Comment Caffeine: none [facility] Start: 2003 Sex assigned at Not on file [facility] Start: 05-28-2025 [facility] Functional Status Date Assessment Result Facility 06-19-2025 Patient Health [facility] ionnaire 2 item (PHQ-2) [Reported] [facility] Clinical Notes 06-07-2024 to 07-13-2025 Ginger Cisse MA - 07/13/2025 1:30 PM EDTTelephone Encounter - SAVANA RIVAS - 06/21/2025 3:49 PM EDTTelephone Encounter - SAVANA RIVAS - 06/21/2025 3:49 PM EDT Note Date & Type Note Facility 07-13-2025 History of Presen t illness Narrative Reason for Appointment: Patient ID: Maren Campos is a 20 y.o. female who presents for Amenorrhea Patient presents today for a Nurse OB Intake appointment. Patient is 8w4d with a Estimated Date of Delivery: 02/18/26 OB History Para Term AB Living 2 1 1 1 SAB IAB Ectopic Multiple Live Births 1 # Outcome Date GA Lbr William/2nd Weight Sex Type Anes PTL Lv 2 Current 1 Term 03/25/23 38w4d 8 lb 11 oz Vag-Spont LLOYD Current Medications: has a current medication list which includes the following prescription(s): albuterol hfa, fluticasone, multivitamin, and ondansetron odt. Medical History: Active Ambulatory Problems Diagnosis Date Noted Otitis externa 10/20/2019 Folliculitis 07/28/2023 Flexural eczema 07/28/2023 Wart of hand 07/28/2023 Sprain of right ankle 06/28/2024 Post depression 08/18/2024 Overweight 09/27/2024 Resolved Ambulatory Problems Diagnosis Date Noted Sinusitis 12/14/2018 Past Medical History: Diagnosis Date COVID 10/15/2020 ETD (eustachian tube dysfunction) History of CT scan 03/17/[address] scan 01/01/2019 Family History Problem Relation Name Age of Onset Hypertension Maternal Grandfather Social History Tobacco Use Smoking status: Never Smokeless tobacco: Never Vaping Use Vaping status: Never Used Substance Use Topics Alcohol use: Never Comment: Caffeine: none Drug use: Never Past Surgical History: Procedure Laterality Date ADENOIDECTOMY 2009 MYRINGOTOMY W/ TUBES Bilateral 07/2012 Dr. Finch OTHER SURGICAL HISTORY 08/28/2015 r/o R tube and paper patch TONSILLECTOMY 2009 TandA WISDOM TOOTH EXTRACTION 04/2021 Allergies Allergen Reactions Penicillins Hives, Rash and Unknown Vitals: Estimated body mass index is 26.15 kg/m as calculated from the following: Height as of 06/19/25: 5' 3 . Weight as of this encounter: 147 lb 9.6 oz. BP: 112/68 Patient's last menstrual period was 05/08/2025. Assessment/Plan Diagnoses and all orders for this visit: Missed menses - Type and screen; Future - ABO/Rh; Future - CBC and differential - Hemoglobin A1c - RPR - Rubella antibody, IgG - Hepatitis B surface antigen - Hepatitis C antibody - HIV-1 and HIV-2 antibodies - Urine culture - POCT , urine manually resulted - POCT urinalysis dipstick manually resulted , unspecified gestational age ([facility]) - Type and screen; Future - ABO/Rh; Future - CBC and differential - Hemoglobin A1c - RPR - Rubella antibody, IgG - Hepatitis B surface antigen - Hepatitis C antibody - HIV-1 and HIV-2 antibodies - Rapid drug screen, urine; Future Encounter for supervision of normal first in first trimester ([facility]) - Rapid drug screen, urine; Future Nurse Note: Pt desires [place] billion to one. Pt was advised to do both [place] and labs @ [facility]. Follow Up: Patient is to have labs drawn at directed and return to office for initial OB appointment with provider. Patient may call office as needed with any concerns or questions. Nurse Visit Completed by: Ginger Cisse MA documented in this encounter [facility] 06-21-2025 Telephone encounter Note Form atting of this note might be different from the original. Patient notified [facility] 06-21-2025 Miscellaneous Notes Formattin [...] with the Clotrimazole. documented in this encounter [facility] 06-21-2025 Telephone encounter Note Form atting of this note might be different from the original. Please let pt know that her urine culture came back negative for infection. She can stop the Keflex. Needs to make sure she stays hydrated, drinking plenty of water. Contact office if symptoms do not continue to improve with the Clotrimazole. [facility] 06-19-2025 History of Presen t illness Narrative Images from the original note were not included. Subjective Patient ID: Maren Campos is a 20 y.o. female who presents for possible yeast infection. Maren is present today for evaluation of possible yeast infection. Admits she thinks it has improved, on 06/14/25 a Clotrimazole cream was sent in. She did do a test at home and it came back positive but wants to do another one here. She did see Dr. Martinez for her first but would like to look into [place] for a new emergency response technician. Last period was started 05/08/2025 and ended [...] Color, UA 06/19/2025 Dark Cristiane Final Clarity, 06/19/2025 Hazy Final Glucose, UA 06/19/2025 Negative Negative - 1999(110) ++++ mg/dL Final Bilirubin, UA 06/19/2025 Moderate [...] Provided pt with referral to OB at [facility] at her request. Positive test ([facility]) - HCG, quantitative, - Ambulatory referral to [...] 07/21/2025) for Wellness. documented in this encounter [facility] 10-04-2024 History of Presen t illness Narrative TB checked in right arm. Negative for TB. documented in this encounter [facility] 09-27-2024 History of Presen t illness Narrative Images from the original note were not included. Subjective Patient ID: Maren Campos is a 19 y.o. female who [...] for Nurse visits. documented in this encounter [facility] 08-18-2024 History of Presen t illness Narrative Images from the original note were not included. Subjective Patient ID: Maren Campos is a 19 y.o. female who presents for depression. Maren is present today for follow up depression. [...] Medication Follow Up. documented in this encounter [facility] 08-04-2024 History of Presen t illness Narrative Images from the original note were not included. Subjective Patient ID: Maren Campos is a 19 y.o. female who presents for wart removal. Maren is present today for wart removal on [...] fail to improve. documented in this encounter [facility] 08-03-2024 Telephone encounter Note Form atting of this note might be different from the original. Message was sent to pt through [employer]. I did call and LM on pt's voicemail to confirm she received the results, and to call back with questions if needed. [facility] 08-03-2024 Miscellaneous Notes Formattin g of this note might be different from the original. Message was sent to pt through [employer]. I did call and LM on pt's [...] drinks at all. documented in this encounter [facility] 08-02-2024 Telephone encounter Note Form atting of this note might be different from the original. Please let pt know that her swab came back positive for bacterial vaginosis and yeast. Finish Fluconazole as prescribed. Metronidazole sent in for her to cover the BV. Encourage probiotic while on antibiotic. No alcohol while on medications if she drinks at all. T [facility] 08-01-2024 History of Presen t illness Narrative Images from the original note were not included. Subjective Patient ID: Maren Campos is a 19 y.o. female who presents for yeast infection. Maren is present today for evaluation of yeast [...] follow-ups on file. documented in this encounter [facility] 07-20-2024 History of Presen t illness Narrative Images from the original note were not included. Subjective Patient ID: Maren Campos is a 19 y.o. female who [...] of sinuses show Chronic sinusitis Post depression ([facility]) Past Surgical History: Procedure Laterality [...] follow-ups on file. documented in this encounter [facility] 07-13-2024 History of Presen t illness Narrative Images from the original note were not included. Subjective Patient ID: Maren Campos is a 19 y.o. female who presents for wart removal Maren is present today for a wart removal. [...] fail to improve. documented in this encounter [facility] 06-28-2024 History of Presen [...] on 06/28/2024 7:56 AM. Subjective Patient ID: Maren Campos is a 19 y.o. female who presents for ER Follow-up (Pt missed a step and sprained her ankle , XR was normal ). Pt went to [facility] on 06/16 for she missed a stepped [...] follow-ups on file. documented in this encounter [facility] 06-07-2024 History of Presen [...] note were not included. Subjective Patient ID: Maren Campos is a 19 y.o. female who [...] to episode of care 6 weeks follow-up ([facility]) Folliculitis Other specified disease of hair and hair follicles Amenorrhea- Primary Absence of menstruation Positive test ([facility]) examination or test, positive result Dark urine Other nonspecific finding on examination of urine Acute cystitis with hematuria [facility] Folliculitis- Primary Other specified disease of hair and hair follicles Flexural eczema Other atopic dermatitis and related conditions Wart of hand Wart of hand- Primary Sprain of right ankle, unspecified ligament, sequela- Primary Post depression Mental disorders of mother, complicating , childbirth, or the puerperium, unspecified as to episode of care 6 weeks follow-up ([facility]) Folliculitis Other specified disease of hair and hair follicles Missed menses , unspecified gestational age ([facility]) Encounter for supervision of normal first in first trimester ([facility]) documented in this encounter [facility] Summary Purpose Family History No Family History Records FoundNo Family History Records FoundNo Family History Records FoundNo Family History Records Found Advance Directives No Advanced Directives Records FoundNo Advanced Directives Records FoundNo Advanced Directives Records FoundNo Advanced Directives Records Found Additional Source Comments INFORMATION SOURCE (unrecogn ized section and content) DATE CREATED AUTHOR 03/20/2023 [facility] DATE CREATED AUTHOR AUTHOR'S ORGANIZ ATION 06/18/2024 [facility] DATE CREATED AUTHOR AUTHOR'S ORGANIZ ATION 06/21/2025 [facility] DATE CREATED AUTHOR AUTHOR'S ORGANIZ ATION 07/18/2025 [facility] Care Teams (unrecognized sec tion and content) Aquatic Biologist Relationship Specialty Start Date End Date Regine Soares MD [address] [address] PCP - General Family Medicine 03/11/23 Aquatic Biologist Relationship Specialty Start Date End Date Regine Soares MD 112 [facility] [address] [place] [address] PCP - General Family Medicine 03/11/23 Aquatic Biologist Relationship Specialty Start Date End Date Regine Soares MD [address] [address] PCP - General Family Medicine 03/11/23 Aquatic Biologist Relationship Specialty Start Date End Date Regine Soares MD [address] [facility] [address] [place] [address] PCP - General Family Medicine 03/11/23 Aquatic Biologist Relationship Specialty Start Date End Date Regine Soares MD [address] [facility] [address] [place] [address] PCP - General Family Medicine 03/11/23 Aquatic Biologist Relationship Specialty Start Date End Date Regine Soares MD [address] [facility] [address] [place] [address] PCP - General Family Medicine 03/11/23 Aquatic Biologist Relationship Specialty Start Date End Date Regine Soares MD [address] [facility] [address] [place] [address] PCP - General Family Medicine 03/11/23 Aquatic Biologist Relationship Specialty Start Date End Date Regine Soares MD [address] [facility] [address] [place] [address] PCP - General Family Medicine 03/11/23 Aquatic Biologist Relationship Specialty Start Date End Date Regine Soares MD [address] [facility] [address] [place] [address] PCP - General Family Medicine 03/11/23 Aquatic Biologist Relationship Specialty Start Date End Date Regine Soares MD [address] [facility] [address] [place] [address] PCP - General Family Medicine 03/11/23 Aquatic Biologist Relationship Specialty Start Date End Date Regine Soares MD [address] [facility] [address] [place] [address] PCP - General Family Medicine 03/11/23 Aquatic Biologist Relationship Specialty Start Date End Date Regine Soares MD [address] [facility] [address] [place] [address] PCP - General Family Medicine 03/11/23 Aquatic Biologist Relationship Specialty Start Date End Date Regine Soares MD [address] [facility] [address] [place] [address] PCP - General Family Medicine 03/11/23 Aquatic Biologist Relationship Specialty Start Date End Date Regine Soares MD [address] [facility] [address] [place] [address] PCP - General Family Medicine 03/11/23 Reason for Visit (unrecogniz ed section and content) Reason Comments Annual Exam Reason Comments ER Follow-up Pt missed a step and sprained her ankle , XR was normal Reason Comments wart on hand Reason Comments wart removal Reason Comments Amenorrhea FOR RECORDS PERTAINING TO PATIENTS WHO ARE [...] BE BASED ON THE PRIMARY CLINICAL RECORDS. [employer] [facility]. provides no warranty or guarantee of the accuracy or completeness of information in this document.
[2025-07-27 13:30] LABS: Hematocrit 39.3 % (36.0-48.0); Hemoglobin 13.6 g/dL (12.0-16.0); Immature Granulocytes Abs Auto 0.01 10^3/uL (0.00-0.03); Immature Granulocytes Pct Auto 0.2 % (0.0-0.5); Lymphocytes Absolute Auto 1.5 10^3/uL (1.2-3.8); Mean Corpuscular HGB Conc 34.6 g/dL (29.9-35.2); Mean Corpuscular Hemoglobin 28.3 pg (26.7-34.0); Mean Corpuscular Volume 81.9 fL (81.0-99.0); Platelet Count 248 10^3/uL (150-450); Red Blood Count 4.80 10^6/uL (4.20-5.40); White Blood Count 6.5 10^3/uL (4.0-11.0)
[2025-07-27 13:59] LABS: Cannabinoid Screen Urine NEGATIVE (NEGATIVE); Methamphetamines Screen Urine NEGATIVE (NEGATIVE); Tricyclic Antidepressant Urine NEGATIVE (NEGATIVE)
[2025-07-28 08:09] LABS: Rubella Antibodies, IgG 4.39 index (Immune >0.99)
[2025-07-28 13:09] LABS: Rapid Plasma Reagin, Quant Non Reactive titer (NonRea<1:1)
== END 2025-07-27 12:53 | disposition home or self-care (01) ==
LOC: LAB 12:54
PROVIDERS: PCP Family Medicine; Visit Provider Obstetrics & Gynecology
DX: Z34.01 Encounter for supervision of normal first pregnancy, first trimester (principal); N92.6 Irregular menstruation, unspecified
CPT/HCPCS: 36415; 80307; 83036; 85025; 86592; 86762; 86803; 86850; 86900; 86901; 87086; 87340; 87389

== ENCOUNTER 2025-09-11 14:45 | Outpatient (REF) | payer OTHER, SELFPAY ==
--- OUTSIDE RECORDS SUMMARY | 2025-09-11 10:30 | XMS_ITS | Encounter Summary ---
Author Organization [facility] Address [address] [place] [address] Care Team Providers Care Thermoforming Operator Name Role Phone Denita Curry MD Primary Care Provider [phone] Reason for Visit * ReasonCommentsRoutine Visit Encounter Details DateTypeDepartmentCare Team (Latest Contact Info)Wddcaohyniw87/01/2025 10:30 AM ESTRoutine [facility] [address] [facility] [address] Joanna Monroe PA [address] [facility] [address] [place], [facility]11 Second trimester ([facility]); 17 weeks gestation of ([facility]); Screening, , for anatomic survey ([facility]) Social History Tobacco UseTypesPacks/DayYears UsedDateSmoking Tobacco: NeverSmokeless Tobacco: NeverAlcohol UseStandard Drinks/WeekCommentsNever0 (1 standard drink = 0.6 oz pure alcohol)Caffeine: nonePHQ-2AnswerDate RecordedPatient Health Questionnaire- 2 Mwplg215Estimated Date of XfrfjwsmQrhkvehfLzr15/10/2026Based on Ultrasound, FHR- 171Sex and Gender InformationValueDate RecordedSex Assigned at BirthNot on fileLegal QrdZknpyt65/15/2023 7:10 PM EDTGender IdentityNot on fileSexual OrientationNot on filedocumented as of this encounter Last Filed Vital Signs Vital SignReadingTime TakenCommentsBlood Koppgpyu577/7609/11/2025 11:01 AM EST Pulse--Temperature--Respiratory Rate--Oxygen Saturation--Inhaled Oxygen Concentration--Qvvanc25.7 kg (147 lb)09/11/2025 11:01 AM ESTHeight--Body Mass Index26.0409 11:06 AM EDTdocumented in this encounter Progress Notes * FRANCESCO Salmon - 09/11/2025 10:30 AM EST Reason for Appointment: Patient ID: Maren Haro is a 20 y.o. female who presents for Routine Visit Patient presents today for Return OB appointment. MEDICATIONS Current Outpatient Medications Medication Instructions albuterol HFA 90 mcg/act inhaler inhale 2 puffs by mouth every 4 to 6 hours if needed for shortnessof breath / wheezing fluticasone (Cutivate) 0.05 % cream Topical, 2 times daily metoclopramide (REGLAN) 10 mg, Oral, 3 times daily before meals, Take 1 tablet by mouth 30 minutes prior to meals 3 times daily as needed for nausea. multivitamin () 27-0.8 MG tablet 1 tablet, Oral, Daily ALLERGIES Allergies Allergen Reactions Penicillin G Hives Penicillins Hives, Rash and Unknown PROBLEMS Active Ambulatory Problems Diagnosis Date Noted Otitis externa 10/20/2019 Folliculitis 07/28/2023 Flexural eczema 07/28/2023 Wart of hand 07/28/2023 Sprain of right ankle 06/28/2024 Post depression 08/18/2024 Overweight 09/27/2024 Resolved Ambulatory Problems Diagnosis Date Noted Sinusitis 12/14/2018 Past Medical History: Diagnosis Date COVID 10/15/2020 ETD (eustachian tube dysfunction) History of CT scan 03/17/[address] scan 01/01/2019 HISTORY PAST MEDICAL HISTORY SOCIAL HISTORY Past Medical History: Diagnosis Date COVID 10/15/2020 positive Non immunized ETD (eustachian tube dysfunction) History of CT scan 03/17/2018 CT scan of the Spine is negative History of CT scan 01/01/2019 of sinuses show Chronic sinusitis Post depression Social History Tobacco Use Smoking status: Never Smokeless tobacco: Never Vaping Use Vaping status: Never Used Substance Use Topics Alcohol use: Never Comment: Caffeine: none Drug use: Never FAMILY HISTORY Family History Problem Relation Name Age of Onset Hypertension Maternal Grandfather SURGICAL HISTORY Past Surgical History: Procedure Laterality Date ADENOIDECTOMY 2010 MYRINGOTOMY W/ TUBES Bilateral 07/2012 Dr. Finch OTHER SURGICAL HISTORY 08/28/2015 r/o R tube and paper patch TONSILLECTOMY 2010 TandA WISDOM TOOTH EXTRACTION 04/2021 REVIEW OF SYSTEMS Review of Systems: Review of Systems Constitutional: Negative. HENT: Negative. Eyes: Negative. Respiratory: Negative. Cardiovascular: Negative. Gastrointestinal: Negative. Genitourinary: Negative. Musculoskeletal: Negative. Skin: Negative. Neurological: Negative. All other systems reviewed and are negative. Hematological: Negative. Endocrine: Negative. Allergic/Immunologic: Negative. OBJECTIVE Objective: Physical Exam Constitutional: Appearance: Normal appearance. Genitourinary: Right Adnexa: not tender and no mass present. Left Adnexa: not tender and no mass present. No cervical discharge. Breasts: Breasts are soft. Right: Normal. Left: Normal. HENT: Head: Normocephalic. Nose: Nose normal. Mouth/Throat: Mouth: Mucous membranes are moist. Cardiovascular: Rate and Rhythm: Normal rate. Pulmonary: Effort: Pulmonary effort is normal. Abdominal: General: Bowel sounds are normal. Palpations: Abdomen is soft. Musculoskeletal: General: Normal range of motion. Cervical back: Normal range of motion. Neurological: General: No focal deficit present. Mental Status: She is alert. Skin: General: Skin is warm and dry. Psychiatric: Mood and Affect: Mood normal. Vitals and nursing note reviewed. Exam conducted with a map clerk present. Vitals: Estimated body mass index is 26.04 kg/m?? as calculated from the following: Height as of 06/19/25: 5' 3 . Weight as of this encounter: 147 lb. BP: 118/76 Patient's last menstrual period was 05/08/2025. ASSESSMENT & PLAN ICD-10-CM 1. Second trimester ([facility]) Z34.92 SURESWAB(R) ADVANCED VAGINITIS PLUS, TMA CHLAMYDIA TRACHOMATIS (GENITO/STI) Neisseria gonorrhea DNA probe, direct Pap Smear Alpha fetoprotein, maternal Alpha fetoprotein, maternal 2. 17 weeks gestation of ([facility]) Z3A.17 POCT urinalysis dipstick manually resulted 3. Screening, , for anatomic survey ([facility]) Z36.89 US OB 14+ weeks anatomy scan US OB 14+ weeks anatomy scan Assessment/Plan Return OB/Annual Exam: Patient presents today for a annual exam/routine obstetrics appointment. Patient is currently 93i6hyniaeiyb. Patient states she is doing well but has complaints of nausea in the morning. Pap and cultures was obtained without difficulty and patient was given orders for anatomy scan and msAFP to be obtained. Orders Placed This Encounter Procedures US OB 14+ weeks anatomy scan CHLAMYDIA TRACHOMATIS (GENITO/STI) Neisseria gonorrhea DNA probe, direct Alpha fetoprotein, maternal POCT urinalysis dipstick manually resulted Follow Up: Patient is to return to office in 4 weeks for routine OB appointment. Documented by Lorri Li CST on behalf of: FRANCESCO Salmon documented in this encounter Plan of Treatment DateTypeDepartmentCare Team (Latest Contact Info)Vgzbhddgqvj12/30/2025 10:00 AM ESTAncillary Procedure [facility] [address] [place] [address] 10/10/2025 11:20 AM ESTRoutine [facility] [address] [place] [address] Joanna Monroe PA [address] [facility] [place] [address] NameTypePriorityAssociated DiagnosesOrder ScheduleSURESWAB(R) ADVANCED VAGINITIS PLUS, TMAPathology and CytologyRoutine Second trimester ([facility]) Ordered: 09/11/2025HLAMYDIA TRACHOMATIS (GENITO/STI)LabRoutine Second trimester ([facility]) Ordered: 09/11/2025Neisseria gonorrhea DNA probe, directLabRoutine Second trimester ([facility]) Ordered: 09/11/2025Pap SmearPathology and CytologyRoutine Second trimester ([facility]) Ordered: 09/11/2025US OB 14+ weeks anatomy scanImagingRoutine Screening, , for anatomic survey ([facility]) Expected: 09/11/2025, Expires: 12/10/2025lpha fetoprotein, maternalLabRoutine Second trimester ([facility]) Expected: 09/11/2025 (Approximate), Expires: 11/12/2025documented as of this encounter Procedures Procedure NamePriorityDate/TimeAssociated DiagnosisCommentsPOCT URINALYSIS THYVQNWVNlmphqj09/01/2025 11:02 AM EST 17 weeks gestation of ([facility]) documented in this encounter Results * (ABNORMAL) POCT urinalysis dipstick manually resulted (09/11/2025 11:02 AM EST)ComponentValueRef RangeTest MethodAnalysis TimePerformed AtPathologist SignatureColor, UAYellowClarity, UAClearGlucose, UANegativeNegative - 2000(110) ++++ mg/dLBilirubin, UANegativeNegative - 4(70) +++ mg/dLKetones, UA NegativeNegative - 160(16) ++++ mg/dLSpec Grav, UA1.0151 - 1.03Blood, UA NegativeNegative - 50 Charlie/mcLpH, UA6.55 - 9Protein, UANegativeNegative - 2000(20) ++++ mg/dLUrobilinogen, UA1.00.2 - 12 mg/dLLeukocytes, UA1+Negative - 500+++ Pricilla/mcLNitrite, UANegativeNegative - PositiveSpecimen (Source) Anatomical Location / LateralityCollection Method / VolumeCollection Time Received DskwHkrvz30/01/2025 11:02 AM EST Narrative Authorizing ProviderResult TypeResult StatusJoanna Monroe [employer] [facility] CLINICOINT OF CARE TEST ENTER/EDIT ORDERABLESFinal Result documented in this encounter Visit Diagnoses Diagnosis Second trimester ([facility]) state, incidental 17 weeks gestation of ([facility]) Screening, , for anatomic survey ([facility]) Encounter for anatomic survey documented in this encounter Care Teams Team MemberRelationshipSpecialtyStart DateEnd Date Denita Curry MD [address] [place] [address] [address] PCP - GeneralFamily Medicine03/11/23documented as of this encounter
--- OUTSIDE RECORDS SUMMARY | 2025-09-11 14:50 | XMS_ITS | Clinical Summary ---
Author Organization [employer] Address [id number] [address] [place] [address] Care Team Providers Care Business Quality Assurance Analyst Name Role Phone Denita Curry MD Primary Care Provider [phone] Allergies Active AllergyReactionsCriticalityNoted UjkzStcnbnyjHyxkrahqlePbtoz73/25/2024 Medications MedicationSigDispense QuantityRefillsLast FilledStart DateEnd DateStatus citalopram (CeleXA) 20 mg tablet Take 1 tablet (20 mg total) by mouth in the morning.Active norethindrone ac-eth estradioL (FEMHRT 10/16) 1-5 mg-mcg tablet Take by mouth daily.Active Social History Tobacco UseTypesPacks/DayYears UsedDateSmoking Tobacco: NeverSmokeless Tobacco: Never Tobacco Cessation:Counseling Given: Not Answered Alcohol UseStandard Drinks/WeekCommentsNever0 (1 standard drink = 0.6 oz pure alcohol)ChildcareAnswerDate YnjcwarvQfaevtkycFuyzcda74/12/2019EmploymentAnswer Date UktukfrsFsitsjkonoWylxgyl30/12/2019Hunger ScreeningAnswerDate Recorded Within the past 12 months we worried whether our food would run out before we got money to buy more.Never True06/16/2024Within the past 12 months the food we bought just didn't last and we didn't have money to get more.Never True 06/16/2024CommentsNoSex and Gender InformationValueDate RecordedSex Assigned at BirthNot on fileLegal GboDhdkif20/06/2015 12:05 PM EDTGender IdentityNot on fileSexual OrientationNot on file Last Filed Vital Signs Vital SignReadingTime TakenCommentsBlood Tuchuruz577/8445706/16/2024 9:53 PM EDT Wuyhr40051/05/2024 9:53 PM HTVIeehvktpmup79 ??C (98.6 ??F)06/16/2024 9:53 PM EDT Respiratory Uszq087606/16/2024 9:53 PM EDTOxygen Dhvvemldph32%06/16/2024 9:53 PM EDTInhaled Oxygen Concentration--Hypvmh02.3 kg (166 lb)06/16/2024 9:53 PM EDT Pwagxa042 cm (5' 3 )06/16/2024 9:53 PM EDTBody Mass Index29.41006/16/2024 9:53 PM EDT Plan of Treatment Health MaintenanceDue DateLast DoneCommentsDepression Spyydlxlr40/24/2015Pap Smear2024OVID-19 Vaccine ( season)/08/2022, 01/29/2022Influenza Gcpxsog63/, 06/01/2020, 07/21/2017, Additional history existsAdult BMI Imykksqvg67/02/2024Tobacco Llrfklyuu92/TaP,Tdap and Td Vaccines (7 - Td or Tdap) /02/2016, 06/26/2008, 08/12/2004, Additional history exists Medical Devices Not on file Insurance * Guarantor: Maren HaroAccount TypeRelation to PatientDate of BirthPhoneBilling AddressPersonal/VeqalsHimv2003 [address] [place] [address] Care Teams Team MemberRelationshipSpecialtyStart DateEnd Denita Curry MD [place] [address] PCP - Generalmily Medicine02/04/24
--- OUTSIDE RECORDS SUMMARY | 2025-09-11 14:50 | XMS_ITS | Encounter Summary ---
Author Organization [facility] Address [address] [place] [address] Care Team Providers Care Ripsawyer Name Role Phone Dneita Curry MD Primary Care Provider [phone] Encounter Details DateTypeDepartmentCare Team (Latest Contact Info)Xmhanlddpnh21/01/2025amboo flowsheet [facility] [address] [facility] [place] [address] Joanna Monroe PA [address] [facility] [address] [place], [place] [id number] Social History Tobacco UseTypesPacks/DayYears UsedDateSmoking Tobacco: NeverSmokeless Tobacco: NeverAlcohol UseStandard Drinks/WeekCommentsNever0 (1 standard drink = 0.6 oz pure alcohol)Caffeine: nonePHQ-2AnswerDate RecordedPatient Health Questionnaire- 2 Wmrxd167Estimated Date of AoiqfohsXhftvfoaPfv63/10/2026Based on Ultrasound, FHR- 171Sex and Gender InformationValueDate RecordedSex Assigned at BirthNot on fileLegal QsiYbvqqu26/15/2023 7:10 PM EDTGender IdentityNot on fileSexual OrientationNot on filedocumented as of this encounter Plan of Treatment DateTypeDepartmentCare Team (Latest Contact Info)Htuuobemlbt08/30/2025 10:00 AM ESTAncillary Procedure [facility] [address] [facility] [place] [id number] 10/10/2025 11:20 AM ESTRoutine [facility] [address] [facility] [place] [address] Joanna Monroe PA [address] [facility] [address] [place], [place] [id number] documented as of this encounter Visit Diagnoses Not on filedocumented in this encounter Care Teams Team MemberRelationshipSpecialtyStart DateEnd Date Denita Curry MD [address] [address] PCP - GeneralFamily Medicine03/11/23documented as of this encounter
--- OUTSIDE RECORDS SUMMARY | 2025-09-11 14:50 | XMS_ITS | Clinical Summary ---
Author Organization [facility] Healthcare Address [address] [place] [address] Care Team Providers Care Fern Cutter Name Role Phone Denita Soares MD Primary Care Provider [phone] Allergies Active AllergyReactionsCriticalityNoted DateCommentsPenicillin LMmyde9302/04/2024 PenicillinsHives,Rash,DodpnsxGav07/10/2015 Medications MedicationSigDispense QuantityRefillsLast FilledStart DateEnd DateStatus fluticasone (Cutivate) 0.05 % cream Indications:Flexural eczemaApply topically 2 (two) times a day 15 g ctive Additional Information Patient taking differently:Topical 2 times daily, Morning, Bedtime,PRN, Reported on 06/19/2025 albuterol HFA 90 mcg/act inhaler inhale 2 puffs by mouth every 4 to 6 hours if needed for shortness of breath / wxwzhzho29/07/2024ctive multivitamin () 27-0.8 MG tablet Indications:Positive test ([facility])Take 1 tablet by mouth Daily 90 tablet 5Active metoclopramide (Reglan) 10 MG tablet Indications:First trimester ([facility]),13 weeks gestation of ([facility])Take 1 tablet (10 mg) by mouth in the morning and 1 tablet (10 mg) at noon and 1 tablet (10 mg) in the evening. Take before meals. Take 1 tablet by mouth 30 minutes prior to meals 3 times daily as needed for nausea. 90 tablet 311/512/5Active Active Problems ProblemNoted DateDiagnosed EczlSvojacegou96/17/2024Post depression 08/18/2024Sprain of right ankle06/28/2024 Assessment & Plan (06/28/2024 11:17 AM EDT): Wrap and elevate Okeyeqxxwznr93/17/2023 Assessment & Plan (06/28/2024 11:16 AM EDT): [...] the risk of antibiotic induced diarrhea Flexural ejmnyk7107/28/2023 Assessment & Plan (07/28/2023 3:51 PM EDT): Potent steroid cream called in. Avoid face and groin application. Wart of hand07/28/2023 Assessment & Plan (06/07/2024 11:50 AM EDT): [...] F/U in 2 weeks as needed Otitis ncyxevx4210/20/2019Estimated Date of AbjtsbfgDxvghwydFdd15/10/2026 Based on Ultrasound, FHR- 171 Resolved Problems ProblemNoted DateDiagnosed DateResolved YgjqWwypdwuuv78 Encounters DateTypeDepartmentCare PrzfGpfwfdfjonz10/01/2025 10:30 [place] [address] Joanna Monroe PA Second trimester ([facility]); 17 weeks gestation of ([facility]); Screening, , for anatomic survey ([facility])09/11/2025amboo [place] [address] Joanna Monroe PA 08/14/2025 2:10 [place] [address] Zeinab Martinez DO First trimester ([facility]); 13 weeks gestation of ([facility])08/14/2025amboo [place] [address] Zeinab Martinez DO 08/04/2025Patient Outreach [facility] [address] [place] [address] Joanna Roland LPN 08/02/2025b[place] [address] Argentina Thompson MA 5Clinisync Result Encounter [facility] External Department Unsolicited Provider, Generic External Data 07/17/2025bstract [facility] [address] [place] [address] Joanna Roland LPN 07/14/2025linisync Result Encounter NOMS External Department Unsolicited Provider, Generic External Data 07/13/2025 1:30 PM [place] [address] GA: 8w4d10/01/2025Telephone [facility] [address] [address] Argentina Thompson MA 06/21/2025Telephone [facility] [address] [facility] [address] [place] [phone] Ashtyn Bruce PA 06/21/2025bstract [facility] [address] [facility] [address] [place] [address] Denita Soares MD 06/20/2025Telephone [facility] [address] [facility] [address] [place] [address] Ashtyn Bruce PA 06/19/2025 11:00 AM EDTOffice Visit [facility] [address] [facility] [address] [place] [phone] Ashtyn Bruce, FRANCESCO Amenorrhea (Primary Dx); Positive test ([facility]); Dark urine; Acute cystitis with ittlqemlj36/08/2025amboo flowsheet [facility] [address] [facility] [address] [place] [phone] Ashtyn Bruce, PA 06/19/20258495Gxquaq25/02/2025Telephone [facility] [address] [facility] [address] [place] [address] Ashtyn Bruce, PA from Last 3 Months Immunizations ImmunizationAdministration DatesNext McaZFyC6606/26/2008DTaP, Unspecified 08/12/2004,2003,2003,2003HPV 9-Qfwrrk5504/15/2016,02/14/2016Hep A, ped/adol, 2 dose02/14/2016Hep B, Adolescent or Pmrvnlhky2003HiB, agxerrtfxik96/01/2004,2003Hib / Hep B010/20/2003,2003IPV06/26/2008, 2003,2003,2003Influenza, injectable, MDCK, preservative free, tgltvafagrmr12/15/2023Influenza, injectable, koubboodfqws27/10/2017Influenza, injectable, quadrivalent, preservative free06/01/2020Influenza, seasonal, edllgsalnt69/09/2004,2003Influenza, seasonal, injectable, preservative free07/20/2024MMR06/26/2008,05/15/2004Meningococcal B, Omv03/17/2016,02/14/2016 Meningococcal DHR8W6205/10/2021,02/14/2016PPD Test10/06/2024,09/27/2024 Pneumococcal Conjugate PCV 7110/12/2003,05/15/2004,2003,2003Tdap 02/14/20169531Grbcbbyle31/06/2016,05/15/2004 Family History Medical HistoryRelationNameCommentsHypertensionMaternal GrandfatherRelationName StatusCommentsFatherAliveMaternal GrandfatherMotherAlive Social History Tobacco UseTypesPacks/DayYears UsedDateSmoking Tobacco: NeverSmokeless Tobacco: Never Tobacco Cessation:Counseling Given: Not Answered Alcohol UseStandard Drinks/WeekCommentsNever0 (1 standard drink = 0.6 oz pure alcohol)Caffeine: nonePHQ-2AnswerDate RecordedPatient Health Questionnaire-2 Zpgdh229Estimated Date of UvdkqovnYncfgfrhVev05/10/2026ased on Ultrasound, FHR- 171Sex and Gender InformationValueDate RecordedSex Assigned at BirthNot on fileLegal BpsThdsvd54/15/2023 7:10 PM EDTGender IdentityNot on file Sexual OrientationNot on file Last Filed Vital Signs Vital SignReadingTime TakenCommentsBlood Yivvkuok958/7612 11:01 AM EST Rwglo610906/19/2025 11:06 AM EDTTemperature--Respiratory Hzlv4831 11:06 AM EDTOxygen Hcuusrquym71%06/19/2025 11:06 AM EDTInhaled Oxygen Concentration-- Dlounj07.7 kg (147 lb)09/11/2025 11:01 AM IOYAipxlo133 cm (5' 3 )06/19/2025 11:06 AM EDTBody Mass Index26.04006/19/2025 11:06 AM EDT Plan of Treatment DateTypeDepartmentCare Team (Latest Contact Info)Osstszzhgzn22/30/2025 10:00 AM ESTAncillary Procedure [facility] [address] [place] [address] [place] [phone] 10/10/2025 11:20 AM ESTRoutine [facility] [address] [address] Joanna Monroe PA [address] [facility] [address] [place], [place] [phone] Health MaintenanceDue DateLast DoneCommentsCOVID-19 Vaccine ( season) 505/08/2022, 01/29/2022Influenza Vaccine (#1)2024, 08/26/2023, 06/01/2020, Additional history existsPneumococcal Vaccine: Pediatrics (0 to 5 Years) and At-Risk Patients (6 to 64 Years)Aged Out 08/12/2004, 05/15/2004, 2003, Additional history existsNo longer eligible based on patient's age to complete this topic Procedures Procedure NamePriorityDate/TimeAssociated DiagnosisCommentsPOCT URINALYSIS VRIPJGWYMncalfu44/01/2025 11:02 AM EST 17 weeks gestation of ([facility]) CULTURE, URINE, SKXCHCDHmsskov41/03/2025 4:05 PM EST Missed menses POCT URINALYSIS GIKLGSNDBpesyom15/03/2025 2:33 PM EST 13 weeks gestation of ([facility]) HBSAG YDZXZPWkxniai92/16/2025 1:13 PM EDT RAPID PLASMA REAGIN, MSJRBNnrwubt95/16/2025 1:13 PM EDT MLR HEMOGLOBIN D2MDbunopb43/16/2025 1:13 PM EDT HCV ANTIBODY RFX TO QUANT GRLOegbzdu80/16/2025 1:13 PM EDT ALL RUBELLA IGG BIKnagzxt34/16/2025 1:13 PM EDT HIV AB/P24 AG WITH RLNPKHBchmfid77/16/2025 1:13 PM EDT ALL TYPE AND WOXHJHTwwivez20/16/2025 1:13 PM EDT ALL CBC WITH AUTO VQJPLsbmibc73/16/2025 1:13 PM EDT BOX KLHLHcockig01/16/2025 1:13 PM EDT URINE CULTURE, SWTNWJHUxvbrtu99/16/2025 1:01 PM EDT TBH DRUG SCREEN RAPID (URINE)Nepfqnr4007/27/2025 1:01 PM EDT US OB LAOQJOBGRPCN28/03/2025 1:10 PM EDT POCT , WBMDEUziprje62/02/2025 2:21 PM EDT Missed menses POCT URINALYSIS BSUJUOIHPhrwnsg71/02/2025 2:20 PM EDT Missed menses HCG, TOTAL, KRGsetnrx50/08/2025 11:24 AM EDT Amenorrhea Positive test ([facility]) URINARY TRACT INFECTION (HTRX)Hdplkns3206/19/2025 11:18 AM EDT Acute cystitis with hematuria POCT URINALYSIS XVEEXCWHDkacqkx25/08/2025 11:15 AM EDT Dark urine POCT , LJPKMJzstevd25/08/2025 11:13 AM EDT Amenorrhea from Last 3 Months Results * (ABNORMAL) POCT urinalysis dipstick manually resulted (09/11/2025 11:02 AM EST) Only the most recent of4 resultswithin the time period is included. ComponentValueRef RangeTest MethodAnalysis TimePerformed AtPathologist Signature Color, UAYellowClarity, UAClearGlucose, UANegativeNegative - 2000(110) ++++ mg/dLBilirubin, UANegativeNegative - 4(70) +++ mg/dLKetones, UANegativeNegative - 160(16) ++++ mg/dLSpec Grav, UA1.0151 - 1.03Blood, UANegativeNegative - 50 Charlie/mcLpH, UA6.55 - 9Protein, UANegativeNegative - 2000(20) ++++ mg/dL Urobilinogen, UA1.00.2 - 12 mg/dLLeukocytes, UA1+Negative - 500+++ Pricilla/mcL Nitrite, UANegativeNegative - PositiveSpecimen (Source)Anatomical Location / LateralityCollection Method / VolumeCollection TimeReceived ZaioRfnit64/01/2025 11:02 AM EST Narrative Authorizing ProviderResult TypeResult StatusAmy Rehabilitation Hospital of Rhode IslandOINT OF CARE TEST ENTER/EDIT ORDERABLESFinal Result * Urine culture (08/14/2025 4:05 PM EST)Specimen (Source)Anatomical Location / LateralityCollection Method / VolumeCollection TimeReceived TimeUrineUrine specimen obtained by clean catch procedure / Unknown Narrative Authorizing ProviderResult TypeResult StatusCorecally [facility] - GENERAL ORDERABLESFinal ResultPerforming OrganizationAddressCity/State/ZIP Code Phone Number EXTERNAL LAB * BOX TEST (07/27/2025 1:13 PM EDT)ComponentValueRef RangeTest MethodAnalysis TimePerformed AtPathologist SignatureBOX TEST SENT VTAGYRSYBYOONY5CYLGQXYV Specimen (Source)Anatomical Location / LateralityCollection Method / Volume Collection TimeReceived Time07/27/2025 1:13 PM EDT1 1:18 PM EDT Narrative [facility] - 07/27/2025 1:28 PM EDT Authorizing ProviderResult TypeResult StatusGeneric External Data ProviderLAB BLOOD ORDERABLESFinal ResultPerforming OrganizationAddressty/State/ZIP Code Phone Number [facility] * HBSAG SCREEN (07/27/2025 1:13 PM EDT)ComponentValueRef RangeTest Method Analysis TimePerformed AtPathologist SignatureHBSAG SCREENNegativeNegativeTBH Comment: Performed at: ??[address] ??[id number] Engineering Drafter: Kuldeep Wells PhD, Phone: ??[phone] Specimen (Source)Anatomical Location / LateralityCollection Method / Volume Collection TimeReceived Time07/27/2025 1:13 PM EDT1 1:18 PM EDT Narrative [facility] - 07/29/2025 5:07 AM EDT Authorizing ProviderResult TypeResult StatusGeneric External Data ProviderLAB BLOOD ORDERABLESFinal ResultPerforming OrganizationAddressty/State/ZIP Code Phone Number [facility] * RAPID PLASMA REAGIN, QUANT (07/27/2025 1:13 PM EDT)ComponentValueRef RangeTest MethodAnalysis TimePerformed AtPathologist SignatureRAPID PLASMA REAGIN, QUANT Non ReactiveNonRea<1:1 titerTBHComment: Please Note: This test does not meet current guidelines for screening and diagnosis of syphilis. This test is intended for following treatment response in patients being treated for syphilis infection. To screen for syphilis infection, a reflex cascade that includes both RPR and a treponema-specific assay should be utilized, such as Treponema pallidum (Syphilis) Screening [place] (477425) or Rapid Plasma Reagin (RPR) Test With Reflex to Quantitative RPR and Confirmatory Treponema pallidum Antibodies (527887). Performed at: ??[facility] ??[id number] Engineering Drafter: Kuldeep Wells PhD, Phone: ??[phone] Specimen (Source)Anatomical Location / LateralityCollection Method / Volume Collection TimeReceived Time07/27/2025 1:13 PM EDT1 1:18 PM EDT Narrative [facility] - 07/29/2025 5:07 AM EDT Authorizing ProviderResult TypeResult StatusGeneric External Data ProviderLAB BLOOD ORDERABLESFinal ResultPerforming OrganizationAddDanville State Hospital/[facility] Code Phone Number [facility] * HIV AB/P24 AG WITH REFLEX (07/27/2025 1:13 PM EDT)ComponentValueRef RangeTest MethodAnalysis TimePerformed AtPathologist SignatureHIV AB/P24 AG SCREENNon ReactiveNon ReactiveTBHComment: HIV-1/HIV-2 antibodies and HIV-1 p24 antigen were NOT detected. There is no laboratory evidence of HIV infection. HIV Negative Performed at: ??[facility] ??[id number] Engineering Drafter: Kuldeep Wells PhD, Phone: ??[phone] Specimen (Source)Anatomical Location / LateralityCollection Method / Volume Collection TimeReceived Time07/27/2025 1:13 PM EDT1 1:18 PM EDT Narrative [facility] - 07/28/2025 5:13 AM EDT Authorizing ProviderResult TypeResult StatusGeneric External Data ProviderCLARA [facility] BLOOD ORDERABLESFinal ResultPerforming OrganizationAddSelect Specialty Hospital [facility] Johnstownty/[facility] Code Phone Number [facility] * HCV ANTIBODY RFX TO QUANT PCR (07/27/2025 1:13 PM EDT)ComponentValueRef Range Test MethodAnalysis TimePerformed AtPathologist SignatureHCV ABNon ReactiveNon ReactiveTBHINTERPRETATION:Comment.TBHComment: Not infected with HCV unless early or acute infection is suspected (which may be delayed in an immunocompromised individual), or other evidence exists to indicate HCV infection. Performed at: ??[facility] ??[id number] Engineering Drafter: Kuldeep Wells PhD, Phone: ??[phone] Specimen (Source)Anatomical Location / LateralityCollection Method / Volume Collection TimeReceived Time07/27/2025 1:13 PM EDT1 1:18 PM EDT Narrative [facility] - 07/28/2025 8:09 AM EDT Authorizing ProviderResult TypeResult StatusGeneric External Data ProviderLAB BLOOD ORDERABLESFinal ResultPerforming OrganizationAddressty/State/ZIP Code Phone Number [facility] * MLR HEMOGLOBIN A1C (07/27/2025 1:13 PM EDT)ComponentValueRef RangeTest Method Analysis TimePerformed AtPathologist SignatureGLYCOHEMOGLOBIN A1C4.94.5 - 6.2 %TBHComment: ADA RECOMMENDED LIMIT 4.0 - 6.0 ADA THERAPEUTIC TARGET < 7.0 ACTION SUGGESTED > 7.0 ESTIMATED AVERAGE CZWEQUI13bg/dLTBHSpecimen (Source)Anatomical Location / LateralityCollection Method / VolumeCollection TimeReceived Time07/27/2025 1:13 PM EDT1 1:18 PM EDT Narrative [facility] - 07/28/2025 3:43 PM EDT Authorizing ProviderResult TypeResult StatusGeneric External Data Provider CLINISYNCFinal ResultPerforming OrganizationAddSelect Specialty Hospital - Johnstownty/State/ZIP CodePhone Number [facility] * ALL TYPE AND SCREEN (07/27/2025 1:13 PM EDT)ComponentValueRef RangeTest Method Analysis TimePerformed AtPathologist SignatureBLOOD TYPEO PositiveTBHANTIBODY SCREENNEGATIVETBHSpecimen (Source)Anatomical Location / LateralityCollection Method / VolumeCollection TimeReceived Time07/27/2025 1:13 PM EDT1 1:18 PM EDT Narrative [facility] - 07/27/2025 3:21 PM EDT [facility] , ?? Authorizing ProviderResult TypeResult StatusGeneric External Data Provider CLINISYNCFinal ResultPerforming OrganizationAddSelect Specialty Hospital [facility] Johnstownty/State/ZIP CodePhone Number [facility] * ALL RUBELLA IGG AB (07/27/2025 1:13 PM EDT)ComponentValueRef RangeTest Method Analysis TimePerformed AtPathologist SignatureRUBELLA ANTIBODIES, IGG4.39 Immune >0.99 indexTBHComment: Non-immune <0.90 ?Equivocal ??0.90 - 0.99 Immune >0.99 Performed at: ??[facility] [address] [place], [place] ??[id number] Engineering Drafter: Kuldeep Wells PhD, Phone: ??[phone] Specimen (Source)Anatomical Location / LateralityCollection Method / Volume Collection TimeReceived Time07/27/2025 1:13 PM EDT1 1:18 PM EDT Narrative [facility] - 07/28/2025 8:09 AM EDT Authorizing ProviderResult TypeResult StatusGeneric External Data Provider CLINISYNCFinal ResultPerforming OrganizationAddressCity/State/ZIP CodePhone Number [facility] * (ABNORMAL) ALL CBC WITH AUTO DIFF (07/27/2025 1:13 PM EDT)ComponentValueRef RangeTest MethodAnalysis TimePerformed AtPathologist SignatureTBH WBC6.54.0 - 11.0 10 3/uLTBHTBH RBC4.804.20 - 5.40 10 6/uLTBHTBH HGB13.612.0 - 16.0 g/dLTBH TBH HCT39.336.0 - 48.0 %TBHTBH MCV81.981.0 - 99.0 fLTBHTBH MCH28.326.7 - 34.0 pgTBHTBH MCHC34.629.9 - 35.2 g/dLTBHTBH RDW13.211.0 - 15.0 %TBHTBH CJZ040631 - 450 10 3/uLTBHTBH MPV11.29.5 - 13.5 fLTBHNEUTROPHILS PERCENT AUTO68.343.0 - 75.0 %TBHLYMPHOCYTES PERCENT AUTO23.220.5 - 60.0 %TBHMONOCYTES PERCENT AUTO7.2 1.7 - 12.0 %TBHTBH EO %0.6(L)0.9 - 7.0 %TBHBASOPHILS PERCENT AUTO0.50.2 - 2.0 %TBHIMMATURE GRANULOCYTES PCT AUTO0.20.0 - 0.5 %TBHNEUTROPHILS ABSOLUTE AUTO 4.51.4 - 6.5 10 3/uLTBHLYMPHOCYTES ABSOLUTE AUTO1.51.2 - 3.8 10 3/uLTBH MONOCYTES ABSOLUTE AUTO0.50.3 - 0.8 10 3/uLTBHTBH EO #0.00.0 - 0.7 10 3/uLTBH BASOPHILS ABSOLUTE AUTO0.00.0 - 0.1 10 3/uLTBHIMMATURE GRANULOCYTES ABS AUTO 0.010.00 - 0.03 10 3/uLTBHSpecimen (Source)Anatomical Location / Laterality Collection Method / VolumeCollection TimeReceived Time07/27/2025 1:13 PM EDT 07/27/2025 1:18 PM EDT Narrative [facility] - 07/27/2025 1:31 PM EDT Authorizing ProviderResult TypeResult StatusGeneric External Data Provider CLINISYNCFinal ResultPerforming OrganizationAddressCity/State/ZIP CodePhone Number [facility] * URINE CULTURE, ROUTINE (07/27/2025 1:01 PM EDT)ComponentValueRef RangeTest MethodAnalysis TimePerformed AtPathologist SignatureURINE CULTURE, ROUTINE ??Urine Culture, Routine TBHURINE CULTURE, ROUTINECulture shows less than 10,000 colony forming units of bacteria perTBHURINE CULTURE, ROUTINEmilliliter of urine. This colony count is not generally consideredTBHURINE CULTURE, ROUTINEto be clinically significant. TBHURINE CULTURE, ROUTINEPerformed at: [facility] HospitalTBHURINE CULTURE, AEHVAIL[address] [place], [place] [id number] CULTURE, ROUTINELab Director: Kuldeep Wells PhD, Phone: [phone] (Source)Anatomical Location / LateralityCollection Method / VolumeCollection TimeReceived Time 07/27/2025 1:01 PM EDT1 1:18 PM EDT Narrative [facility] - 07/29/2025 12:07 AM EDT Authorizing ProviderResult TypeResult StatusGeneric External Data ProviderLAB BLOOD ORDERABLESFinal ResultPerforming OrganizationAddressCity/State/ZIP Code Phone Number [facility] * [facility] DRUG SCREEN RAPID (URINE) (07/27/2025 1:01 PM EDT)ComponentValueRef Range Test MethodAnalysis TimePerformed AtPathologist SignatureCANNABINOID SCREEN URINENEGATIVENEGATIVETBHPHENCYCLIDINE SCREEN URINENEGATIVENEGATIVETBHCOCAINE SCREEN URINENEGATIVENEGATIVETBHMETHAMPHETAMINES SCREEN URINENEGATIVENEGATIVE TBHOPIATE SCREEN URINENEGATIVENEGATIVETBHAMPHETAMINE SCREEN URINENEGATIVE NEGATIVETBHBENZODIAZEPINES SCREEN URINENEGATIVENEGATIVETBHTRICYCLIC ANTIDEPRESSANT URINENEGATIVENEGATIVETBHMETHADONE SCREEN URINENEGATIVENEGATIVE TBHBARBITURATES SCREEN URINENEGATIVENEGATIVETBHOXYCODONE SCREEN URINENEGATIVE NEGATIVETBHBUPRENORPHINE SCREEN URINENEGATIVENEGATIVETBHComment: DRUG CLASS TEST SYSTEM CUT-OFF CONCENTRATIONS ARE FOLLOWS: AMP (Amphetamine): 500 ng/mL BAR (Barbiturates): 200 ng/mL BZO (Benzodiazepines): 150 ng/mL BUP (Buprenorphine): 10 ng/mL MCKENZIE (Cocaine): 150 ng/mL mAMP (Methamphetamine): 500 ng/mL MTD (Methadone): 200 ng/mL OPI (Opiates): 100 ng/mL OXY (Oxycodone): 100 ng/mL PCP (Phencyclidine): 25 ng/mL THC (Cannabinoids): 50 ng/mL TCA (Trycyclic Antidepressants): 300 ng/mL Specimen (Source)Anatomical Location / LateralityCollection Method / Volume Collection TimeReceived Time07/27/2025 1:01 PM EDT1 1:18 PM EDT Narrative [facility] - 07/27/2025 1:59 PM EDT Authorizing ProviderResult TypeResult StatusGeneric External Data Provider CLINISYNCFinal ResultPerforming OrganizationAddressCity/State/ZIP CodePhone Number [facility] * OB TRANSVAGINAL (07/14/2025 1:10 PM EDT)Anatomical RegionLateralityModality OtherSpecimen (Source)Anatomical Location / LateralityCollection Method / VolumeCollection TimeReceived Time07/14/2025 1:10 PM EDT Narrative 07/14/2025 1:12 PM EDT [facility] ?[address] ? [place] [address] ? Ultrasound Report ? Signed ? Patient: ANDRES,SOLO M ?MR#: [id number] ?? : 2005 ?Acct:[id number] ?? Age/Sex: 20 / F ?ADM Date: 07/13/ ?? Loc: US ? Attending Carolina EliseO. ? Ordering Physician: Zeinab Martinez D.O. ?? Date of Service: 07/13/25 ?? Procedure(s): US OB transvaginal ?? Accession Number(s): [id number] ? cc: DENITA SOARES ; Zeinab Martinez D.O. ? [facility] ? [address] ? [place] [address] ? Patient Name: ?? SOLO CAMPOS ? MRN: [facility]:[id number] ? date: 2005 ?Sex: F ?? Assigned Patient Location: ?? Current Patient Location: ? Accession/Order Number: [id number] ?? Exam Date: 07/13/2025 ??13:06 ?Report Date: 07/14/2025 ??13:10 ? At the request of: ?? ZEINAB ??MICHELLE ??DO ? Procedure: ??US OB transvaginal ? OB ultrasound. ? Reason for exam:Missed menses. ? Comparison:None ? Technique: Transvaginal as well as transvaginal imaging of the gravid uterus ?? was obtained. ? Findings: ? Single live intrauterine 8 weeks 4 days by CRL, [place]OCK 02/18/2026. ? heart rate 1 71 bpm. ??No free fluid. ??Ovaries appear unremarkable. ? US/US OB transvaginal ?? Impression: ? Single live intrauterine 8 weeks 4 days by CRL, [place] 02/18/2026. ? Impression dictated by: Bri Vargas Jr..Armaan ??07/14/2025 1:10 PM ? Dictation Location: [facility]--23 ? Electronically authenticated by: [id number] ??Y ?? Date: 07/14/2025 ??13:10 ? Dictated By: ?Tree Augustin M.D. ? Signed By: ?07/14/25 1312 ? DD/ 1310 ? TD/TT: ? On Site Manager: Procedure Note Radiology, Radiologist, MD - 07/14/2025 [place] [address] Ultrasound Report Signed Patient: SOLO [facility]AMPOS [facility]#: [id number] : 2005Acct:[id number] Age/Sex: 20 / FADM Date: 07/13/25 Loc: US Attending Dr: Zeinab Martinez D.O. Ordering Physician: Zeinab Martinez D.O. Date of Service: 07/13/25 Procedure(s): US OB transvaginal Accession Number(s): [id number] cc: DENITA SOARES ; Zeinab Martinez D.O. [place] [address] Patient Name: SOLO CAMPOS MRN: [facility]:[id number] date: 2005 Sex: F Assigned Patient Location: US Current Patient Location: Accession/Order Number: [id number] Exam Date: 07/13/2025 13:06 Report Date: 07/14/2025 13:10 At the request of: ZEINAB MARTINEZ DO Procedure: US OB transvaginal OB ultrasound. Reason for exam:Missed menses. Comparison:None Technique: Transvaginal as well as transvaginal imaging of the graviduterus was obtained. Findings: Single live intrauterine 8 weeks 4 days by CRL, [place] 02/18/2026. heart rate 1 71 bpm. No free fluid. Ovaries appear unremarkable. US/US OB transvaginal Impression: Single live intrauterine 8 weeks 4 days by CRL, [place] 02/18/2026. Impression dictated by: Tree Augustin Jr., D.O. 07/14/2025 1:10 PM Dictation Location: [place] [address] Electronically authenticated by: [id number] Y Date: 3:10 Dictated By: Tree Augustin M.D. Signed By:07/14/25 1312 DD/ 1310 TD/TT: On Site Manager: Authorizing ProviderResult TypeResult StatusGeneric External Data Provider CLINISYNC IMAGINGFinal Result * (ABNORMAL) POCT , urine manually resulted (07/13/2025 2:21 PM EDT) Only the most recent of2 resultswithin the time period is included. ComponentValueRef RangeTest MethodAnalysis TimePerformed AtPathologist Signature Preg Test, UrPositiveNegativeSpecimen (Source)Anatomical Location / Laterality Collection Method / VolumeCollection TimeReceived DpjoUfjkd44/02/2025 2:21 PM EDT Narrative Authorizing ProviderResult TypeResult StatusCorey Michelle DOPOINT OF CARE TEST ENTER/EDIT ORDERABLESFinal Result * (ABNORMAL) HCG, quantitative, (06/19/2025 11:24 AM EDT)Component ValueRef RangeTest MethodAnalysis TimePerformed AtPathologist SignatureHCG, TOTAL, QN11,647(H)mIU/mLQUESTComment: ?Reference Range Non or premenopausal <5 Postmenopausal <10 Values from different assay methods may vary. The use of this assay to monitor or to diagnose patients with cancer or any condition unrelated to has not been cleared or approved by the FDA or the cook helper preserves of the assay. Specimen (Source)Anatomical Location / LateralityCollection Method / Volume Collection TimeReceived TimeBloodVenous blood specimen / Pbnccio4306/19/2025 11:24 AM EDT06/19/2025 11:24 AM EDT Narrative Resulting Agency Comment Performing Organization Information ?Site ID: QPT ?Name: [facility] ?Address: [address] [place] [address], [address] [place] [id number] ?Director: Javon Walsh MD Authorizing ProviderResult TypeResult StatusAshtyn HENRIQUEZ BLOOD ORDERABLESFinal ResultPerforming OrganizationAddressCity/State/ZIP CodePhone Number [facility] * URINARY TRACT INFECTION (HTRX) (06/19/2025 11:18 AM EDT)ComponentValueRef RangeTest MethodAnalysis TimePerformed AtPathologist SignatureACINETOBACTER WDXXPJHJ614.961 - 24.689 ppm06/21/2025 9:32 AM EDTHealthTrackRx at LabKing[facility] ACINETOBACTER BAUMANIINot Miwkkego94.961 - 24.689 ppm06/21/2025 9:32 AM EDT [facility] Health ServicesCITROBACTER LRGCDCEC147.000 - 32.015 ppm06/21/2025 9:32 AM EDTHealthTrackRx at LabPortCITROBACTER FREUNDIINot Bbndhdal05.000 - 32.015 ppm06/21/2025 9:32 AM EDTHealthTrackRx at LabPortENTEROBACTER AEROGENES, TCDMYGB156.000 - 32.290 ppm06/21/2025 9:32 AM EDTHealthTrackRx at LabPortENTEROBACTER AEROGENES, CLOACAENot Pjnostcd51.000 - 32.290 ppm 06/21/2025 9:32 AM EDTHealthTrackRx at LabPortENTEROCOCCUS FAECALIS, FAECIUM0 26.000 - 33.043 ppm06/21/2025 9:32 AM EDTHealthTrackRx at LabPortENTEROCOCCUS FAECALIS, FAECIUMNot Ediytspc31.000 - 33.043 ppm06/21/2025 9:32 AM EDT [facility] at LabPortESCHERICHIA ANZX975.000 - 28.500 ppm06/21/2025 9:32 AM EDTHealthTrackRx at LabPortESCHERICHIA COLINot Mandqmqh03.000 - 28.500 ppm 06/21/2025 9:32 AM EDTHealthTrackRx at LabPortKLEBSIELLA PNEUMONIAE, OXYTOCA0 23.000 - 31.865 ppm06/21/2025 9:32 AM EDTHealthTrackRx at LabPortKLEBSIELLA PNEUMONIAE, OXYTOCANot Nspslpyi20.000 - 31.865 ppm06/21/2025 9:32 AM EDT [facility] at LabPortMORGANELLA GKIBDTWS563.961 - 24.689 ppm06/21/2025 9:32 AM EDTHealthTrackRx at LabPortMORGANELLA MORGANIINot Qcetfdag70.961 - 24.689 ppm06/21/2025 9:32 AM EDTHealthTrackRx at LabPortPROTEUS MIRABILIS, VULGARIS0 23.000 - 28.500 ppm06/21/2025 9:32 AM EDTHealthTrackRx at LabPortPROTEUS MIRABILIS, VULGARISNot Yuojuuih61.000 - 28.500 ppm06/21/2025 9:32 AM EDT [facility] at LabPortPSEUDOMONAS KWHBAMJUUJ280.000 - 31.801 ppm06/21/2025 9:32 AM EDTHealthTrackRx at LabPortPSEUDOMONAS AERUGINOSANot Baamgmtx14.000 - 31.801 ppm06/21/2025 9:32 AM EDTHealthTrackRx at LabPortSTAPHYLOCOCCUS AUREUS0 26.000 - 31.595 ppm06/21/2025 9:32 AM EDTHealthTrackRx at LabPort STAPHYLOCOCCUS AUREUSNot Fovbcadq87.000 - 31.595 ppm06/21/2025 9:32 AM EDT [facility] at LabPortSTREPTOCOCCUS AGALACTIAE (GROUP B STREP)026.000 - 32.435 ppm06/21/2025 9:32 AM EDTHealthTrackRx at LabPortSTREPTOCOCCUS AGALACTIAE (GROUP B STREP)Not Badmhzpn26.000 - 32.435 ppm06/21/2025 9:32 AM EDTHealthTrackRx at LabPortCANDIDA ALBICANS, PARAPSILOSIS, YCAMLKUCGA308.000 - 30.347 ppm06/21/2025 9:32 AM EDTHealthTrackRx at LabPortCANDIDA ALBICANS, PARAPSILOSIS, TROPICALISNot Uphexoiq09.000 - 30.347 ppm06/21/2025 9:32 AM EDT [facility] LabPortCANDIDA VWAPYELT629.000 - 31.618 ppm06/21/2025 9:32 AM EDTHealthTrackRx at LabPortCANDIDA GLABRATANot Cftzxsnx51.000 - 31.618 ppm 06/21/2025 9:32 AM EDTHealthTrackRx at LabPortCANDIDA YDAOBE735.000 - 30.873 ppm06/21/2025 9:32 AM EDTHealthTrackRx at LabPortCANDIDA KRUSEINot Detected 23.000 - 30.873 ppm06/21/2025 9:32 AM EDTHealthTrackRx at LabPortSERRATIA DWXUOLYVSE331.000 - 31.581 ppm06/21/2025 9:32 AM EDTHealthTrackRx at LabPort SERRATIA MARCESCENSNot Xfsdtmem35.000 - 31.581 ppm06/21/2025 9:32 AM EDT [facility] at LabPortSTREPTOCOCCUS PYOGENES (GROUP A STREP)019.961 - 24.689 ppm06/21/2025 9:32 AM EDTHealthTrackRx at LabPortSTREPTOCOCCUS PYOGENES (GROUP A STREP)Not Azzzldkr06.961 - 24.689 ppm06/21/2025 9:32 AM EDTHealthTrackRx at LabKing'[facility] And Health ServicesSTAPHYLOCOCCUS EPIDERMIDIS, HAEMOLYTICUS, LUGDUNENSIS, SAPROPHYTICUS (EHBBL834.961 - 24.689 ppm06/21/2025 9:32 AM EDTHealthTrackRx at LabPort STAPHYLOCOCCUS EPIDERMIDIS, HAEMOLYTICUS, LUGDUNENSIS, SAPROPHYTICUS (URINANot Vmjjsoso91.961 - 24.689 ppm06/21/2025 9:32 AM EDTHealthTrackRx at LabPort STAPHYLOCOCCUS EPIDERMIDIS, HAEMOLYTICUS, LUGDUNENSIS, SAPROPHYTICUS (URINA0 19.961 - 24.689 ppm06/21/2025 9:32 AM EDTHealthTrackRx at LabPort STAPHYLOCOCCUS EPIDERMIDIS, HAEMOLYTICUS, LUGDUNENSIS, SAPROPHYTICUS (URINANot Wxpfcyhi76.961 - 24.689 ppm06/21/2025 9:32 AM EDTHealthTrackRx at LabPort Specimen (Source)Anatomical Location / LateralityCollection Method / Volume Collection TimeReceived WgakEznyj24/08/2025 11:18 AM EDT06/21/2025 3:24 AM EDT Narrative Authorizing ProviderResult TypeResult StatusAshtyn Adkins [facility]ol[facility] BLOOD ORDERABLESFinal ResultPerforming OrganizationAddressCity/State/ZIP CodePhone Number [facility] LabPort [address] [place] [address] from Last 3 Months Insurance Care Teams Team MemberRelationshipSpecialtyStart DateEnd Date Denita Soares MD [address] [address] PCP - [facility]Law[facility]03/11/23
--- OUTSIDE RECORDS SUMMARY | 2025-09-11 15:04 | XMS_ITS | CCD ---
Author Organization [facility] CliniSyma Care Team Providers Care Keyboard Teacher Name Role Phone RODGER, DR WEINER Primary [...] DR WEINER Primary Care Unavailable HUDSON ., JOANNA Consulting Unavailable HUDSON ., JOANNA Admitting Unavailable HUDSON ., JOANNA Attending Unavailable RODGER, DR WEINER Primary Care [...] Unavailable MICHELLE ., DR ARRIOLA Admitting Unavailable HUDSON ., JOANNA Admitting Unavailable HUDSON ., JOANNA Attending Unavailable RODGER, DR WEINER [facility] Care Unavailable HUDSON ., JAONNA Consulting Unavailable RODGER, DR WEINER Primary Care Unavailable ALEXIS LEARY Admitting Unavailable ALEXIS LEARY Attending Unavailable GRECHNY ., FRANCESCO HORNE Consulting UnavailNE Onofre Consulting Unavailable KARASIK ., DR SCOTT Attending Unavailabl e KARASIK ., DR SCOTT Admitting Unavailabl e RODGER, DR WEINER [facility] Care Unavailable KARASIK ., DR SCOTT Consulting Unavailsindhu e WEST, DR FARNAZ Catalan Consulting Unavailable RODGERREGINE Primary Care Unavailable RODGERREGINE Primary Care Unavailable EDIL STEEL Attending Unavailable EDIL STEEL Attending Unavailable EDIL STEEL Referring Unavailable RODGERREGINE Primary Care Unavailable [facility] ASHTYN MUNIZ Attending Unavailable ASHTYN MUNIZ Attending Unavailable ASHTYN MUNIZ Attending Unavailable ASHTYN MUNIZ Attending Unavailable ALVARO MARTINEZ Attending Unavailable Allergies Allergy ClassificationReported Allergen(s)Allergy TypeDate of OnsetReaction(s) Facility (1 source)AmoxicillinDrug Exptvsi96-56-4900Gui[facility] (1 source)PenicillinsDrug allergy (disorder)21-72-0983Lyz [facility] Repository (1 source)Penicillin; Translations: [PENICILLIN]Drug Pvmactl18-25-9498HcfUbhmuj Repository (20 sources)PenicillinsDrug Gwtanai52-21-3489Hnfop, Rash, UnknownNOMS Healthcare Work Phone: Medications Current Medications MedicationDrug Class(es)DatesSig (Normalized)Sig (Original)[id number] 200 actuat albuterol 0.09 mg/actuat metered dose inhaler (20 sources)beta2-Adrenergic AgonistStart: 21-51-9382sisk 2 puff(s) by mouth every four to six hours for wheezingalbuterol HFA 90 mcg/act inhaler inhale 2 puffs by mouth every 4 to 6 hours if needed for shortnessof breath / wheezing 02/16/2024 Activecitalopram 40 mg oral tablet (20 sources)Serotonin Reuptake InhibitorStart: 08-18-2024 End: 24-60-8179xhos 1 tablet by mouth in the morningcitalopram (CeleXA) 40 MG tablet Indications: Post depression Take 1 tablet (40 mg) by mouthin the morning. 30 tablet 2 08/18/2024 06/19/2025 DiscontinuedStart: 03-08-2024 End: 28-32-5635xyay 1 tablet by mouth in the morningcitalopram (CeleXA) 20 MG tablet Indications: Post depression (CMS/HCC) Take 1 tablet (20 mg) by mouth in the morning. 30 tablet 11 06/28/2024 Activeclotrimazole 10 mg/ml vaginal cream (3 sources)Azole AntifungalStart: 06-13-2025 End: 48-07-7161boilcbgtvogp (Lotrimin) 1 % vaginal cream Indications: Vaginal candidiasis Insert 1 applicator intothe vagina in the evening for 7 days 45 g 06/13/2025 06/19/2025 Discontinued (Therapy completed)fluconazole 150 mg oral tablet (5 sources)Azole AntifungalStart: 08-01-2024 End: 38-00-2774lktepzkqjwo (Diflucan) 150 MG tablet Indications: Vaginal discharge Take 1 tablet (150 mg) by mouthDaily for 1 day, THEN 1 tablet (150 mg) Daily for 1 day. Take doses 3 days apart. 2 tablet 08/01/2024 08/04/2024 Discontinued (Therapy completed)fluticasone propionate 0.5 mg/ml topical cream (20 sources)CorticosteroidStart: 14-09-5091vaxftazhxas (Cutivate) 0.05 % cream Indications: Flexural eczema Apply topically 2 (two) times a day 15 g 1 04/01/2024 Activemetoclopramide 10 mg oral tablet (2 sources)Dopamine-2 Receptor AntagonistStart: 08-14-2025 End: 80-80-7954krgkbnlopujlkh (Reglan) 10 MG tablet Indications: First trimester ([facility]) , 13 weeks gestation of ([facility]) Take 1 tablet (10 mg) by mouth in the morning and 1 tablet (10 mg) atnoon and 1 tablet (10 mg) in the evening. Take before meals. Take 1 tablet by mouth 30 minutes prior to meals 3 times daily as needed for nausea. 90 tablet 3 08/14/2025 09/13/2025 ActivemetroNIDAZOLE 500 mg oral tablet (4 sources)Nitroimidazole AntimicrobialStart: 08-02-2024 End: 78-88-5149pzlm 1 tablet by mouth in the morning, then take 1 tablet by mouth in the evening, then take 1 tablet by mouth at bedtimemetroNIDAZOLE (Flagyl) 500 MG tablet Indications: Bacterial vaginosis Take 1 tablet (500 mg) by mouth in the morning and 1 tablet (500 mg) in the evening and 1 tablet (500 mg) before bedtime. Do all this for 7 days. 21 tablet 08/02/2024 08/09/2024 Activemultivitamin () 27-0.8 MG tablet (9 sources)Start: 67-45-3856vagr 1 tablet by mouth once dailymultivitamin () 27-0.8 MG tablet Indications: Positive test ([facility]) Take 1 tablet by mouth Daily 90 tablet 2 06/19/2025 Activenorethindrone 0.35 mg oral tablet (20 sources)Start: 04-01-2024 End: 53-18-5719edsn 1 tablet by mouth in the morningnorethindrone (Jencycla) 0.35 MG tablet Indications: 6 weeks follow-up ([facility]) Take 1 tablet (0.35 mg) by mouth in the morning. 28 tablet 11 06/28/2024 06/19/2025 Discontinued (Therapy completed)ondansetron 4 mg disintegrating oral tablet (3 sources)Serotonin-3 Receptor AntagonistStart: 07-12-2025 End: 40-76-9371ndpy 1 tablet by mouth every six hours for nauseaondansetron ODT (Zofran-ODT) 4 MG disintegrating tablet Indications: Nausea and vomiting in ([facility]) Take 1 tablet (4 mg) by mouth every 6 (six) hours if needed for nausea or vomiting 30 tablet 2 07/12/2025 08/11/2025 Activesulfamethoxazole 800 mg / trimethoprim 160 mg oral tablet (2 sources)Dihydrofolate Reductase Inhibitor Antibacterial, Sulfonamide AntimicrobialStart: 06-28-2024 End: 90-38-8385gdpl 1 tablet by mouth once in the morning, then take 1 tablet by mouth once at bedtimesulfamethoxazole-trimethoprim (Bactrim DS) 800-160 MG per tablet Indications: Folliculitis Take 1 tablet by mouth in the morning and 1 tablet before bedtime. Do all this for 10 days. 20 tablet 06/28/2024 07/08/2024 Active Completed/Discontinued Medications MedicationDrug Class(es)DatesSig (Normalized)Sig (Original)cephalexin 500 mg oral capsule (3 sources)Cephalosporin AntibacterialStart: 06-19-2025 End: 79-67-1499zjoy 1 capsule by mouth in the morningcephalexin (Keflex) 500 MG capsule Indications: Acute cystitis with hematuria Take 1 capsule (500 mg) by mouth in the morning and 1 capsule (500 mg) before bedtime. Do all this for 7 days. 14 mbmtvxh2906/19/2025 06/21/2025 Discontinued (Ineffective) 28-0.8 MG tablet (19 sources)Start: 07-22-2022 End: 77-44-5781Uujxwzzx 28-0.8 MG tablet 1 (one) time each day at the same time. 07/22/2022 08/18/2024 Discontinued (Other)Start: 77-79-3403Gitxswbi 28-0.8 MG tablet 1 (one) time each day at the same time. 07/22/2022 Active Problems Active Problems Problem ClassificationProblemDateDocumented DateEpisodic/ChronicAllergic reactions (20 sources)Flexural eczema; Translations: [Flexural eczema]Onset: 07-28-2023 57-35-6152IranlimOwfef or threatened labor (4 sources)False labor before 37 completed weeks of gestation, third trimester; Translations: [FALSE LABR BEFOR 37 WK GEST 3RD TRI]Onset: 55-03-4148Wubwtyou Genitourinary symptoms and ill-defined conditions (2 sources)Urine looks dark; Translations: [Other abnormal findings in urine] 39-49-8334OvzrmznkIgorahxi; including migraine (1 source)Headache; including migraine; Translations: [HEADACHE UNSPECIFIED] Onset: 82-19-8852Iltfzhkzbugns and screening for infectious disease (6 sources)Contact with and (suspected) exposure to infections with a predominantly sexual mode of transmission; Translations: [Patient encounter status]Onset: 982453-35-3423CrmklhnzNeyluhynzdsl diseases of female pelvic organs (1 source)Bacterial vaginosis; Translations: [Acute vaginitis]40-55-2057Keajcohm Menstrual disorders (5 sources)Amenorrhea; Translations: [Amenorrhea, unspecified]10-78-3857Ucchpic Other complications of (4 sources)Other specified related conditions, third trimester; Translations: [OTH SPEC PREG RELATEDCOND 3RD TRI]Onset: 31-41-7141KkjfelocIbiuz complications of (5 sources)Maternal care for excessive growth, third trimester, not applicable or unspecified; Translations: [MAT CARE EXCSS FTL GRTH 3RD TRI UNS] Onset: 12-45-7721UooymcymYwqqt complications of (4 sources)Uterine size-date discrepancy, third trimester; Translations: [UTERINE SZ-DATE DISCREPANCY 3RD TRI]Onset: 64-29-7758DfrvudavDydck ear and sense organ disorders (20 sources)Otitis externa; Translations: [Unspecified otitis externa, unspecified ear]Onset: 121141-81-2895ZczgeloZpjiz female genital disorders (2 sources)Vaginal discharge; Translations: [Other specified noninflammatory disorders of vagina]52-47-8422ZnpnlqmvRjpfy lower respiratory disease (1 source)Shortness of breath; Translations: [SHORTNESS OF BREATH]Onset: 97-01-5330AkxqxhchVvclb and delivery including normal (20 sources)Encounter for supervision of normal , unspecified, second trimester; Translations: [ state, incidental]Onset: 31-74-3843Nqrnqxav Other screening for suspected conditions (not mental disorders or infectious disease) (1 source)Abnormal findings on diagnostic imaging of other specified body structures; Translations: [ABNORML FIND DX IMG OT BODY STRUC]Onset: 03-05-2023 ChronicOther skin disorders (10 sources)Pain; Translations: [Disorder of the skin and subcutaneous tissue, unspecified]61-01-7154QtenvipyTikfqtnc codes; unclassified (1 source)36 weeks gestation of ; Translations: [36 WEEKS GESTATION OF ]Onset: 03-45-3874DybmrhnkWletxnzq codes; unclassified (1 source)35 weeks gestation of ; Translations: [35 WEEKS GESTATION OF ]Onset: 20-82-4826QqsnszhrDjauqaty codes; unclassified (1 source)Weeks of gestation of not specified; Translations: [WEEKS GESTATION NOT SPEC]Onset: 58-85-4654AuonhlrpGxqndmtl codes; unclassified (1 source)34 weeks gestation of ; Translations: [34 WEEKS GESTATION OF ]Onset: 12-60-8295EaibajdaByurfsat codes; unclassified (1 source)28 weeks gestation of ; Translations: [28 WEEKS GESTATION OF ]Onset: 04-92-9727LoitjqpyIgganzlp codes; unclassified (2 sources)Gestation period, 13 weeks; Translations: [13 weeks gestation of ]13-52-7518DlmuyivoQodabxkhzxah (4 sources)[facility] SPCF DIS/COND COMPL ; Translations: [OT SPCF DIS/COND COMPL ]Onset: 79-34-2237Hczxxudapjgk (3 sources)CONTACT W/AND (SUSP) EXPOS COVID-19; Translations: [CONTACT W/AND (SUSP) EXPOS COVID-19]Onset: 94-07-0841Kljtpoojptxm (1 source)Ankle InjuryOnset: 39-40-8895Vceoluwmiwzn (1 source)LUMP LEFT ARMPITOnset: 86-65-8882Hcmfhvm tract infections (2 sources)Acute cystitis; Translations: [Acute cystitis with hematuria] 97-89-2951Bxkitdjn Past or Other Problems Problem ClassificationProblemDateDocumented DateEpisodic/ChronicHemorrhage during ; abruptio placenta; placenta previa (8 sources)Antepartum hemorrhage, unspecified, unspecified trimester; Translations: [Antepartum hemorrhage, unspecified, second trimester]Onset: 78-65-2747CpbbjixoWabrmpfomwsjp mental health disorders (20 sources) depression; Translations: [ depression]Onset: 765490-10-9409UekfvfswHroyvlrpjon chest pain (4 sources)Other chest pain; Translations: [OTHER CHEST PAIN]Onset: 11-06-2022 EpisodicOther complications of (1 source)Other specified related conditions, second trimester; Translations: [OTH SPEC PREG RELATED COND 2ND TRI]Onset: 46-37-3110PlvprswkXewlq female genital disorders (4 sources)Other specified noninflammatory disorders of vagina; Translations: [OTH SPEC NONINFLAMMATORY D/O VAGINA]Onset: 26-62-1256MrebxjooKarnv nutritional; endocrine; and metabolic disorders (15 sources)Overweight; Translations: [Overweight]Onset: 528010-94-3324 EpisodicOther screening for suspected conditions (not mental disorders or infectious disease) (2 sources)Encounter for screening, unspecified; Translations: [Encounter for other screening for genetic and chromosomal anomalies]Onset: 44-70-3421LffpcthyGbjer skin disorders (20 sources)Folliculitis; Translations: [Follicular disorder, unspecified]Onset: 799197-06-2297ZltgcckfGjqvp upper respiratory infections (20 sources)Sinusitis; Translations: [Chronic sinusitis, unspecified]Onset: 12-14-2018 Resolved: 076823-73-2287DgihrbpSxpjdgxg codes; unclassified (1 source)21 weeks gestation of ; Translations: [21 WEEKS GESTATION OF ]Onset: 70-89-6382CgaqwgxkTtfcxilo codes; unclassified (1 source)20 weeks gestation of ; Translations: [20 WEEKS GESTATION OF ]Onset: 22-19-8671XjvbpdkhHletcsuh codes; unclassified (1 source)18 weeks gestation of ; Translations: [18 WEEKS GESTATION OF ]Onset: 67-53-5695OvfpjpmuRnslquxf codes; unclassified (1 source)15 weeks gestation of ; Translations: [15 WEEKS GESTATION OF ]Onset: 45-03-1438GuiaoyilQmfp and subcutaneous tissue infections (2 sources)Furuncle, unspecified; Translations: [Abscess]Onset: 02-04-2024 EpisodicSprains and strains (20 sources)Sprain of other ligament of right ankle, initial encounter; Translations: [Sprain of right ankle]Onset: 804941-78-4197Jecjzbvf Unclassified (1 source)OTH SPCF DIS/COND COMPL ; Translations: [OTH SPCF DIS/COND COMPL ]Onset: 94-74-5620Nkdwxqjoscvi (1 source)CONTACT W/AND (SUSP) EXPOS COVID-19; Translations: [CONTACT W/AND (SUSP) EXPOS COVID-19]Onset: 83-98-2197Iwlcn infection (20 sources)Hand wart; Translations: [Viral wart, unspecified]Onset: 07-28-2023 86-65-4789Mwekoedl Results Test NameValueInterpretationReference RangeFacilityUrinalysis macro (dipstick) panel (U)on 72-38-8732Ijgemyhkt, UANegativeNegative - 4(70) +++ mg/dLNOMS HealthcareBlood, UAPositiveNegative - 50 Charlie/mcLNOMS HealthcareComment on above: 2+Clarity, UAClearNOMS HealthcareColor, UAYellowNOMS HealthcareGlucose, UA NegativeNegative - 2000(110) ++++ mg/dLNOMS HealthcareInterpretation and review of laboratory resultsAbnormalNOMS HealthcareKetones, UAPositiveNegative - 160(16) ++++ mg/dLNOMS HealthcareComment on above:1+Leukocytes, UANegative Negative - 500+++ Pricilla/mcLNOMS HealthcareNitrite, UANegativeNegative - Positive NOMS HealthcarepH, UA6.05 - 9NOMS HealthcareProtein, UAPositiveNegative - 2000(20) ++++ mg/dLNOMS HealthcareComment on above:TraceSpec Grav, UA1.0301 - 1.03NOMS HealthcareUrobilinogen, UA0.20.2 - 12 mg/dLNOMS HealthcareNOMS HealthcareBOX TESTon 19-01-2597JHX TEST SENT OUTUNITYNOMS DtdthlshunYFY4OPVVG NOMS HealthcareCLINISYNCNOMS HealthcareUS OB TRANSVAGINALon 93-12-2559[place] [address] Ultrasound Report Signed Patient: MAREN CAMPOS MR#: [id number] : 2005 Acct:[id number] Age/Sex: 20 / F ADM Date: 07/13/25 Loc: US Attending Dr: Alvaro Martinez D.O. Ordering Physician: Alvaro Martinez D.O. Date of Service: 07/13/25 Procedure(s): US OB transvaginal Accession Number(s): [id number] cc: REGINE SOARES ; Alvaro Martinez D.O. The [place] [address] Patient Name: MAREN CAMPOS MRN: [id number] date: 2005 Sex: F Assigned Patient Location: US Current Patient Location: Accession/Order Number: [id number] Exam Date: 07/13/2025 13:06 Report Date: 07/14/2025 [...] Jr., D.O. 07/14/2025 1:10 PM Dictation Location: [place] [address] Electronically authenticated by: [id number] Y Date: 07/14/2025 13:10 Dictated By: Tree Augustin M.D. Signed By: 07/14/25 1312 DD/ 1310 TD/TT: Marriage Counselor Minister:BERTAHRadiology, Radiologist, - 07/14/2025 [place] [address] Ultrasound Report Signed Patient: MAREN CAMPOS MR#: [id number] : 2005 Acct:[id number] Age/Sex: 20 / F ADM Date: 07/13/25 Loc: US Attending Dr: Alvaro Martinez D.O. Ordering Physician: Alvaro Martinez D.O. Date of Service: 07/13/25 Procedure(s): US OB transvaginal Accession Number(s): [id number] cc: REGINE SOARES ; Alvaro Martinez D.O. The [place] [id number] Patient Name: MAREN CAMPOS MRN: [id number] date: 2005 Sex: F Assigned Patient Location: US Current Patient Location: Accession/Order Number: [id number] Exam Date: 07/13/2025 13:06 Report Date: 07/14/2025 [...] Jr., D.O. 07/14/2025 1:10 PM Dictation Location: [place] [address] Electronically authenticated by: [id number] Y Date: 07/14/2025 13:10 Dictated By: Tree Augustin M.D. Signed By: 07/14/25 1312 DD/ 1310 TD/TT: Marriage Counselor Minister: JOSE HealthcareRadiology Study observation (narrative)[facility] HealthcareUS OB TRANSVAGINALOrdered By: Radiologist Radiology on 62-23-8704FOOKSoutheast [facility] Work Phone: HCG ( test) Ql (U)on 21-42-7410Wamdiuohqqmmxp and review of laboratory resultsAbnormalNOMN HealthcarePreg Test, UrPositive NegativeNOSaint Francis Medical CenterNOMN HealthcareUrinalysis macro (dipstick) panel (U) Ordered By: Lorri Li on 42-08-8175Wufmbmype, UANegativeNegative - 4(70) +++ mg/dLNOMS HealthcareBlood, UAPositiveNegative - 50 Charlie/mcLNOMN Healthcare Clarity, UAClearNOMS HealthcareColor, UAYellowNOMS HealthcareGlucose, UANegative Negative - 2000(110) ++++ mg/dLNOMN HealthcareInterpretation and review of laboratory resultsAbnormalNOMN HealthcareKetones, UANegativeNegative - 160(16) ++++ mg/dLNOMS HealthcareLeukocytes, UANegativeNegative - 500+++ Pricilla/mcLNOMS HealthcareNitrite, UANegativeNegative - PositiveNOMS HealthcarepH, UA65 - 9NOMS HealthcareProtein, UANegativeNegative - 2000(20) ++++ mg/dLNOMS HealthcareSpec Grav, UA1.021 - 1.03NOMS HealthcareUrobilinogen, UA2.00.2 - 12 mg/dLNOMS Dunlap Memorial HospitalNOMN HealthcareHCG, TOTAL, QNon 25-05-8585HMF [id number] m[IU]/mLHigh Quest DiagnosticsComment on above:Result Comment: Reference Range Non or premenopausal <5 Postmenopausal <10 Values from different assay methods may vary. The use of this assay to monitor or to diagnose patients with cancer or any condition unrelated to has not been cleared or approved by the FDA or the manager international of the assay.Performed By: #### [id number] #### [facility] [address], [address] [place] [address] Loss Prevention Guard: Javon Walsh MDHCG ( test) Ql (U)on 77-07-5641Kivg Test, UrPositiveNegativeNOSouthPointe Hospital HealthcareUrinalysis macro (dipstick) panel (U)on 66-43-7664Yvziztfhc, UAModerateNegative - 4(70) +++ mg/dL NOMS HealthcareBlood, UAPositiveNegative - 50 Charlie/mcLNOMN HealthcareComment on above:smallClarity, UAHazyNOMS HealthcareColor, UADark AmberNOMS Healthcare Glucose, UANegativeNegative - 2000(110) ++++ mg/dLNOMN HealthcareInterpretation and review of laboratory resultsAbnormalSALT LAKE [facility] HealthcareKetones, UANegative Negative - 160(16) ++++ mg/dLNOMN HealthcareLeukocytes, UATraceNegative - 500+++ Pricilla/mcLNOMN HealthcareNitrite, UANegativeNegative - PositiveNOMS HealthcarepH, UA6.55 - 9NOMS HealthcareProtein, UATraceNegative - 2000(20) ++++ mg/dLNOMS HealthcareSpec Grav, UA1.0251 - 1.03NOMS HealthcareUrobilinogen, UA1.00.2 - 12 mg/dLNOMS HealthcareNOMS HealthcareRead PPDon 64-02-2943Peiauubxzaeicy and review of laboratory resultsNormLehigh Valley Hospital - MuhlenbergPurified Protein Derivative Skin Test0 mm- 4.99 mmNOMS HealthcareNOMS HealthcareXR ANKLE RT MIN 3 VWSon 47-50-1928DC ANKLE RT MIN 3 VWSXR ANKLE RT MIN 3 VWS HISTORY: Pain, fall COMPARISON: None FINDINGS: Multiple views right ankle were obtained. Mild lateral soft tissue swelling and joint effusion. No acute fracture or malalignment. IMPRESSION: * No acute osseous abnormality. Finalized by Chidi Lopez MD on 06/16/2024 10:53 [facility] PREG BIOPHY W NON STRESSon 11-66-3026GK PREG BIOPHY W NON STRESS EXAMINATION: US [...] Electronically authenticated by: NE CRUZ Date: 2023-03-11 15:27[facility] PREG GROWTHon 63-18-7084SF PREG GROWTHEXAMINATION: US PREG GROWTH HISTORY: Excessive growth affecting [...] Electronically authenticated by: NE CRUZ Date: 2023-03-11 15:25NoChillicothe VA Medical CenterGROUP B STREP CULTUREon 03-07-2023S. agalactiae Ag Ql (Unsp spec)Isolate 1 Streptococcus agalactiae Moderate growth of ORGANISM 1 Streptococcus agalactiae ANTIBIOTIC M.I.C RX STATUS Benzylpenicillin <=0.06 S F Ampicillin <=0.25 S F Cefotaxime <=0.12 S F Ceftriaxone <=0.12 S F Levofloxacin 0.5 S F Inducible Clindamycin Resistance Neg NEG F Erythromycin <=0.12 S F Clindamycin <=0.25 S F Linezolid <=2 S F Vancomycin 0.5 S F Tetracycline <=0.25 S FNormalThe [facility]cci Hospital LimaComment on above:Performed By: #### GBSCX #### [facility] [address] [place] [address] [address] Christopher HillmanAMNISUREon 07-00-2634UGJRAWMLYbqeqqzvRwrqaaDVSPWZSADws [facility] Hospital LimaComment on above:Performed By: #### AMNI ####[facility] [address] [place] [address]Dr. Christopher HillmanUS PREG CERVICAL LENGTHon 59-77-5664NL PREG CERVICAL LENGTHEXAMINATION: US PREG CERVICAL LENGTH HISTORY: Third trimester COMPARISON: No relevant comparison available. FINDINGS: position: Cephalic presentation, longitudinal lie Placenta: Anterior, grade 3. Cervix: 4.3 cm, closed Heart rate: 138 bpm IMPRESSION: Closed cervix measuring 4.3 cm in length Electronically authenticated by: FARNAZ PELAYO Date: 2023-03-05 16:18NoP[facility] HospitalCULTURE URINEon 81-04-0248NDDOLXQ URINECulture Observations: LIGHT GROWTH OF MIXED GENITAL JELLY. NO POTENTIAL PATHOGENS SEEN.NormalRegency Hospital Cleveland WestComment on above:Performed By: #### URCX ####[facility] [address] [place] [address]DrNing Lacy (CLEAN/CATCH) CHEMICAL LABORATORY TECHNICIAN/MICRO IF IND.on 44-86-8142Zquwjrksl Ql (U)NegativeNormal NEGATIVEThe [facility]cci Hospital LimaComment on above:Performed By: #### UACSIND, UMICRO #### [facility] [address] [place] [address] [address] Christopher HillmanClarity (U)CLEARNormalCLEARRegency Hospital Cleveland WestComment on above: Performed By: #### KELLY UMICRO #### [facility] [address] [place] [address] [address] Christopher Elder (U)LT. YELLOWNormalYELLOWRegency Hospital Cleveland WestComment on above:Performed By: #### KELLY UMICRO #### [facility] [address] [place] [address] [address] Christopher HillmanGlucose Ql (U)NegativeNormalNEGATIVERegency Hospital Cleveland WestComment on above:Performed By: #### KELLY UMICRO #### [facility] [address] [place] [address] [address] Christopher HillmanHemoglobin Ql (U)MODERATEAbnormalNEGATIVEThe [facility] on above:Performed By: #### KELLY UMICRO #### [facility] [address] [place] [address] [address] Christopher Daiones Ql (U)NegativeNormalNEGATIVERegency Hospital Cleveland WestComment on above:Performed By: #### KELLY UMICRO #### [facility] [address] [place] [address] [address] Christopher HillmanLEUKOCYTESMODERATEAbnormalNEGATIVERegency Hospital Cleveland WestComment on above:Performed By: #### KELLY UMICRO #### [facility] [address] [place] [address] [address] Christopher HillmanNitrite Ql (U)NegativeNormalNEGATIVERegency Hospital Cleveland WestComment on above:Performed By: #### KELLY UMICRO #### [facility] [address] [place] [address] [address] Christopher HillmanpH (U)7.0 [pH]Normal5-9The Scci Hospital LimaComment on above: Performed By: #### KELLY UMICRO #### [facility] [address] [place] [address] [address] Christopher Edwards GRAVITY1.424Cbhaua0.005-<=1.025The Scci Hospital LimaComment on above:Performed By: #### KELLY UMICRO #### [facility] [address] [place] [address] [address] Christopher Lacy PROTEINNegativeNormalNEGATIVE/ TRACEThe [facility] Comment on above:Performed By: #### KELLY UMICRO #### [facility] [address] [place] [address] [address] Christopher Aceves MICRO INDINDICATEDNoChillicothe VA Medical CenterComment on above: Performed By: #### KELLY UMICRO #### [facility] [address] [place] [address] Dr. Christopher Buckley Qn (U)0.2 {Maryann'U}/dLNormal0.2 - 1.0The [facility]cci Hospital LimaComment on above:Performed By: #### KELLY UMICRO #### [facility] [address] [place] [address] Dr. Christopher Bueno MICROSCOPIC ONLYon 62-99-9493GYGDFRGYIJZYPJovwdfxgMESG SEEN The Scci [facility] on above:Performed By: #### KELLY UMICRO #### [facility] [address] [place] [address] Dr. Christopher Gomez identified Cx Nom (U)INDICATEDNoChillicothe VA Medical CenterComment on above:Performed By: #### KELLY UMICRO #### [facility] [address] [place] [address] Dr. Christopher Melvin SEENNormalNONE SEENRegency Hospital Cleveland WestComment on above:Performed By: #### EKLLY UMICRO #### [facility] [address] [place] [address] Dr. Christopher Otto LM Nom (Urine sed)NONE SEENNormalNONE SEENRegency Hospital Cleveland WestComthree rivers health hospital on above:Performed By: #### UACSIND, UMICRO #### [facility] [address] [address] [address] White ChangEpithelial cells LM Ql (Urine sed)FEWAbnormalNONE SEEN /RAREThe [facility] LimaComment on above:Performed By: #### VINCENZOCSORLANDO, UMICRO #### [facility] [address] [address] [address] Christopher HillmanMUCOUSNONE SEENNormalNONE SEENThe [facility] LimaComment on above:Performed By: #### VINCENZOCSORLANDO, UMICRO #### [facility] [address] [address] [address] Christopher HillmanQnopfCNF5-3Exbjfons2-6Vjx [facility] LimaComment on above:Performed By: #### KELLY, UMICRO #### [facility] [address] [address] [address] Christopher HillmanMypwuXWK38-13FfzvkjlfACCB SEENThe [facility] LimaComment on above: Performed By: #### KELLY, UMICRO #### [facility] [address] [address] [address] Christopher Maki PREG BIOPHY W NON STRESSon [id number] PREG BIOPHY W NON STRESSEXAMINATION: US PREG BIOPHY W NON STRESS HISTORY: [...] Electronically authenticated by: NE CRUZ Date: 2023 06:22NoChillicothe VA Medical CenterCULTURE URINEon [id number] URINECulture Observations: LIGHT GROWTH OF MIXED GENITAL JELLY. NO POTENTIAL PATHOGENS SEEN.NormalThe Midway HospitalComment on above:Performed By: #### URCX #### [facility] [address] [address] [address] Christopher BarrCARDIO M/2D COMPLETEon [id number] M/2D COMPLETE Patient: MAREN CAMPOS Exam Date: 03/03/2023 : 2005 Gender:F Ordering : DR ALVARO MARTINEZ . Admission #: [id number] Family : Order #: [id number] CLICK HERE TO VIEW EXAM ECHOCARDIOGRAM REPORT [...] by: Emery Krishna M.D. on 03/03/2023 at 15:23[facility] (CLEAN/CATCH) CHEMICAL LABORATORY TECHNICIAN/MICRO IF IND.on 98-38-0792Bebgheodr Ql (U)Negative NormalNEGATIVERegency Hospital Cleveland WestComment on above:Performed By: #### DDIM #### [facility] [address] [place] [address] Dr. Christopher Adame (U)CLEARNormalCLEARRegency Hospital Cleveland WestComment on above: Performed By: #### DDIM #### [facility] [address] [place] [address] Dr. Christopher Elder (U)LT. YELLOWNormalYELLOWRegency Hospital Cleveland WestComment on above:Performed By: #### DDIM #### [facility] [address] [place] [address] Dr. Christopher HillmanGlucose Ql (U)NegativeNormalNEGWilson Memorial HospitalComment on above:Performed By: #### DDIM #### [facility] [address] [place] [address] Dr. Christopher HillmanHemoglobin Ql (U)NegativeNormalNEGWilson Memorial Hospital Comment on above:Performed By: #### DDIM #### [facility] [address] [address] [address] Christopher Magaña Ql (U)NegativeNormalNEGATIVERegency Hospital Cleveland WestComment on above:Performed By: #### DDIM #### [facility] [address] [address] [address] Christopher HillmanLEUKOCYTESMODERATEAbnormalNEGATIVEThe [facility] LimaComment on above:Performed By: #### DDIM #### [facility] [address] [place] [address] Dr. Christopher Mcarthurtrshirley Ql (U)NegativeNormalNEGATIVEThe [facility] LimaComment on above:Performed By: #### DDIM #### [facility] [address] [place] [address] Dr. Christopher Saunders (U)7.0 [pH]Normal5-9The [facility] LimaComment on above: Performed By: #### DDIM #### [facility] [address] [address] [address] Christopher HillmanSPEC GRAVITY<=1.086Txepvfaq9.005-<=1.025The [facility] Comment on above:Performed By: #### DDIM #### [facility] [address] [place] [address] Dr. Christopher Lacy PROTEINNegativeNormalNEGATIVE/ TRACERegency Hospital Cleveland West Comment on above:Performed By: #### DDIM #### [facility] [address] [place] [address] Dr. Christopher Aceves MICRO INDINDICATEDNormalThSelect Medical Specialty Hospital - Boardman, IncComment on above: Performed By: #### DDIM #### [facility] [address] [place] [address] Dr. Christopher Sewellgen Qn (U)0.2 {Maryann'U}/dLNormal0.2 - 1.0Reg[facility] Hospital Cleveland WestComment on above:Performed By: #### DDIM #### [facility] [address] [place] [address] Dr. Christopher Bueno MICROSCOPIC ONLYon 55-68-1816YVVNDIYKFUWNSMvbsieksWHIS SEEN The [facility]Com[facility] on above:Performed By: #### DDIM #### [facility] [address] [place] [address] Dr. Christopher Gomez identified Cx Nom (U)INDICATEDNoalThSelect Medical Specialty Hospital - Boardman, IncComthree rivers health hospital on above:Performed By: #### DDIM #### [facility] [address] [place] [address] Dr. Christopher Melvin SEENNormalNONE SEENRegency Hospital Cleveland WestComthree rivers health hospital on above:Performed By: #### DDIM #### [facility] [address] [address] [address] Christopher Ennisystals LM Nom (Urine sed)NONE SEENNormalNONE SEENThe [facility]Comthree [facility] on above:Performed By: #### DDIM #### [facility] [address] [place] [address] Dr. Christopher Hamptonthelial cells LM Ql (Urine sed)FEWAbnormalNONE SEEN /RAREThe [facility]Comthree [facility] on above:Performed By: #### DDIM #### [facility] [address] [place] [address] Dr. Christopher CamejoCOUSTRACEAbnormalNONE SEENRegency Hospital Cleveland WestComthree rivers health hospital on above:Performed By: #### DDIM #### [facility] [address] [place] [address] Dr. Christopher HillmanGfhhvLYA2-6Mgulvjpj1-8Dct [facility] on above:Performed By: #### DDIM #### [facility] [address] [address] [address] Christopher HillmanPjlrnNAT32-56PgohbceqRXBQ SEENRegency Hospital Cleveland WestComthree rivers health hospital on above: Performed By: #### DDIM #### [facility] [address] [place] [address] Dr. Christopher Maki PREG BIOPHY W NON STRESSon 66-98-2415SX PREG BIOPHY W NON STRESSEXAMINATION: US PREG BIOPHY W NON STRESS HISTORY: Uterine size for dates discrepancy COMPARISON: Ultrasound anatomy 11/17/2022 FINDINGS: BREATHING MOVEMENTS: 2.0 GROSS BODY MOVEMENTS: 2.0 TONE: 2.0 QUALITATIVE AMNIOTIC FLUID VOLUME: 2.0 PRESENTATION: Cephalic HEART RATE: 132.4 bpm bpm. AMNIOTIC FLUID VOLUME: 10.3 cm GESTATIONAL AGE: 34 weeks 2 days CONCLUSION: Total biophysical profile score 8.0. Electronically authenticated by: NE CRUZ Date: 2023-02-23 15:10NoChillicothe VA Medical CenterUS PREG GROWTHon [id number] PREG GROWTHEXAMINATION: US PREG GROWTH HISTORY: Uterine size for [...] Electronically authenticated by: NE CRUZ Date: 2023-02-23 15:19[facility] (CLEAN/CATCH) CHEMICAL LABORATORY TECHNICIAN/MICRO IF IND.on [id number] Ql (U) NegativeNormalNEGATIVERegency Hospital Cleveland WestComment on above:Performed By: #### CBC #### [facility] [address] [place] [address] Dr. Christopher Benzarity (U)CLEARNormalCLEARRegency Hospital Cleveland WestComment on above: Performed By: #### CBC #### [facility] [address] [address] [address] Christopher Stanleylor (U)LT. YELLOWNormalYELLOWRegency Hospital Cleveland WestComment on above:Performed By: #### CBC #### [facility] [address] [address] [address] Christopher HillmanGlucose Ql (U)NegativeNormalNEGATIVERegency Hospital Cleveland WestComment on above:Performed By: #### CBC #### [facility] [address] [address] [address] Christopher HillmanHemoglobin Ql (U)NegativeNormalNEGWilson Memorial Hospital Comment on above:Performed By: #### CBC #### [facility] [address] [place] [address] Dr. Christopher HillmanKetones Ql (U)NegativeNormalNEGATIVERegency Hospital Cleveland WestComment on above:Performed By: #### CBC #### [facility] [address] [place] [address] Dr. Christopher HillmanLEUKOCYTESNegativeNormalNEGATIVERegency Hospital Cleveland WestComment on above:Performed By: #### CBC #### [facility] [address] [place] [address] Dr. Christopher HillmanNitrite Ql (U)NegativeNormalNEGATIVERegency Hospital Cleveland WestComment on above:Performed By: #### CBC #### [facility] [address] [place] [address] Dr. Christopher HillmanpH (U)7.5 [pH]Normal5-9Reg[facility] Hospital Cleveland WestComment on above: Performed By: #### CBC #### [facility] [address] [place] [address] Dr. Christopher HillmanSPEC GRAVITY1.390Nouwuf3.005-<=1.025The [facility] LimaComment on above:Performed By: #### CBC #### [facility] [address] [place] [address] Dr. Christopher HillmanUA PROTEINNegativeNormalNEGATIVE/ TRACERegency Hospital Cleveland West Comment on above:Performed By: #### CBC #### [facility] [address] [place] [address] Dr. Christopher Aceves MICRO INDNOT INDICATEDEast Liverpool City HospitalComment on above:Performed By: #### CBC #### [facility] [address] [address] [address] Christopher Buckley Qn (U)0.2 {Maryann'U}/dLNormal0.2 - 1.0Reg[facility] Hospital Cleveland WestComment on above:Performed By: #### CBC #### [facility] [address] [address] [address] Christopher Maki PREG CERVICAL LENGTHon [id number] PREG CERVICAL LENGTH Examination:US PREG CERVICAL LENGTH INDICATION:Contraction COMPARISON:11/26/2022 TECHNIQUE:Real-time sonography of the fetus was performed. FINDINGS:There is a single live intrauterine gestation with a heartbeat of 148 bpm. presentation is cephalic. The cervical length is 4.3 cm without funneling. IMPRESSION: Cervical length is 4.3 cm without cervical funneling. Electronically authenticated by: BEN CONROY Date: 2023-01-14 20:18[facility] AUTO DIFFon 71-23-2959HLIY #0.0 103/ulNormal0.0-0.1Reg[facility] Hospital Cleveland WestComment on above:Performed By: #### CBC ####[facility] [address] [address]Dr.Yilan ChangBasophils/100 WBC (Bld)0.3 %Normal0.2-2.0The [facility] LimaComment on above:Performed By: #### CBC ####[facility] [address] [address]Dr.Yilan ChangEO #0.1 103/ulNormal0.0-0.7The [facility] LimaComment on above:Performed By: #### CBC ####[facility] [address] [address]Dr.Yilan ChangEosinophils/100 WBC (Bld)1.1 %Normal 0.9-7.0The [facility] LimaComment on above:Performed By: #### CBC ####[facility] [address] [address]Dr.Christopher Hillman Erythrocyte distribution width (RBC) [Ratio]12.7 %Rypkrl68.0-15.0The [facility] LimaComment on above:Performed By: #### CBC ####[facility] [address] [place], [place] [address]Dr.Christopher HillmanHematocrit (Bld) [Volume fraction]32.7 %Critically low36.0-48.0The Midway HospitalComment on above:Performed By: #### CBC ####[facility] [address] [place], [place] [address]Dr.Christopher HillmanHemoglobin (Bld) [Mass/Vol]10.6 g/dL Critically low12.0-16.0The [facility] LimaComment on above:Performed By: #### CBC ####[facility] [address]vas[address] [place], [place] [address]Dr. Christopher RafyIG #0.06 10e3/ulCritically high0.00-0.03The [facility] LimaComment on above:Performed By: #### CBC ####[facility] [address] [place], [place] [address]Dr.Christopher RafyIG %0.7 %Critically high0.0-0.5The [facility] LimaComment on above:Performed By: #### CBC ####[facility] [address] [place], [place] [address]Dr.Christopher RafyLYMPH #2.3 103/ulNormal1.2-3.8The [facility] LimaComment on above:Performed By: #### CBC ####[facility] [address] [place], [place] [address]Dr. Christopher RafyLymphocytes/100 WBC (Bld)25.2 %Ozbuaw26.5-60.0The [facility] Comment on above:Performed By: #### CBC ####[facility] P[address] [place], [place] [address]Dr.Christopher HillmanMANUAL DIFF REQNONormalThe [facility] LimaComment on above:Performed By: #### CBC ####[facility] [address] [address]Dr.Marichuypedro HillmanH (RBC) [Entitic mass]27.5 gkBnsjnm43.7-34.0The Midway HospitalComment on above: Performed By: #### CBC ####[facility] J[address]bs[address] [place], [place] [address]Dr.Christopher HillmanHC (RBC) [Mass/Vol]32.4 g/dLNormal 29.9-35.2The [facility] LimaComment on above:Performed By: #### CBC ####[facility] [address] [place], [place] [address]Dr. Christopher HillmanV (RBC) [Entitic vol]84.9 aJAxchxb27.0-99.0The [facility] Comment on above:Performed By: #### CBC ####[facility] [address] [place], [place] [address]Dr.Christopher HillmanMONO #0.8 103/ulNormal0.3-0.8 The [facility] LimaComment on above:Performed By: #### CBC ####[facility] [address] [place], [place] [address]Dr.Christopher Hillman Monocytes/100 WBC (Bld)8.6 %Normal1.7-12.0The [facility] LimaComment on above: Performed By: #### CBC ####[facility] [address] [place], [place] [address]Dr.Christopher HillmanNEUT #5.9 103/ulNormal1.4-6.5The [facility] LimaComment on above:Performed By: #### CBC ####[facility] Ng[address]fvrw[address] [place], [place] [address]Dr.Christopher HillmanNeutrophils/100 WBC (Bld)64.1 %Ckxlfq91.0-75.0The [facility] LimaComment on above:Performed By: #### CBC ####[facility] Dr[address] [place], [place] [address]Dr.Christopher HillmanPlatelet mean volume (Bld) [Entitic vol]10.7 fLNormal9.5-13.5 The [facility] LimaComment on above:Performed By: #### CBC ####[facility] [address] [address]Dr.Christopher KqjqxIUN369 103/heDoxfru749-894Vik [facility] LimaComment on above:Performed By: #### CBC ####[facility] [address] [address]Dr. Christopher HillmanRBC3.85 106/ulCritically low4.20-5.40The [facility] LimaComment on above:Performed By: #### CBC ####[facility] [address] [place], [place] [address]Dr.Christopher ChangWBC9.2 103/ulNormal4.0-11.0The [facility] LimaComment on above:Performed By: #### CBC ####[facility] [address] [place], [place] [address]DrShari HillmanGLUCOSE - 1HRon 38-29-8934Qhgnjke [Mass/Vol]83 mg/fLYdhyxm75-602Uqy [facility] LimaComment on above:Performed By: #### CBC #### [facility] [address] [place] [address] Dr. Christopher HillmanCHLAMYDIA/GONOCOCCUS SALOMÓN (SWAB/URINE/PAPon 89-31-9578Hzhdxvmgk trachomatis, NAANegativeNormalNegativeThe [facility] LimaComment on above: Performed By: #### CBC #### [facility] [address] [place] [address] Dr. Christopher HillmanNeisseria gonorrhoeae, NAANegativeNormalNegativeThe [facility] LimaComment on above:Performed By: #### CBC #### [facility] [address] [place] [address] Dr. Christopher HillmanVAGINITIS/VAGINOSIS DNA PROBEon 33-26-6106Gvqrsum speciesNegative NormalNegativeThe [facility] LimaComment on above:Performed By: #### VAGINT ####[facility] [address] [place], [place] [address]Jx. Christopher HillmanGardnerella vaginalisNegativeNormalNegativeThe [facility] Comment on above:Performed By: #### VAGINT ####[facility] [address] [place], [place] [address]Mr. Christopher HillmanTrichomonas vaginalisNegative NormalNegativeThe [facility] LimaComment on above:Performed By: #### VAGINT ####[facility] [address] [place], [place] [address]Nm. Christopher Maki PREG PLACENTAon [id number] PREG PLACENTAEXAMINATION: US PREG CERVICAL LENGTH, US PREG PLACENTA [...] Electronically authenticated by: NE CRUZ Date: 2022-11-27 06:59NormMercer County Community HospitalUS PREG ANATOMY SINGLEon 53-60-5030SD PREG ANATOMY SINGLE EXAMINATION: US PREG ANATOMY [...] Electronically authenticated by: NE CRUZ Date: 2022-11-17 15:21[facility] HospitalXR CHEST 1 Von 17-40-5721SX CHEST 1 VEXAMINATION: XR CHEST 1 V HISTORY: Chest pain COMPARISON: Chest x-ray 09/29/2020 TECHNIQUE: Portable chest FINDINGS: The lung parenchyma is free of consolidation or infiltrate. No pneumothorax or pleural effusion. The cardiac, mediastinal and hilar contours are normal. The visualized osseous structures exhibit no gross abnormality. IMPRESSION: Normal chest x-ray Electronically authenticated by: FARNAZ ENCISO Date: 2022-11-06 22:14[facility] HospitalAFP MATERNAL FOR SPINA BIFIDAon 07-00-9674QGT MoM1.19[facility] HospitalComment on above:Performed By: #### AFPMAT ####[facility] [address] [address]Dr. Christopher ChangAFP Value61.6 ng/mLNWayne HealthCare Main CampusComment on above:Performed By: #### AFPMAT ####[facility] [address] [address]Dr. Christopher HillmanAFP, Serum for Spina BifidaReportEast [facility] City Hospital Comment on above:Performed By: #### AFPMAT ####[facility] [address] [id number]. Christopher ChangCommentGenesis HospitalComment on above:Result Comment: Olinda Sparks, Ph.D., [facility] Director . References: Available Upon Request. . Multiples Of Median Cutoffs For AFP Elevations Kohli 2.5 Black 2.8 IDD 2.0 Twins 4.5 Abbreviation Definitions IDD - Insulin Dep Diabetes OSBR - Open Spina Bifida Risk . For further inquiries contact [facility] at [phone]. . This test was developed and its performance characteristics determined by [employer]. It has not been cleared or approved by the Food and Drug Administration.Performed By: #### AFPMAT ####[facility] [address] [address]Dr. Christopher HillmanGest Age Collection Date18.4 weeksEast Liverpool City HospitalComment on above: Performed By: #### AFPMAT ####[facility] [address] [address]Dr. Yilan ChangGestat, Age Based onLMPNWayne HealthCare Main CampusComthree rivers health hospital on above:Result Comment: Recalculations are not recommended when gestational dating by LMP and ultrasound are within 10 days.Performed By: #### AFPMAT ####[facility] [address] [address]Dr. Yilan ChangInsulin Dep DiabetesNoNWayne HealthCare Main CampusComment on above:Performed By: #### AFPMAT ####[facility] [address] [address]Dr. Yilan ChangInterpretationCommentEast Liverpool City HospitalComment on above: Result Comment: Interpretation: Screen Negative . This result is screen [...] Customer Services to discuss available options. The [employer] recommends amniocentesis be offered to women age 35 and older.Performed By: #### AFPMAT ####[facility] [address] [address]Dr. Yilan ChangMaternal Age at EDD20.0 yrEast Liverpool City HospitalComment on above:Performed By: #### AFPMAT ####[facility] [address] [address]Dr. Christopher HillmanMultiple GestationNoNormalRegency Hospital Cleveland WestComment on above:Performed By: #### AFPMAT ####[facility] [address] [address]Dr. Christopher HillmanOSBR Risk 1 TV4236EwusqvKqcEast Liverpool City HospitalComment on above:Performed By: #### AFPMAT ####[facility] [address] [address]Dr. Christopher HillmanPDF.NormalRegency Hospital Cleveland WestComment on above:Performed By: #### AFPMAT ####[facility] [address] [address]Dr. Christopher Higgins CaucasianEast Liverpool City HospitalComment on above:Performed By: #### AFPMAT ####[facility] [address] [address]Dr. Christopher Beckford Results:NegativeEast Liverpool City HospitalComment on above: Performed By: #### AFPMAT ####[facility] [address] [address]Dr. Christopher Mcclain DARNELL ADMITon 02-64-2892KQ [Catalytic activity/Vol]30 U/NIulllg12-620Ejj [facility] LimaComthree rivers health hospital on above: Performed By: #### DDIM #### [facility] [address] [address] [address] Christopher Velez.MB [Mass/Vol]ng/mLNormal<=3.60Reg[facility] Hospital Cleveland WestComment on above:Performed By: #### DDIM #### [facility] [address] [address] [address] Christopher DubonOP<4.4Askdgj3.0-51.3The [facility] LimaComment on above: Result Comment: CUT-OFF POINTS HAVE BEEN ESTABLISHED BASED ON THE FOURTH UNIVERSAL DEFINITIONS OF MYOCARDIAL INFARCTION. THE UPPER REFERENCE LIMIT (URL) OF TROPONIN, DEFINED THE 99TH PERCENTILE OF cTnI DISTRIBUTION IN A REFERENCE POPULATION, HAS BEEN CONFIRMED THE DECISION THRESHOLD FOR AL DIAGNOSIS.Performed By: #### DDIM #### [facility] [address] [place] [address] Dr. Christopher MckoyO11 ng/mLNormal9-82The [facility] LimaComment on above: Performed By: #### DDIM #### [facility] [address] [place] [address] Dr. Christopher Callahan AUTO DIFFon 05-97-1444MXPF #0.0 103/ulNormal0.0-0.1The [facility] LimaComment on above:Performed By: #### CBC #### [facility] [address] [place] [address] Dr. Christopher HillmanBasophils/100 WBC (Bld)0.4 %Normal0.2-2.0[facility] Comment on above:Performed By: #### CBC #### [facility] [address] [place] [address] Dr. Christopher Concepcion #0.1 103/ulNormal0.0-0.7The [facility] LimaComment on above: Performed By: #### CBC #### [facility] [address] [place] [address] Dr. Christopher Youngerosinophils/100 WBC (Bld)1.3 %Normal0.9-7.0[facility] Comment on above:Performed By: #### CBC #### [facility] [address] [place] [address] Dr. Christopher Youngerrythrocyte distribution width (RBC) [Ratio]14.7 %Oehobs43.0-15.0 The [facility] Hospital LimaComment on above:Performed By: #### CBC #### [facility] [address] [place] [address] Dr. Christopher HillmanHematocrit (Bld) [Volume fraction]38.3 %Mgyhep43.0-48.0The [facility] LimaComment on above:Performed By: #### CBC #### [facility] [address] [address] [address] Christopher HillmanHemoglobin (Bld) [Mass/Vol]12.1 g/mJYrboby52.0-16.0The [facility] LimaComment on above:Performed By: #### CBC #### [facility] [address] [address] [address] Christopher Crooks #0.06 10e3/ulCritically high0.00-0.03The [facility] Comment on above:Performed By: #### CBC #### [facility] [address] [place] [address] Dr. Christopher Crooks %0.6 %Critically high0.0-0.5The [facility] LimaComment on above:Performed By: #### CBC #### [facility] [address] [place] [address] Dr. Christopher Garcia #2.5 103/ulNormal1.2-3.8The [facility] LimaComment on above:Performed By: #### CBC #### [facility] [address] [place] [address] Dr. Christopher Woodshocytes/100 WBC (Bld)22.8 %Ygytgt21.5-60.0The [facility] LimaComment on above:Performed By: #### CBC #### [facility] [address] [place] [address] Dr. Christopher SahaUAL DIFF REQNONormalThe [facility] Hospital LimaComment on above: Performed By: #### CBC #### [facility] [address] [place] [address] Dr. hCristopher Pena (RBC) [Entitic mass]28.5 pkYwbdkh01.7-34.0The [facility] LimaComment on above:Performed By: #### CBC #### [facility] [address] [place] [address] Dr. Christopher Pena (RBC) [Mass/Vol]31.6 g/mOLulkky00.9-35.2The [facility] LimaComment on above:Performed By: #### CBC #### [facility] [address] [address] [address] Christopher PenaV (RBC) [Entitic vol]90.1 rVXadkvf98.0-99.0[facility] on above:Performed By: #### CBC #### [facility] [address] [place] [address] Dr. Christopher Terry #0.9 103/ulCritically high0.3-0.8[facility] Comment on above:Performed By: #### CBC #### [facility] [address] [place] [address] Dr. Christopher Douglasocytes/100 WBC (Bld)8.3 %Normal1.7-12.0[facility] Comment on above:Performed By: #### CBC #### [facility] [address] [place] [address] Dr. Christopher Horowitz #7.2 103/ulCritically high1.4-6.5The [facility] Comment on above:Performed By: #### CBC #### [facility] [address] [place] [address] Dr. Christopher Torresutrophils/100 WBC (Bld)66.6 %Exoate17.0-75.0The [facility] LimaComment on above:Performed By: #### CBC #### [facility] [address] [place] [address] Dr. Christopher Searslet mean volume (Bld) [Entitic vol]11.1 fLNormal9.5-13.5The [facility] LimaComment on above:Performed By: #### CBC #### [facility] [address] [place] [address] Dr. Christopher HillmanPLT283 103/gxEnblyg283-692Yjl [facility] LimaComment on above: Performed By: #### CBC #### [facility] [address] [place] [address] Dr. Christopher HillmanRBC4.25 106/ulNormal4.20-5.40The [facility] LimaComment on above:Performed By: #### CBC #### [facility] [address] [place] [address] Dr. Christopher HillmanWBC10.7 103/ulNormal4.0-11.0The [facility] on above:Performed By: #### CBC #### [facility] [address] [place] [address] Dr. Christopher Solomon-DIMERon 15-09-5971L-DIMER0.70 mg/L FEUCritically high<=0.59[facility] on above:Performed By: #### DDIM #### [facility] [address] [place] [address] Dr. Christopher Solomon-[facility]ER [facility] on above:Result Comment: Increases in D-Dimer concentration observed with thromboembolic events [...] stress, and generalized hospitalization. Performed By: #### DDIM #### [facility] [address] [place] [address] Dr. Christopher Stacy URINE PROFILEon 97-14-5023Ehployxfb Ql (U)NegativeNormal NEGATIVEThe [facility]imaComthree [facility] on above:Performed By: #### CBC #### [facility] [address] [place] [address] Dr. Christopher Adame (U)CLEARNormalCLEARRegency Hospital Cleveland WestComthree rivers health hospital on above: Performed By: #### CBC #### [facility] [address] [place] [address] Dr. Christopher Elder (U)LT. YELLOWNormalYELLOWGalion Community Hospital on above:Performed By: #### CBC #### [facility] [address] [place] [address] Dr. Christopher TeagueNAT micrscopic examination will be performed if indicated. NormalThe [facility] Hospital LimaComment on above:Performed By: #### CBC #### [facility] [address] [address] [address] Christopher HillmanGlucose Ql (U)NegativeNormalNEGATIVERegency Hospital Cleveland WestComment on above:Performed By: #### CBC #### [facility] [address] [address] [address] Christopher HillmanHemoglobin Ql (U)TRACE-INTACTAbnormalNEGATIVERegency Hospital Cleveland WestComment on above:Performed By: #### CBC #### [facility] [address] [address] [address] Christopher HillmanKetones Ql (U)NegativeNormalNEGATIVERegency Hospital Cleveland WestComment on above:Performed By: #### CBC #### [facility] [address] [place] [address] Dr. Christopher HillmanLEUKOCYTESSMALLAbnormalNEGATIVERegency Hospital Cleveland WestComment on above:Performed By: #### CBC #### [facility] [address] [address] [address] Christopher HillmanNitrite Ql (U)NegativeNormalNEGATIVERegency Hospital Cleveland WestComment on above:Performed By: #### CBC #### [facility] [address] [address] [address] Christopher HillmanpH (U)6.0 [pH]Normal5-9The [facility] LimaComment on above: Performed By: #### CBC #### [facility] [address] [address] [address] Christopher HillmanSPEC GRAVITY1.966Eglcpv8.005-<=1.025The [facility] Hospital LimaComment on above:Performed By: #### CBC #### [facility] [address] [address] [address] Christopher Lacy PROTEINNegativeNormalNEGATIVE/ TRACEWayne Healthcare Main Campus on above:Performed By: #### CBC #### [facility] [address] [address] [address] Christopher Aceves MICRO INDINDICATEDNormalThe [facility] Hospital LimaComment on above: Performed By: #### CBC #### [facility] [address] [place] [address] Dr. Christopher Benjaminino Qn (U)0.2 {Maryann'U}/dLNormal0.2 - 1.0The [facility] LimaComment on above:Performed By: #### CBC #### [facility] [address] [place] [address] Dr. Christopher HillmanPROF 14(COMP METB)on 20-00-3276Gdwbqrs [Mass/Vol]3.0 g/dL Critically low3.4-5.0The [facility] LimaComment on above:Performed By: #### DDIM #### [facility] [address] [place] [address] Dr. Christopher HillmanAlbumin/Globulin [Mass ratio]0.8 {ratio}NormalThe [facility] Hospital LimaComment on above:Performed By: #### DDIM #### [facility] [address] [place] [address] Dr. Christopher PathakP [Catalytic activity/Vol]112 U/BWvzhzc91-734Tms [facility] LimaComment on above:Performed By: #### DDIM #### [facility] [address] [place] [address] Dr. Christopher Hayes [Catalytic activity/Vol]47 U/PHcnwti56-47Clc [facility] LimaComment on above:Performed By: #### DDIM #### [facility] [address] [place] [address] Dr. Christopher Munguia gap [Moles/Vol]14.5 mmol/LNormalThe [facility] on above:Performed By: #### DDIM #### [facility] [address] [place] [address] Dr. Christopher HillmanAST [Catalytic activity/Vol]44 U/LCritically udxr02-71Wzh [facility] LimaComment on above:Performed By: #### DDIM #### [facility] [address] [place] [address] Dr. Yilan ChangBilirubin [Mass/Vol]0.1 mg/dLCritically low0.2-1.0The [facility] LimaComment on above:Performed By: #### DDIM #### [facility] [address] [place] [address] Dr. Christopher HillmanCalcium [Mass/Vol]8.9 mg/dLNormal8.5-10.1The [facility] Comment on above:Performed By: #### DDIM #### [facility] [address] [address] [address] Christopher HillmanChloride [Moles/Vol]104 mmol/SCxewrc18-239Jws [facility] Comment on above:Performed By: #### DDIM #### [facility] [address] [place] [address] Dr. Christopher HillmanCO2 [Moles/Vol]22.9 mmol/IImmwax80.0-32.0[facility] Comment on above:Performed By: #### DDIM #### [facility] [address] [place] [address] Dr. Christopher HillmanCreatinine [Mass/Vol]0.40 mg/dLCritically low0.55-1.02The [facility] LimaComment on above:Performed By: #### DDIM #### [facility] [address] [place] [address] Dr. Christopher YoungerGFR-AF NORTHERN IRISH>60Normal>=60The [facility] LimaComment on above:Performed By: #### DDIM #### [facility] [address] [place] [address] Dr. Christopher YoungerGFR-NON AF NORTHER[place]ISH>60Normal>=60The [facility] LimaComment on above:Performed By: #### DDIM #### [facility] [address] [place] [address] Dr. Christopher HillmanGlobulin (S) [Mass/Vol]3.8 g/dLNormalThe [facility] LimaComment on above:Performed By: #### DDIM #### [facility] [address] [place] [address] Dr. Christopher HillmanGlucose [Mass/Vol]92 mg/vMBtxyzg64-921Jqu [facility] Comment on above:Performed By: #### DDIM #### [facility] [address] [address] [address] Christopher HillmanPotassium [Moles/Vol]3.4 mmol/LCritically low3.5-5.1The [facility] LimaComment on above:Performed By: #### DDIM #### [facility] [address] [place] [address] Dr. Christopher HillmanProtein [Mass/Vol]6.8 g/dLNormal6.4-8.2The [facility] Comment on above:Performed By: #### DDIM #### [facility] [address] [place] [address] Dr. Christopher Forddium [Moles/Vol]138 mmol/UJvinpq295-447Wkh [facility] Comment on above:Performed By: #### DDIM #### [facility] [address] [place] [address] Dr. Christopher HillmanUrea nitrogen [Mass/Vol]4.0 mg/dLCritically low6.4-19.3The [facility] LimaComment on above:Performed By: #### DDIM #### [facility] [address] [place] [address] Dr. Christopher Reid nitrogen/Creatinine [Mass ratio]10.0 mg/mgNoChillicothe VA Medical CenterComment on above:Performed By: #### DDIM #### [facility] [address] [place] [address] Dr. Christopher Bueno MICROSCOPIC ONLYon 15-62-3778PMLALTCZGIAJRWbmwemxnJJMQ SEEN [facility] WestComment on above:Performed By: #### CBC #### [facility] [address] [place] [address] Dr. Christopher Gomez identified Cx Nom (U)NOT INDICATEDNoChillicothe VA Medical CenterComment on above:Performed By: #### CBC #### [facility] [address] [place] [address] Dr. Yilan ChangCASTNONE SEENNormalNONE SEENGalion Community Hospital on above:Performed By: #### CBC #### [facility] [address] [address] [address] Christopher HillmanCrystals LM Nom (Urine sed)NONE SEENNormalNONE SEENThe [facility] LimaComthree rivers health hospital on above:Performed By: #### CBC #### [facility] [address] [place] [address] Dr. White ChangEpithelial cells LM Ql (Urine sed)FEWAbnormalNONE SEEN /RAREThe [facility] Hospital LimaComthree rivers health hospital on above:Performed By: #### CBC #### [facility] [address] [place] [address] Dr. Christopher CamejoCOALEXANDRU SEENNormalNONE SEENGalion Community Hospital on above:Performed By: #### CBC #### [facility] [address] [place] [address] Dr. Christopher HillmanMhetrVVB8-7Pwxvpm4-8Ubl [facility] on above:Performed By: #### CBC #### [facility] [address] [place] [address] Dr. Christopher HillmanWBC0-2AbnormalNONE SEENGalion Community Hospital on above: Performed By: #### CBC #### [facility] [address] [place] [address] Dr. Christopher Maki PREG PLACENTAon 46-15-5475OL PREG PLACENTAEXAM: US PREG PLACENTA HISTORY vaginal bleeding. COMPARISON: [...] Electronically authenticated by: NE SABA Date: 2022-10-16 22:33[facility] URINE PROFILEon 91-73-6672Prsreyyda Ql (U)NegativeNormal NEGATIVERegency Hospital Cleveland WestComment on above:Performed By: #### CBC #### [facility] [address] [address] [address] Christopher HillmanClarity (U)CLEARNormalCLEARRegency Hospital Cleveland WestComment on above: Performed By: #### CBC #### [facility] [address] [address] [address] Christopher Elder (U)LT. YELLOWNormalYELLOWRegency Hospital Cleveland WestComment on above:Performed By: #### CBC #### [facility] [address] [address] [address] Christopher Fabian micrscopic examination will be performed if indicated. NormalRegency Hospital Cleveland WestComment on above:Performed By: #### CBC #### [facility] [address] [address] [address] Christopher HillmanGlucose Ql (U)NegativeNormalNEGATIVERegency Hospital Cleveland WestComment on above:Performed By: #### CBC #### [facility] [address] [address] [address] Christopher HillmanHemoglobin Ql (U)TRACE-LYSEDAbnormalNEGRegional Medical Center on above:Performed By: #### CBC #### [facility] [address] [address] [address] Christopher HillmanKetones Ql (U)NegativeNormalNEGATIVERegency Hospital Cleveland WestComment on above:Performed By: #### CBC #### [facility] [address] [address] [address] Christopher HillmanLEUKOCYTESNegativeNormalNEGATIVERegency Hospital Cleveland WestComthree rivers health hospital on above:Performed By: #### CBC #### [facility] [address] [place] [address] Dr. Christopher HillmanNitrite Ql (U)NegativeNormalNEGATIVERegency Hospital Cleveland WestComment on above:Performed By: #### CBC #### [facility] [address] [address] [address] Christopher Saunders (U)8.0 [pH]Normal5-9The [facility] LimaComment on above: Performed By: #### CBC #### [facility] [address] [address] [address] Christopher HillmanSPEC GRAVITY1.108Jzonld7.005-<=1.025The [facility] LimaComment on above:Performed By: #### CBC #### [facility] [address] [address] [address] Christopher Lacy PROTEINNegativeNormalNEGATIVE/ TRACEThe [facility] Comment on above:Performed By: #### CBC #### [facility] [address] [address] [address] Christopher Aceves MICRO INDINDICATEDEast Liverpool City HospitalComment on above: Performed By: #### CBC #### [facility] [address] [place] [address] Dr. Christopher Buckley Qn (U)0.2 {Maryann'U}/dLNormal0.2 - 1.0The [facility] LimaComment on above:Performed By: #### CBC #### [facility] [address] [place] [address] Dr. Christopher Bueno MICROSCOPIC ONLYon 12-32-0612QBFYNNFTPFDYRRynlxgrtKZQT SEEN The [facility] LimaComment on above:Performed By: #### CBC #### [facility] [address] [address] [address] Christopher Gomez identified Cx Nom (U)NOT INDICATEDNoChillicothe VA Medical CenterComthree rivers health hospital on above:Performed By: #### CBC #### [facility] [address] [address] [address] Christopher Melvin SEENNormalNONE SEENRegency Hospital Cleveland WestComment on above:Performed By: #### CBC #### [facility] [address] [place] [address] Dr. Christopher Otto LM Nom (Urine sed)NONE SEENNormalNONE SEENRegency Hospital Cleveland WestComment on above:Performed By: #### CBC #### [facility] [address] [address] [address] Christopher Youngerpithelial cells LM Ql (Urine sed)NONE SEENNormalNONE SEEN /RARE The [facility] Hospital LimaComthree rivers health hospital on above:Performed By: #### CBC #### [facility] [address] [address] [address] Christopher HillmanMUCOUSNONE SEENNormalNONE SEENThe [facility] on above:Performed By: #### CBC #### [facility] [address] [address] [address] Christopher HillmanRBCNMARTIN SEENAbnormal0-2The [facility] on above: Performed By: #### CBC #### [facility] [address] [address] [address] Christopher HillmanWBCGILL SEENNormalNONE SEENGalion Community Hospital on above: Performed By: #### CBC #### [facility] [address] [address] [address] Christopher Ames B SURFACE ANTIGEN SCREENon 30-10-3686ITxNg ScreenNegative NormalNegativeThe [facility] on above:Performed By: #### DDIM #### [facility] [address] [place] [address] Dr. Christopher Espinoza C VIRUS AB W/ REFLEX QUANTon 05-39-4905NSS AB<0.1Normal 0.0-0.9The [facility] on above:Performed By: #### HCVPCRR ####[facility] [address] [address] Christopher HillmanInterpretation:CommentNormalThAvita Health System [facility] on above: Result Comment: Negative Not infected with HCV, unless recent infection is suspected or other evidence exists to indicate HCV infection.Performed By: #### HCVPCRR ####[facility] [address] [address]. Christopher FelderV 1 AND 2 WITH REFLEXon 40-34-9028HIX Screen 4th Generation wRfx Non-ReactiveNormalNon ReactiveThe [facility] Hospital LimaComment on above:Result Comment: HIV Negative HIV-1/HIV-2 antibodies and HIV-1 p24 antigen were NOT detected. There is no laboratory evidence of HIV infection.Performed By: #### HIV12 ####[facility] [address] [address]. Christopher HillmanRPR QUANTon 12-72-2213Czwfm Plasma Reagin, QuantNon-ReactiveNormal NonRea<1:1The [facility] Hospital LimaComment on above:Result Comment: Please Note: This test does not meet current guidelines for screening and diagnosis of syphilis. This test is intended for following treatment response in patients being treated for syphilis infection. To screen for syphilis infection, a reflex cascade that includes both RPR and a treponema-specific assay should be utilized, such as Treponema pallidum (Syphilis) Screening [place] (728945) or Rapid Plasma Reagin (RPR) Test With Reflex to Quantitative RPR and Confirmatory Treponema pallidum Antibodies (740632).Performed By: #### CBC #### [facility] [address] [place] [address] Dr. Christopher Pelayo AB IGGon 24-53-7813Ngtfawu Antibodies, IgG4.82 index NormalImmune >0.99The [facility] Hospital LimaComment on above:Result Comment: Non- immune <0.90 Equivocal 0.90 - 0.99 Immune >0.99Performed By: #### RUBIGG ####[facility] [address] [address]. Christopher Callahan AUTO DIFFon 49-97-6223QGWO # 0.0 103/ulNormal0.0-0.1The [facility] LimaComment on above:Performed By: #### CBC #### [facility] [address] [place] [address] Dr. Christopher Bhattisophils/100 WBC (Bld)0.3 %Normal0.2-2.0The [facility] Comment on above:Performed By: #### CBC #### [facility] [address] [place] [address] Dr. Christopher Concepcion #0.1 103/ulNormal0.0-0.7The [facility] LimaComment on above: Performed By: #### CBC #### [facility] [address] [place] [address] Dr. Christopher Youngerosinophils/100 WBC (Bld)0.8 %Critically low0.9-7.0The [facility] LimaComment on above:Performed By: #### CBC #### [facility] [address] [place] [address] Dr. Christopher Youngerrythrocyte distribution width (RBC) [Ratio]14.1 %Rgnksy65.0-15.0 The [facility] LimaComment on above:Performed By: #### CBC #### [facility] [address] [place] [address] Dr. Christopher HillmanHematocrit (Bld) [Volume fraction]39.8 %Kolzrb25.0-48.0The [facility] LimaComment on above:Performed By: #### CBC #### [facility] [address] [place] [address] Dr. Christopher HillmanHemoglobin (Bld) [Mass/Vol]13.5 g/aVBhhxgz35.0-16.0The [facility] on above:Performed By: #### CBC #### [facility] [address] [place] [address] Dr. Christopher Crooks #0.03 10e3/ulNormal0.00-0.03The [facility] LimaComment on above:Performed By: #### CBC #### [facility] [address] [place] [address] Dr. Christopher Crooks %0.4 %Normal0.0-0.5The [facility] LimaComment on above: Performed By: #### CBC #### [facility] [address] [place] [address] Dr. Christopher OakleyMPH #1.9 103/ulNormal1.2-3.8The [facility] LimaComment on above:Performed By: #### CBC #### [facility] [address] [place] [address] Dr. Christopher Oakleymphocytes/100 WBC (Bld)24.6 %Uhnkbj84.5-60.0The [facility] LimaComment on above:Performed By: #### CBC #### [facility] [address] [place] [address] Dr. Christopher Veliz DIFF REQNONormalThe [facility] LimaComment on above: Performed By: #### CBC #### [facility] [address] [place] [address] Dr. Christopher Pena (RBC) [Entitic mass]27.3 wuViinth60.7-34.0The [facility]imaComment on above:Performed By: #### CBC #### [facility] [address] [place] [address] Dr. Christopher Pena (RBC) [Mass/Vol]33.9 g/mJSacova47.9-35.2The [facility] LimaComment on above:Performed By: #### CBC #### [facility] [address] [place] [address] Dr. Christopher Pena (RBC) [Entitic vol]80.6 fLCritically low81.0-99.0The [facility] LimaComment on above:Performed By: #### CBC #### [facility] [address] [place] [address] Dr. Christopher Terry #0.5 103/ulNormal0.3-0.8The [facility] LimaComment on above:Performed By: #### CBC #### [facility] [address] [place] [address] Dr. Christopher Douglasocytes/100 WBC (Bld)6.2 %Normal1.7-12.0The [facility] Comment on above:Performed By: #### CBC #### [facility] [address] [place] [address] Dr. Christopher Horowitz #5.2 103/ulNormal1.4-6.5The [facility] LimaComment on above:Performed By: #### CBC #### [facility] [address] [address] [address] Christopher HillmanNeutrophils/100 WBC (Bld)67.7 %Wjmsqa49.0-75.0The [facility] on above:Performed By: #### CBC #### [facility] [address] [address] [address] Christopher HillmanPlatelet mean volume (Bld) [Entitic vol]10.3 fLNormal9.5-13.5The [facility] LimaComthree rivers health hospital on above:Performed By: #### CBC #### [facility] [address] [address] [address] Christopher HillmanPLT250 103/ypKvkoah033-188Jdt [facility] on above: Performed By: #### CBC #### [facility] [address] [address] [address] Christopher HillmanRBC4.94 106/ulNormal4.20-5.40The [facility] on above:Performed By: #### CBC #### [facility] [address] [address] [address] Christopher HillmanWBC7.6 103/ulNormal4.0-11.0The [facility] on above: Performed By: #### CBC #### [facility] [address] [address] [address] Christopher HillmanCULTURE URINEon 58-78-4062XZBJLWG URINECulture Observations: LIGHT GROWTH OF MIXED GENITAL JELLY. NO POTENTIAL PATHOGENS SEEN.NormalThe [facility] on above:Performed By: #### URCX ####[facility] [address] [address]. Christopher Hillman GLYCOHEMOGLOBIN A1Con 89-69-6078AWT RECOMMENDATIONSEE [facility] on above:Result Comment: ADA RECOMMENDED LIMIT 4.0 - 6.0 ADA THERAPEUTIC TARGET < 7.0 ACTION SUGGESTED > 7.0Performed By: #### CBC #### [facility] [address] [place] [address] Dr. Christopher HillmanGlucose [Mass/Vol]103 mg/dLEast Liverpool City HospitalComment on above:Performed By: #### CBC #### [facility] [address] [address] [address] Christopher HillmanHbA1c (Bld) [Mass fraction]5.2 %Normal4.5-6.2The [facility] LimaComment on above:Performed By: #### CBC #### [facility] [address] [address] [address] Christopher HillmanNATJADIEL BOX TEST PT SEND OUTon [id number] TO REF LAB09/16/2022 NormalThe [facility] LimaComment on above:Performed By: #### NBOX #### [facility] [address] [place] [address] Dr. Christopher HillmanTYPE AND SCREENon 39-14-9490SOBT AND SCREENNegativeNoChillicothe VA Medical CenterComment on above:Performed By: #### TNS ####[facility] [address] [address]Dr.Yilan HillmanUS PREG TVon [id number] PREG TVEXAMINATION: US PREG TV HISTORY: Missed period COMPARISON: [...] Electronically authenticated by: NE CRUZ Date: 2022-08-12 22:13[facility] City HospitalRESPIRATORY PANEL PLUSon [id number] detectedNormal NOT DETECTEDThe [facility] Hospital LimaComment on above:Performed By: #### RSPLUS ####[facility] [address] [address]Dr. Yilan ChangB. ParapertusisNot detectedNormalNOT DETECTEDThe [facility] Comment on above:Performed By: #### RSPLUS ####[facility] Lrvzuwfqlu[address] [place], [place] [address]Dr. Christopher HillmanB. PertussisNot detected NormalNOT DETECTEDThe [facility] Hospital LimaComment on above:Performed By: #### RSPLUS ####[facility] Fjavpqcnxi[address] [place], [place] [address]Dr. Christopher HillmanChlamydia PneumoniaeNot detectedNormalNOT DETECTEDThe [facility] LimaComment on above:Performed By: #### RSPLUS ####[facility] Rgkmpedydp[address] [place], [place] [address]Dr. Christopher Hillman Coronavirus 229ENot detectedNormalNOT DETECTEDThe [facility] LimaComment on above:Performed By: #### RSPLUS ####[facility] Fshxxrczjh[address] [place], [place] [address]Dr. Christopher HillmanCoronavirus IBJ7Pma detectedNormalNOT DETECTEDThe [facility] LimaComment on above:Performed By: #### RSPLUS ####[facility] Ptxgprksus[address] [place], [place] [address]Dr. Christopher ChangCoronavirus HM09Dxy detectedNormalNOT DETECTEDThe [facility] Comment on above:Performed By: #### RSPLUS ####[facility] Doqnrkdpka[address] [place], [place] [address]Dr. Christopher HillmanCoronavirus UK37Xnd detected NormalNOT DETECTEDThe [facility]imaComment on above:Performed By: #### RSPLUS ####[facility] Urbiygfvab[address] [place], [place] [address]Dr. Christopher HillmanInfluenza A H1 2009Not detectedNormalNOT DETECTEDThe [facility]Com[facility] on above:Performed By: #### RSPLUS ####[facility] Eeqpyjfsgn6[address] [place], [place] [address]Dr. Christopher Hillman Influenza A H3Not detectedNormalNOT DETECTEDThe [facility] LimaComment on above:Performed By: #### RSPLUS ####[facility] Osqrfndczt[address] [place], [place] [address]Dr. Christopher HillmanInfluenza BNot detectedNormalNOT DETECTEDThe [facility] LimaComment on above:Performed By: #### RSPLUS ####[facility] Llqonbhkbz[address] [place], [place] [address]Dr. Christopher ChangMetapneumovirusNot detectedNormalNOT DETECTEDThe [facility] Comment on above:Performed By: #### RSPLUS ####[facility] Zleqnfpjil5[address] [place], [place] [address]Dr. Christopher HillmanMycoplas. PneumoniaeNot detectedNormalNOT DETECTEDThe [facility] LimaComment on above:Performed By: #### RSPLUS ####[facility] Zcxdmawzou20[address] [place], [place] [address]Dr. Christopher HillmanParainfluenza 1Not detectedNormalNOT DETECTEDThe [facility] LimaComment on above:Performed By: #### RSPLUS ####[facility] Djxsrdipjq38[address] [place], [place] [address]Dr. Christopher ChangParainfluenza 2Not detectedNormalNOT DETECTEDThe [facility] LimaComment on above:Performed By: #### RSPLUS ####[facility] Fhkhlkxheb7[address] [place], [place] [address]Dr. Christopher HillmanParainfluenza 3Not detectedNormalNOT DETECTEDThe [facility] LimaComment on above:Performed By: #### RSPLUS ####[facility] Avrsybytcf8[address] [place], [place] [address]Dr. Christopher Hillman Parainfluenza 4Not detectedNormalNOT DETECTEDThe [facility] LimaComment on above:Performed By: #### RSPLUS ####[facility] Hcxrzgzekf040[address] [place], [place] [address]Dr. Christopher HillamnRhino/EnterovirusDetectedAbnormalNOT DETECTEDThe [facility] Hospital LimaComment on above:Performed By: #### RSPLUS ####[facility] Ymzzcvsbcz045[address] [place], [place] [address]Dr. Christopher HillmanRP2 Header 1RESPIRATORY PANEL: [facility] Comment on above:Performed By: #### RSPLUS ####[facility] [address] [place] [id number]. Christopher Angel Header 2RESPIRATORY PANEL: [facility] CenterComment on above:Performed By: #### RSPLUS ####[facility] [address] [place] [address]Dr. Christopher JacksonVNot detectedNormalNOT DETECTEDThe [facility] Comment on above:Performed By: #### RSPLUS ####[facility] [address]royl[address] [place] [address]Dr. Christopher Gonzales-CoV-2 (COVID-19) RNA SALOMÓN+probe Ql (Unsp spec)Not detectedNormalNOT DETECTEDThe [facility] Comment on above:Performed By: #### RSPLUS ####[facility] [address]srx[address] [place] [address]Dr. Christopher Hillman Vital Signs Date TimeVital SignValuePerforming YdsxydhepJgjcchtb03-80-0487 14:27-0500Body mass index (BMI) [Ratio]24.98 kg/i8Fvska [employer] DO Work Phone: [phone] [place], [place] [address]Ofjymojqqk96-86-4952 14:27-050Body ateqkg72.96 kgCore [employer] DO Work Phone: [phone] [place], [place] [address]Acmntkteqk89-18-7243 14:270500Diastolic blood rzszbcpa03 mm[Hg]Alvaro [employer] DO Work Phone: [phone] [place], [place] [address]Jxgdxvfjqd02-88-6934 14:27050Systolic blood mvheceyw004 mm[Hg][facility] DO Work Phone: [phone] [place], [place] [address]Ethiqnpzyu59-90-0002 14:12-0400Body mass index (BMI) [Ratio]26.15 kg/b9[facility]10-02-2025 14:120400Body weight 66.95 kg[facility]10-02-2025 14:120400Diastolic blood ltqtaims96 mm[Hg][facility]10-02-2025 14:12-0400Systolic blood ebhrfjen177 mm[Hg][facility] HospitalFknvjegbma94-25-8859 11:06-0400Body zfiggb513 cmKaren Hemmer PA Work Phone: [facility] HospitalSokmnkrsxq30-99-5110 11:06-0400Body mass index (BMI) [Ratio]26.75 kg/e4Fbuia Hemmer PA Work Phone: [facility] HospitalQamlqchaxh39-79-9043 11:06-0400Body femsik23.49 kgKaren Hemmer PA Work Phone: [facility] HospitalRobkbidehb52-80-9004 11:06-0400Diastolic blood rfwwvaie07 mm[Hg]Ashtyn Hemmer PA Work Phone: [facility] HospitalRqmwgpytpa87-19-2591 11:06-0400Heart rate97 /min Ashtyn Hemmer PA Work Phone: [facility] HospitalYizpxuvhyn76-44-2384 11:06-0400Respiratory rate16 /minKaren Hemmer PA Work Phone: [facility] HospitalOeschuaxfd12-10-6226 11:06-1110XkA3% (BldA) [Mass fraction]99 %Ashtyn Hemmer PA Work Phone: [facility] HospitalAwdmoiqnkg35-51-6109 11:06-0400Systolic blood rzolfopn333 mm[Hg]Ashtyn Hemmer PA Work Phone: [facility] HospitalJowqkqdkkf40-05-4933 14:56-0500Body ouxhck893 cm Ashtyn Hemmer PA Work Phone: [facility] HospitalDdhaamcqfe26-37-0011 14:56-0500Body mass index (BMI) [Ratio]28.17 kg/m4Ugxls Hemmer PA Work Phone: [facility] HospitalXduecqqnxl48-02-1522 14:56-0500Body ftefug61.12 kgKaren Hemmer PA Work Phone: [facility] HospitalCsluejujeb81-50-0092 14:56-0500Diastolic blood solaenvb76 mm[Hg]Ashtyn Hemmer PA Work Phone: [facility] HospitalDzhskknfzs06-71-3354 14:56-0500Heart rate88 /min Ashtyn Hemmer PA Work Phone: [facility] HospitalTbkqhkkqym96-48-5802 14:56-6238RpS5% (BldA) [Mass fraction]97 %Ashtyn Hemmer PA Work Phone: [facility] HospitalBhlppbiyjv40-87-3518 14:56-0500Systolic blood dkwvnufa838 mm[Hg]Ashtyn Hemmer PA Work Phone: [facility] HospitalVvoglfencn23-69-9819 15:14-0500Body umilpc230 cm Ashtyn Hemmer PA Work Phone: [facility] HospitalOllidbffom35-08-1239 15:14-0500Body mass index (BMI) [Ratio]29.23 kg/u5Gwwid Hemmer PA Work Phone: [facility] HospitalStacokytsr66-87-5719 15:14-0500Body gogbfz65.84 kgKaren Hemmer PA Work Phone: [facility] HospitalGuikdrwuve83-10-1400 15:14-0500Diastolic blood uvrfykrr47 mm[Hg]Ashtyn Hemmer PA Work Phone: [place] [address]Czwnmvsdza77-47-6880 15:14-0500Heart rate88 /min Ashtyn Hemmer PA Work Phone: [facility] HospitalYowybocuvi26-71-0998 15:14-0500Respiratory rate16 /minKaren Hemmer PA Work Phone: [place] [address]Mebhxrnvzq61-62-5426 15:14-9628EyT7% (BldA) [Mass fraction]98 %Ashtyn Hemmer PA Work Phone: [place] [address]Lxnjsagqpj37-72-6915 15:14-0500Systolic blood honcfqpc184 mm[Hg]Ashtyn Hemmer PA Work Phone: [facility] HospitalDazsffiuhe43-73-5650 10:06-0400Body ctbbno814 cm Ashtyn Hemmer PA Work Phone: [facility] HospitalRetaogqzjt24-02-7906 10:06-0400Body mass index (BMI) [Ratio]29.41 kg/i2Fbces Hemmer PA Work Phone: [facility] HospitalZpwprskaxq54-03-2039 10:06-0400Body rbdyvj34.3 kg Ashtyn Hemmer PA Work Phone: [facility] HospitalMdcuffqluw25-89-3190 10:06-0400Diastolic blood iwebymjd85 mm[Hg]Ashtyn Hemmer PA Work Phone: [facility] HospitalHsijugiazp90-24-0921 10:06-0400Heart rate78 /min Ashtyn Hemmer PA Work Phone: [facility] HospitalJadtbclqgp94-06-7231 10:06-0400Respiratory rate16 /minKaren Hemmer PA Work Phone: [facility] HospitalIhcdymffnx41-96-7373 10:06-0225VsQ0% (BldA) [Mass fraction]98 %Ashtyn Hemmer PA Work Phone: [facility] HospitalXegmyalgwi63-83-6783 10:06-0400Systolic blood mm[Hg]Ashtyn Hemmer PA Work Phone: [facility] HospitalFvqmdupjwx99-09-6344 14:15-0400Body acsrmt080 cm Ashtyn Hemmer PA Work Phone: [facility] HospitalMsqqxyuppy37-54-8892 14:15-0400Body mass index (BMI) [Ratio]29.48 kg/t8Aeuud Hemmer PA Work Phone: [facility] HospitalFfnpulwwri21-62-6417 14:15-0400Body hqapqh17.48 kgKaren Hemmer PA Work Phone: [facility] HospitalDgdcguqmtb88-61-9017 14:15-0400Diastolic blood mm[Hg]Ashtyn Hemmer PA Work Phone: [facility] HospitalPoiucazmmk19-68-9677 14:15-0400Heart rate88 /min Ashtyn Hemmer PA Work Phone: [facility] HospitalHmisbevjky08-80-3132 14:15-0400Respiratory rate16 /minKaren Hemmer PA Work Phone: [facility] HospitalXnkqgtwrug45-33-2323 14:15-4605NiR9% (BldA) [Mass fraction]97 %Ashtyn Muniz PA Work Phone: [facility] HospitalGtxzddyrsv46-03-7837 14:15-0400Systolic blood smryxkcq047 mm[Hg]Ashtyn Muniz PA Work Phone: [facility] CenterDvmzkqytuk99-00-2618 14:25-0400Body zfqjul192 cm Goldie Solano [employer] Work Phone: [facility] HospitalPapwrwfvdo33-17-3975 14:25-0400Body mass index (BMI) [Ratio]29.94 kg/m2Goldie Solano [employer] Work Phone: [facility] HospitalWiwgjffiay59-21-7310 14:25-0400Body bzftow92.66 kgGoldie Solano SEO EXECUTIVE Work Phone: [facility] HospitalYbybzrgzvq46-41-2037 14:25-0400Diastolic blood mm[Hg]Goldie Solano [employer] EXEC[employer] Work Phone: [facility] HospitalRcnfimlhqj65-70-8906 14:25-0400Heart fwhc636 /min Goldie Solano [employer] Work Phone: [facility] HospitalMmrhizotkz25-44-5672 14:25-0751UtC3% (BldA) [Mass fraction]98 %Goldie Solano [employer] EXEC[employer] Work Phone: [facility] HospitalBstvvgdfwh95-03-4276 14:25-0400Systolic blood ghaaiyvj157 mm[Hg]Goldie Solano [employer] EXEC[employer] Work Phone: [facility] HospitalSywhygwckj24-95-6275 13:03-0400Body uscdnr329 cm Ashtyn Muniz PA Work Phone: [facility] HospitalUgglbgnbng18-96-9391 13:03-0400Body mass index (BMI) [Ratio]29.41 kg/g2UospvAshtyn Muniz PA Work Phone: [facility]OS[facility] CenterXcifclsorg10-32-2209 13:03-0400Body hxnriw28.3 kg Ashtyn Muniz PA Work Phone: [facility]OS[facility] CenterNzzygcgjdp66-32-8750 13:03-0400Diastolic blood gywdvqsw71 mm[Hg]Ashtyn Muniz PA Work Phone: [facility] HospitalLrzyofelsc53-50-2250 13:03-0400Heart rate87 /min Ashtyn Hemmer PA Work Phone: [facility] HospitalHbdzcaxwqa83-55-7443 13:03-0400Respiratory rate16 /minAshtyn Hemmer PA Work Phone: [facility] HospitalJxnrvpoiuv48-99-4496 13:03-5431OyH5% (BldA) [Mass fraction]98 %Ashtyn Hemmer PA Work Phone: [facility] HospitalYkctuwkmcr81-43-4714 13:03-0400Systolic blood ioqjzexj609 mm[Hg]Ashtyn Hemmer PA Work Phone: [facility] HospitalGbsoylclkh92-15-3140 11:09-0400Body ucduat352 cm Regine Soares MD Work Phone: [phone]-9451[facility] HospitalSehiyqzjpi91-36-3689 11:09-0400Body mass index (BMI) [Ratio]29.41 kg/t5OmgbcRegine Soares MD Work Phone: [facility] HospitalGsypatnkit50-38-1412 11:09-0400Body .3 kg Regine Soares MD Work Phone: [facility] HospitalEzofgiisen25-12-9651 11:09-0400Diastolic blood qujdtrwv69 mm[Hg]Regine Soares MD Work Phone: [facility] HospitalKuymuaphtv22-87-9851 11:09-0400Heart exxf149 /min Regine Soares MD Work Phone: [phone] HospitalKszogwksbc17-76-1294 11:09-8399SaK1% (BldA) [Mass fraction]97 %Regine Soares MD Work Phone: [facility] HospitalFkshlhtsae72-36-2532 11:09-0400Systolic blood xhtojfld607 mm[Hg]Regine Soares MD Work Phone: [facility] HospitalIxklbjqqpv41-82-1544 11:27-0400Body cm Regine Soares MD Work Phone: [facility] HospitalZngmbfmmnt45-41-2161 11:27-0400Body mass index (BMI) [Ratio]30.47 kg/q2QznmvRegine Soares MD Work Phone: [facility] HospitalHfxjhxbvze68-17-7042 11:27-0400Body yzxxqn47.02 kgRegine Soares MD Work Phone: [facility] HospitalEypnbmqfar29-53-5401 11:27-0400Diastolic blood ihjygomz65 mm[Hg]Regnie Soares MD Work Phone: [facility] HospitalNelknxoxjp69-41-3342 11:27-0400Heart rate70 /min Regine Soares MD Work Phone: [facility] HospitalYiyueqcwgh78-88-4769 11:27-9110OrU7% (BldA) [Mass fraction]98 %Regine Soares MD Work Phone: [facility] HospitalYtnuwbxvkx37-35-8998 11:27-0400Systolic blood qcixikrp527 mm[Hg]Regine Soares MD Work Phone: [facility] HospitalGoipggyaak57-16-2786 03:06-0500Body poscyi15.7824 kgDR REGINE Rowland [facility]Comment on above:Performed By: #### AFPMAT ####[facility] [address] [place] [address]Dr. Christopher Hillman Encounters Encounter DateEncounter TypeCare ProviderFacilityStart: 08-14-2025 End: 67-14-0928zzwxclhukoCIGCA FAZIONot AvailableStart: 08-14-2025 End: 02-74-2491Qkyydq outpatient visit 15 minutesCorey Michelle DO Work Phone: noMS [facility]elle OBGYNComment on above:First trimester ([facility]); 13 weeks gestation of ([facility])Start: 08-14-2025 End: 67-95-4067Ndfrwu flowsheetCorey Michelle DO Work Phone: [facility] OBGYNStart: 08-14-2025 End: 18-18-7259Efgglt flowsheetCorey Michelle DO Work Phone: [facility] [place] OBGYNStart: 07-27-2025 End: 32-14-9027Ieprzhkfd Result EncounterGeneric External Data ProviderNOMS External Department UnsolicitedStart: 07-27-2025 End: 65-44-1022Ijesqpzxy Result EncounterGeneric External Data ProviderNOMS External Department UnsolicitedStart: 07-14-2025 End: 62-08-5716Dkqykalwv Result EncounterGeneric External Data ProviderNOMS External Department UnsolicitedStart: 07-14-2025 End: 25-77-7966Inhrheuqw Result EncounterGeneric External Data ProviderNOMS External Department UnsolicitedStart: 07-13-2025 End: 96-73-2173lvyarnsuokZxill Nurse Noms Ignacio Denys [place] OBGYNComment on above:GA: 8t4hZbioq: 06-21-2025 End: 01-48-7641Isloyutei Fly MAYA Work Phone: NOFY [place] [facility] MedinceStart: 06-19-2025 End: 49-12-1887Jtrjil flowsKaren MAYA Work Phone: NOTE [place] [facility] MedinceStart: 06-19-2025 End: 91-80-6049Ftchts Ivon AMYA Work Phone: NOYQ [place] [facility] MedinceStart: 06-19-2025 End: 26-71-0373Zorqyw outpatient visit 25 minutesAshtyn MAYA Work Phone: NOMS [place] Family MedinceComment on above:Amenorrhea (Primary Dx); Positive test ([facility] Dark urine; Acute cystitis with hematuriaStart: 06-19-2025 End: 12-97-6501srdzfraeiqYGDZYVictoriano Mcgill AvailableStart: 10-06-2024 End: 46-44-6910oaqgnabxfjHODSK HEMMERNot AvailableStart: 10-04-2024 End: 04-29-7812Kmaxuvx encounter procedureAshtyn MAYA Work Phone: NOMS CI FMComment on above:Need for vaccinationStart: 10-04-2024 End: 77-27-9132lpuhlextffEMURV HEMMERNot AvailableStart: 09-29-2024 End: 03-36-0410dwgnzavprpQPSHE M HEMMERNot AvailableStart: 09-27-2024 End: 02-09-6975Dnzkxq outpatient visit 15 minutesAshtyn [place] Zuletamer PA Work Phone: NOMS CI FMComment on above:Wart of hand (Primary Dx); Overweight; Painful skin lesion; Screening for tuberculosisStart: 09-27-2024 End: 24-63-3954pmbziziierROJRG M HEMMERNot AvailableStart: 09-27-2024 End: 96-31-4724Qyunsd Ivon Adkins Hemmer PA Work Phone: NOM[facility] CI FMStart: 09-27-2024 End: 95-32-9807Dvlasf Ivon Adkins Hemmer PA Work Phone: NOM[facility] CI FMStart: 08-18-2024 End: 89-02-7056dwqrfrhudsEUHRK M HEMMERNot AvailableStart: 08-18-2024 End: 14-48-8407Umnuai outpatient visit 15 minutesAshtyn Lucille Zuletamer PA Work Phone: NOMS CI FMComment on above:Post depression (CMS/HCC) (Primary Dx); Painful skin lesion; Wart of handStart: 08-18-2024 End: 98-94-5195Lniyfd Ivon Adkins Hemmer PA Work Phone: NOM[facility] CI FMStart: 08-18-2024 End: 39-29-9511Fvyktr Ivon Adkins Hemmer PA Work Phone: NOM[facility] CI FMStart: 08-04-2024 End: 44-21-6367Pknjfn Ivon Adkins Hemmer PA Work Phone: NOM[facility] CI FMStart: 08-04-2024 End: 55-21-6334Ntvubh Ivon Adkins Hemmer PA Work Phone: NOM[facility] CI FMStart: 08-04-2024 End: 69-12-7012Ykhoaav encounter procedureAshtyn Muniz PA Work Phone: NOM[facility] CI FMComment on above:Painful skin lesion (Primary Dx); Wart of handStart: 08-02-2024 End: 56-56-7957Ikowzeees encounterAshtyn Muniz PA Work Phone: [facility]OM[facility] CI FMStart: 08-01-2024 End: 92-91-8212Dpflix outpatient visit 15 minutesAshtyn Zuletamer PA Work Phone: NOM[facility] CI FMComment on above:Vaginal discharge (Primary Dx)Start: 08-01-2024 End: 59-60-2202Kutaqi flowsKaren Zuletamer PA Work Phone: NOM[facility] CI FMStart: 08-01-2024 End: 56-54-0785Brhlxu Ivon Adkins Hemmer PA Work Phone: NOM[facility] CI FMStart: 07-20-2024 End: 06-70-5411Axmwjgw encounter statusGoldie Solano SEO EXECUTIVE Work Phone: [facility] Work Phone: Start: 07-20-2024 End: 59-10-3563Plwwalbe preventive med est patient 18-39 yrsGoldie Solano SEO EXECUTIVE Work Phone: NOMS CI FMComment on above:Wellness examination (Primary Dx); Encounter for vaccinationStart: 07-13-2024 End: 97-59-7606Bzlwkf Ivon Muniz PA Work Phone: NOM[facility] CI FMStart: 07-13-2024 End: 44-98-5692Izzqjh flowsKaren Adkins Hemmer PA Work Phone: NOM[facility] CI FMStart: 07-13-2024 End: 90-89-9492Zrvxbz outpatient visit 15 minutesAshtyn Muniz PA Work Phone: NOM[facility] CI FMComment on above:Painful skin lesion (Primary Dx); Wart of handStart: 06-28-2024 End: 95-28-9788Ehsybl outpatient visit 25 minutesRegine Soares MD Work Phone: noMS CI FMComment on above:Sprain of right ankle, unspecified ligament, sequela (Primary Dx); Post depression (CMS/HCC); 6 weeks follow-up; FolliculitisStart: 06-16-2024 End: 73-31-9318Gzkeejgae department patient visitAntelope Valley Hospital Medical Centertart: 06-07-2024 End: 77-79-8626Gerukj outpatient visit 15 minutesRegine Soares MD Work Phone: noMS CI FMComment on above:Wart of hand (Primary Dx) Start: 02-04-2024 End: 56-55-0891Bswwjldnh department patient visitREGINE Adkins [facility] Hospitaltart: 03-10-2023 End: 48-31-5691yrlwaciqghZG RUGEN ALDAFacility:Y5Wkgyr: 03-07-2023 End: 93-64-5820bffjuojbryCY RUGEN ALDAFacility:J9Bsytd: 03-06-2023 End: 17-43-9614ggumvmfyvzGM RUGEN ALDAFacility:W8Khntf: 2023 End: 86-45-0396zokzreplmhTK TYLER ARMENTAALONSOIsabel .Facility:R3Dkgtf: 03-03-2023 End: 41-49-5246pqvgpvlhyyHA RUGEN ALDAFacility:Y8Uvijs: 02-23-2023 End: 78-06-8745pjuqfcnliuIS RUGEN ALDAFacility:G2Nanln: 01-14-2023 End: 49-65-7082ykkmknjlxxJS RUGEN ALDAFacility:U3Toyzq: 01-03-2023 End: 62-30-1288cwdrzmjunwRD RUGEN ALDAFacility:L3Kpvfp: 12-13-2022 End: 75-76-7291tcrrxskkjnUM RUGEN ALDAFacility:D7Usafu: 12-02-2022 End: 51-76-6074jkwlzlepxkJGA RAMEY .Facility:B4Hmsnh: 11-26-2022 End: 54-45-1892bvzglwjzjpTP RUGEN ALDAFacility:V9Tkbve: 11-17-2022 End: 96-04-7127kdwuopuovcGE RUGEN ALDAFacility:W5Ejmvw: 11-06-2022 End: 02-91-7804gcqiqsbrqbWG RUGEN ALDAFacility:K9Zjxsl: 11-04-2022 End: 36-79-7407iqbljehwvkER RUGEN ALDAFacility:E6Tfquz: 10-16-2022 End: 31-04-5317lxwcgnzmcmUA RUGEN ALDAFacility:X4Vmyzo: 09-16-2022 End: 45-03-3209fdszaohyigIS RUGEN ALDAFacility:Z1Gncvw: 08-12-2022 End: 37-23-5560riuylxgqxcUV ALVARO MICHELLE .Facility:C0Uylve: 06-03-2022 End: 92-58-0001pwymqjawmgOI RUGEN ALDAFacility:H1 Procedures DateProcedureProcedure DetailPerforming ClinicianStart: 27-63-4061Hexpg dip stick/tablet rgnt non-auto w/o micrscpCorey Michelle DO Work Phone: Start: 36-93-8747HDK TESTGeneric External Data ProviderStart: 25-97-8878CB OB TRANSVAGINALGeneric External Data ProviderStart: 07-13-2025 End: 45-90-8890Fvubo dip stick/tablet rgnt non-auto w/o micrscpCorey Michelle DO Work Phone: Start: 06-19-2025 End: 00-53-1905Ifsiu dip stick/tablet rgnt non-auto w/o Guillermina MAYA Work Phone: Start: 08-39-4062SFLD Jean Carlos MAYA Work Phone: Plan of Treatment DateCare ActivityDetailAuthorStart: 09-11-2025 End: 75-58-9655Qpiguvs encounter /01/2025 10:30 AM EST Routine [facility] [address] [place] [address] [place] [address] Joanna Monroe, FRANCESCO [address] [place] [address] NOMArthur Joelle OBGYNStart: 08-14-2025 End: 49-50-7572Kfjhlfs encounter nngsstymq31/03/2025 2:10 PM EST Routine [facility] WEIENRN [address] [place], [id number] Alvaro Martinez DO [address] [place] [address] NOM[facility] OBGYNStart: 07-13-2025 End: 05-98-0592ODC/RhABO/Rh Lab Routine Missed menses , unspecified gestational age ([facility]) Expected: 07/13/2025 (Approximate), Expires: 07/13/2026[facility] HealthcareComment on above:Expected: 07/13/2025 (Approximate), Expires: 07/13/2026Start: 07-13-2025 End: 53-71-3689Esmyy type and Indirect antibody screen panel - BloodType and screen Lab Routine Missed menses , unspecified gestational age ([facility]) Expected: 07/13/2025 (Approximate), Expires: 07/13/2026[facility] Healthcare Work Phone: comment on above:Expected: 07/13/2025 (Approximate), Expires: 07/13/2026Start: 07-13-2025 End: 56-17-0915Otbxw of abuse panel - Urine by Screen methodRapid drug screen, urine Lab Routine , unspecified gestational age ([facility]) Encounter for supervision of normal first in first trimester ([facility]) Expected: 07/13/2025 (Approximate), Expires: 07/13/2026[facility] HealthcareComment on above: Expected: 07/13/2025 (Approximate), Expires: 07/13/2026Start: 07-13-2025 End: 35-16-6417rovdjgdljl83/02/2025 1:30 PM EDT Initial [facility] [address] [id number] [facility] OBGYNStart: 07-13-2025 End: 24-33-3097Ajanxdauxxmc / ancillary services ymqrouvgxc65/02/2025 1:00 PM EDT Ancillary Procedure [facility] [address] [place] [address] [facility]Start: 06-19-2025 End: 27-86-4648Ontrfbz encounter njdedcadc25/08/2025 11:00 AM EDT Office Visit [facility] [place] [address] [facility] [address] [place] [id number] Ashtyn Muniz PA [address] [facility] [address] [place] [address] ArrivedNOMS [place] Watkins MedinceComment on above:ArrivedStart: 46-21-0498QHFZH-19 Vaccine ( season)COVID-19 Vaccine ( season)NOMS HealthcareStart: 67-49-0217Pdxaoicqd vaccinationInfluenza Vaccine (#1)NOMS HealthcareStart: 10-06-2024 End: 96-07-6543Ipzxdbo encounter bmpubgigd85/26/2024 9:30 AM EST Office Visit [facility] [address] [facility] [address] [place] [address] BTRH CI FMStart: 10-04-2024 End: 58-64-6363Teixsat encounter berrtkgwk42/24/2024 9:00 AM EST Office Visit [facility] [address] [place] [address] [place] [address] PUXF CI FMStart: 09-29-2024 End: 92-06-5313Opuoobky Pfyzmul1209/29/2024 3:30 PM EST Clinical Support [facility] [address] [place] [address] [place] [address] DNTE CI FM Start: 09-27-2024 End: 63-36-1804Iezrazn encounter lhhndwihd92/17/2024 3:00 PM EST Office Visit [facility] [address] [place] [address] [place] [address] Ashtyn Muniz PA [address] [place] [address] [place] [address] ArrivedNOMS CI FMComment on above:ArrivedStart: 08-04-2024 End: 76-27-7179Obznzcz encounter procedureNOMS CI FMComment on above:Arrived Start: 08-01-2024 End: 02-18-9339Erniauy encounter oonvutrqt92/21/2024 2:30 PM EDT Office Visit [facility] [address] [place] [address] [place] [address] Ashtyn Muniz PA [address] [place] [address] [place] [address] ArrivedNOMS CI FMComment on above:ArrivedStart: 08-01-2024 End: 19-69-5851PFAXOOUIB (HTRX)VAGINITIS (HTRX) Lab Routine Vaginal discharge Expected: 08/01/2024 (Approximate), Expires: 08/01/2025[facility] Work Phone: Comment on above:Expected: 08/01/2024 (Approximate), Expires: 08/01/2025Start: 07-13-2024 End: 40-77-0773Ykvxewe encounter oesttmvxd72/02/2024 1:00 PM EDT Office Visit [facility] [address] [place] [address] Ashtyn Muniz, PA [address] [place] [address] ArrivedNOMS CI FMComment on above:ArrivedStart: 76-07-7864Lzdiqlogj vaccinationInfluenza Vaccine (#1)[facility] HealthcareBacteria identified in Urine by CultureUrine culture Microbiology Routine Missed menses Ordered: 07/13/2025[facility] HealthcareComment on above:Ordered: 07/13/2025BC W Auto Differential panel - BloodCBC and differential Lab Routine Missed menses , unspecified gestational age ([facility] Ordered: 07/13/2025[facility] HealthcareComment on above:Ordered: 07/13/2025HCG, quantitative, pregnancyHCG, quantitative, Lab Routine Amenorrhea Positive test ([facility]) Ordered: 06/19/2025[facility] Healthcare Work Phone: Comment on above:Ordered: 06/19/2025Hemoglobin A1c/Hemoglobin.total in BloodHemoglobin A1c Lab Routine Missed menses , unspecified gestational age ([facility]) Ordered: 07/13/2025[facility] HealthcareComment on above:Ordered: 07/13/2025Hepatitis B virus surface Ag [Presence] in Serum or Plasma by ImmunoassayHepatitis B surface antigen Lab Routine Missed menses , unspecified gestational age ([facility]) Ordered: 07/13/2025[facility] HealthcareComment on above:Ordered: 07/13/2025Hepatitis C virus Ab [Presence] in Serum or Plasma by ImmunoassayHepatitis C antibody Lab Routine Missed menses , unspecified gestational age ([facility]) Ordered: 07/13/2025[facility] HealthcareComment on above:Ordered: 07/13/2025HIV-1/HIV-2 antigen/antibody combination immunoassayHIV-1 and HIV-2 antibodies Lab Routine Missed menses , unspecified gestational age ([facility]) Ordered: 07/13/2025[facility] HealthcareComment on above:Ordered: 07/13/2025Reagin Ab [Presence] in Serum by RPRRPR Lab Routine Missed menses , unspecified gestational age ([facility]) Ordered: 07/13/2025[facility] HealthcareComment on above:Ordered: 07/13/2025 Rubella antibody, IgGRubella antibody, IgG Lab Routine Missed menses , unspecified gestational age ([facility]) Ordered: 07/13/2025[facility] HealthcareComment on above:Ordered: 07/13/2025URINARY TRACT INFECTION (HTRX)URINARY TRACT INFECTION (HTRX) Lab Routine Acute cystitis with hematuria Ordered: 06/19/2025 [facility] HealthcareComment on above:Ordered: 06/19/2025 Immunizations Immunization DateImmunizationNotesCare MupoprkfBzrhnhpy95-10-9043cilbuvsqak skin test; purified protein derivative solution, intradermalAshtyn Zuletamer PA Work Phone: [facility] Work Phone: [phone]as skin test; purified protein derivative solution, intradermalAshtyn Hemolga PA Work Phone: [facility] HospitalTdgrlfilio40-34-1945qjghdcovy, seasonal, injectable, preservative freeGoldie Solano SEO EXECUTIVE Work Phone: [facility] HospitalTolpsyfrxl32-04-7974rjjdhgcww virus vaccine, unspecified formulationAshtyn Muniz PA Work Phone: [facility] HospitalNbymccsjgh25-45-3789Blhotxkdr, injectable, Madin Mendenhall Canine Kidney, preservative free, quadrivalentRegine Soares MD Work Phone: [facility] HospitalKwekdoalui47-88-2409wngywtlvk virus vaccine, unspecified formulationRegine Soares MD Work Phone: [facility] HospitalFlbvytnink38-92-4383zunfxowcofann oligosaccharide (groups A, C, Y and W-135) diphtheria toxoid conjugate vaccine (MCV4O)Regine Soares MD Work Phone: [facility] HospitalRifnolscek39-63-6815wconvmoma, injectable, quadrivalent, preservative freeRegine Soares MD Work Phone: [facility] HospitalXedpcpgjau99-42-1175zxufbrlyq, injectable, quadrivalent, contains preservativeRegine Soares MD Work Phone: [phone] Missouri HospitalSnlevvrcvn87-15-1711Jetbt Papillomavirus 9-valent vaccineRegine Soares MD Work Phone: [facility] HospitalQcyijwzqgu92-66-0731qvanhurxpqeac B vaccine, recombinant, OMV, adjuvantedRegine Soares MD Work Phone: [facility] HospitalDpbcbjpcrj51-52-7247dssrctnhg virus vaccineRegine Soares MD Work Phone: [facility] HospitalGtehcfyswt74-82-9556rshxzroog A vaccine, pediatric/adolescent dosage, 2 dose scheduleRegine Soares MD Work Phone: [facility] HospitalBnyhnemrdi16-22-1636Vltvj Papillomavirus 9-valent vaccineRegine Soares MD Work Phone: [phone] [place], [place] [address]Ifndkbjffo36-09-7487ebwinmowkogqy B vaccine, recombinant, OMV, adjuvantedRegine Soares MD Work Phone: [phone] [place], [place] [address]Hopbolnnzu04-76-6744meokqjwcfhipw oligosaccharide (groups A, C, Y and W-135) diphtheria toxoid conjugate vaccine (MCV4O)Regine Soares MD Work Phone: [phone] [address] [place], [place] [address]Xtvmhggrpt85-07-2851gnypknh toxoid, reduced diphtheria toxoid, and acellular pertussis vaccine, adsorbedRegine Soares MD Work Phone: [phone] [place], [place] [address]Clocbhqjwi34-84-6411fsxrityqeb, tetanus toxoids and acellular pertussis vaccineRegine Soares MD Work Phone: [phone] [place], [place] [address]Tdjxncxtup87-23-3565akynbit, mumps and rubella virus vaccineRegine Soares MD Work Phone: [phone] [address] StreetHbhsbuueyy00-72-2578txjnrmythg vaccine, inactivatedRegine Soares MD Work Phone: [phone] [place], [place] [address]Duckoozpks46-04-2402sshbruuqqd, tetanus toxoids and acellular pertussis vaccine, unspecified formulationRegine Soares MD Work Phone: [facility] HospitalTycwxuvhlz20-94-9061dmglfeuoosm influenzae type b vaccine, conjugate unspecified formulationRegine Soares MD Work Phone: [phone] [place], [place] [address]Oahqgdzzmm77-69-3161fzrymaddehei conjugate vaccine, 7 valSaji Soares MD Work Phone: [phone] [place], [place] [address]Zeztscrpxq48-63-4957avywlwc, mumps and rubella virus vaccineRegine Soares MD Work Phone: [phone] [place], [place] [address]Iwawhgrqld51-81-4456gxypvaurzbps conjugate vaccine, 7 valentRbreonna Soares MD Work Phone: [facility] HospitalSobgssuopf89-98-3085nwtugyylk virus vaccineRegine Soares MD Work Phone: [facility] HospitalVgdhhtdyie58-10-6068tbvddgsnfy, tetanus toxoids and acellular pertussis vaccine, unspecified formulationRegine Soares MD Work Phone: [phone] [place], [place] [address]Evivvgzsfh95-21-0000qzbxrzswiwp influenzae type b conjugate and Hepatitis B vaccineRegine Soares MD Work Phone: [phone] [place], [place] [address]Kxpkwvfpam73-74-6677anpvjfwzl, seasonal, injectableRegine Soares MD Work Phone: [phone] [place], [place] [address]Hjaxywjecl86-81-2666ufkhzygdcgfg conjugate vaccine, 7 Jennifer Soares MD Work Phone: [facility] HospitalToucbqprih01-61-5686qgizbxzxty vaccine, inactivatedRegine Soares MD Work Phone: [phone] [address] [place], [place] [address]Khsvokepih69-48-8027khuftdkhn, seasonal, injectableRegine Saores MD Work Phone: [facility] HospitalSbgrjkimgx31-76-9566zerfslcnxc, tetanus toxoids and acellular pertussis vaccine, unspecified formulationRegine Soares MD Work Phone: [phone] [place], [place] [address]Jfutgczwhf20-34-5692nwukcwnxulq influenzae type b vaccine, conjugate unspecified formulationRegine Soares MD Work Phone: [phone] [place], [place] [address]Updwelulmf72-67-0440qoxjlhpdnefu conjugate vaccine, 7 Jennifer Soares MD Work Phone: [phone] [place], [place] [address]Pijivexjdw41-49-1856vyeyfsaotn vaccine, inactivatedRegine Soares MD Work Phone: [phone] [address] [place], [place] [address]Spnyjqfhrk38-86-3958brquezuqqy, tetanus toxoids and acellular pertussis vaccine, unspecified formulationRegine Soares MD Work Phone: [phone] [place], [place] [address]Vkjsjegxhm90-57-4760tgyzjwzahjb influenzae type b conjugate and Hepatitis B vaccineRegine Soares MD Work Phone: [phone] [address] [place], [place] [address]Yyzcposslu55-96-6515ienyozobnx vaccine, inactivatedRegine Soares MD Work Phone: [phone] [place], [place] [address]Omzsmabxvw25-39-4251nilmcglsm B vaccine, pediatric or pediatric/adolescent dosageRegine Soares MD Work Phone: [phone] [place] [address] Payers DatePayer CategoryPayerPolicy ID2022Medicaid[place] [id number] 2022-Present [address] [place] [id number] 2022Medicaid (Managed Care)[employer] [employer] Member Subscriber Plan / Payer (Effective 2022-Present) Name: Maren Campos Relation to Subscriber: Self Name: Maren Campos Payer ID: Not on file Group ID: Not on file Type: Not on file Address: [address] [place] [id number] 2.16840.1.830169.3.57[id number] 2.16840.1.098482.3.57[id number] 2.840.1.227460.3.57[id number] 2.16840.1.965213.3.579.2.22730-76-7076Ymvaugo7861601 2.16840.1.050612.3.57[id number] 2.16840.1.821668.3.57[id number] 2.16840.1.563326.3.57[id number] 2.16840.1.294614.3.57[id number] 2.16.840.1.017249.3.57[id number] 2.16.840.1.381328.3.57[id number] 2.16840.1.117393.3.579.2.86366-39-8292Efiiymd2171225 2.16840.1.880896.3.57[id number] 2.16840.1.472853.3.57[id number] 2.16840.1.610758.3.57[id number] 2.16840.1.674949.3.579.[id number] 2.16840.1.914374.3.57[id number] 2.16840.1.616530.3.57[id number] 2.16840.1.906854.3.57[id number] 2.16840.1.910984.3.57[id number] 2.16840.1.835716.3.579.[id number] 2.16840.1.921498.3.579.2.1[id number] 2.16840.1.104281.3.57[id number] 2.16840.1.176112.3.57[id number] 2.16.840.1.140134.3.579.2.46[id number] 2.16.840.1.584753.3.579.2.390568-13-8571Wdvwtxw7103002 2.16.840.1.767808.3.579.2.153045-07-2114Ybilwcm0426373 2.16.840.1.507519.3.579.2.707872-91-0429Sditzpp8477578 2.16.840.1.595593.3.579.2.434613-34-8573Jvjxjur7027810 2.16.840.1.135793.3.579.2.3[id number] 2.16.840.1.872775.3.579.2.593 Social History DateTypeDetailFacilityStart: 64-24-8673Uhyabtg smoking status NHISNever smoked tobaccoNOMS HealthcareStart: 87-21-9450Fixedpl use and exposureSmokeless tobacco non-userNOMS HealthcareStart: 07-13-2024 End: 61-11-6003Haqqxhfmb beverage intakeLifetime non-drinker (finding)[facility] HealthcareStart: 07-13-2024 End: 57-18-8365Gxadxkz of Social functionNOMS HealthcareStart: 07-13-2024 End: 92-85-5032Njxpmxj use panelNOMS HealthcareStart: 19-66-5919Jtmzhks Comment Caffeine: noneNOMS HealthcareStart: 88-03-9202Hun assigned at birthNot on file [facility] HealthcareStart: 80-93-3648QzioqxnnlCFSC HealthcareStart: 45-33-3558Rzm FemaleNOMN Healthcare Functional Status HeliIlluqonxhuXkgglyThlvuolv32-03-6144Ccfnidq Health Questionnaire 2 item (PHQ- 2) [Reported][facility] Clinical Notes 06-07-2024 to 08-14-2025 Note Date & ZdvvJskeBjtoyerc89-30-4700 History of Present illness Narrative* Alvaro DO Michelle - 08/14/2025 2:10 PM EST Reason for Appointment: Patient ID: Maren Campos [...] tablet, Oral, Daily ALLERGIES Allergies Allergen Reactions Penicillins Hives, Rash and Unknown PROBLEMS Active [...] TONSILLECTOMY 2009 TandA WISDOM TOOTH EXTRACTION 04/2021 REVIEW OF SYSTEMS Review of Systems: Review of Systems Constitutional: Negative. HENT: Negative. Eyes: Negative. Respiratory: Negative. Cardiovascular: Negative. Gastrointestinal: Negative. Genitourinary: Negative. Musculoskeletal: Negative. Skin: Negative. Neurological: Negative. All other systems reviewed and are negative. Hematological: Negative. Endocrine: Negative. Allergic/Immunologic: Negative. OBJECTIVE Objective: Physical Exam Constitutional: Appearance: Normal appearance. She is well-developed. Cardiovascular: Rate and Rhythm: Normal rate and regular rhythm. Pulmonary: Effort: Pulmonary effort is normal. Breath sounds: Normal breath sounds. Abdominal: General: Bowel sounds are normal. There is no distension. Palpations: Abdomen is soft. Tenderness: There is no abdominal tenderness. There is no guarding or rebound. Musculoskeletal: General: No swelling. Normal range of motion. Right lower leg: No edema. Left lower leg: No edema. Neurological: Mental Status: She is alert and oriented to person, place, and time. Skin: General: Skin is warm and dry. Psychiatric: Mood and Affect: Mood normal. Behavior: Behavior normal. Vitals and nursing note reviewed. Exam conducted with a accounting machine operator present. Vitals: Estimated body mass index is 24.98 kg/m as calculated from the following: Height as of 06/19/25: 5' 3 . Weight as of this encounter: 141 lb. BP: 124/72 Patient's last menstrual period was 05/08/2025. Assessment/Plan ICD-10-CM 1. First trimester ([facility]) Z34.91 metoclopramide (Reglan) 10 MG tablet 2. 13 weeks gestation of ([facility]) Z3A.13 POCT urinalysis dipstick manually resulted metoclopramide (Reglan) 10 MG tablet New OB: Patient presents today for 1st time obstetrics appointment with provider. Patient is currently 13w1d . Patients history has been reviewed in great detail including any potential risks. Patient stated she currently has no complaints. Expectations throughout regarding labs, ultrasounds, and appointments have been discussed with the patient in detail. It was reiterated that the patient is to drink 6-8 glasses of water a day, eat 6 small meals a day, do not consume raw or undercooked meat, and [facility]. Patient has been consulted regarding any further do's and don'tsof . Patient voiced understanding and all questions and concerns were answered. Will start depression meds prior to delivery at 36 weeks gestation with Celexa, sent reglan to pharmacy. Patient will have primary due to history of shoulder dystocia on 02/12/2025. Orders Placed This Encounter Procedures POCT urinalysis dipstick manually resulted Follow Up: Patient is to return in 4 weeks for routine OB appointment. Documented by Iman Jacome LPN on behalf of: Alvaro Martinez DO documented in this encounterSoutheast Missouri HospitalNjxolbcxbu77-76-9663 History of Present illness Narrative* Ginger Cisse MA - 07/13/2025 1:30 PM EDT Reason for Appointment: Patient ID: Maren Campos [...] dipstick manually resulted , unspecified gestational age ([facility]) - Type and screen; Future - ABO/Rh; Future - CBC and differential - Hemoglobin A1c - RPR - Rubella antibody, IgG - Hepatitis B surface antigen - Hepatitis C antibody - HIV-1 and HIV-2 antibodies - Rapid drug screen, urine; Future Encounter for supervision of normal first in first trimester ([facility]) - Rapid drug screen, urine; Future Nurse Note: Pt desires Mcintosh billion to one. Pt was advised to do both Mcintosh and labs @ [facility]. Follow Up: Patient is to have labs drawn at directed and return to office for initial OB appointment with provider. Patient may call office as needed with any concerns or questions. Nurse Visit Completed by: Ginger Cisse MA documented in this encounterSoutheast Missouri HospitalAaevqyhdby39-71-9971 Telephone encounter Note* Telephone Encounter - SAVANA RIVAS - 06/21/2025 3:49 PM EDT Patient notified [facility] HospitalPadivykwsw01-78-2063 Miscellaneous Notes* Telephone Encounter - SAVANA RIVAS - 06/21/2025 3:49 PM EDT Patient notified * Telephone Encounter - FRANCESCO Hanson - 06/21/2025 3:17 PM EDT Please let pt know that her urine culture came back negative for infection. She can stop the Keflex. Needs to make sure she stays hydrated, drinking plenty of water. Contact office if symptoms do notcontinue to improve with the Clotrimazole. documented in this encounterSoutheast Missouri HospitalLrdxzlzqix01-39-7460 Telephone encounter Note* Telephone Encounter - FRANCESCO Hanson - 06/21/2025 3:17 PM EDT Please let pt know that her urine culture came back negative for infection. She can stop the Keflex. Needs to make sure she stays hydrated, drinking plenty of water. Contact office if symptoms do notcontinue to improve with the Clotrimazole. [facility] HospitalDojhatvhda15-25-0691 History of Present illness Narrative* FRANCESCO Hanson - 06/19/2025 11:00 AM EDT Images from the original note were not [...] see Dr. Martinez for her first but wouldlike to look into [employer] for a new lunchroom attendant. Last period was started 05/08/2025 and ended [...] if needed for shortnessof breath / wheezing [DISCONTINUED] citalopram (CeleXA) 40 MG tablet Take 1 tablet (40 mg) by mouth in the morning. (Patient not taking: Reported on 06/19/2025) 30 tablet 2 [DISCONTINUED] clotrimazole (Lotrimin) 1 % vaginal cream Insert 1 applicator into the vagina in theevening for 7 days 45 g 0 [DISCONTINUED] [...] R tube and paper patch TONSILLECTOMY 2010 Pranay WISDOM TOOTH EXTRACTION 04/2021 Visit Vitals BP [...] Provided pt with referral to OB at [facility] at her request. Positive test ([facility]) - HCG, quantitative, - Ambulatory [...] by mouth in the morning and 1 capsule(500 mg) before bedtime. Do all this for [...] (around 07/21/2025) for Wellness. documented in this [facility]12-24-2024 History of Present illness Narrative* Luz Maria Artis LPN - 10/04/2024 9:00 AM EST TB checked in right arm. Negative for TB. documented in this [facility]12-17-2024 History of Present illness Narrative* FRANCESCO Hanson - 09/27/2024 3:00 PM EST Images from the original note were not included. Subjective Patient ID: Maren Campos is a 19 y.o. female who presents for wart on hand. Pt has had ongoing issue with wart on left hand pt states it is still bothering her especially whenshe is typing Current Outpatient Medications on File Prior to Visit Medication Sig Dispense Refill albuterol HFA 90 mcg/act inhaler inhale 2 puffs by mouth every 4 to 6 hours if needed for shortnessof breath / wheezing citalopram (CeleXA) 40 MG [...] at this time for further evaluation and discussionof alternative treatment options. Overweight Pt has lost [...] up for Nurse visits. documented in this encounterSoutheast Missouri HospitalSamtqxqmca72-51-9792 History of Present illness Narrative* FRANCESCO Hanson - 08/18/2024 3:00 PM EST Images from the original note were not [...] explained and return precautions reviewed. If a blisterforms, the patient is not to pop the [...] for Medication Follow Up. documented in this encounterSoutheast Missouri HospitalFdfkznyogl57-18-8745 History of Present illness Narrative* FRANCESCO Hanson - 08/04/2024 10:00 AM EDT Images from the original note were not included. Subjective Patient ID: Maren Campos is a 19 y.o. female who presents for wart removal. Maren is present today for wart removal on her left middle finger. She was first treated for this06/07/24, then again on 07/13/24, it has gotten some smaller. It is painful d/t where the position isof it. Current Outpatient Medications on File Prior to Visit Medication Sig Dispense Refill albuterol HFA 90 mcg/act inhaler inhale 2 puffs by mouth every 4 to 6 hours if needed for shortnessof breath / wheezing citalopram (CeleXA) 20 MG [...] explained and return precautions reviewed. If a blisterforms, the patient is not to pop the [...] or fail to improve. documented in this encounterSoutheast Missouri HospitalPavhzvevfj36-49-0745 Telephone encounter Note* Telephone Encounter - FRANCESCO Hanson - 08/03/2024 1:31 PM EDT Message was sent to pt through [employer]. I did call and LM on pt's voicemail to confirm she receivedthe results, and to call back with questions if needed. [facility] HospitalQvolgatvei68-02-4814 Miscellaneous Notes* Telephone Encounter - FRANCESCO Hanson - 08/03/2024 1:31 PM EDT Message was sent to pt through [employer]. I did call and LM on pt's voicemail to confirm she receivedthe results, and to call back with questions if needed. * Telephone Encounter - FRANCESCO Hanson - 08/02/2024 1:48 PM EDT Please let pt know that her swab came back positive for bacterial vaginosis and yeast. Finish Fluconazole as prescribed. Metronidazole sent in for her to cover the BV. Encourage probiotic while on antibiotic. No alcohol while on medications if she drinks at all. documented in this encounterSoutheast Missouri HospitalPezpfhwioy11-39-2481 Telephone encounter Note* Telephone Encounter - FRANCESCO Hanson - 08/02/2024 1:48 PM EDT Please let pt know that her swab came back positive for bacterial vaginosis and yeast. Finish Fluconazole as prescribed. Metronidazole sent in for her to cover the BV. Encourage probiotic while on antibiotic. No alcohol while on medications if she drinks at all. [facility] HospitalFqrpakuqov84-19-1531 History of Present illness Narrative* FRANCESCO Hanson - 08/01/2024 2:30 PM EDT Images from the original note were not [...] if needed for shortnessof breath / wheezing citalopram (CeleXA) 20 MG [...] No follow-ups on file. documented in this encounterSoutheast Missouri HospitalNivfmszgah72-49-2716 History of Present illness Narrative* Goldie Solano NP - 07/20/2024 2:30 PM EDT Images from the original note were not [...] if needed for shortnessof breath / wheezing citalopram (CeleXA) 20 MG [...] No follow-ups on file. documented in this encounterSoutheast Missouri HospitalBqmhbshvai58-58-6634 History of Present illness Narrative* FRANCESCO Hanson - 07/13/2024 1:00 PM EDT Images from the original note were not [...] if needed for shortnessof breath / wheezing citalopram (CeleXA) 20 MG [...] explained and return precautions reviewed. If a blisterforms, the patient is not to pop the [...] or fail to improve. documented in this encounterSoutheast Missouri HospitalGcdhbrnyvz08-38-7651 History of Present illness Narrative* Regine Soares MD - 06/28/2024 11:17 AM EDTAssociated Problem(s): Sprain of right ankle Wrap and elevate * Regine Soares MD - 06/28/2024 11:16 AM EDTAssociated Problem(s): Folliculitis Add Probiotic to help replenish the good bacteria that are destroyed by the Antibiotics Florastor Florajen Align or try Activia in Yogurt Probiotics reduce the risk of antibiotic induced diarrhea * Regine Soares MD - 06/28/2024 11:00 AM EDT Images from the original note were not included. HPI ER Follow-up Additional comments: Pt missed a step and sprained her ankle , XR was normal Last edited by Miroslava Pan MA on 06/28/2024 7:56 AM. Subjective Patient ID: Maren Campos is a 19 y.o. female who presents for ER Follow- up (Pt missed a stepand sprained her ankle , XR was normal ). [facility] for she missed [...] No follow-ups on file. documented in this encounterSoutheast Missouri HospitalZeuajvocbb08-46-8287 History of Present illness Narrative* Regine Soares MD - 06/07/2024 11:47 AM EDTAssociated Problem(s): Wart of hand With patient's verbal consent and after explaining risk benefits and potential outcomes 3 warts frozen with cryo with freeze thaw cycle x 2. Patient tolerated the procedure well. May need repeated in 2 weeks if not fully resolved * Regine Soares MD - 06/07/2024 11:30 AM EDT Images from the original note were not [...] if needed for shortnessof breath / wheezing citalopram (CeleXA) 20 MG [...] No follow-ups on file. 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) Mental disorders of mother, complicating , childbirth, [...] to episode of care 6 weeks follow-up ([facility]) Folliculitis Other specified disease of hair and hair follicles Amenorrhea- Primary Absence of menstruation Positive test ([facility]) examination or test, positive result [...] to episode of care 6 weeks follow-up ([facility]) Folliculitis Other specified disease of hair and hair follicles Missed menses , unspecified gestational age ([facility]) Encounter for supervision of normal first in first trimester ([facility]) documented in this encounter [facility]* Diagnosis Folliculitis- Primary Other specified disease of hair and hair follicles Flexural eczema Other atopic dermatitis and related conditions Wart of hand Wart of hand- Primary Sprain of right ankle, unspecified ligament, sequela- Primary Post depression Mental disorders of mother, complicating , childbirth, or the puerperium, unspecified as to episode of care 6 weeks follow-up ([facility]) Folliculitis Other specified disease of hair and hair follicles First trimester ([facility]) state, incidental 13 weeks gestation of ([facility]) documented in this encounter [facility] Summary Purpose Family History No Family History Records FoundNo Family History Records FoundNo Family History Records FoundNo Family History Records Found Advance Directives No Advanced Directives Records FoundNo Advanced Directives Records FoundNo Advanced Directives Records FoundNo Advanced Directives Records Found Additional Source Comments INFORMATION SOURCE (unrecogn ized section and content) DATE CREATED AUTHOR 03/20/2023 [facility] DATE CREATED AUTHOR AUTHOR'S ORGANIZ ATION 06/18/2024 [facility] DATE CREATED AUTHOR AUTHOR'S ORGANIZ ATION 06/21/2025 [facility] DATE CREATED AUTHOR AUTHOR'S ORGANIZ ATION 08/15/2025 [facility] EPIC Care Teams (unrecognized sec tion and content) Team MemberRelationshipSpecialtyStart DateEnd Date Regine Soares MD [address] [place] [address] PCP - GeneralFamily Medicine03/11/23Team MemberRelationshipSpecialtyStart DateEnd Date Regine Soares MD [address] [place] [address] PCP - GeneralFamily Medicine03/11/23Team MemberRelationshipSpecialtyStart DateEnd Date Regine Soares MD [address] [place] [address] PCP - GeneralFamily Medicine03/11/23Team MemberRelationshipSpecialtyStart DateEnd Date Regine Soares MD [address] [place] [address] PCP - GeneralFamily Medicine03/11/23Team MemberRelationshipSpecialtyStart DateEnd Date Regine Soares MD [address] [place] [address] PCP - GeneralFamily Medicine03/11/23Team MemberRelationshipSpecialtyStart DateEnd Date Regine Soares MD [address] [place] [address] PCP - GeneralFamily Medicine03/11/23Team MemberRelationshipSpecialtyStart DateEnd Date Regine Soares MD [address] [place] [address] PCP - GeneralFamily Medicine03/11/23Team MemberRelationshipSpecialtyStart DateEnd Date Regine Soares MD [address] [place] [address] PCP - GeneralFamily Medicine03/11/23Team MemberRelationshipSpecialtyStart DateEnd Date Regine Soares MD [address] [place] [address] PCP - GeneralFamily Medicine03/11/23Team MemberRelationshipSpecialtyStart DateEnd Date Regine Soares MD [address] [place] [address] PCP - [facility]03/11/23Te MemberRelationshipSpecialtyStart DateEnd Date Regine Soares MD [address] [facility] [address] [place] [address] PCP - [facility]03/11/23Team MemberRelationshipSpecialtyStart DateEnd Date Regine Soares MD [address] [facility] [address] [place] [address] PCP - [facility]03/11/23Te MemberRelationshipSpecialtyStart DateEnd Date Regine Soares MD [address] [facility] [address] [place] [address] PCP - [facility]03/11/23Te MemberRelationshipSpecialtyStart DateEnd Date Regine Soares MD [address] [facility] [address] [place] [address] PCP - [facility]03/11/23Te MemberRelationshipSpecialtyStart DateEnd Date Regine Soares MD [address] [facility] [address] [place] [address] PCP - [facility]03/11/23 Reason for Visit (unrecogniz ed section and content) ReasonCommentsAnnual ExamReasonCommentsER Follow-upPt missed a step and sprained her ankle , XR was normalReasonCommentswart on handReasonCommentswart removal ReasonCommentsAmenorrheaReasonCommentsRoutine Visit FOR RECORDS PERTAINING TO PATIENTS WHO ARE [...] BE BASED ON THE PRIMARY CLINICAL RECORDS. [facility]. provides no warranty or guarantee of the accuracy or completeness of information in this document.
[2025-09-13 12:09] LABS: Age Gdln ACOG Testing Note (.); IGP, rfx Aptima HPV ASCU Note (.)
== END 2025-09-11 14:46 | disposition home or self-care (01) ==
LOC: LAB 14:45
PROVIDERS: PCP Family Medicine; Visit Provider Physician Assistant
DX: Z01.419 Encounter for gynecological examination (general) (routine) without abnormal findings (principal)
CPT/HCPCS: 88175